=== PATIENT | male | born 1945 ===

== ENCOUNTER 2016-10-25 22:34 | Inpatient (IN) | payer MEDICARE ==
[2016-10-25 22:34] VITALS: BMI 21.3
--- NOTE | 2016-10-25 23:42 | ED PDOC ---
Lower Extremity Pain/Injury Time Seen by Provider: 10/25/16 22:57 Chief Complaint (Nursing): Lower Extremity Problem/Injury Chief Complaint (Provider): leg swelling chest pain History/Exam Limitations: other (pt is a poor historian) Additional Complaint(s): leg swelling that has been going on for "a long time" but reports that there has been recent increase in swelling and then oozing from both legs, LEFT worse than RIGHT. Associated intermittent chest pain and shortness of breath that have also been going of for "a long time". PMD Dr Hutchinson. Past Medical History Reviewed: Historical Data, Nursing Documentation, Vital Signs Vital Signs: Last Vital Signs Temp 98.2 F 10/25/16 22:38 Pulse 60 10/25/16 22:38 Resp 16 10/25/16 22:38 BP 94/52 L 10/25/16 22:38 Pulse Ox 98 10/25/16 22:38 - Medical History PMH: Anemia, Anxiety, Atrial Fibrillation, CAD, CHF, Dementia, Depression, HTN, Hypothyroidism Denies: Diabetes, Hepatitis, HIV, Chronic Kidney Disease, Seizures, Sexually Transmitted Disease - Surgical History Surgical History: Pacemaker - Family History Family History: States: Unknown Family Hx - Social History Current smoker - smoking cessation education provided: No - Home Medications Home Medications: Ambulatory Orders Medication Instructions Recorded Apixaban [Eliquis] 2.5 mg PO BID 10/26/16 Aspirin [Ecotrin] 81 mg PO DAILY 10/26/16 Carvedilol [Coreg] 3.125 mg PO BID 10/26/16 Enalapril Maleate [Vasotec] 2.5 mg PO DAILY 10/26/16 Ferrous Sulfate [Feosol] 325 mg PO TID 10/26/16 Furosemide [Lasix] 40 mg PO BID 10/26/16 Omeprazole 40 mg PO DAILY 10/26/16 - Allergies Allergies/Adverse Reactions: Allergies Allergy/AdvReac Type Severity Reaction Status Date / Time No Known Allergies Allergy Verified 03/18/16 08:37 Review of Systems ROS Statement: Except As Marked, All Systems Reviewed And Found Negative (and as per HPI) Constitutional: Positive for: Weakness, Malaise. Negative for: Fever Cardiovascular: Positive for: Chest Pain, Edema Respiratory: Positive for: Shortness of Breath, SOB with Exertion. Negative for : Cough Musculoskeletal: Positive for: Leg Pain Skin: Positive for: Lesions Physical Exam - Reviewed Nursing Documentation Reviewed: Yes Vital Signs Reviewed: Yes - Physical Exam Appears: Positive for: No Acute Distress (appears chronically ill) Head Exam: Positive for: ATRAUMATIC, NORMOCEPHALIC Skin: Positive for: Warm, Pallor Eye Exam: Positive for: EOMI, PERRL, Other (pale conjuntivae) ENT: Positive for: Pharynx Is (clear), Other (tacky muc memb) Neck: Positive for: Painless ROM, Supple Cardiovascular/Chest: Positive for: Regular Rate, Rhythm. Negative for: Murmur Respiratory: Positive for: Other (poor air movement). Negative for: Accessory Muscle Use, Respiratory Distress Gastrointestinal/Abdominal: Positive for: Other (Firm). Negative for: Tenderness, Distended, Guarding Extremity: Positive for: Other (bilateral 2+ pitting edema with induration. LEFT leg with ulceration and erythema as well.). Negative for: Deformity Lymphatic: Negative for: Adenopathy Neurologic/Psych: Positive for: Mood/Affect (depressed, flat). Negative for: Motor/Sensory Deficits - Laboratory Results Result Diagrams: 10/26/16 06:00 10/26/16 06:00 - ECG O2 Sat by Pulse Oximetry: 98 Disposition - Clinical Impression Clinical Impression: CHF (congestive heart failure) - Disposition Disposition: Transfer of Care Disposition Time: 00:00 Condition: FAIR Patient Signed Over To: Kmala Brenner Handoff Comments: Pending ER workup and final disposition
[2016-10-26 00:15] LABS: ALB/GLOB RATIO 1.1 (1.0-2.1); ALKALINE PHOSPHATASE 72 U/L (38-126); ALT/SGPT 35 U/L (21-72); AST/SGOT 61 U/L (17-59); BLOOD UREA NITROGEN 26 mg/dl (9-20); CALCIUM 8.8 mg/dL (8.4-10.2); CARBON DIOXIDE 26 mmol/L (22-30); CHLORIDE 98 mmol/L (98-107); GFR AFRICAN-AMERICAN > 60; GLUCOSE,RANDOM 109 mg/dL (75-110); MAGNESIUM 2.4 MG/DL (1.6-2.3); PHOSPHOROUS 3.5 mg/dl (2.5-4.5); POTASSIUM 4.6 MMOL/L (3.6-5.0); SODIUM 134 mmol/l (132-148); TOTAL PROTEIN 6.6 G/DL (6.3-8.2)
[2016-10-26 00:22] LABS: PARTIAL THROMBOPLASTIN TIME 29.9 Seconds (25.6-37.1)
--- NOTE | 2016-10-26 00:30 | ED PDOC ---
- Laboratory Results Result Diagrams: 10/27/16 05:00 10/27/16 05:00 - ECG O2 Sat by Pulse Oximetry: 98 (RA) Pulse Ox Interpretation: Normal Medical Decision Making Medical Decision Making: Time: 00:25 Patient transferred to [place]. Labs and work up are pending. 03:55 held lasix due to borderline blood pressure. 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 Provider Scribe Attestation: All medical record entries made by the Scribe were at my direction and personally dictated by me. I have reviewed the chart and agree that the record accurately reflects my personal performance of the history, physical exam, medical decision making, and the department course for this patient. I have also personally directed, reviewed, and agree with the discharge instructions and disposition. Disposition Counseled Patient/Family Regarding: Studies Performed, Diagnosis - Clinical Impression Clinical Impression: CHF (congestive heart failure) - POA Present On Arrival: None - Disposition Disposition: Admitted as In-Patient Disposition Time: 02:30 Condition: FAIR
[2016-10-26 00:46] LABS: BASO # 0.1 K/uL (0.0-0.2); BASO % 1.1 % (0.0-2.0); EOS # 0.1 K/uL (0.0-0.7); EOS % 1.8 % (0.0-4.0); HEMATOCRIT 23.5 % (35.0-51.0); LYMPH # 0.6 K/uL (1.0-4.3); LYMPH % 11.7 % (20.0-40.0); MEAN CORPUSCULAR HEMOGLOBIN 22.1 pg (27.0-31.0); MEAN CORPUSCULAR HGB CONC 30.8 g/dL (33.0-37.0); MEAN PLATELET VOLUME 8.7 fl (7.2-11.7); MONO # 0.7 K/uL (0.0-0.8); MONO % 13.7 % (0.0-10.0); NEUT # 3.7 K/uL (1.8-7.0); NEUT % 71.7 % (50.0-75.0); NRBC % 0.1 % (0.0-0.0); RED CELL DISTRIBUTION WIDTH 19.5 % (11.5-14.5); WHITE BLOOD COUNT 5.2 K/uL (4.8-10.8)
[2016-10-26] MEDS ORDERED: Sodium Chloride 0.9% 1,000 ML IV STA ×2 (00:57→05:25)
[2016-10-26 01:50] LABS: NEUTROPHIL 79 % (42-75); TOTAL CELLS COUNTED 100
[2016-10-26] MEDS ORDERED: Ampicillin/Sulbactam 3 GM in Sodium Chloride 0.9% 100 ML IVPB STA (01:58)
[2016-10-26] MEDS: Ampicillin/Sulbactam 3 GM in Sodium Chloride 0.9% 100 ML IVPB SCH ×3 (04:56→21:38)
[2016-10-26 07:25] LABS: BASO % 0.7 % (0.0-2.0); EOS # 0.1 K/uL (0.0-0.7); EOS % 1.2 % (0.0-4.0); HEMATOCRIT 23.3 % (35.0-51.0); LYMPH # 0.6 K/uL (1.0-4.3); LYMPH % 13.4 % (20.0-40.0); MEAN CELL VOLUME 72.6 fl (80.0-94.0); MEAN CORPUSCULAR HEMOGLOBIN 22.4 pg (27.0-31.0); MEAN CORPUSCULAR HGB CONC 30.9 g/dL (33.0-37.0); MEAN PLATELET VOLUME 8.7 fl (7.2-11.7); MONO # 0.6 K/uL (0.0-0.8); MONO % 13.3 % (0.0-10.0); NEUT # 3.1 K/uL (1.8-7.0); NEUT % 71.4 % (50.0-75.0); NRBC % 0.1 % (0.0-0.0); RED CELL DISTRIBUTION WIDTH 19.5 % (11.5-14.5); WHITE BLOOD COUNT 4.4 K/uL (4.8-10.8)
[2016-10-26 07:54] LABS: ALKALINE PHOSPHATASE 69 U/L (38-126); ALT/SGPT 34 U/L (21-72); AST/SGOT 46 U/L (17-59); BILIRUBIN,TOTAL 0.8 mg/dl (0.2-1.3); BLOOD UREA NITROGEN 23 mg/dl (9-20); CALCIUM 8.5 mg/dL (8.4-10.2); CARBON DIOXIDE 26 mmol/L (22-30); CHLORIDE 101 mmol/L (98-107); GFR AFRICAN-AMERICAN > 60; GLUCOSE,RANDOM 86 mg/dL (75-110); POTASSIUM 3.7 MMOL/L (3.6-5.0); SODIUM 135 mmol/l (132-148); TOTAL PROTEIN 6.1 G/DL (6.3-8.2)
--- NOTE | 2016-10-26 08:05 | CP.PCM.HP ---
History of Present Illness - History of Present Illness History of Present Illness: A 71 year old male with history of A-fib, CHF, Hypertension, chronic anemia, hypothyroidism, dementia, depression came for right lower leg pain and abdominal pain. He has been having follow up with a networks software consultant and he has leg ulcer. He denies fever or chills or nausea. He feels general weakness. Present on Admission - Present on Admission Any Indicators Present on Admission: No History of DVT/PE: No History of Uncontrolled Diabetes: No Urinary Catheter: No Decubitus Ulcer Present: No Review of Systems - Constitutional Constitutional: Anorexia, Weakness - Respiratory Respiratory: absent: Cough, Dyspnea - Gastrointestinal Gastrointestinal: Abdominal Pain Past Patient History - Infectious Disease Hx of Infectious Diseases: None - Tetanus Immunizations Tetanus Immunization: Unknown - Past Medical History & Family History Past Medical History?: Yes - Past Social History Smoking Status: Never Smoked - CARDIAC Hx Cardiac Disorders: Yes Hx Atrial Fibrillation: Yes Hx Congestive Heart Failure: Yes Hx Hypertension: Yes - PULMONARY Hx Respiratory Disorders: No - NEUROLOGICAL Hx Neurological Disorder: Yes Hx Dementia: Yes Hx Syncope: Yes - HEENT Hx HEENT Problems: Yes Other/Comment: glasses - RENAL Hx Chronic Kidney Disease: No - ENDOCRINE/METABOLIC Hx Endocrine Disorders: No - HEMATOLOGICAL/ONCOLOGICAL Hx Blood Disorders: Yes Hx Anemia: Yes - INTEGUMENTARY Hx Dermatological Problems: Yes Hx Cellulitis: Yes - MUSCULOSKELETAL/RHEUMATOLOGICAL Hx Musculoskeletal Disorders: Yes Hx Falls: Yes - GASTROINTESTINAL Hx Gastrointestinal Disorders: Yes Hx Gastroesophageal Reflux: Yes - GENITOURINARY/GYNECOLOGICAL Hx Genitourinary Disorders: No - PSYCHIATRIC Hx Psychophysiologic Disorder: Yes Hx Anxiety: Yes Hx Depression: Yes - SURGICAL HISTORY Hx Surgeries: Yes Hx Open Reduction Internal Fixation: Yes (left femur surgery) Other/Comment: Pacemaker Placement - ANESTHESIA Hx Anesthesia: Yes Hx Anesthesia Reactions: No Hx Malignant Hyperthermia: No Meds Allergies/Adverse Reactions: Allergies Allergy/AdvReac Type Severity Reaction Status Date / Time No Known Allergies Allergy Verified 03/18/16 08:37 Physical Exam - Constitutional Appears: No Acute Distress, Chronically Ill - Neck Exam Neck exam: Positive for: Full Rom - Respiratory Exam Respiratory Exam: Clear to Auscultation Bilateral, NORMAL BREATHING PATTERN - Cardiovascular Exam Cardiovascular Exam: REGULAR RHYTHM. absent: Systolic Murmur - GI/Abdominal Exam GI & Abdominal Exam: Guarding (guarding on right side), Normal Bowel Sounds - Extremities Exam Extremities exam: Positive for: pedal edema (superficial ulcers on the back of left lower leg) Results - Vital Signs Recent Vital Signs: Last Vital Signs Temp 97.5 F L 10/26/16 08:00 Pulse 60 10/26/16 08:00 Resp 20 10/26/16 08:00 BP 94/55 L 10/26/16 08:00 Pulse Ox 99 10/26/16 08:00 - Labs Result Diagrams: 10/26/16 06:00 10/26/16 00:00 Labs: Laboratory Results - last 24 hr 10/26/16 06:00 WBC 4.4 L RBC 3.21 L Hgb 7.2 L Hct 23.3 L MCV 72.6 L MCH 22.4 L MCHC 30.9 L RDW 19.5 H Plt Count 260 MPV 8.7 Neut % (Auto) 71.4 Lymph % (Auto) 13.4 L [place] % (Auto) 13.3 H Eos % (Auto) 1.2 Baso % (Auto) 0.7 Neut # 3.1 Lymph # 0.6 L [place] # 0.6 Eos # 0.1 Baso # 0.0 Assessment & Plan - Assessment and Plan (Free Text) Assessment: cellulitis of left lower leg anemia abdominal pain Plan: continue iv antibiotics for cellulitis blood transfusion one unit for anemia anemia work up cardiology consult repeat troponin abdomen ultrasound DVT prophylaxis GI prophylaxis - Date & Time Date: 10/26/16 Time: 08:13
--- NOTE | 2016-10-26 08:34 | CP.PCM.CON ---
<Shanta Rosario - Last Filed: 10/26/16 10:09> History of Present Illness - History of Present Illness History of Present Illness: GI Fellow PGY4 Consult Note This is a 71yM with PMHx significant for CHF (EF 20-25%) s/p recent AICD placement, Afib on Eliquis bid (currently held), CAD (50% mid-LAD lesion on cath from July 2016) on aspirin, LLE DVT, HTN, Anxiety, h/o GI bleed who presented to the ED for LLE pain. The patient is unable to provide any history given dementia, but no reported melena on admission. Pt was found to have acute anemia in ER with Hgb 7.2 from 10.7 baseline in April. Pt has had 3 prior admissions for rectal bleeding on OAC requiring 3-4U PRBC transfusions and endoscopic evaluation. During last admission in April, pt was planned to have colonoscopy for rectal bleeding and anemia however this procedure was canceled due to pt having a new DVT on OAC so underwent IVC placement, transfused 4U PRBC and discharged on xarelto bid. Currently, when seen and examined pt appears uncomfortable with abdominal pain and distention on palpation, rectal exam negative for melena or hematochezia. PMHx: See HPI PSHx: Cardiac catheterization, AICD placement, Right leg/hip surgery, IVC filter FHx: Unable to obtain / [place] Social: Former smoker, denies current EtOH, tobacco or illicit drug use Endo: 02/29/16 - EGD: Gastritis Colonoscopy - AVMs on right colon, 2 AC polyps-benign, hyperplastic 03/22/16 - Push enteroscopy - Gastritis Colonoscopy - AVMs in right colon s/p APC, one AC polyp-tubular adenoma 04/25/16- Colonoscopy canceled due to acute DVT requiring IVC filter, rectal bleeding resolved, supportive care with PRBCs Past Patient History - Infectious Disease Hx of Infectious Diseases: None - Tetanus Immunizations Tetanus Immunization: Unknown - Past Medical History & Family History Past Medical History?: Yes - Past Social History Smoking Status: Never Smoked - CARDIAC Hx Cardiac Disorders: Yes Hx Atrial Fibrillation: Yes Hx Congestive Heart Failure: Yes Hx Hypertension: Yes - PULMONARY Hx Respiratory Disorders: No - NEUROLOGICAL Hx Neurological Disorder: Yes Hx Dementia: Yes Hx Syncope: Yes - HEENT Hx HEENT Problems: Yes Other/Comment: glasses - RENAL Hx Chronic Kidney Disease: No - ENDOCRINE/METABOLIC Hx Endocrine Disorders: No - HEMATOLOGICAL/ONCOLOGICAL Hx Blood Disorders: Yes Hx Anemia: Yes - INTEGUMENTARY Hx Dermatological Problems: Yes Hx Cellulitis: Yes - MUSCULOSKELETAL/RHEUMATOLOGICAL Hx Musculoskeletal Disorders: Yes Hx Falls: Yes - GASTROINTESTINAL Hx Gastrointestinal Disorders: Yes Hx Gastroesophageal Reflux: Yes - GENITOURINARY/GYNECOLOGICAL Hx Genitourinary Disorders: No - PSYCHIATRIC Hx Psychophysiologic Disorder: Yes Hx Anxiety: Yes Hx Depression: Yes - SURGICAL HISTORY Hx Surgeries: Yes Hx Open Reduction Internal Fixation: Yes (left femur surgery) Other/Comment: Pacemaker Placement - ANESTHESIA Hx Anesthesia: Yes Hx Anesthesia Reactions: No Hx Malignant Hyperthermia: No Meds Allergies/Adverse Reactions: Allergies Allergy/AdvReac Type Severity Reaction Status Date / Time No Known Allergies Allergy Verified 03/18/16 08:37 - Medications Medications: Current Medications Acetaminophen (Tylenol 325mg Tab) 650 mg PO Q6 PRN PRN Reason: Pain, Mild (1-3) Last Admin: 10/26/16 05:55 Dose: 650 mg Carvedilol (Coreg) 3.125 mg PO BID [facility] Enalapril Maleate (Vasotec) 2.5 mg PO DAILY [facility] Furosemide (Lasix) 40 mg PO BID [facility] Ampicillin Sodium/Sulbactam (Sodium 3 gm/ Sodium Chloride) 100 mls @ 100 mls/ hr IVPB Q8H [facility] Last Admin: 10/26/16 04:56 Dose: Not Given Sodium Chloride (Sodium Chloride 0.9%) 1,000 mls @ 80 mls/hr IV .[id number] STA Stop: 10/26/16 13:26 Last Admin: 10/26/16 05:57 Dose: Not Given Pantoprazole Sodium (Protonix Inj) 40 mg IVP DAILY [facility] Physical Exam - Constitutional Appears: Confused, Cachectic - Head Exam Head Exam: ATRAUMATIC, NORMAL INSPECTION, NORMOCEPHALIC - Eye Exam Eye Exam: EOMI, Normal appearance, PERRL Pupil Exam: PERRL - ENT Exam ENT Exam: Mucous Membranes Moist, Normal Exam - Neck Exam Neck exam: Positive for: Normal Inspection - Respiratory Exam Respiratory Exam: Decreased Breath Sounds, NORMAL BREATHING PATTERN - Cardiovascular Exam Cardiovascular Exam: Irregular Rhythm, +S1, +S2 - GI/Abdominal Exam GI & Abdominal Exam: Distended, Firm, Normal Bowel Sounds, Tenderness. absent: Guarding, Organomegaly - Rectal Exam Rectal Exam: NORMAL INSPECTION Additional comments: brown stool, no melena or hematochezia - Extremities Exam Extremities exam: Positive for: pedal edema, tenderness Additional comments: LLE larger than RLE, LLE with erythema and wound drainage - Back Exam Back exam: NORMAL INSPECTION - Neurological Exam Additional comments: Alert awake but moaning in discomfort, not really answering questions but able to follow directions - Psychiatric Exam Psychiatric exam: Anxious, Flat Affect - Skin Skin Exam: Dry, Erythema, Intact, Pallor, Warm Results - Vital Signs Recent Vital Signs: Last Vital Signs Temp 97.5 F L 10/26/16 08:00 Pulse 60 10/26/16 08:00 Resp 20 10/26/16 08:00 BP 94/55 L 10/26/16 08:00 Pulse Ox 99 10/26/16 08:00 - Labs Result Diagrams: 10/26/16 06:00 10/26/16 06:00 Labs: Laboratory Results - last 24 hr 10/26/16 10/26/16 06:00 06:00 WBC 4.4 L RBC 3.21 L Hgb 7.2 L Hct 23.3 L MCV 72.6 L MCH 22.4 L MCHC 30.9 L RDW 19.5 H Plt Count 260 MPV 8.7 Neut % (Auto) 71.4 Lymph % (Auto) 13.4 L [place] % (Auto) 13.3 H Eos % (Auto) 1.2 Baso % (Auto) 0.7 Neut # 3.1 Lymph # 0.6 L [place] # 0.6 Eos # 0.1 Baso # 0.0 Sodium 135 Potassium 3.7 Chloride 101 Carbon Dioxide 26 Anion Gap 12 BUN 23 H Creatinine 1.2 Est GFR ( Amer) > 60 Est GFR (Non-Af Amer) 60 Random Glucose 86 Calcium 8.5 Total Bilirubin 0.8 AST 46 ALT 34 Alkaline Phosphatase 69 Troponin I 0.1220 H* Total Protein 6.1 L Albumin 3.1 L Globulin 3.0 Albumin/Globulin Ratio 1.0 Assessment & Plan - Assessment and Plan (Free Text) Assessment: This is a 71yM with significant cardiac history and h/o GI bleed on OAC pw LLE pain. Pt was found to be Anemic with Hgb 7.2 with no active bleeding. 1. Acute Microcytic Anemia r/o GI bleed 2. H/O GI Bleed on OAC 3. H/O right colon AVMs 4. Atrial fibrillation on Eliquis 5. H/O LLE DVT s/p IVC and OAC 6. CHF with EF 20-25% s/p AICD 7. CAD with 50% LAD lesion on Aspirin 8. Dementia with Mood D/O 9. Abdominal pain and distention Plan: -Order STAT 2 units PRBCs, pt has not received any blood transfusion since admission, Hgb 7.2 with SBP 90s in a pt with significant cardiac hx -Continue home dose of lasix in between blood transfusions -2 large bore IVs, continue IVFs per primary team -No plan for endoscopic evaluation unless develops melena/hematochezia, or does not respond to PRBCs -Continue supportive care, Monitor H/H and transfuse as needed -Clear liquid diet -Hold anticoagulation -Recommend Cardiology consultation -Monitor on telemetry -Strongly recommend abdominal imaging, CT A/P or ultrasound with abdominal pain/ distention -Will continue to follow pt closely <Ross Flores MD - Last Filed: 10/26/16 14:25> Meds - Medications Medications: Current Medications Acetaminophen (Tylenol 325mg Tab) 650 mg PO Q6 PRN PRN Reason: Pain, Mild (1-3) Last Admin: 10/26/16 05:55 Dose: 650 mg Aspirin (Aspirin Chewable) 81 mg PO DAILY [facility] Carvedilol (Coreg) 3.125 mg PO BID [facility] Last Admin: 10/26/16 10:10 Dose: Not Given Enalapril Maleate (Vasotec) 2.5 mg PO DAILY [facility] Last Admin: 10/26/16 10:11 Dose: Not Given Furosemide (Lasix) 40 mg PO BID [facility] Last Admin: 10/26/16 12:40 Dose: 40 mg Ampicillin Sodium/Sulbactam (Sodium 3 gm/ Sodium Chloride) 100 mls @ 100 mls/ hr IVPB Q8H [facility] Last Admin: 10/26/16 12:09 Dose: Not Given Pantoprazole Sodium (Protonix Inj) 40 mg IVP DAILY [facility] Results - Vital Signs Recent Vital Signs: Last Vital Signs Temp 97.4 F L 10/26/16 12:00 Pulse 60 10/26/16 12:00 Resp 18 10/26/16 12:00 BP 100/60 10/26/16 12:40 Pulse Ox 96 10/26/16 12:00 - Labs Result Diagrams: 10/26/16 06:00 10/26/16 06:00 Labs: Laboratory Results - last 24 hr 10/26/16 10/26/16 10/26/16 06:00 06:00 06:00 WBC 4.4 L RBC 3.21 L Hgb 7.2 L Hct 23.3 L MCV 72.6 L MCH 22.4 L MCHC 30.9 L RDW 19.5 H Plt Count 260 MPV 8.7 Neut % (Auto) 71.4 Lymph % (Auto) 13.4 L [place] % (Auto) 13.3 H Eos % (Auto) 1.2 Baso % (Auto) 0.7 Neut # 3.1 Lymph # 0.6 L [place] # 0.6 Eos # 0.1 Baso # 0.0 Retic Count Sodium 135 Potassium 3.7 Chloride 101 Carbon Dioxide 26 Anion Gap 12 BUN 23 H Creatinine 1.2 Est GFR ( Amer) > 60 Est GFR (Non-Af Amer) 60 Random Glucose 86 Calcium 8.5 Total Bilirubin 0.8 AST 46 ALT 34 Alkaline Phosphatase 69 Troponin I 0.1220 H* Total Protein 6.1 L Albumin 3.1 L Globulin 3.0 Albumin/Globulin Ratio 1.0 TSH 3rd Generation 1.86 10/26/16 06:00 WBC RBC Hgb Hct MCV MCH MCHC RDW Plt Count MPV Neut % (Auto) Lymph % (Auto) [place] % (Auto) Eos % (Auto) Baso % (Auto) Neut # Lymph # [place] # Eos # Baso # Retic Count 1.3 Sodium Potassium Chloride Carbon Dioxide Anion Gap BUN Creatinine Est GFR ( Amer) Est GFR (Non-Af Amer) Random Glucose Calcium Total Bilirubin AST ALT Alkaline Phosphatase Troponin I Total Protein Albumin Globulin Albumin/Globulin Ratio TSH 3rd Generation Attending/Attestation - Attestation I have personally seen and examined this patient.: Yes I have fully participated in the care of the patient.: Yes I have reviewed all pertinent clinical information: Yes Notes (Text): 10/26/16 14:19 Patient seen and examined with GI fellow on rounds. This is a 71 yr old M with significant cardiac history with EF 20% and LV and h/o GI bleed on OAC presenting with LLE pain. Pt was found to be Anemic with Hgb 7.2 with no active bleeding. No s/s of overt GI bleeding. Last colonoscopy in with colonic AVM s/p APC. No indication to hold anti coagulation unless active GI bleeding as risk of holding outweighs the benefit in absence of bleeding. Close H/Hct monitoring. Will schedule for luminal procedure if overt bleeding or does not respond to blood transfusions. Start clear liquid diet. Recommend cardiology consult. Follow abdominal imaging with CT abdomen. Will follow patient closely.
--- NOTE | 2016-10-26 10:46 | RAD ---
HISTORY: Chest pain COMPARISON: 03/18/2016. FINDINGS: LUNGS: There is mild pulmonary venous congestion. PLEURA: There are small pleural effusions, right larger than left. No pneumothorax apparent. CARDIOVASCULAR: There is persistent moderate cardiomegaly. Atherosclerotic aortic arch calcifications are present. OSSEOUS STRUCTURES: No significant abnormalities. VISUALIZED UPPER ABDOMEN: Normal. OTHER FINDINGS: None. IMPRESSION: Mild pulmonary venous congestion and small pleural effusions, right larger than left. Persistent moderate cardiomegaly.
--- NOTE | 2016-10-26 11:06 | CP.PCM.CON ---
History of Present Illness - History of Present Illness History of Present Illness: PT IS A POOR HISTORIAN, THUS MAJORITY OF HISTORY IS PER CHART. PT STATES HE HAS SOB, AND ORTHOPNEA WITH OFEILA. DENIES CP, PALP, LH, DIZZINESS, SYNCOPE. PTS BNP SEVERELY INCREASED WITH MILD TROP INCREASE. PER CHART PT HAD CATH AND ECHO IN PAST. PT HAS AN EF OF 20% WITH GLOBAL NONISCHEMIC HYPOKINESIS. HE HAS A 50% MID LAD LESION, NO SIGNIFICANT OBSTRUCTIVE CAD NOTED ON CATH. Review of Systems - Review of Systems Systems not reviewed;Unavailable: Acuity of Condition Past Patient History - Infectious Disease Hx of Infectious Diseases: None - Tetanus Immunizations Tetanus Immunization: Unknown - Past Medical History & Family History Past Medical History?: Yes - Past Social History Smoking Status: Never Smoked Chewing Tobacco Use: No Cigar Use: No Alcohol: None Drugs: Denies Domestic Violence: Negative - CARDIAC Hx Cardiac Disorders: Yes Hx Atrial Fibrillation: Yes Hx Congestive Heart Failure: Yes Hx Hypertension: Yes - PULMONARY Hx Respiratory Disorders: No - NEUROLOGICAL Hx Neurological Disorder: Yes Hx Dementia: Yes Hx Syncope: Yes - HEENT Hx HEENT Problems: Yes Other/Comment: glasses - RENAL Hx Chronic Kidney Disease: No - ENDOCRINE/METABOLIC Hx Endocrine Disorders: No - HEMATOLOGICAL/ONCOLOGICAL Hx Blood Disorders: Yes Hx Anemia: Yes - INTEGUMENTARY Hx Dermatological Problems: Yes Hx Cellulitis: Yes - MUSCULOSKELETAL/RHEUMATOLOGICAL Hx Musculoskeletal Disorders: Yes Hx Falls: Yes - GASTROINTESTINAL Hx Gastrointestinal Disorders: Yes Hx Gastroesophageal Reflux: Yes - GENITOURINARY/GYNECOLOGICAL Hx Genitourinary Disorders: No - PSYCHIATRIC Hx Psychophysiologic Disorder: Yes Hx Anxiety: Yes Hx Depression: Yes - SURGICAL HISTORY Hx Surgeries: Yes Hx Open Reduction Internal Fixation: Yes (left femur surgery) Other/Comment: Pacemaker Placement - ANESTHESIA Hx Anesthesia: Yes Hx Anesthesia Reactions: No Hx Malignant Hyperthermia: No Meds Allergies/Adverse Reactions: Allergies Allergy/AdvReac Type Severity Reaction Status Date / Time No Known Allergies Allergy Verified 03/18/16 08:37 - Medications Medications: Current Medications Acetaminophen (Tylenol 325mg Tab) 650 mg PO Q6 PRN PRN Reason: Pain, Mild (1-3) Last Admin: 10/26/16 05:55 Dose: 650 mg Aspirin (Aspirin Chewable) 81 mg PO DAILY [facility] Carvedilol (Coreg) 3.125 mg PO BID [facility] Last Admin: 10/26/16 10:10 Dose: Not Given Enalapril Maleate (Vasotec) 2.5 mg PO DAILY [facility] Last Admin: 10/26/16 10:11 Dose: Not Given Furosemide (Lasix) 40 mg PO BID [facility] Ampicillin Sodium/Sulbactam (Sodium 3 gm/ Sodium Chloride) 100 mls @ 100 mls/ hr IVPB Q8H [facility] Last Admin: 10/26/16 04:56 Dose: Not Given Sodium Chloride (Sodium Chloride 0.9%) 1,000 mls @ 80 mls/hr IV .[id number] STA Stop: 10/26/16 13:26 Last Admin: 10/26/16 05:57 Dose: Not Given Pantoprazole Sodium (Protonix Inj) 40 mg IVP DAILY [facility] Physical Exam - Constitutional Appears: Unkempt, Chronically Ill - Head Exam Head Exam: ATRAUMATIC, NORMAL INSPECTION, NORMOCEPHALIC - Eye Exam Eye Exam: EOMI, Normal appearance, PERRL. absent: Conjunctival injection, Nystagmus, Periorbital swelling, Periorbital tenderness, Scleral icterus Pupil Exam: NORMAL ACCOMODATION, PERRL. absent: Fixed, Irregular, Miosis, Mydriatic, Unequal - ENT Exam ENT Exam: Mucous Membranes Moist, Normal Exam. absent: Mucous Membranes Dry, Normal External Ear Exam, Normal Oropharynx, TM's Normal Bilaterally - Neck Exam Neck exam: Negative for: Full Rom, Lymphadenopathy, Meningismus, Normal Inspection, Tenderness, Thyromegaly Additional comments: JVD NOTED - Respiratory Exam Respiratory Exam: Decreased Breath Sounds, Rales Additional comments: AT BASES - Cardiovascular Exam Cardiovascular Exam: Diastolic murmur, Irregular Rhythm, +S1, +S2, Systolic Murmur - GI/Abdominal Exam GI & Abdominal Exam: Normal Bowel Sounds, Soft. absent: Bruit, Diminished Bowel Sounds, Distended, Firm, Guarding, Hernia, Hyperactive Bowel Sounds, Hypoactive Bowel Sounds, Mass, Organomegaly, Pulsatile Mass, Rebound, Rigid, Tenderness - Rectal Exam Rectal Exam: Deferred - Extremities Exam Extremities exam: Positive for: pedal edema, pedal pulses present. Negative for : calf tenderness, full ROM, joint swelling, normal capillary refill, normal inspection, tenderness - Back Exam Back exam: NORMAL INSPECTION. absent: CVA tenderness (L), CVA tenderness (R), FULL ROM, muscle spasm, paraspinal tenderness, rash noted, tenderness, vertebral tenderness - Neurological Exam Neurological exam: Alert, CN II-XII Intact, Normal Gait, Oriented x3, Reflexes Normal - Psychiatric Exam Psychiatric exam: Flat Affect - Skin Skin Exam: Dry, Intact, Normal Color, Warm Results - Vital Signs Recent Vital Signs: Last Vital Signs Temp 97.5 F L 10/26/16 08:00 Pulse 60 10/26/16 10:10 Resp 20 10/26/16 08:00 BP 94/55 L 10/26/16 10:10 Pulse Ox 99 10/26/16 08:00 - Labs Result Diagrams: 10/26/16 20:00 10/26/16 06:00 Labs: Laboratory Results - last 24 hr 10/26/16 10/26/16 10/26/16 06:00 06:00 06:00 WBC 4.4 L RBC 3.21 L Hgb 7.2 L Hct 23.3 L MCV 72.6 L MCH 22.4 L MCHC 30.9 L RDW 19.5 H Plt Count 260 MPV 8.7 Neut % (Auto) 71.4 Lymph % (Auto) 13.4 L [place] % (Auto) 13.3 H Eos % (Auto) 1.2 Baso % (Auto) 0.7 Neut # 3.1 Lymph # 0.6 L [place] # 0.6 Eos # 0.1 Baso # 0.0 Retic Count 1.3 Sodium 135 Potassium 3.7 Chloride 101 Carbon Dioxide 26 Anion Gap 12 BUN 23 H Creatinine 1.2 Est GFR ( Amer) > 60 Est GFR (Non-Af Amer) 60 Random Glucose 86 Calcium 8.5 Total Bilirubin 0.8 AST 46 ALT 34 Alkaline Phosphatase 69 Troponin I 0.1220 H* Total Protein 6.1 L Albumin 3.1 L Globulin 3.0 Albumin/Globulin Ratio 1.0 Assessment & Plan (1) Acute on chronic combined systolic and diastolic CHF (congestive heart failure) Status: Acute (2) CHF (congestive heart failure) Status: Chronic (3) Anemia Status: Acute (4) Elevated troponin level Status: Acute (5) Hx of essential hypertension Status: Acute (6) Atrial fibrillation Status: Chronic (7) HTN (hypertension) Status: Chronic - Assessment and Plan (Free Text) Plan: PT SHOULD BE ON ANTICOAG FOR HIS AFIB. PRIOR TO INITIATING WE SHOULD EVAL ETIOLOGY OF ANEMIA. I WILL START LOVENOX FOR DVT PROPHYLAXIS. TROP LIKELY FROM CHF EXAC. WILL CHANGE TO IV LASIX. PT'S BP IS ACCEPTABLE GIVEN HIS EF. GOAL FOR BP IS MAP OF 65. WOULD NOT HOLD MEDICATIONS BASED ON SBP READING, RATHER ONLY HOLD FOR MAP LESS THAN 60. CONTINUE ACEI AND COREG. SHOULD START ASA GIVEN CAD, ONCE GIB RULED OUT. 90 MIN TOTAL CARE TIME.
--- NOTE | 2016-10-26 11:44 | CARD ---
APPROVED REPORT EKG Measurement Heart [id number] <Conclusion> Ventricular-paced rhythm Abnormal ECG
[2016-10-26] MEDS: Pantoprazole 40 mg EC Tab PO SCH (18:18)
[2016-10-26 20:58] LABS: HEMATOCRIT 31.7 % (35.0-51.0); MEAN CELL VOLUME 75.2 fl (80.0-94.0); MEAN CORPUSCULAR HEMOGLOBIN 23.4 pg (27.0-31.0); MEAN CORPUSCULAR HGB CONC 31.1 g/dL (33.0-37.0); WHITE BLOOD COUNT 5.5 K/uL (4.8-10.8)
[2016-10-26 21:10] LABS: IRON 328 ug/dL (49-181)
[2016-10-27] MEDS: Ampicillin/Sulbactam 3 GM in Sodium Chloride 0.9% 100 ML IVPB SCH ×3 (05:54→19:57)
[2016-10-27 06:39] LABS: BASO % 0.9 % (0.0-2.0); EOS # 0.1 K/uL (0.0-0.7); EOS % 1.2 % (0.0-4.0); HEMATOCRIT 30.6 % (35.0-51.0); LYMPH # 0.5 K/uL (1.0-4.3); MEAN CELL VOLUME 74.3 fl (80.0-94.0); MEAN CORPUSCULAR HEMOGLOBIN 24.3 pg (27.0-31.0); MEAN CORPUSCULAR HGB CONC 32.7 g/dL (33.0-37.0); MEAN PLATELET VOLUME 8.4 fl (7.2-11.7); MONO # 0.7 K/uL (0.0-0.8); MONO % 12.6 % (0.0-10.0); NEUT # 4.1 K/uL (1.8-7.0); NEUT % 76.3 % (50.0-75.0); NRBC % 0.3 % (0.0-0.0); RED CELL DISTRIBUTION WIDTH 19.6 % (11.5-14.5); WHITE BLOOD COUNT 5.3 K/uL (4.8-10.8)
[2016-10-27 06:52] LABS: BLOOD UREA NITROGEN 17 mg/dl (9-20); CALCIUM 8.5 mg/dL (8.4-10.2); CARBON DIOXIDE 27 mmol/L (22-30); CHLORIDE 101 mmol/L (98-107); GFR AFRICAN-AMERICAN > 60; GLUCOSE,RANDOM 86 mg/dL (75-110); MAGNESIUM 2.2 MG/DL (1.6-2.3); POTASSIUM 3.6 MMOL/L (3.6-5.0); SODIUM 136 mmol/l (132-148)
[2016-10-27 07:34] LABS: CHOLESTEROL 129 mg/dL (0-199)
[2016-10-27] MEDS ORDERED: Iohexol 240 (50 ml) PO ONE (07:54)
--- NOTE | 2016-10-27 08:00 | CP.PCM.PN ---
<Shanta Rosario - Last Filed: 10/27/16 07:57> Subjective - Date & Time of Evaluation Date of Evaluation: 10/27/16 Time of Evaluation: 07:30 - Subjective Subjective: GI Fellow PGY4 Progress Note Pt seen and evaluated at bedside, pt reports feeling a little better but still with abdominal pain. Per nursing overnight, no active bleeding, tolerated blood transfusion, no BM, tolerating clear liquid diet. ROS: A 12pt ROS was obtained and was negative except as above. Objective - Vital Signs/Intake and Output Vital Signs (last 24 hours): Temp Pulse Resp BP Pulse Ox 97.9 F 63 18 100/59 L 97 10/27/16 05:18 10/27/16 05:18 10/27/16 05:18 10/27/16 05:18 10/27/16 05:18 - Medications Medications: Current Medications Acetaminophen (Tylenol 325mg Tab) 650 mg PO Q6 PRN PRN Reason: Pain, Mild (1-3) Last Admin: 10/26/16 05:55 Dose: 650 mg Aspirin (Aspirin Chewable) 81 mg PO DAILY [facility] Last Admin: 10/26/16 18:17 Dose: 81 mg Carvedilol (Coreg) 3.125 mg PO BID [facility] Last Admin: 10/26/16 18:18 Dose: 3.125 mg Enalapril Maleate (Vasotec) 2.5 mg PO DAILY [facility] Last Admin: 10/26/16 10:11 Dose: Not Given Enoxaparin Sodium (Lovenox) 40 mg SC DAILY [facility] PRN Reason: Protocol Furosemide (Lasix) 40 mg IV Q12 [facility] Last Admin: 10/26/16 21:35 Dose: 40 mg Ampicillin Sodium/Sulbactam (Sodium 3 gm/ Sodium Chloride) 100 mls @ 100 mls/ hr IVPB Q8H [facility] Last Admin: 10/27/16 05:54 Dose: 100 mls/hr Pantoprazole Sodium (Protonix Ec Tab) 40 mg PO DAILY [facility] Last Admin: 10/26/16 18:18 Dose: 40 mg Polyethylene Glycol (Miralax) 17 gm PO DAILY [facility] - Labs Labs: 10/27/16 05:00 10/27/16 05:00 PT 17.8 Seconds (9.8-13.1) H 10/26/16 00:00 INR 1.7 (0.9-1.2) H 10/26/16 00:00 APTT 29.9 Seconds (25.6-37.1) 10/26/16 00:00 - Constitutional Appears: Non-toxic, Cachectic - Head Exam Head Exam: ATRAUMATIC, NORMAL INSPECTION, NORMOCEPHALIC - Eye Exam Eye Exam: EOMI, Normal appearance, PERRL Pupil Exam: PERRL - ENT Exam ENT Exam: Mucous Membranes Moist, Normal Exam - Neck Exam Neck Exam: Full ROM, Normal Inspection - Respiratory Exam Respiratory Exam: Decreased Breath Sounds, NORMAL BREATHING PATTERN - Cardiovascular Exam Cardiovascular Exam: Irregular Rhythm, +S1, +S2 - GI/Abdominal Exam GI & Abdominal Exam: Distended, Firm, Tenderness, Normal Bowel Sounds. absent: Guarding, Rigid, Organomegaly - Rectal Exam Rectal Exam: Deferred - Extremities Exam Extremities Exam: Pedal Edema - Back Exam Back Exam: NORMAL INSPECTION - Neurological Exam Neurological Exam: Alert, Awake - Psychiatric Exam Psychiatric exam: Flat Affect - Skin Skin Exam: Dry, Intact, Pallor, Warm Assessment and Plan - Assessment and Plan (Free Text) Assessment: This is a 71yM with significant cardiac history and h/o GI bleed on OAC pw LLE pain. Pt was found to be Anemic with Hgb 7.2 with no active bleeding. 1. Microcytic Anemia 2. H/O GI Bleed on OAC 3. H/O right colon AVMs 4. Atrial fibrillation on Eliquis 5. H/O LLE DVT s/p IVC and OAC 6. CHF with EF 20-25% s/p AICD 7. CAD with 50% LAD lesion on Aspirin 8. Dementia with Mood D/O 9. Abdominal pain and distention Plan: -s/p 2 units PRBCs, Hgb 10 from 7.2 with no active GI bleeding -No plan for endoscopic evaluation unless develops melena/hematochezia, or does not respond to PRBCs -Continue supportive care, Monitor H/H and transfuse as needed -Clear liquid diet, advance as tolerated -Cardiology recommendations appreciated, aspirin and OAC therapy per cardio team -Monitor on telemetry -Will order abdominal imaging, CT A/P with contrast -Bowel regimen with miralax daily for constipation -Continue PPI -Will continue to follow pt closely <Ross Flores MD - Last Filed: 10/27/16 09:49> Objective - Vital Signs/Intake and Output Vital Signs (last 24 hours): Temp Pulse Resp BP Pulse Ox 97.6 F 61 18 110/69 96 10/27/16 09:00 10/27/16 09:28 10/27/16 09:00 10/27/16 09:30 10/27/16 09:00 - Medications Medications: Current Medications Acetaminophen (Tylenol 325mg Tab) 650 mg PO Q6 PRN PRN Reason: Pain, Mild (1-3) Last Admin: 10/26/16 05:55 Dose: 650 mg Aspirin (Aspirin Chewable) 81 mg PO DAILY [facility] Last Admin: 10/27/16 09:29 Dose: 81 mg Carvedilol (Coreg) 3.125 mg PO BID [facility] Last Admin: 10/27/16 09:28 Dose: 3.125 mg Enalapril Maleate (Vasotec) 2.5 mg PO DAILY [facility] Last Admin: 10/27/16 09:32 Dose: 2.5 mg Enoxaparin Sodium (Lovenox) 40 mg SC DAILY [facility] PRN Reason: Protocol Last Admin: 10/27/16 09:30 Dose: 40 mg Furosemide (Lasix) 40 mg IV Q12 [facility] Last Admin: 10/27/16 09:30 Dose: 40 mg Ampicillin Sodium/Sulbactam (Sodium 3 gm/ Sodium Chloride) 100 mls @ 100 mls/ hr IVPB Q8H [facility] Last Admin: 10/27/16 05:54 Dose: 100 mls/hr Pantoprazole Sodium (Protonix Ec Tab) 40 mg PO DAILY [facility] Last Admin: 10/27/16 09:32 Dose: 40 mg Polyethylene Glycol (Miralax) 17 gm PO DAILY [facility] Last Admin: 10/27/16 09:31 Dose: 17 gm - Labs Labs: 10/27/16 05:00 10/27/16 05:00 PT 17.8 Seconds (9.8-13.1) H 10/26/16 00:00 INR 1.7 (0.9-1.2) H 10/26/16 00:00 APTT 29.9 Seconds (25.6-37.1) 10/26/16 00:00 Attending/Attestation - Attestation I have personally seen and examined this patient.: Yes I have fully participated in the care of the patient.: Yes I have reviewed all pertinent clinical information, including history, physical exam and plan: Yes Notes (Text): 10/27/16 09:48 Patient seen and examined with GI fellow on rounds. This is a 71 yr old M with significant cardiac history with EF 20% and LV and h/o GI bleed on oral anti coagulant, presenting with LLE pain. Pt was found to be Anemic with Hgb 7.2 with no active bleeding. No s/s of overt GI bleeding. Last colonoscopy in 2016 with colonic AVM s/p APC. No indication to hold anti coagulation unless active GI bleeding as risk of holding outweighs the benefit in absence of bleeding. Close H/Hct monitoring. Will schedule for luminal procedure if overt bleeding or does not respond to blood transfusions. H/Hct with appropriate response to 2 units PRBC. Start clear liquid diet. Cardiology consult noted. Follow abdominal imaging with CT abdomen. Will follow patient closely.
--- NOTE | 2016-10-27 08:01 | CP.PCM.PN ---
Subjective - Date & Time of Evaluation Date of Evaluation: 10/27/16 Time of Evaluation: 07:59 - Subjective Subjective: less abdominal pain no chest pain no shortness of breath Objective - Vital Signs/Intake and Output Vital Signs (last 24 hours): Temp Pulse Resp BP Pulse Ox 97.9 F 63 18 100/59 L 97 10/27/16 05:18 10/27/16 05:18 10/27/16 05:18 10/27/16 05:18 10/27/16 05:18 - Medications Medications: Current Medications Acetaminophen (Tylenol 325mg Tab) 650 mg PO Q6 PRN PRN Reason: Pain, Mild (1-3) Last Admin: 10/26/16 05:55 Dose: 650 mg Aspirin (Aspirin Chewable) 81 mg PO DAILY [facility] Last Admin: 10/26/16 18:17 Dose: 81 mg Carvedilol (Coreg) 3.125 mg PO BID [facility] Last Admin: 10/26/16 18:18 Dose: 3.125 mg Enalapril Maleate (Vasotec) 2.5 mg PO DAILY [facility] Last Admin: 10/26/16 10:11 Dose: Not Given Enoxaparin Sodium (Lovenox) 40 mg SC DAILY [facility] PRN Reason: Protocol Furosemide (Lasix) 40 mg IV Q12 [facility] Last Admin: 10/26/16 21:35 Dose: 40 mg Ampicillin Sodium/Sulbactam (Sodium 3 gm/ Sodium Chloride) 100 mls @ 100 mls/ hr IVPB Q8H [facility] Last Admin: 10/27/16 05:54 Dose: 100 mls/hr Pantoprazole Sodium (Protonix Ec Tab) 40 mg PO DAILY [facility] Last Admin: 10/26/16 18:18 Dose: 40 mg Polyethylene Glycol (Miralax) 17 gm PO DAILY [facility] - Labs Labs: 10/27/16 05:00 10/27/16 05:00 PT 17.8 Seconds (9.8-13.1) H 10/26/16 00:00 INR 1.7 (0.9-1.2) H 10/26/16 00:00 APTT 29.9 Seconds (25.6-37.1) 10/26/16 00:00 - Constitutional Appears: No Acute Distress - Respiratory Exam Respiratory Exam: Clear to Ausculation Bilateral, NORMAL BREATHING PATTERN - Cardiovascular Exam Cardiovascular Exam: REGULAR RHYTHM. absent: Murmur - GI/Abdominal Exam GI & Abdominal Exam: Guarding (a little guardaing on right side), Hypoactive Bowel Sounds - Extremities Exam Extremities Exam: absent: Pedal Edema Assessment and Plan - Assessment and Plan (Free Text) Assessment: anemia cellulitis of left leg CAD atrial fibrillation CHF history of GI bleeding Plan: continue iv antibiotics, Unasyn. as per GI consult, CAT scan of abdomen as per cardiology, aspirin
[2016-10-27] MEDS ORDERED: Enoxaparin 40 mg Syringe SC SCH (09:00)
[2016-10-27] MEDS: POLYETHYLENE GLYCOL 3350 17 GM/Dose PACKET PO SCH (09:31)
[2016-10-27] MEDS: Pantoprazole 40 mg EC Tab PO SCH (09:32)
--- NOTE | 2016-10-27 11:19 | CARD ---
APPROVED REPORT EXAM: Two-dimensional and M-mode echocardiogram with Doppler and color Doppler. Other Information Quality : ExcellentRhythm : Pacemaker INDICATION Congestive Heart Failure Surgery/Intervention ICD/Pacemaker: 2D DIMENSIONS IVSd2.08 (0.7-1.1cm)LVDd4.27 (3.9-5.9cm) LVOT Diameter2.21 (1.8-2.4cm)PWd1.93 (0.7-1.1cm) IVSs2.34 (0.8-1.2cm)LVDs3.04 (2.5-4.0cm) FS (%) 28.7 %PWs2.64 (0.8-1.2cm) M-Mode DIMENSIONS Left Atrium (MM)4.79 (2.5-4.0cm)IVSd2.16 (0.7-1.1cm) Aortic Root3.13 (2.2-3.7cm)LVDd4.52 (4.0-5.6cm) Aortic Cusp Exc.1.97 (1.5-2.0cm)PWd1.81 (0.7-1.1cm) IVSs2.43 cmFS (%) 25 % LVDs3.40 (2.0-3.8cm)PWs2.35 cm Mitral Valve E/A ratio0.0 TDI E/Lateral E'0.0E/Medial E'0.0 Pulmonary Valve PV Peak Hsueshcs45.2cm/s LEFT VENTRICLE The left ventricle is normal size. There is mild concentric left ventricular hypertrophy. The systolic function is severely impaired. The Ejection Fraction is <20%. There is global hypokinesis of the left ventricle. Transmitral Doppler flow pattern is Grade I-abnormal relaxation pattern. No left ventricle thrombus noted on this study. There is no mass noted in the left ventricle. RIGHT VENTRICLE The right ventricle is normal size. There is normal right ventricular wall thickness. The right ventricular systolic function is normal. ATRIA The left atrium is mildly dilated. The right atrium size is normal. The interatrial septum is intact with no evidence for an atrial septal defect. AORTIC VALVE The aortic valve is mildly thickened. No aortic regurgitation is present. There is no aortic valvular stenosis. There is no aortic valvular vegetation. MITRAL VALVE Mitral annular calcification is moderate. There is no evidence of mitral valve prolapse. There is no mitral valve stenosis. Mitral regurgitation is mild. TRICUSPID VALVE The tricuspid valve is normal in structure and function. There is no tricuspid valve regurgitation noted. There is no tricuspid valve prolapse or vegetation. There is no tricuspid valve stenosis. PULMONIC VALVE The pulmonary valve is normal in structure and function. There is no pulmonic valvular regurgitation. There is no pulmonic valvular stenosis. GREAT VESSELS The aortic root is normal in size. The IVC is normal in size and collapses >50% with inspiration. PERICARDIAL EFFUSION The pericardium appears normal. There is moderate right pleural effusion. <Conclusion> The left ventricle is normal size. There is mild concentric left ventricular hypertrophy. The systolic function is severely impaired. The Ejection Fraction is <20%. There is global hypokinesis of the left ventricle. The left atrium is mildly dilated. The aortic valve is mildly thickened. Mitral annular calcification is moderate. Mitral regurgitation is mild.
[2016-10-27] MEDS ORDERED: Iohexol 300 100 ML IJ ONE (12:05)
[2016-10-27] MEDS ORDERED: Sodium Chloride 0.9% 50 ML IV ONE (12:05)
--- NOTE | 2016-10-27 14:32 | CT ---
PROCEDURE: CT Abdomen and Pelvis with contrast HISTORY: abdominal pain COMPARISON: Comparison is made to the previous study dated 04/23/2016 TECHNIQUE: Contrast dose: 95 cc of Omnipaque 300. Axial and reformatted coronal and sagittal CT images of the abdomen and pelvis were obtained after IV and oral contrast administration. Radiation dose: Total exam DLP = 338.32 mGy-cm. This CT exam was performed using one or more of the following dose reduction techniques: Automated exposure control, adjustment of the mA and/or kV according to patient size, and/or use of iterative reconstruction technique. FINDINGS: LOWER THORAX: Moderate to large bilateral pleural effusions. The left pleural effusion has increased since the previous exam. Moderate cardiomegaly is again noted. Pacemaker wires are again seen extending to the heart. LIVER: Heterogeneous enhancement and attenuation of the liver. This questionable slightly low-attenuation mass at the left liver lobe versus artifact. Further assessment by ultrasound is recommended. The portal vein is patent. GALLBLADDER AND BILE DUCTS: No evidence of cholecystitis. The biliary tree is not dilated. PANCREAS: Unremarkable. No gross lesion or ductal dilatation. SPLEEN: Unremarkable. ADRENALS: Unremarkable. No mass. KIDNEYS AND URETERS: Unremarkable. No hydronephrosis. No solid mass. Again seen is low-attenuation cyst at the upper pole of the right kidney measures 1.6 centimeter. There is extrarenal left pelvis seen. VASCULATURE: IVC filter seen in place. No aortic aneurysm. BOWEL: Unremarkable. No obstruction. No gross mural thickening. Mild constipation is noted. APPENDIX: There is no CT evidence of appendicitis. PERITONEUM: Interval appearance of moderate ascites in the abdomen and pelvis since the previous exam. LYMPH NODES: No evidence of significant lymphadenopathy. BLADDER: Unremarkable. REPRODUCTIVE: Unremarkable. BONES: No acute fracture. OTHER FINDINGS: None. IMPRESSION: Interval appearance of moderate ascites in the abdomen and pelvis since the previous exam. Findings may be related to CHF. Other etiology includes liver failure and or cirrhosis. Questionable left liver lobe lesion versus artifact. Further assessment by ultrasound is recommended. Interval increase in the size of the left and right pleural effusions since the previous exam. Moderate cardiomegaly. Otherwise no interval change.
--- NOTE | 2016-10-27 15:31 | PQF GENQUE ---
Dr. Cui, Please document cause or type of skin ulcer: if known Non-pressure ulcer associated with: Atherosclerosis of lower extremities Chronic venous hypertension Diabetes Postphlebitic syndrome Postthrombotic syndrome Varicose veins Other (please specify) Unknown Other (please specify) Clinically unable to determine Unknown H and P: Decubitus POA: no; PE: Extremities exam: Positive for: pedal edema ( superficial ulcers on the back of left lower leg) This form is a permanent part of the medical record Clarification of your documentation is requested to better reflect the severity of illness and intensity of treatment of your patient. Indicators present [] Specify: [] [] Specify: [] [] Specify: [] [] Specify: [] Location in the medical record that reflects the above clinical findings: [] Treatment Provided: [] PHYSICIAN'S RESPONSE Based on your medical judgment of the clinical indicators outlined above please clarify the following: [] Practitioner response [] If unable to determine, please check the box, sign and date. Present On Admission (POA) Indicator: [] Present at the time of admission [] Not present at the time of admission [] Clinically Undetermined In responding to this query, please exercise your independent professional judgment. The fact that a question is asked does not imply that any particular answer is desired or expected. Thank you for your clarification on this documentation. If you have any questions please call. * Thank you, Ember Fernández RN BSN ext. #[phone] [facility]
--- NOTE | 2016-10-27 20:31 | CP.PCM.PN ---
Subjective - Date & Time of Evaluation Date of Evaluation: 10/27/16 Time of Evaluation: 13:00 - Subjective Subjective: pt feels better. less sob, cough, and edema. denies cp. Objective - Vital Signs/Intake and Output Vital Signs (last 24 hours): Temp Pulse Resp BP Pulse Ox 97.7 F 58 L 18 95/62 L 98 10/27/16 16:28 10/27/16 17:18 10/27/16 16:28 10/27/16 17:18 10/27/16 16:28 Intake and Output: 10/27/16 10/28/16 18:59 06:59 Intake Total 1710 Output Total 1450 Balance 260 - Medications Medications: Current Medications Acetaminophen (Tylenol 325mg Tab) 650 mg PO Q6 PRN PRN Reason: Pain, Mild (1-3) Last Admin: 10/26/16 05:55 Dose: 650 mg Apixaban (Eliquis) 2.5 mg PO BID [facility] PRN Reason: Protocol Last Admin: 10/27/16 17:21 Dose: 2.5 mg Aspirin (Aspirin Chewable) 81 mg PO DAILY [facility] Last Admin: 10/27/16 09:29 Dose: 81 mg Carvedilol (Coreg) 3.125 mg PO BID [facility] Last Admin: 10/27/16 17:18 Dose: 3.125 mg Enalapril Maleate (Vasotec) 2.5 mg PO DAILY [facility] Furosemide (Lasix) 40 mg IV Q12 [facility] Ampicillin Sodium/Sulbactam (Sodium 3 gm/ Sodium Chloride) 100 mls @ 100 mls/ hr IVPB Q8H [facility] Last Admin: 10/27/16 19:57 Dose: 100 mls/hr Pantoprazole Sodium (Protonix Ec Tab) 40 mg PO DAILY [facility] Last Admin: 10/27/16 09:32 Dose: 40 mg Polyethylene Glycol (Miralax) 17 gm PO DAILY [facility] Last Admin: 10/27/16 09:31 Dose: 17 gm - Labs Labs: 10/27/16 05:00 10/27/16 05:00 PT 17.8 Seconds (9.8-13.1) H 10/26/16 00:00 INR 1.7 (0.9-1.2) H 10/26/16 00:00 APTT 29.9 Seconds (25.6-37.1) 10/26/16 00:00 - Constitutional Appears: Well - Head Exam Head Exam: ATRAUMATIC, NORMAL INSPECTION, NORMOCEPHALIC - Eye Exam Eye Exam: EOMI, Normal appearance, PERRL. absent: Conjunctival injection, Nystagmus, Periorbital swelling, Periorbital tenderness, Scleral icterus Pupil Exam: NORMAL ACCOMODATION, PERRL - ENT Exam ENT Exam: Mucous Membranes Moist, Normal Exam. absent: Mucous Membranes Dry, Normal External Ear Exam, Normal Oropharynx, TM's Normal Bilaterally - Neck Exam Neck Exam: Full ROM, Normal Inspection. absent: Lymphadenopathy, Meningismus, Tenderness, Thyromegaly - Respiratory Exam Respiratory Exam: Rales, NORMAL BREATHING PATTERN. absent: Accessory Muscle Use , Chest Wall Tenderness, Decreased Breath Sounds, Clear to Ausculation Bilateral , Prolonged Expiratory Phase, Rhonchi, Wheezes, Respiratory Distress, Stridor - Cardiovascular Exam Cardiovascular Exam: Diastolic murmur, Irregular Rhythm, +S1, +S2, Murmur. absent: Bradycardia, Tachycardia, Clicks, Gallop, REGULAR RHYTHM, JVD, RRR, Rubs , +S4 - GI/Abdominal Exam GI & Abdominal Exam: Soft, Normal Bowel Sounds - Rectal Exam Rectal Exam: Deferred - Extremities Exam Extremities Exam: Full ROM, Normal Capillary Refill, Pedal Edema. absent: Calf Tenderness, Joint Swelling, Normal Inspection, Tenderness - Back Exam Back Exam: NORMAL INSPECTION. absent: CVA tenderness (L), CVA tenderness (R), Full ROM, muscle spasm, paraspinal tenderness, rash noted, tenderness, vertebral tenderness - Neurological Exam Neurological Exam: Alert, Awake, CN II-XII Intact, Oriented x3. absent: Abnormal Gait, Altered, Motor Sensory Deficit, Reflexes Normal - Psychiatric Exam Psychiatric exam: Normal Affect, Normal Mood. absent: Agitated, Anxious, Depressed, Flat Affect, Homicidal Ideation, Manic, Suicidal Ideation - Skin Skin Exam: Dry, Intact, Normal Color, Warm. absent: Abrasion, Cyanosis, Diaphoretic, Erythema, Mottled, Pallor, Pallor, Petechiae, Rash, Urticaria, Vesicles Assessment and Plan (1) Acute on chronic combined systolic and diastolic CHF (congestive heart failure) Status: Acute (2) CHF (congestive heart failure) Status: Chronic (3) Anemia Status: Acute (4) Elevated troponin level Status: Acute (5) Hx of essential hypertension Status: Acute (6) Atrial fibrillation Status: Chronic (7) HTN (hypertension) Status: Chronic - Assessment and Plan (Free Text) Plan: pt improving. mild bibasilar crackles noted. will need one more day of iv diuretics then can switch to po. today bp elevated. map around 80. optimally map should be around 65. pt cleared for anticoag by gi. started on home dose of eliquis 2.5mg bid. upon d/c pt should be given higher doses of diuretics. monitor lytes and cr. 60 min care time. d/w commercial lines underwriter and pt
[2016-10-28] MEDS: Ampicillin/Sulbactam 3 GM in Sodium Chloride 0.9% 100 ML IVPB SCH ×2 (04:44→12:06)
[2016-10-28] MEDS ORDERED: Oxycodone/Acetaminophen 5/325 mg Tab PO PRN (07:24)
--- NOTE | 2016-10-28 07:38 | CP.PCM.PN ---
Subjective - Date & Time of Evaluation Date of Evaluation: 10/28/16 Time of Evaluation: 07:36 - Subjective Subjective: less pain on abdomen and left lower leg pain on right side back or right flank Objective - Vital Signs/Intake and Output Vital Signs (last 24 hours): Temp Pulse Resp BP Pulse Ox 97.9 F 64 20 94/68 L 98 10/28/16 05:16 10/28/16 05:16 10/28/16 05:16 10/28/16 05:16 10/28/16 05:16 Intake and Output: 10/28/16 10/28/16 06:59 18:59 Intake Total 400 Output Total 600 Balance -200 - Medications Medications: Current Medications Acetaminophen (Tylenol 325mg Tab) 650 mg PO Q6 PRN PRN Reason: Pain, Mild (1-3) Last Admin: 10/27/16 20:54 Dose: 650 mg Apixaban (Eliquis) 2.5 mg PO BID [facility] PRN Reason: Protocol Last Admin: 10/27/16 17:21 Dose: 2.5 mg Aspirin (Aspirin Chewable) 81 mg PO DAILY [facility] Last Admin: 10/27/16 09:29 Dose: 81 mg Carvedilol (Coreg) 3.125 mg PO BID [facility] Last Admin: 10/27/16 17:18 Dose: 3.125 mg Enalapril Maleate (Vasotec) 2.5 mg PO DAILY [facility] Furosemide (Lasix) 40 mg IV Q12 [facility] Last Admin: 10/27/16 20:55 Dose: 40 mg Ampicillin Sodium/Sulbactam (Sodium 3 gm/ Sodium Chloride) 100 mls @ 100 mls/ hr IVPB Q8H [facility] Last Admin: 10/28/16 04:44 Dose: 100 mls/hr Oxycodone/Acetaminophen (Percocet 5/325 Mg Tab) 1 tab PO Q6 PRN PRN Reason: Pain, moderate (4-7) Stop: 10/31/16 07:25 Pantoprazole Sodium (Protonix Ec Tab) 40 mg PO DAILY [facility] Last Admin: 10/27/16 09:32 Dose: 40 mg Polyethylene Glycol (Miralax) 17 gm PO DAILY [facility] Last Admin: 10/27/16 09:31 Dose: 17 gm - Labs Labs: 10/27/16 05:00 10/27/16 05:00 PT 17.8 Seconds (9.8-13.1) H 10/26/16 00:00 INR 1.7 (0.9-1.2) H 10/26/16 00:00 APTT 29.9 Seconds (25.6-37.1) 10/26/16 00:00 - Constitutional Appears: No Acute Distress - Respiratory Exam Respiratory Exam: Clear to Ausculation Bilateral - Cardiovascular Exam Cardiovascular Exam: Bradycardia, Irregular Rhythm - GI/Abdominal Exam GI & Abdominal Exam: Guarding, Normal Bowel Sounds. absent: Tenderness - Extremities Exam Extremities Exam: absent: Pedal Edema - Skin Skin Exam: Normal Color (ulcer on left lower leg) Assessment and Plan - Assessment and Plan (Free Text) Assessment: CHF anemia CAT scan of abdomen showed pleural effusion, ascites Plan: continue iv antibiotics diuretics follow up electrolytes
--- NOTE | 2016-10-28 08:40 | CP.PCM.PN ---
Subjective - Date & Time of Evaluation Date of Evaluation: 10/28/16 Time of Evaluation: 08:00 - Subjective Subjective: Patient seen at bedside this am. Denies nausea, vomiting, abdominal pain. Tolerating solid meal. Denies hematochezia Objective - Vital Signs/Intake and Output Vital Signs (last 24 hours): Temp Pulse Resp BP Pulse Ox 98.2 F 47 L 18 109/64 96 10/28/16 08:00 10/28/16 08:00 10/28/16 08:00 10/28/16 08:00 10/28/16 08:00 Intake and Output: 10/28/16 10/28/16 06:59 18:59 Intake Total 400 Output Total 600 Balance -200 - Medications Medications: Current Medications Acetaminophen (Tylenol 325mg Tab) 650 mg PO Q6 PRN PRN Reason: Pain, Mild (1-3) Last Admin: 10/27/16 20:54 Dose: 650 mg Apixaban (Eliquis) 2.5 mg PO BID [facility] PRN Reason: Protocol Last Admin: 10/27/16 17:21 Dose: 2.5 mg Aspirin (Aspirin Chewable) 81 mg PO DAILY [facility] Last Admin: 10/27/16 09:29 Dose: 81 mg Carvedilol (Coreg) 3.125 mg PO BID [facility] Last Admin: 10/27/16 17:18 Dose: 3.125 mg Enalapril Maleate (Vasotec) 2.5 mg PO DAILY [facility] Furosemide (Lasix) 40 mg IV Q12 [facility] Last Admin: 10/27/16 20:55 Dose: 40 mg Ampicillin Sodium/Sulbactam (Sodium 3 gm/ Sodium Chloride) 100 mls @ 100 mls/ hr IVPB Q8H [facility] Last Admin: 10/28/16 04:44 Dose: 100 mls/hr Oxycodone/Acetaminophen (Percocet 5/325 Mg Tab) 1 tab PO Q6 PRN PRN Reason: Pain, moderate (4-7) Stop: 10/31/16 07:25 Pantoprazole Sodium (Protonix Ec Tab) 40 mg PO DAILY [facility] Last Admin: 10/27/16 09:32 Dose: 40 mg Polyethylene Glycol (Miralax) 17 gm PO DAILY [facility] Last Admin: 10/27/16 09:31 Dose: 17 gm - Labs Labs: 10/27/16 05:00 10/27/16 05:00 PT 17.8 Seconds (9.8-13.1) H 10/26/16 00:00 INR 1.7 (0.9-1.2) H 10/26/16 00:00 APTT 29.9 Seconds (25.6-37.1) 10/26/16 00:00 - Constitutional Appears: Well - Head Exam Head Exam: ATRAUMATIC, NORMAL INSPECTION, NORMOCEPHALIC - Eye Exam Eye Exam: EOMI, Normal appearance, PERRL - Respiratory Exam Respiratory Exam: Decreased Breath Sounds, NORMAL BREATHING PATTERN - Cardiovascular Exam Cardiovascular Exam: Irregular Rhythm, RRR, +S1, +S2 - GI/Abdominal Exam GI & Abdominal Exam: Soft, Hypoactive Bowel Sounds - Neurological Exam Neurological Exam: Alert, Awake, Oriented x3 - Psychiatric Exam Psychiatric exam: Flat Affect, Normal Mood - Skin Skin Exam: Dry, Intact Assessment and Plan - Assessment and Plan (Free Text) Assessment: This is a 71 yr old M with significant cardiac history with EF 20% and LV and h/ o GI bleed on oral anti coagulant, presenting with LLE pain. Pt was found to be Anemic with Hgb 7.2 with no active bleeding. No s/s of overt GI bleeding. Last colonoscopy in with colonic AVM s/p APC. No indication to hold anti coagulation unless active GI bleeding as risk of holding outweighs the benefit in absence of bleeding. Close H/Hct monitoring. H/Hct with appropriate response to 2 units PRBC. Continue advance diet. CT scan reviewed by sc- shows bilateral effusions and moderate ascites likely due to CHF. No s/s of abdominal discomfort. Continue bowel regimen. No s/s of bowel obstruction. Cardiology consult noted. Will sign off now. Thank you for letting us participate in the care of your patient
[2016-10-28] MEDS: POLYETHYLENE GLYCOL 3350 17 GM/Dose PACKET PO SCH (09:56)
[2016-10-28] MEDS: Pantoprazole 40 mg EC Tab PO SCH (09:57)
[2016-10-28] MEDS: Piperacillin/Tazobact 3.375 GM in Sodium Chloride 0.9% 100 ML IVPB SCH (17:43)
[2016-10-29] MEDS: Piperacillin/Tazobact 3.375 GM in Sodium Chloride 0.9% 100 ML IVPB SCH ×2 (01:46→09:08)
[2016-10-29 06:08] VITALS: RESP 18
[2016-10-29 08:42] VITALS: BP 100/54; PULSE 58; TEMP 98.1; O2SAT 97
[2016-10-29] MEDS: POLYETHYLENE GLYCOL 3350 17 GM/Dose PACKET PO SCH (09:15)
[2016-10-29] MEDS: Pantoprazole 40 mg EC Tab PO SCH (09:15)
--- NOTE | 2016-10-29 09:22 | CP.PCM.PN ---
Subjective - Date & Time of Evaluation Date of Evaluation: 10/29/16 Time of Evaluation: 09:20 - Subjective Subjective: less abdominal pain Objective - Vital Signs/Intake and Output Vital Signs (last 24 hours): Temp Pulse Resp BP Pulse Ox 98.1 F 58 L 18 100/54 L 97 10/29/16 08:41 10/29/16 08:41 10/29/16 08:41 10/29/16 09:07 10/29/16 08:41 - Medications Medications: Current Medications Acetaminophen (Tylenol 325mg Tab) 650 mg PO Q6 PRN PRN Reason: Pain, Mild (1-3) Last Admin: 10/27/16 20:54 Dose: 650 mg Apixaban (Eliquis) 2.5 mg PO BID [facility] PRN Reason: Protocol Last Admin: 10/29/16 09:07 Dose: 2.5 mg Aspirin (Aspirin Chewable) 81 mg PO DAILY [facility] Last Admin: 10/29/16 09:06 Dose: 81 mg Carvedilol (Coreg) 3.125 mg PO BID [facility] Last Admin: 10/29/16 09:06 Dose: 3.125 mg Enalapril Maleate (Vasotec) 2.5 mg PO DAILY [facility] Last Admin: 10/29/16 09:08 Dose: 2.5 mg Furosemide (Lasix) 40 mg IV Q12 [facility] Last Admin: 10/29/16 09:07 Dose: 40 mg Piperacillin Sod/Tazobactam (Sod 3.375 gm/ Sodium Chloride) 100 mls @ 100 mls/ hr IVPB Q8 [facility] Last Admin: 10/29/16 09:08 Dose: 100 mls/hr Oxycodone/Acetaminophen (Percocet 5/325 Mg Tab) 1 tab PO Q6 PRN PRN Reason: Pain, moderate (4-7) Stop: 10/31/16 07:25 Last Admin: 10/28/16 09:53 Dose: 1 tab Pantoprazole Sodium (Protonix Ec Tab) 40 mg PO DAILY [facility] Last Admin: 10/29/16 09:15 Dose: 40 mg Polyethylene Glycol (Miralax) 17 gm PO DAILY [facility] Last Admin: 10/29/16 09:15 Dose: 17 gm - Labs Labs: 10/27/16 05:00 10/27/16 05:00 PT 17.8 Seconds (9.8-13.1) H 10/26/16 00:00 INR 1.7 (0.9-1.2) H 10/26/16 00:00 APTT 29.9 Seconds (25.6-37.1) 10/26/16 00:00 - Constitutional Appears: No Acute Distress - Respiratory Exam Respiratory Exam: Clear to Ausculation Bilateral, NORMAL BREATHING PATTERN - Cardiovascular Exam Cardiovascular Exam: Irregular Rhythm. absent: Murmur - GI/Abdominal Exam GI & Abdominal Exam: Normal Bowel Sounds. absent: Tenderness Assessment and Plan - Assessment and Plan (Free Text) Assessment: cellulitis left leg CHF, pleural effusion, ascites anemia, R/O GI bleeding Plan: patient is stable today he will be dischaged to a nursing rehab facility follow up with PMD.
--- NOTE | 2016-11-05 11:56 | CP.PCM.DIS ---
Provider - Provider Date of Admission: 10/26/16 03:04 Attending physician: Saima Cui MD Primary care physician: A 71 year old male with CHF, a pacemaker came with left leg pain. He was found to have severe anemia of Hb of 7.2. He was admitted under the impression of cellulitis and sevee anemia. He has bilateral pleural effusion more on right side with ascites. Time Spent in preparation of Discharge (in minutes): 30 Hospital Course - Lab Results Lab Results: Most Recent Lab Values WBC 5.3 K/uL (4.8-10.8) 10/27/16 05:00 RBC 4.11 Mil/uL (4.40-5.90) L 10/27/16 05:00 Hgb 10.0 g/dL (12.0-18.0) L 10/27/16 05:00 Hct 30.6 % (35.0-51.0) L 10/27/16 05:00 MCV 74.3 fl (80.0-94.0) L 10/27/16 05:00 MCH 24.3 pg (27.0-31.0) L 10/27/16 05:00 MCHC 32.7 g/dL (33.0-37.0) L 10/27/16 05:00 RDW 19.6 % (11.5-14.5) H 10/27/16 05:00 Plt Count 249 K/uL (130-400) 10/27/16 05:00 MPV 8.4 fl (7.2-11.7) 10/27/16 05:00 Neut % (Auto) 76.3 % (50.0-75.0) H 10/27/16 05:00 Lymph % (Auto) 9.0 % (20.0-40.0) L 10/27/16 05:00 [place] % (Auto) 12.6 % (0.0-10.0) H 10/27/16 05:00 Eos % (Auto) 1.2 % (0.0-4.0) 10/27/16 05:00 Baso % (Auto) 0.9 % (0.0-2.0) 10/27/16 05:00 Neut # 4.1 K/uL (1.8-7.0) 10/27/16 05:00 Lymph # 0.5 K/uL (1.0-4.3) L 10/27/16 05:00 [place] # 0.7 K/uL (0.0-0.8) 10/27/16 05:00 Eos # 0.1 K/uL (0.0-0.7) 10/27/16 05:00 Baso # 0.0 K/uL (0.0-0.2) 10/27/16 05:00 Neutrophils % (Manual) 79 % (42-75) H 10/26/16 01:05 Lymphocytes % (Manual) 16 % (20-50) L 10/26/16 01:05 Monocytes % (Manual) 5 % (0-10) 10/26/16 01:05 Platelet Estimate Normal (NORMAL) 10/26/16 01:05 Hypochromasia (manual) Slight 10/26/16 01:05 Anisocytosis (manual) Slight 10/26/16 01:05 Marge Cells Slight 10/26/16 01:05 Schistocytes Slight 10/26/16 01:05 Retic Count 1.3 % (0.5-1.5) 10/26/16 06:00 PT 17.8 Seconds (9.8-13.1) H 10/26/16 00:00 INR 1.7 (0.9-1.2) H 10/26/16 00:00 APTT 29.9 Seconds (25.6-37.1) 10/26/16 00:00 Sodium 136 mmol/l (132-148) 10/27/16 05:00 Potassium 3.6 MMOL/L (3.6-5.0) 10/27/16 05:00 Chloride 101 mmol/L (98-107) 10/27/16 05:00 Carbon Dioxide 27 mmol/L (22-30) 10/27/16 05:00 Anion Gap 11 (10-20) 10/27/16 05:00 BUN 17 mg/dl (9-20) 10/27/16 05:00 Creatinine 1.0 mg/dL (0.8-1.5) 10/27/16 05:00 Est GFR ( Amer) > 60 10/27/16 05:00 Est GFR (Non-Af Amer) > 60 10/27/16 05:00 Random Glucose 86 mg/dL (75-110) 10/27/16 05:00 Lactic Acid 2.2 MMOL/L (0.7-2.1) H 10/26/16 00:00 Calcium 8.5 mg/dL (8.4-10.2) 10/27/16 05:00 Phosphorus 3.5 mg/dl (2.5-4.5) 10/26/16 00:00 Magnesium 2.2 MG/DL (1.6-2.3) 10/27/16 05:00 RBC Magnesium 5.5 mg/dL (4.0-6.4) 10/27/16 05:00 Iron 328 ug/dL (49-181) H 10/26/16 20:00 TIBC 352 ug/dL (250-450) 10/26/16 20:00 % Saturation 93 % (20-55) H 10/26/16 20:00 Total Bilirubin 0.8 mg/dl (0.2-1.3) 10/26/16 06:00 AST 46 U/L (17-59) 10/26/16 06:00 ALT 34 U/L (21-72) 10/26/16 06:00 Alkaline Phosphatase 69 U/L (38-126) 10/26/16 06:00 Troponin I 0.1040 ng/mL (0.00-0.120) 10/26/16 20:00 NT-Pro-B Natriuret Pep 8760 pg/ml (0-900) H 10/26/16 00:00 Total Protein 6.1 G/DL (6.3-8.2) L 10/26/16 06:00 Albumin 3.1 g/dL (3.5-5.0) L 10/26/16 06:00 Globulin 3.0 gm/dL (2.2-3.9) 10/26/16 06:00 Albumin/Globulin Ratio 1.0 (1.0-2.1) 10/26/16 06:00 Triglycerides 67 mg/DL (0-149) 10/27/16 05:00 Cholesterol 129 mg/dL (0-199) 10/27/16 05:00 LDL Cholesterol Direct 76 mg/dL (0-129) 10/27/16 05:00 HDL Cholesterol 36 MG/DL (30-70) 10/27/16 05:00 CA 125 Antigen 125 U/mL (0-35) H 10/28/16 08:39 TSH 3rd Generation 1.86 mIU/ML (0.46-4.68) 10/26/16 06:00 Hep Bs Antigen Negative (NEGATIVE) 10/28/16 08:39 Hepatitis C Antibody Negative (NEGATIVE) 10/28/16 08:39 Blood Type A POSITIVE 10/25/16 23:50 Antibody Screen Negative 10/25/16 23:50 Crossmatch See Detail 10/25/16 23:50 BBK History Checked Patient has bt 10/25/16 23:50 - Hospital Course Hospital Course: cardiology consult : CHF, systolic, lasix given GI consult: recommended CAT scan. no further tests iv lasix iv antibiotic blood transfusion - Date & Time of H&P Date of H&P: 11/05/16 Time of H&P: 11:56 Discharge Exam - Head Exam Head Exam: ATRAUMATIC, NORMAL INSPECTION, NORMOCEPHALIC - Respiratory Exam Respiratory Exam: Clear to PA & Lateral, NORMAL BREATHING PATTERN, UNREMARKABLE - Cardiovascular Exam Cardiovascular Exam: Irregular Rhythm. absent: Systolic Murmur - GI/Abdominal Exam GI & Abdominal Exam: Distended, Guarding (on right side) - Extremities Exam Extremities exam: normal inspection (skin ulceration on distal part of left freire ) Discharge Plan - Discharge Medications Prescriptions: Piperacill/Tazo 3.375gm in Dex [Zosyn 3.375 Gm IV] 3.375 gm IVPB Q8 #21 bag - Follow Up Plan Condition: FAIR Disposition: TRANSF TO SNF Instructions: Heart Failure (DC), Heart Failure (GEN), Pacemaker (DC), Pacemaker (GEN), Pulmonary Edema (DC), Pulmonary Edema (GEN), Wound Infection ( DC), Ascites (DC), Ascites (GEN), Anemia (DC) Additional Instructions: for skilled rehab and antibiotics x 1 week.
== END 2016-10-29 11:39 | DRG 602 ==
LOC: H.ER 22:34 → H.ERHOLD 10-26 03:04 → H.TEL 10-26 04:51
PROVIDERS: ADMIT Internal Medicine; ATTEND Internal Medicine
PROC: 30233N1 Transfusion of Nonautologous Red Blood Cells into Peripheral Vein, Percutaneous Approach (ICD-10-PCS; principal; 2016-10-26)
DX: L03.116 Cellulitis of left lower limb (principal); I50.43 Acute on chronic combined systolic (congestive) and diastolic (congestive) heart failure; L97.829 Non-pressure chronic ulcer of other part of left lower leg with unspecified severity; D50.9 Iron deficiency anemia, unspecified; I11.0 Hypertensive heart disease with heart failure; B95.7 Other staphylococcus as the cause of diseases classified elsewhere; I48.2 Chronic atrial fibrillation; F03.90 Unspecified dementia, unspecified severity, without behavioral disturbance, psychotic disturbance, mood disturbance, and anxiety; E03.9 Hypothyroidism, unspecified; I25.10 Atherosclerotic heart disease of native coronary artery without angina pectoris; K21.9 Gastro-esophageal reflux disease without esophagitis; F39 Unspecified mood [affective] disorder; F41.9 Anxiety disorder, unspecified; K29.70 Gastritis, unspecified, without bleeding; Q27.33 Arteriovenous malformation of digestive system vessel; Z86.718 Personal history of other venous thrombosis and embolism; Z95.810 Presence of automatic (implantable) cardiac defibrillator; Z79.01 Long term (current) use of anticoagulants; Z79.82 Long term (current) use of aspirin; Z87.891 Personal history of nicotine dependence

== ENCOUNTER 2016-12-16 21:01 | Inpatient (IN) | payer MEDICARE ==
[2016-12-16 21:01] VITALS: BMI 21.3
[2016-12-16] MEDS ORDERED: Sodium Chloride 0.9% 1,000 ML IV STA (21:32)
[2016-12-16 21:46] LABS: BASO % 0.7 % (0.0-2.0); EOS % 0.2 % (0.0-4.0); HEMATOCRIT 26.9 % (35.0-51.0); LYMPH # 0.5 K/uL (1.0-4.3); LYMPH % 7.3 % (20.0-40.0); MEAN CELL VOLUME 78.6 fl (80.0-94.0); MEAN CORPUSCULAR HEMOGLOBIN 24.5 pg (27.0-31.0); MEAN CORPUSCULAR HGB CONC 31.2 g/dL (33.0-37.0); MEAN PLATELET VOLUME 10.5 fl (7.2-11.7); MONO % 15.3 % (0.0-10.0); NEUT % 76.5 % (50.0-75.0); NRBC % 0.5 % (0.0-0.0); PLATELET COUNT 180 K/uL (130-400); RED CELL DISTRIBUTION WIDTH 24.2 % (11.5-14.5); WHITE BLOOD COUNT 6.6 K/uL (4.8-10.8)
[2016-12-16 22:05] LABS: ALB/GLOB RATIO 1.3 (1.0-2.1); ALCOHOL SERUM < 10 mg/dl (0-10); ALKALINE PHOSPHATASE 125 U/L (38-126); ALT/SGPT 123 U/L (21-72); AST/SGOT 159 U/L (17-59); BILIRUBIN,TOTAL 1.8 mg/dl (0.2-1.3); BLOOD UREA NITROGEN 48 mg/dl (9-20); CALCIUM 9.4 mg/dL (8.4-10.2); CARBON DIOXIDE 24 mmol/L (22-30); CHLORIDE 99 mmol/L (98-107); GFR AFRICAN-AMERICAN > 60; GLUCOSE,RANDOM 102 mg/dL (75-110); SODIUM 138 mmol/l (132-148); TOTAL PROTEIN 7.6 G/DL (6.3-8.2)
[2016-12-16 22:17] LABS: POTASSIUM 5.8 MMOL/L (3.6-5.0)
[2016-12-16 23:07] LABS: BASOPHIL 1 % (0-2); EOSINOPHIL 1 % (0-7); NEUTROPHIL 71 % (42-75); REACTIVE LYMPHOCYTES 1 % (0-0); TOTAL CELLS COUNTED 100
[2016-12-16 23:08] LABS: ACANTHOCYTES SLIGHT
[2016-12-17 03:30] LABS: RBC URINE 2 /hpf (0-3); URINE BILIRUBIN NEGATIVE (NEGATIVE); URINE BLOOD NEGATIVE (NEGATIVE); URINE COLOR YELLOW (YELLOW); URINE GLUCOSE (UA) NEG (Normal); URINE KETONE NEGATIVE (NEGATIVE); URINE LEUKOCYTE ESTERASE NEG Leu/uL (Negative); URINE PROTEIN 100 mg/dL (NEGATIVE); WBC URINE 1 /hpf (0-5)
[2016-12-17 03:44] LABS: ALB/GLOB RATIO 1.2 (1.0-2.1); ALKALINE PHOSPHATASE 149 U/L (38-126); ALT/SGPT 159 U/L (21-72); AST/SGOT 178 U/L (17-59); BILIRUBIN,TOTAL 1.7 mg/dl (0.2-1.3); BLOOD UREA NITROGEN 46 mg/dl (9-20); CALCIUM 9.3 mg/dL (8.4-10.2); CARBON DIOXIDE 24 mmol/L (22-30); CHLORIDE 100 mmol/L (98-107); GFR AFRICAN-AMERICAN > 60; GLUCOSE,RANDOM 106 mg/dL (75-110); POTASSIUM 4.7 MMOL/L (3.6-5.0); SODIUM 137 mmol/l (132-148); TOTAL PROTEIN 7.2 G/DL (6.3-8.2)
--- NOTE | 2016-12-17 05:18 | ED PDOC ---
HPI: General Adult Time Seen by Provider: 12/16/16 21:15 Chief Complaint (Nursing): Abdominal Pain Chief Complaint (Provider): "I have worms in my feet" History Per: Patient History/Exam Limitations: no limitations Onset/Duration Of Symptoms: Days Have you had recent travel within the past 21 days to any of the following countries: [place], [place], [place] or [place]?: No Current Symptoms Are (Timing): Still Present Additional Complaint(s): Pt states he is sick of dealing with the worms in his feet. Pt states it makes him was to . Pt asks if there is medications that we could give him so he doesn't wake up. Pt denies abdominal pain. Past Medical History Vital Signs: Last Vital Signs Temp 98.1 F 12/16/16 21:02 Pulse 68 12/17/16 02:25 Resp 16 12/17/16 02:25 BP 97/63 L 12/17/16 02:25 Pulse Ox 99 12/17/16 05:18 - Medical History PMH: Anemia, Anxiety, Atrial Fibrillation, CAD, CHF, Dementia, Depression, HTN, Hypothyroidism Denies: Diabetes, Hepatitis, HIV, Chronic Kidney Disease, Seizures, Sexually Transmitted Disease - Surgical History Surgical History: Pacemaker - Family History Family History: States: Unknown Family Hx - Home Medications Home Medications: Ambulatory Orders Medication Instructions Recorded Carvedilol [Coreg] 3.125 mg PO BID 10/26/16 Enalapril Maleate [Vasotec] 2.5 mg PO DAILY 10/26/16 Ferrous Sulfate [Feosol] 325 mg PO TID 10/26/16 Furosemide [Lasix] 40 mg PO BID 10/26/16 Acetaminophen [Tylenol 325mg tab] 650 mg PO Q6 PRN tab 10/28/16 Apixaban [Eliquis] 2.5 mg PO BID tab 10/28/16 Aspirin [Aspirin Chewable] 81 mg PO DAILY 10/28/16 Pantoprazole [Protonix EC Tab] 40 mg PO DAILY ect 10/28/16 Piperacill/Tazo 3.375gm in Dex 3.375 gm IVPB Q8 #21 bag 10/28/16 [Zosyn 3.375 Gm IV] Polyethylene Glycol 3350 [Miralax] 17 gm PO DAILY packet 10/28/16 oxyCODONE/Acetaminophen [Percocet 1 tab PO Q6 PRN #14 tab 10/28/16 5/325 mg Tab] - Allergies Allergies/Adverse Reactions: Allergies Allergy/AdvReac Type Severity Reaction Status Date / Time No Known Allergies Allergy Verified 03/18/16 08:37 Physical Exam - Reviewed Nursing Documentation Reviewed: Yes Vital Signs Reviewed: Yes - Physical Exam Appears: Positive for: Well, Non-toxic, No Acute Distress Head Exam: Positive for: ATRAUMATIC, NORMAL INSPECTION, NORMOCEPHALIC Skin: Positive for: Warm. Negative for: Normal Color Eye Exam: Positive for: EOMI, Normal appearance, PERRL ENT: Positive for: Normal ENT Inspection Neck: Positive for: Normal, Painless ROM Cardiovascular/Chest: Positive for: Regular Rate, Rhythm Respiratory: Positive for: CNT, Normal Breath Sounds Gastrointestinal/Abdominal: Positive for: Normal Exam, Bowel Sounds, Soft Back: Positive for: Normal Inspection Extremity: Positive for: Normal ROM Neurologic/Psych: Positive for: Alert. Negative for: Oriented - Laboratory Results Result Diagrams: 12/16/16 21:38 12/17/16 03:30 - ECG O2 Sat by Pulse Oximetry: 99 Medical Decision Making Medical Decision Making: Pt with elevated BUN and hemolyzed potassium. Fluids given and labs repeated. BUN continues to be elevated. Pt also has elevated LFT. Pt begins to act bizarre in ER. Crisis aware and unable to evaluated him. Head CT and abdomen CT ordered. Pt states he lives alone. Disposition - Disposition Forms: [employer] (Burmese)
--- NOTE | 2016-12-17 06:08 | ED PDOC ---
- Laboratory Results Result Diagrams: 12/17/16 05:56 12/17/16 03:30 - ECG O2 Sat by Pulse Oximetry: 99 (RA) Pulse Ox Interpretation: Normal Medical Decision Making Medical Decision Making: Time: 0600 --Patient was endorsed to provider by Maria Del Carmen Alanis PA-C. Pending repeat bloodwork and crisis evaluation. Power of employment law attorney (daughter) to come to ER to speak wiht Crisis. pending CT abd as well to r/o hepatic issue. Scribe Attestation: Documented by Krista Beard, acting as a scribe for Dayton Camejo MD. Provider Scribe Attestation: All medical record entries made by the Scribe were at my direction and personally dictated by me. I have reviewed the chart and agree that the record accurately reflects my personal performance of the history, physical exam, medical decision making, and the department course for this patient. I have also personally directed, reviewed, and agree with the discharge instructions and disposition. Disposition - Clinical Impression Clinical Impression: Dementia - POA Present On Arrival: None - Disposition Disposition: Transfer of Care Disposition Time: 07:00 Forms: [employer] (Portuguese) Patient Signed Over To: Bruno Yi Handoff Comments: pending CT abdomen and crisis.
--- NOTE | 2016-12-17 06:15 | CT ---
EXAM: CT Head Without Intravenous Contrast CLINICAL HISTORY: 71 years old, male; Signs and symptoms; Altered mental status/memory loss; Additional info: AMS TECHNIQUE: Axial computed tomography images of the head/brain without intravenous contrast. All CT scans at this facility use one or more dose reduction techniques, viz.: automated exposure control; ma/kV adjustment per patient size (including targeted exams where dose is matched to indication; i.e. head); or iterative reconstruction technique. Coronal and sagittal reformatted images were created and reviewed. COMPARISON: CT - HEAD W/O CONTRAST 03/07/2016 3:23:17 AM FINDINGS: Brain: [id number] atrophy. No intracranial hemorrhage. No mass. Few scattered subtle foci of decreased attenuation within periventricular/subcortical white matter. No definite edema. Ventricles: No hydrocephalus. Bones/joints: No acute fracture. Soft tissues: Unremarkable. Vasculature: Atherosclerotic disease of intracranial arteries. Sinuses: No acute sinusitis. Mastoid air cells: No mastoid effusion. Orbits: Unremarkable as visualized. IMPRESSION: 1. Nonspecific white matter changes. Acute infarction may be CT occult within first 24 hours. If a focal deficit persists, consider followup CT or MRI for further evaluation. 2. Incidental/non-acute findings are described above.
[2016-12-17 06:19] LABS: BASO % 0.6 % (0.0-2.0); EOS % 0.4 % (0.0-4.0); HEMATOCRIT 25.9 % (35.0-51.0); LYMPH # 0.5 K/uL (1.0-4.3); LYMPH % 8.9 % (20.0-40.0); MEAN CELL VOLUME 78.8 fl (80.0-94.0); MEAN CORPUSCULAR HEMOGLOBIN 24.4 pg (27.0-31.0); MEAN PLATELET VOLUME 10.4 fl (7.2-11.7); MONO % 17.4 % (0.0-10.0); NEUT # 4.4 K/uL (1.8-7.0); NEUT % 72.7 % (50.0-75.0); NRBC % 0.3 % (0.0-0.0); RED CELL DISTRIBUTION WIDTH 24.5 % (11.5-14.5)
[2016-12-17 07:02] LABS: PARTIAL THROMBOPLASTIN TIME 28.4 Seconds (25.6-37.1)
--- NOTE | 2016-12-17 07:49 | ED PDOC ---
- Laboratory Results Result Diagrams: 12/17/16 08:10 12/17/16 03:30 - ECG O2 Sat by Pulse Oximetry: 95 (RA) Pulse Ox Interpretation: Normal Medical Decision Making Medical Decision Making: Patient endorsed to provider at [address] Camejo Pending repeat bloodwork, crisis evaluation, CT abd as well to r/o hepatic issue. Power of estate planning attorney (daughter) to come to ER to speak with Crisis. Scribe Attestation Documented by Gracie Archuleta acting as a scribe for Bruno Yi MD. Provider Attestation All medical record entries made by the Scribe were at my direction and personally dictated by me. I have reviewed the chart and agree that the record accurately reflects my personal performance of the history, physical exam, medical decision making, and the department course for this patient. I have also personally directed, reviewed, and agree with the discharge instructions and disposition. Disposition - Clinical Impression Clinical Impression: Dementia, GI bleed, Anemia - POA Present On Arrival: None - Disposition Disposition: Admitted as In-Patient Disposition Time: 09:24 Condition: FAIR Forms: Sanguine (Macedonian)
[2016-12-17 08:20] LABS: BASO % 0.8 % (0.0-2.0); EOS % 0.4 % (0.0-4.0); HEMATOCRIT 25.5 % (35.0-51.0); LYMPH # 0.5 K/uL (1.0-4.3); LYMPH % 8.3 % (20.0-40.0); MEAN CELL VOLUME 78.8 fl (80.0-94.0); MEAN CORPUSCULAR HEMOGLOBIN 24.2 pg (27.0-31.0); MEAN CORPUSCULAR HGB CONC 30.7 g/dL (33.0-37.0); MEAN PLATELET VOLUME 9.4 fl (7.2-11.7); MONO % 18.2 % (0.0-10.0); NEUT # 4.1 K/uL (1.8-7.0); NEUT % 72.3 % (50.0-75.0); NRBC % 0.2 % (0.0-0.0); RED CELL DISTRIBUTION WIDTH 24.5 % (11.5-14.5); WHITE BLOOD COUNT 5.7 K/uL (4.8-10.8)
[2016-12-17] MEDS ORDERED: Iohexol 300 100 ML IJ ONE (09:19)
[2016-12-17] MEDS ORDERED: Sodium Chloride 0.9% 50 ML IV ONE (09:19)
[2016-12-17] MEDS ORDERED: Iodixanol 320 mg/ml 50 ml Sol IV ONE (09:30)
--- NOTE | 2016-12-17 10:37 | CT ---
PROCEDURE: CT Abdomen and Pelvis with contrast HISTORY: abdominal pain COMPARISON: CT abdomen and pelvis with contrast performed 10/27/16 TECHNIQUE: Contrast dose: 49 cc Visipaque 320 Radiation dose: Total exam DLP = 421.57 mGy-cm. This CT exam was performed using one or more of the following dose reduction techniques: Automated exposure control, adjustment of the mA and/or kV according to patient size, and/or use of iterative reconstruction technique. FINDINGS: LOWER THORAX: Moderate right greater than left pleural effusions and associated consolidations. 5 mm right middle lobe nodule (series 5, image 12). Partially imaged cardiomegaly. AICD leads. LIVER: Heterogeneous hepatic parenchyma. GALLBLADDER AND BILE DUCTS: Limited visualization, grossly unremarkable. PANCREAS: Limited visualization, grossly unremarkable. SPLEEN: Limited visualization, grossly unremarkable. ADRENALS: Limited visualization, grossly unremarkable except for hypertrophy on the left. KIDNEYS AND URETERS: The kidneys enhance symmetrically. 11 mm hypodense right renal lesion, indeterminate. VASCULATURE: IVC filter. No aortic aneurysm. BOWEL: Stomach is nondistended. Lack of oral contrast limits evaluation for bowel pathology. Bowel loops appear within normal limits of caliber without evidence of obstruction. Moderate constipation. APPENDIX: The appendix is not identified. PERITONEUM: Moderate abdominal and pelvic ascites. No definite free air. LYMPH NODES: No bulky adenopathy identified. BLADDER: Thick-walled under distended urinary bladder. REPRODUCTIVE: Unremarkable. BONES: No acute osseous abnormality is detected. OTHER FINDINGS: None. IMPRESSION: Moderate right greater than left pleural effusions and associated consolidations. 5 mm right middle lobe pulmonary nodule. Guidelines by the Fleischner society suggests that in patients with low risk for lung cancer, nodules from 5 mm to 6 mm in diameter should have follow-up in approximately 12 months. In patients with high-risk, such as those were smokers, follow-up is recommended in 6 months. Patients with a known malignancy or risk for metastases should receive 3 month follow-up. Partially imaged cardiomegaly. AICD leads. Heterogeneous hepatic parenchyma. Left adrenal gland hypertrophy. 11 mm hypodense right renal lesion, indeterminate. IVC filter. Moderate constipation. Moderate abdominal and pelvic ascites. Thick-walled under distended urinary bladder. Recommend correlation with urinalysis.
[2016-12-17] MEDS ORDERED: Lactulose 10 gm/15 ml Syrup PO SCH (21:00)
[2016-12-18 07:30] LABS: HEMATOCRIT 33.8 % (35.0-51.0); MEAN CELL VOLUME 81.4 fl (80.0-94.0); MEAN CORPUSCULAR HEMOGLOBIN 26.1 pg (27.0-31.0); MEAN CORPUSCULAR HGB CONC 32.1 g/dL (33.0-37.0); RED CELL DISTRIBUTION WIDTH 23.3 % (11.5-14.5); WHITE BLOOD COUNT 7.1 K/uL (4.8-10.8)
--- NOTE | 2016-12-18 10:59 | CP.PCM.HP ---
History of Present Illness - History of Present Illness History of Present Illness: CC: Abdominal Pain History of Present Illness: Poor Historian A 71yoM with H/O CHF, Severe Non-obstructive Dilated Cardiomyopathy S/P AICD, A.fib, Dementia with behaviour who lives by himself was brought by EMS for Abdominal Pain. In the ER, the Patient was evaluated by PSych crisis team after he verbalized that he wants to and asked help to do so because the bugs on his feet were annoying him. Continues to complain abdominal pain, and found to be Guaiac +ve stool and Severe Anemia, and admitted for GI Bleed and Abdominal Pain. Denies hemachesia or abdominal swelling. Present on Admission - Present on Admission Any Indicators Present on Admission: No History of DVT/PE: No History of Uncontrolled Diabetes: No Urinary Catheter: No Decubitus Ulcer Present: No Review of Systems - Review of Systems All systems: reviewed and no additional remarkable complaints except - Gastrointestinal Gastrointestinal: As Per HPI, Abdominal Pain - Genitourinary Genitourinary: As Per HPI Past Patient History - Infectious Disease Hx of Infectious Diseases: None - Tetanus Immunizations Tetanus Immunization: Unknown - Past Medical History & Family History Past Medical History?: Yes Past Family History: Reviewed and not pertinent - Past Social History Smoking Status: Former Smoker Alcohol: None Drugs: Denies - CARDIAC Hx Atrial Fibrillation: Yes Hx Congestive Heart Failure: Yes Hx Hypertension: Yes Hx Pacemaker: Yes - PULMONARY Hx Respiratory Disorders: No - NEUROLOGICAL Hx Dementia: Yes Hx Seizures: No - HEENT Hx HEENT Problems: Yes Other/Comment: glasses - RENAL Hx Chronic Kidney Disease: No - ENDOCRINE/METABOLIC Hx Hypothyroidism: Yes - HEMATOLOGICAL/ONCOLOGICAL Hx Anemia: Yes Hx Human Immunodeficiency Virus (HIV): No - INTEGUMENTARY Hx Dermatological Problems: Yes Hx Cellulitis: Yes - MUSCULOSKELETAL/RHEUMATOLOGICAL Hx Falls: No - GASTROINTESTINAL Hx Gastrointestinal Disorders: Yes Hx Gastroesophageal Reflux: Yes - GENITOURINARY/GYNECOLOGICAL Hx Sexually Transmitted Disorders: No - PSYCHIATRIC Hx Anxiety: Yes Hx Depression: Yes Hx Substance Use: No - SURGICAL HISTORY Hx Surgeries: Yes Hx Open Reduction Internal Fixation: Yes (left femur surgery) Other/Comment: Pacemaker Placement - ANESTHESIA Hx Anesthesia: Yes Hx Anesthesia Reactions: No Hx Malignant Hyperthermia: No Has any member of the family had a problem w/ anesthesia?: No Meds Home Medications: Home Medication List Medication Instructions Recorded Confirmed Type Acetaminophen [Tylenol 325mg tab] 650 mg PO Q4 PRN tab 12/30/16 Rx Apixaban [Eliquis] 2.5 mg PO BID tab 12/30/16 Rx Carvedilol [Coreg] 3.125 mg PO Q12 tab 12/30/16 Rx Enalapril Maleate [Vasotec] 2.5 mg PO DAILY tab 12/30/16 Rx Furosemide [Lasix] 40 mg PO DAILY tab 12/30/16 Rx Lactulose [Enulose] 20 gm PO BID udc 12/30/16 Rx Pantoprazole [Protonix EC Tab] 40 mg PO Q12 ect 12/30/16 Rx Potassium Chloride [Klor-Con 10] [address] 12/30/16 Rx QUEtiapine [Seroquel] 12.5 mg PO HS tab 12/30/16 Rx Spironolactone [Aldactone] 12.5 mg PO DAILY tab 12/30/16 Rx Allergies/Adverse Reactions: Allergies Allergy/AdvReac Type Severity Reaction Status Date / Time No Known Allergies Allergy Verified 03/18/16 08:37 Physical Exam - Constitutional Appears: No Acute Distress, Chronically Ill, Other (non coopertaive the Nursing staff) - Head Exam Head Exam: ATRAUMATIC, NORMAL INSPECTION, NORMOCEPHALIC - Eye Exam Eye Exam: EOMI, Normal appearance, PERRL Pupil Exam: NORMAL ACCOMODATION, PERRL - ENT Exam ENT Exam: Mucous Membranes Moist, Normal Exam - Neck Exam Neck exam: Positive for: Normal Inspection - Respiratory Exam Respiratory Exam: Clear to Auscultation Bilateral, NORMAL BREATHING PATTERN - Cardiovascular Exam Cardiovascular Exam: REGULAR RHYTHM, +S1, +S2 - GI/Abdominal Exam GI & Abdominal Exam: Normal Bowel Sounds, Soft. absent: Tenderness - Extremities Exam Extremities exam: Positive for: full ROM, normal capillary refill, normal inspection - Back Exam Back exam: NORMAL INSPECTION - Neurological Exam Neurological exam: Abnormal Gait, Alert, CN II-XII Intact, Oriented x3, Reflexes Normal - Psychiatric Exam Psychiatric exam: Normal Affect, Normal Mood - Skin Skin Exam: Dry, Intact, Normal Color, Warm Results - Vital Signs Recent Vital Signs: Last Vital Signs Temp 98 F 12/18/16 08:00 Pulse 60 12/18/16 08:00 Resp 20 12/18/16 08:00 BP 118/68 12/18/16 08:00 Pulse Ox 99 12/18/16 08:00 - Labs Result Diagrams: 12/29/16 04:50 12/29/16 04:50 Labs: Laboratory Results - last 24 hr 12/16/16 12/17/16 12/18/16 21:22 05:56 06:00 WBC 7.1 RBC 4.15 L Hgb 10.9 L D Hct 33.8 L MCV 81.4 D MCH 26.1 L MCHC 32.1 L RDW 23.3 H Plt Count 166 POC Glucose (mg/dL) 122 H Blood Type A POSITIVE Antibody Screen Negative Crossmatch See Detail BBK History Checked Patient has bt - Imaging and Cardiology CT scan - abdomen Status: Report reviewed by me Additional comment: CT Abdomen and Pelvis with contrast: HISTORY: abdominal pain COMPARISON: CT abdomen and pelvis with contrast performed 10/27/16 TECHNIQUE: Contrast dose: 49 cc Visipaque 320 Radiation dose: Total exam DLP = 421.57 mGy-cm. This CT exam was performed using one or more of the following dose reduction techniques: Automated exposure control, adjustment of the mA and/or kV according to patient size, and/or use of iterative reconstruction technique. FINDINGS: LOWER THORAX: Moderate right greater than left pleural effusions and associated consolidations. 5 mm right middle lobe nodule (series 5, image 12). Partially imaged cardiomegaly. AICD leads. LIVER: Heterogeneous hepatic parenchyma. GALLBLADDER AND BILE DUCTS: Limited visualization, grossly unremarkable. PANCREAS: Limited visualization, grossly unremarkable. SPLEEN: Limited visualization, grossly unremarkable. ADRENALS: Limited visualization, grossly unremarkable except for hypertrophy on the left. KIDNEYS AND URETERS: The kidneys enhance symmetrically. 11 mm hypodense right renal lesion, indeterminate. VASCULATURE: IVC filter. No aortic aneurysm. BOWEL: Stomach is nondistended. Lack of oral contrast limits evaluation for bowel pathology. Bowel loops appear within normal limits of caliber without evidence of obstruction. Moderate constipation. APPENDIX: The appendix is not identified. PERITONEUM: Moderate abdominal and pelvic ascites. No definite free air. LYMPH NODES: No bulky adenopathy identified. BLADDER: Thick-walled under distended urinary bladder. REPRODUCTIVE: Unremarkable. BONES: No acute osseous abnormality is detected. OTHER FINDINGS: None. IMPRESSION: Moderate right greater than left pleural effusions and associated consolidations. 5 mm right middle lobe pulmonary nodule. Guidelines by the Fleischner society suggests that in patients with low risk for lung cancer, nodules from 5 mm to 6 mm in diameter should have follow-up in approximately 12 months. In patients with high-risk, such as those were smokers, follow-up is recommended in 6 months. Patients with a known malignancy or risk for metastases should receive 3 month follow-up. Partially imaged cardiomegaly. AICD leads. Heterogeneous hepatic parenchyma. Left adrenal gland hypertrophy. 11 mm hypodense right renal lesion, indeterminate. IVC filter. Moderate constipation. Moderate abdominal and pelvic ascites. Thick-walled under distended urinary bladder. Recommend correlation with urinalysis. Assessment & Plan (1) Dementia with behavioral disturbance Assessment and Plan: Suicidal Behaviour 1 to 1 Watch Psych Evaluation Haldol PRN anxiety Status: Acute (2) GI bleed Assessment and Plan: Protonix 40mg IV BID GI Consult Serial CBC Status: Acute (3) Pleural effusion, bilateral Assessment and Plan: Most Likely Transudative due to CHF MAy need Thoracentesis Status: Acute Priority: High (4) Recurrent falls Assessment and Plan: PT/OT evalaution Safe Environment Status: Chronic (5) Atrial fibrillation Assessment and Plan: No Anticoagulation due to Recurrent falls and risk of ICH Status: Chronic (6) CHF (congestive heart failure) Status: Chronic (7) Nodule of right lung Assessment and Plan: will need follow up Nodule Status: Chronic Priority: High (8) HTN (hypertension) Status: Chronic (9) Hypothyroidism Status: Chronic
--- NOTE | 2016-12-18 17:26 | CP.PCM.CON ---
History of Present Illness - History of Present Illness History of Present Illness: This is a 71 yr old male with h/o HTN,CAd,CHF ,depression and dementia admitted because of confusion as pt was acting bizarrre in ER and also has elevated BUN and psychiatric consult called because pt has been increasingly agitatedf.pt is placed on 1;1 0bservastion. pt reports feeling depressed because of feet and believes there are worms in it.pt says that he told the daughter to shoot him because of his depression but he wont do anything to hurt himself.pt is still making bizarre statements that he hears dogs barking. pt denies abuse of alcohol/illicit drugs Review of Systems - Review of Systems All systems: reviewed and no additional remarkable complaints except Past Patient History - Infectious Disease Hx of Infectious Diseases: None - Tetanus Immunizations Tetanus Immunization: Unknown - Past Medical History & Family History Past Medical History?: Yes - Past Social History Smoking Status: Former Smoker - CARDIAC Hx Atrial Fibrillation: Yes Hx Congestive Heart Failure: Yes Hx Hypertension: Yes Hx Pacemaker: Yes - PULMONARY Hx Respiratory Disorders: No - NEUROLOGICAL Hx Dementia: Yes Hx Seizures: No - HEENT Hx HEENT Problems: Yes Other/Comment: glasses - RENAL Hx Chronic Kidney Disease: No - ENDOCRINE/METABOLIC Hx Hypothyroidism: Yes - HEMATOLOGICAL/ONCOLOGICAL Hx Anemia: Yes Hx Human Immunodeficiency Virus (HIV): No - INTEGUMENTARY Hx Dermatological Problems: Yes Hx Cellulitis: Yes - MUSCULOSKELETAL/RHEUMATOLOGICAL Hx Falls: No - GASTROINTESTINAL Hx Gastrointestinal Disorders: Yes Hx Gastroesophageal Reflux: Yes - GENITOURINARY/GYNECOLOGICAL Hx Sexually Transmitted Disorders: No - PSYCHIATRIC Hx Anxiety: Yes Hx Depression: Yes Hx Substance Use: No - SURGICAL HISTORY Hx Surgeries: Yes Hx Open Reduction Internal Fixation: Yes (left femur surgery) Other/Comment: Pacemaker Placement - ANESTHESIA Hx Anesthesia: Yes Hx Anesthesia Reactions: No Hx Malignant Hyperthermia: No Has any member of the family had a problem w/ anesthesia?: No Meds Allergies/Adverse Reactions: Allergies Allergy/AdvReac Type Severity Reaction Status Date / Time No Known Allergies Allergy Verified 03/18/16 08:37 - Medications Medications: Current Medications Acetaminophen (Tylenol 325mg Tab) 650 mg PO Q4 PRN PRN Reason: Pain, Mild (1-3) Acetaminophen (Tylenol 325mg Tab) 650 mg PO Q4 PRN PRN Reason: Fever >100.4 F Ferrous Sulfate (Feosol) 325 mg PO TID [facility] Last Admin: 12/18/16 14:28 Dose: Not Given Haloperidol Lactate (Haldol) 2 mg IM Q6 PRN PRN Reason: Agitation Lactulose (Enulose) 20 gm PO BID [facility] Last Admin: 12/18/16 09:28 Dose: Not Given Morphine Sulfate (Morphine) 1 mg IVP Q4 PRN PRN Reason: Pain, severe (8-10) Pantoprazole Sodium (Protonix Inj) 40 mg IVP Q12 [facility] Last Admin: 12/18/16 09:19 Dose: 40 mg Physical Exam - Psychiatric Exam Psychiatric exam: Agitated, Depressed, Flat Affect Additional comments: pt is alert oriented to self and place but not the date and knows his date of .pt is delusional that there are worms in the feet.pt talks about wanting someone to shoot him but denies suicidal ideation himself and wont hurt himself. - Expanded Psychiatric Exam Expanded Focused psych exam: Delusional, Internal Stimuli, Paranoid Results - Vital Signs Recent Vital Signs: Last Vital Signs Temp 98.9 F 12/18/16 15:46 Pulse 60 12/18/16 15:46 Resp 18 12/18/16 15:46 BP 129/83 12/18/16 15:46 Pulse Ox 98 12/18/16 15:46 - Labs Result Diagrams: 12/18/16 06:00 12/17/16 03:30 Labs: Laboratory Results - last 24 hr 12/16/16 12/17/16 12/18/16 21:22 05:56 06:00 WBC 7.1 RBC 4.15 L Hgb 10.9 L D Hct 33.8 L MCV 81.4 D MCH 26.1 L MCHC 32.1 L RDW 23.3 H Plt Count 166 POC Glucose (mg/dL) 122 H Blood Type A POSITIVE Antibody Screen Negative Crossmatch See Detail BBK History Checked Patient has bt Assessment & Plan - Assessment and Plan (Free Text) Assessment: A/P; delirium/confusion due to dehydration[BUN =46] vs toxic metabolic depression with psychotic features r/o dementia Plan :continue 1;1 observation pt has agred to take seroquel 12.5 mg hs to address both psychosis and agitation and ativan 0.5 mg q8hr prn severe agiation medical stabilization may be hydration and once pt is medically stable and still confused,depressed and delusional calll psychiatry tomorrow to reevaluate for possible need of inpt psych admission.
[2016-12-19 11:04] LABS: HEMATOCRIT 33.9 % (35.0-51.0); MEAN CELL VOLUME 80.5 fl (80.0-94.0); MEAN CORPUSCULAR HEMOGLOBIN 25.5 pg (27.0-31.0); MEAN CORPUSCULAR HGB CONC 31.7 g/dL (33.0-37.0); RED CELL DISTRIBUTION WIDTH 23.6 % (11.5-14.5); WHITE BLOOD COUNT 6.9 K/uL (4.8-10.8)
[2016-12-19 12:38] LABS: ALB/GLOB RATIO 1.1 (1.0-2.1); ALKALINE PHOSPHATASE 153 U/L (38-126); ALT/SGPT 249 U/L (21-72); AST/SGOT 199 U/L (17-59); BILIRUBIN,TOTAL 1.8 mg/dl (0.2-1.3); BLOOD UREA NITROGEN 34 mg/dl (9-20); CALCIUM 9.3 mg/dL (8.4-10.2); CARBON DIOXIDE 24 mmol/L (22-30); CHLORIDE 104 mmol/L (98-107); GFR AFRICAN-AMERICAN > 60; GLUCOSE,RANDOM 209 mg/dL (75-110); POTASSIUM 4.3 MMOL/L (3.6-5.0); SODIUM 141 mmol/l (132-148)
--- NOTE | 2016-12-19 17:23 | US ---
HISTORY: elevated LFT COMPARISON: 12/17/2016 CT abdomen and pelvis TECHNIQUE: Sonographic evaluation of the abdomen. FINDINGS: LIVER: Measures 15.0 cm. Hepatopedal blood flow. Fatty infiltration manifest ultrasonographically as increased echogenicity of the liver parenchyma. No mass. No intrahepatic bile duct dilatation. GALLBLADDER: Status post cholecystectomy. No abnormality is seen in the gallbladder fossa. COMMON BILE DUCT: Measures 4.6 mm. No stones. No dilatation. PANCREAS: Unremarkable as visualized. No mass. No ductal dilatation. RIGHT KIDNEY: Measures 5.5 x 10.1cm. Normal echogenicity. No calculus, mass, or hydronephrosis. LEFT KIDNEY: Measures 5.1 x 10.3cm. Normal echogenicity. No calculus, mass, or hydronephrosis. SPLEEN: Normal in size and contour. No mass. AORTA: No aneurysmal dilatation. IVC: Unremarkable. OTHER FINDINGS: Incompletely visualized pleural effusions and ascites, findings better appreciated on recent CT scan. IMPRESSION: Hepatic steatosis, otherwise unremarkable study.
[2016-12-19 18:37] LABS: FOLATE > 20.0 ng/mL
--- NOTE | 2016-12-19 23:03 | CP.PCM.PN ---
Subjective - Date & Time of Evaluation Date of Evaluation: 12/19/16 Time of Evaluation: 13:05 Objective - Vital Signs/Intake and Output Vital Signs (last 24 hours): Temp Pulse Resp BP Pulse Ox 98.0 F 56 L 18 125/72 97 12/19/16 20:01 12/19/16 20:01 12/19/16 20:01 12/19/16 20:01 12/19/16 20:01 Intake and Output: 12/19/16 12/20/16 18:59 06:59 Intake Total 200 Output Total 300 Balance -100 - Medications Medications: Current Medications Acetaminophen (Tylenol 325mg Tab) 650 mg PO Q4 PRN PRN Reason: Pain, Mild (1-3) Acetaminophen (Tylenol 325mg Tab) 650 mg PO Q4 PRN PRN Reason: Fever >100.4 F Ferrous Sulfate (Feosol) 325 mg PO TID [facility] Last Admin: 12/19/16 16:51 Dose: Not Given Haloperidol Lactate (Haldol) 2 mg IM Q6 PRN PRN Reason: Agitation Lactulose (Enulose) 20 gm PO BID [facility] Last Admin: 12/19/16 16:51 Dose: Not Given Lorazepam (Ativan) 0.5 mg PO TID PRN PRN Reason: Agitation Last Admin: 12/18/16 21:04 Dose: 0.5 mg Morphine Sulfate (Morphine) 1 mg IVP Q4 PRN PRN Reason: Pain, severe (8-10) Pantoprazole Sodium (Protonix Inj) 40 mg IVP Q12 [facility] Last Admin: 12/19/16 21:12 Dose: 40 mg Quetiapine Fumarate (Seroquel) 12.5 mg PO HS [facility] Last Admin: 12/19/16 21:12 Dose: 12.5 mg - Labs Labs: 12/19/16 10:30 12/19/16 10:30 PT 16.2 Seconds (9.8-13.1) H 12/19/16 10:30 INR 1.4 (0.9-1.2) H 12/19/16 10:30 APTT 28.4 Seconds (25.6-37.1) 12/17/16 05:56
--- NOTE | 2016-12-20 05:26 | CON ---
DATE: 12/18/2016 REFERRING DOCTOR: Chinmay Rodriguez MD REASON FOR CONSULTATION: Episode of rectal bleeding. HISTORY OF PRESENT ILLNESS: This is a 71-year-old demented or confused male who is a poor historian and he was called for rectal bleeding x1 episode. The patient cannot give a history. History is obtained via chart and staff. PAST MEDICAL HISTORY: Includes CAD, hypertension, CHF, and depression. MEDICATIONS: Reviewed. PAST SURGICAL HISTORY: Reviewed. REVIEW OF SYSTEMS: All other systems unable to obtain as the patient is a poor historian. PHYSICAL EXAMINATION: VITAL SIGNS: In the hospital, grossly unremarkable. GENERAL: This is a pleasant, elderly-appearing male, lying in the bed comfortably, in no apparent distress. HEENT: Head is normocephalic and atraumatic. Eyes; pupils are equal, round and reactive to light bilaterally. No conjunctival pallor or icterus. NECK: Supple. Normal range of motion. No lymphadenopathy appreciated. LUNGS: Coarse breath sounds bilaterally. HEART: S1, S2. Regular rate and rhythm. No murmurs appreciated. ABDOMEN: Soft and nontender. Bowel sounds are present. No rebound. No guarding. RECTAL: Deferred. EXTREMITIES: Pulses felt bilaterally. SKIN: Warm, dry, and intact. NEUROLOGIC: A and O x1. LABORATORY DATA: Labs were reviewed. WBC is 5.7, hemoglobin is 7.8, hematocrit 25.5, and platelet count is 131. INR is 1.8. Total bilirubin 0.7. AST 107, ALT 159, and alkaline phosphatase 149. ASSESSMENT AND PLAN: This is a 71-year-old male with history of rectal bleeding. From gastrointestinal standpoint, we will transfuse as needed. We will discuss with the family and primary care team for any further workup. We can consider endoscopy of colon if need be. I want to review old records for now. Continue with management. Thank you for the consult. Josh Ojeda MD/ PhD cc: Chinmay Rodriguez MD
[2016-12-20 05:27] LABS: ALB/GLOB RATIO 1.1 (1.0-2.1); ALKALINE PHOSPHATASE 163 U/L (38-126); ALT/SGPT 325 U/L (21-72); AST/SGOT 246 U/L (17-59); BILIRUBIN,TOTAL 1.8 mg/dl (0.2-1.3); BLOOD UREA NITROGEN 29 mg/dl (9-20); CALCIUM 9.3 mg/dL (8.4-10.2); CARBON DIOXIDE 26 mmol/L (22-30); CHLORIDE 104 mmol/L (98-107); GFR AFRICAN-AMERICAN > 60; GLUCOSE,RANDOM 104 mg/dL (75-110); POTASSIUM 4.2 MMOL/L (3.6-5.0); SODIUM 141 mmol/l (132-148)
[2016-12-20 05:28] LABS: HEMATOCRIT 32.5 % (35.0-51.0); MEAN CELL VOLUME 80.9 fl (80.0-94.0); MEAN CORPUSCULAR HEMOGLOBIN 25.8 pg (27.0-31.0); MEAN CORPUSCULAR HGB CONC 31.9 g/dL (33.0-37.0); RED CELL DISTRIBUTION WIDTH 24.3 % (11.5-14.5); WHITE BLOOD COUNT 5.9 K/uL (4.8-10.8)
[2016-12-20] MEDS ORDERED: Iohexol 240 (50 ml) PO ONE (10:00)
--- NOTE | 2016-12-20 15:55 | CP.PCM.PN ---
Subjective - Date & Time of Evaluation Date of Evaluation: 12/19/16 Time of Evaluation: 15:00 - Subjective Subjective: no bleeding Objective - Vital Signs/Intake and Output Vital Signs (last 24 hours): Temp Pulse Resp BP Pulse Ox 97.5 F L 61 20 107/68 98 12/20/16 12:42 12/20/16 12:42 12/20/16 12:42 12/20/16 12:42 12/20/16 12:42 - Medications Medications: Current Medications Acetaminophen (Tylenol 325mg Tab) 650 mg PO Q4 PRN PRN Reason: Pain, Mild (1-3) Acetaminophen (Tylenol 325mg Tab) 650 mg PO Q4 PRN PRN Reason: Fever >100.4 F Carvedilol (Coreg) 3.125 mg PO Q12 [facility] Last Admin: 12/20/16 11:24 Dose: Not Given Enalapril Maleate (Vasotec) 2.5 mg PO DAILY [facility] Last Admin: 12/20/16 11:34 Dose: Not Given Ferrous Sulfate (Feosol) 325 mg PO TID [facility] Last Admin: 12/20/16 12:58 Dose: Not Given Furosemide (Lasix) 20 mg PO DAILY [facility] Last Admin: 12/20/16 11:34 Dose: Not Given Haloperidol Lactate (Haldol) 2 mg IM Q6 PRN PRN Reason: Agitation Lactulose (Enulose) 20 gm PO BID [facility] Last Admin: 12/20/16 09:46 Dose: Not Given Lorazepam (Ativan) 0.5 mg PO TID PRN PRN Reason: Agitation Last Admin: 12/20/16 00:07 Dose: 0.5 mg Morphine Sulfate (Morphine) 1 mg IVP Q4 PRN PRN Reason: Pain, severe (8-10) Pantoprazole Sodium (Protonix Inj) 40 mg IVP Q12 [facility] Last Admin: 12/20/16 09:40 Dose: 40 mg Quetiapine Fumarate (Seroquel) 12.5 mg PO HS [facility] Last Admin: 12/19/16 21:12 Dose: 12.5 mg - Labs Labs: 12/20/16 04:30 12/20/16 04:30 PT 16.2 Seconds (9.8-13.1) H 12/19/16 10:30 INR 1.4 (0.9-1.2) H 12/19/16 10:30 APTT 28.4 Seconds (25.6-37.1) 12/17/16 05:56 - Eye Exam Eye Exam: Normal appearance - Neck Exam Neck Exam: Normal Inspection - Respiratory Exam Respiratory Exam: NORMAL BREATHING PATTERN - Cardiovascular Exam Cardiovascular Exam: REGULAR RHYTHM - GI/Abdominal Exam GI & Abdominal Exam: Soft, Normal Bowel Sounds Assessment and Plan - Assessment and Plan (Free Text) Assessment: 71 yo male with anemia no bleeding elevated lft, sonogram pending hep abc
[2016-12-20 22:47] LABS: HEPATITIS A TOTAL ANTIBODY POS (NEGATIVE)
--- NOTE | 2016-12-20 23:26 | CP.PCM.PN ---
Subjective - Date & Time of Evaluation Date of Evaluation: 12/20/16 Time of Evaluation: 15:00 Objective - Vital Signs/Intake and Output Vital Signs (last 24 hours): Temp Pulse Resp BP Pulse Ox 98.4 F 68 14 130/90 99 12/20/16 21:07 12/20/16 21:24 12/20/16 21:07 12/20/16 21:24 12/20/16 21:07 Intake and Output: 12/20/16 12/21/16 18:59 06:59 Intake Total 500 Balance 500 - Medications Medications: Current Medications Acetaminophen (Tylenol 325mg Tab) 650 mg PO Q4 PRN PRN Reason: Pain, Mild (1-3) Acetaminophen (Tylenol 325mg Tab) 650 mg PO Q4 PRN PRN Reason: Fever >100.4 F Carvedilol (Coreg) 3.125 mg PO Q12 REPLACED BY [facility] Last Admin: 12/20/16 21:24 Dose: 3.125 mg Enalapril Maleate (Vasotec) 2.5 mg PO DAILY REPLACED BY [facility] Last Admin: 12/20/16 11:34 Dose: Not Given Ferrous Sulfate (Feosol) 325 mg PO TID REPLACED BY [facility] Last Admin: 12/20/16 17:00 Dose: 325 mg Furosemide (Lasix) 20 mg PO DAILY REPLACED BY [facility] Last Admin: 12/20/16 11:34 Dose: Not Given Haloperidol Lactate (Haldol) 2 mg IM Q6 PRN PRN Reason: Agitation Lactulose (Enulose) 20 gm PO BID REPLACED BY [facility] Last Admin: 12/20/16 17:03 Dose: Not Given Lorazepam (Ativan) 0.5 mg PO TID PRN PRN Reason: Agitation Last Admin: 12/20/16 00:07 Dose: 0.5 mg Morphine Sulfate (Morphine) 1 mg IVP Q4 PRN PRN Reason: Pain, severe (8-10) Pantoprazole Sodium (Protonix Inj) 40 mg IVP Q12 REPLACED BY [facility] Last Admin: 12/20/16 21:23 Dose: 40 mg Quetiapine Fumarate (Seroquel) 12.5 mg PO HS REPLACED BY [facility] Last Admin: 12/20/16 21:23 Dose: 12.5 mg - Labs Labs: 12/20/16 04:30 12/20/16 04:30 PT 16.2 Seconds (9.8-13.1) H 12/19/16 10:30 INR 1.4 (0.9-1.2) H 12/19/16 10:30 APTT 28.4 Seconds (25.6-37.1) 12/17/16 05:56
[2016-12-21 05:39] LABS: HEMATOCRIT 33.3 % (35.0-51.0); MEAN CELL VOLUME 82.2 fl (80.0-94.0); MEAN CORPUSCULAR HGB CONC 31.6 g/dL (33.0-37.0); RED CELL DISTRIBUTION WIDTH 24.1 % (11.5-14.5); WHITE BLOOD COUNT 7.4 K/uL (4.8-10.8)
[2016-12-21 05:40] LABS: ALB/GLOB RATIO 1.2 (1.0-2.1); ALKALINE PHOSPHATASE 172 U/L (38-126); ALT/SGPT 362 U/L (21-72); AST/SGOT 239 U/L (17-59); BILIRUBIN,TOTAL 1.9 mg/dl (0.2-1.3); BLOOD UREA NITROGEN 28 mg/dl (9-20); CALCIUM 9.2 mg/dL (8.4-10.2); CARBON DIOXIDE 25 mmol/L (22-30); CHLORIDE 101 mmol/L (98-107); GFR AFRICAN-AMERICAN > 60; GLUCOSE,RANDOM 108 mg/dL (75-110); POTASSIUM 4.8 MMOL/L (3.6-5.0); SODIUM 139 mmol/l (132-148); TOTAL PROTEIN 7.3 G/DL (6.3-8.2)
[2016-12-21 13:13] LABS: ALB/GLOB RATIO 1.1 (1.0-2.1); ALKALINE PHOSPHATASE 159 U/L (38-126); ALT/SGPT 316 U/L (21-72); AST/SGOT 180 U/L (17-59); BILIRUBIN,TOTAL 1.9 mg/dl (0.2-1.3); BLOOD UREA NITROGEN 24 mg/dl (9-20); CALCIUM 8.7 mg/dL (8.4-10.2); CARBON DIOXIDE 28 mmol/L (22-30); CHLORIDE 101 mmol/L (98-107); GFR AFRICAN-AMERICAN > 60; GLUCOSE,RANDOM 101 mg/dL (75-110); POTASSIUM 4.7 MMOL/L (3.6-5.0); SODIUM 138 mmol/l (132-148); TOTAL PROTEIN 6.6 G/DL (6.3-8.2)
--- NOTE | 2016-12-21 14:04 | CT ---
PROCEDURE: CT HEAD WITHOUT CONTRAST. HISTORY: Altered mental status COMPARISON: 12/17/2016 TECHNIQUE: Axial computed tomography images were obtained through the head/brain without intravenous contrast. Radiation dose: Total exam DLP = 865.62 mGy-cm. This CT exam was performed using one or more of the following dose reduction techniques: Automated exposure control, adjustment of the mA and/or kV according to patient size, and/or use of iterative reconstruction technique. FINDINGS: HEMORRHAGE: No intracranial hemorrhage. BRAIN: No mass effect or edema. Cortical atrophy, periventricular small vessel disease VENTRICLES: Unremarkable. No hydrocephalus. CALVARIUM: Unremarkable. PARANASAL SINUSES: Unremarkable as visualized. No significant inflammatory changes. MASTOID AIR CELLS: Unremarkable as visualized. No inflammatory changes. OTHER FINDINGS: None. IMPRESSION: No acute intracranial abnormalities. No significant findings to account for the clinical presentation. No significant interval change compared to the prior examination(s).
--- NOTE | 2016-12-21 22:19 | CP.PCM.PN ---
Subjective - Date & Time of Evaluation Date of Evaluation: 12/21/16 Time of Evaluation: 18:00 Objective - Vital Signs/Intake and Output Vital Signs (last 24 hours): Temp Pulse Resp BP Pulse Ox 97.7 F 60 20 104/65 100 12/21/16 19:38 12/21/16 21:09 12/21/16 19:38 12/21/16 21:09 12/21/16 19:38 Intake and Output: 12/21/16 12/22/16 18:59 06:59 Intake Total 800 Balance 800 - Medications Medications: Current Medications Acetaminophen (Tylenol 325mg Tab) 650 mg PO Q4 PRN PRN Reason: Pain, Mild (1-3) Acetaminophen (Tylenol 325mg Tab) 650 mg PO Q4 PRN PRN Reason: Fever >100.4 F Carvedilol (Coreg) 3.125 mg PO Q12 [facility] Last Admin: 12/21/16 21:09 Dose: 3.125 mg Enalapril Maleate (Vasotec) 2.5 mg PO DAILY [facility] Last Admin: 12/21/16 08:59 Dose: 2.5 mg Ferrous Sulfate (Feosol) 325 mg PO TID [facility] Last Admin: 12/21/16 16:40 Dose: 325 mg Furosemide (Lasix) 20 mg PO DAILY [facility] Last Admin: 12/21/16 08:59 Dose: 20 mg Haloperidol Lactate (Haldol) 2 mg IM Q6 PRN PRN Reason: Agitation Lactulose (Enulose) 20 gm PO BID [facility] Last Admin: 12/21/16 16:40 Dose: Not Given Lorazepam (Ativan) 0.5 mg PO TID PRN PRN Reason: Agitation Last Admin: 12/21/16 01:39 Dose: 0.5 mg Morphine Sulfate (Morphine) 1 mg IVP Q4 PRN PRN Reason: Pain, severe (8-10) Pantoprazole Sodium (Protonix Ec Tab) 40 mg PO Q12 [facility] Quetiapine Fumarate (Seroquel) 12.5 mg PO HS [facility] Last Admin: 12/20/16 21:23 Dose: 12.5 mg - Labs Labs: 12/21/16 04:30 12/21/16 12:56 PT 16.2 Seconds (9.8-13.1) H 12/19/16 10:30 INR 1.4 (0.9-1.2) H 12/19/16 10:30 APTT 28.4 Seconds (25.6-37.1) 12/17/16 05:56
[2016-12-22 06:14] LABS: HEMATOCRIT 38.2 % (35.0-51.0); MEAN CELL VOLUME 82.7 fl (80.0-94.0); MEAN CORPUSCULAR HGB CONC 31.4 g/dL (33.0-37.0); RED CELL DISTRIBUTION WIDTH 24.8 % (11.5-14.5); WHITE BLOOD COUNT 7.9 K/uL (4.8-10.8)
[2016-12-22 06:31] LABS: ALB/GLOB RATIO 1.1 (1.0-2.1); ALKALINE PHOSPHATASE 172 U/L (38-126); ALT/SGPT 321 U/L (21-72); AST/SGOT 163 U/L (17-59); BLOOD UREA NITROGEN 25 mg/dl (9-20); CALCIUM 9.2 mg/dL (8.4-10.2); CARBON DIOXIDE 23 mmol/L (22-30); CHLORIDE 103 mmol/L (98-107); GFR AFRICAN-AMERICAN > 60; GLUCOSE,RANDOM 157 mg/dL (75-110); SODIUM 139 mmol/l (132-148); TOTAL PROTEIN 7.3 G/DL (6.3-8.2)
[2016-12-22] MEDS: Pantoprazole 40 mg EC Tab PO SCH ×2 (09:03→22:07)
--- NOTE | 2016-12-22 09:34 | CP.PCM.PN ---
Subjective - Date & Time of Evaluation Date of Evaluation: 12/22/16 Time of Evaluation: 09:30 - Subjective Subjective: no overnight events Objective - Vital Signs/Intake and Output Vital Signs (last 24 hours): Temp Pulse Resp BP Pulse Ox 97.6 F 60 20 108/66 100 12/22/16 08:00 12/22/16 09:02 12/22/16 08:00 12/22/16 09:03 12/22/16 08:00 - Medications Medications: Current Medications Acetaminophen (Tylenol 325mg Tab) 650 mg PO Q4 PRN PRN Reason: Pain, Mild (1-3) Acetaminophen (Tylenol 325mg Tab) 650 mg PO Q4 PRN PRN Reason: Fever >100.4 F Carvedilol (Coreg) 3.125 mg PO Q12 [facility] Last Admin: 12/22/16 09:02 Dose: Not Given Enalapril Maleate (Vasotec) 2.5 mg PO DAILY [facility] Last Admin: 12/22/16 09:03 Dose: Not Given Ferrous Sulfate (Feosol) 325 mg PO TID [facility] Last Admin: 12/22/16 09:03 Dose: Not Given Furosemide (Lasix) 20 mg PO DAILY [facility] Last Admin: 12/22/16 09:03 Dose: Not Given Haloperidol Lactate (Haldol) 2 mg IM Q6 PRN PRN Reason: Agitation Lactulose (Enulose) 20 gm PO BID [facility] Last Admin: 12/22/16 09:02 Dose: Not Given Lorazepam (Ativan) 0.5 mg PO TID PRN PRN Reason: Agitation Last Admin: 12/21/16 01:39 Dose: 0.5 mg Morphine Sulfate (Morphine) 1 mg IVP Q4 PRN PRN Reason: Pain, severe (8-10) Pantoprazole Sodium (Protonix Ec Tab) 40 mg PO Q12 [facility] Last Admin: 12/22/16 09:03 Dose: Not Given Quetiapine Fumarate (Seroquel) 12.5 mg PO HS [facility] Last Admin: 12/20/16 21:23 Dose: 12.5 mg - Labs Labs: 12/22/16 05:30 12/22/16 05:30 PT 16.2 Seconds (9.8-13.1) H 12/19/16 10:30 INR 1.4 (0.9-1.2) H 12/19/16 10:30 APTT 28.4 Seconds (25.6-37.1) 12/17/16 05:56 - Head Exam Head Exam: NORMAL INSPECTION - Respiratory Exam Respiratory Exam: NORMAL BREATHING PATTERN - Cardiovascular Exam Cardiovascular Exam: REGULAR RHYTHM - GI/Abdominal Exam GI & Abdominal Exam: Soft, Normal Bowel Sounds Assessment and Plan - Assessment and Plan (Free Text) Assessment: 81 yo male with anemia no bleeding lft rise secondary to congestive hepatopathy
--- NOTE | 2016-12-22 11:56 | CP.PCM.CON ---
History of Present Illness - History of Present Illness History of Present Illness: Psychiatry consult follow-up note HPI: 71 yr old male with h/o HTN, CAD, CHF, depression and dementia admitted because of confusion. Patient is minimally cooperative with interview, just stating that he wants to and he wants someone to kill him. He denies that he would try to harm himself. Due to lack of cooperation and perservation about wanting to , the patient was difficult to evaluate. He denied hallucinations and did not appear to be internally preoccupied. At this time it seems unlikely that the patient has capacity to make his own medical decisions or sign in for voluntary admission due to his history of dementia and lack of cooperation with interview. PMHx: HTN, CAD, CHF, depression and dementia ALL: NKDA MSE: Difficult to assess mental status as patient will only state his desire to be w/o actual suicidal ideation/plan/intent. Impression: 71 yr old male with h/o HTN, CAD, CHF, depression and dementia, is repeatedly expressing ideation that he wishes he were , but denies acute suicidal ideation/plan/intent. Patient is not willing to sign into voluntary admission and also seems to lack capacity to do so due to chronic dementia, poor judgment and inability to weight risks/benefits of treatment. 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 -If patient has acute agitation or "sundowning" (late day confusion) can given Seroquel 25 mg PO Daily@1700 and/or PO HS. -Continue 1:1 for safety Past Patient History - Infectious Disease Hx of Infectious Diseases: None - Tetanus Immunizations Tetanus Immunization: Unknown - Past Medical History & Family History Past Medical History?: Yes - Past Social History Smoking Status: Former Smoker - CARDIAC Hx Atrial Fibrillation: Yes Hx Congestive Heart Failure: Yes Hx Hypertension: Yes Hx Pacemaker: Yes - PULMONARY Hx Respiratory Disorders: No - NEUROLOGICAL Hx Dementia: Yes Hx Seizures: No - HEENT Hx HEENT Problems: Yes Other/Comment: glasses - RENAL Hx Chronic Kidney Disease: No - ENDOCRINE/METABOLIC Hx Hypothyroidism: Yes - HEMATOLOGICAL/ONCOLOGICAL Hx Anemia: Yes Hx Human Immunodeficiency Virus (HIV): No - INTEGUMENTARY Hx Dermatological Problems: Yes Hx Cellulitis: Yes - MUSCULOSKELETAL/RHEUMATOLOGICAL Hx Falls: No - GASTROINTESTINAL Hx Gastrointestinal Disorders: Yes Hx Gastroesophageal Reflux: Yes - GENITOURINARY/GYNECOLOGICAL Hx Sexually Transmitted Disorders: No - PSYCHIATRIC Hx Anxiety: Yes Hx Depression: Yes Hx Substance Use: No - SURGICAL HISTORY Hx Surgeries: Yes Hx Open Reduction Internal Fixation: Yes (left femur surgery) Other/Comment: Pacemaker Placement - ANESTHESIA Hx Anesthesia: Yes Hx Anesthesia Reactions: No Hx Malignant Hyperthermia: No Has any member of the family had a problem w/ anesthesia?: No Meds Allergies/Adverse Reactions: Allergies Allergy/AdvReac Type Severity Reaction Status Date / Time No Known Allergies Allergy Verified 03/18/16 08:37 - Medications Medications: Current Medications Acetaminophen (Tylenol 325mg Tab) 650 mg PO Q4 PRN PRN Reason: Pain, Mild (1-3) Acetaminophen (Tylenol 325mg Tab) 650 mg PO Q4 PRN PRN Reason: Fever >100.4 F Carvedilol (Coreg) 3.125 mg PO Q12 [facility] Last Admin: 12/22/16 09:02 Dose: Not Given Enalapril Maleate (Vasotec) 2.5 mg PO DAILY [facility] Last Admin: 12/22/16 09:03 Dose: Not Given Ferrous Sulfate (Feosol) 325 mg PO TID [facility] Last Admin: 12/22/16 09:03 Dose: Not Given Furosemide (Lasix) 20 mg PO DAILY [facility] Last Admin: 12/22/16 09:03 Dose: Not Given Haloperidol Lactate (Haldol) 2 mg IM Q6 PRN PRN Reason: Agitation Lactulose (Enulose) 20 gm PO BID [facility] Last Admin: 12/22/16 09:02 Dose: Not Given Lorazepam (Ativan) 0.5 mg PO TID PRN PRN Reason: Agitation Last Admin: 12/21/16 01:39 Dose: 0.5 mg Morphine Sulfate (Morphine) 1 mg IVP Q4 PRN PRN Reason: Pain, severe (8-10) Pantoprazole Sodium (Protonix Ec Tab) 40 mg PO Q12 [facility] Last Admin: 12/22/16 09:03 Dose: Not Given Quetiapine Fumarate (Seroquel) 12.5 mg PO HS [facility] Last Admin: 12/20/16 21:23 Dose: 12.5 mg Results - Vital Signs Recent Vital Signs: Last Vital Signs Temp 97.6 F 12/22/16 08:00 Pulse 60 12/22/16 09:02 Resp 20 12/22/16 08:00 BP 108/66 12/22/16 09:03 Pulse Ox 100 12/22/16 08:00 - Labs Result Diagrams: 12/22/16 05:30 12/22/16 05:30 Labs: Laboratory Results - last 24 hr 12/21/16 12/21/16 12/22/16 12:56 12:56 05:30 WBC 7.9 RBC 4.63 Hgb 12.0 Hct 38.2 MCV 82.7 MCH 26.0 L MCHC 31.4 L RDW 24.8 H Plt Count 150 Sodium 138 Potassium 4.7 Chloride 101 Carbon Dioxide 28 Anion Gap 15 BUN 24 H Creatinine 0.8 Est GFR ( Amer) > 60 Est GFR (Non-Af Amer) > 60 Random Glucose 101 Calcium 8.7 Total Bilirubin 1.9 H AST 180 H D ALT 316 H Alkaline Phosphatase 159 H Ammonia < 9 L Total Protein 6.6 Albumin 3.5 Globulin 3.1 Albumin/Globulin Ratio 1.1 12/22/16 05:30 WBC RBC Hgb Hct MCV MCH MCHC RDW Plt Count Sodium 139 Potassium 5.0 Chloride 103 Carbon Dioxide 23 Anion Gap 18 BUN 25 H Creatinine 0.9 Est GFR ( Amer) > 60 Est GFR (Non-Af Amer) > 60 Random Glucose 157 H Calcium 9.2 Total Bilirubin 2.0 H AST 163 H ALT 321 H Alkaline Phosphatase 172 H Ammonia Total Protein 7.3 Albumin 3.9 Globulin 3.5 Albumin/Globulin Ratio 1.1
--- NOTE | 2016-12-22 23:31 | CP.PCM.PN ---
Subjective - Date & Time of Evaluation Date of Evaluation: 12/22/16 Time of Evaluation: 17:00 Objective - Vital Signs/Intake and Output Vital Signs (last 24 hours): Temp Pulse Resp BP Pulse Ox 97.4 F L 60 18 126/78 100 12/22/16 20:26 12/22/16 22:07 12/22/16 20:26 12/22/16 22:07 12/22/16 20:26 - Medications Medications: Current Medications Acetaminophen (Tylenol 325mg Tab) 650 mg PO Q4 PRN PRN Reason: Pain, Mild (1-3) Acetaminophen (Tylenol 325mg Tab) 650 mg PO Q4 PRN PRN Reason: Fever >100.4 F Carvedilol (Coreg) 3.125 mg PO Q12 [facility] Last Admin: 12/22/16 22:07 Dose: 3.125 mg Enalapril Maleate (Vasotec) 2.5 mg PO DAILY [facility] Last Admin: 12/22/16 09:03 Dose: Not Given Ferrous Sulfate (Feosol) 325 mg PO TID [facility] Last Admin: 12/22/16 17:04 Dose: Not Given Furosemide (Lasix) 20 mg PO DAILY [facility] Last Admin: 12/22/16 09:03 Dose: Not Given Haloperidol Lactate (Haldol) 2 mg IM Q6 PRN PRN Reason: Agitation Lactulose (Enulose) 20 gm PO BID [facility] Last Admin: 12/22/16 17:04 Dose: Not Given Lorazepam (Ativan) 0.5 mg PO TID PRN PRN Reason: Agitation Last Admin: 12/21/16 01:39 Dose: 0.5 mg Morphine Sulfate (Morphine) 1 mg IVP Q4 PRN PRN Reason: Pain, severe (8-10) Pantoprazole Sodium (Protonix Ec Tab) 40 mg PO Q12 [facility] Last Admin: 12/22/16 22:07 Dose: 40 mg Quetiapine Fumarate (Seroquel) 12.5 mg PO HS [facility] Last Admin: 12/20/16 21:23 Dose: 12.5 mg - Labs Labs: 12/22/16 05:30 12/22/16 05:30 PT 16.2 Seconds (9.8-13.1) H 12/19/16 10:30 INR 1.4 (0.9-1.2) H 12/19/16 10:30 APTT 28.4 Seconds (25.6-37.1) 12/17/16 05:56
[2016-12-23] MEDS: Pantoprazole 40 mg EC Tab PO SCH ×2 (08:22→22:21)
[2016-12-23 15:26] LABS: ALKALINE PHOSPHATASE 149 U/L (38-126); ALT/SGPT 209 U/L (21-72); AST/SGOT 84 U/L (17-59); BILIRUBIN,TOTAL 1.4 mg/dl (0.2-1.3); BLOOD UREA NITROGEN 26 mg/dl (9-20); CALCIUM 8.8 mg/dL (8.4-10.2); CARBON DIOXIDE 21 mmol/L (22-30); CHLORIDE 105 mmol/L (98-107); GFR AFRICAN-AMERICAN > 60; GLUCOSE,RANDOM 138 mg/dL (75-110); POTASSIUM 5.1 MMOL/L (3.6-5.0); SODIUM 139 mmol/l (132-148)
[2016-12-23] MEDS ORDERED: Sod Polystyrene Sulf 15 gm/60 ml Susp PO ONE (17:28)
--- NOTE | 2016-12-24 00:06 | CP.PCM.PN ---
Subjective - Date & Time of Evaluation Date of Evaluation: 12/23/16 Time of Evaluation: 17:00 Objective - Vital Signs/Intake and Output Vital Signs (last 24 hours): Temp Pulse Resp BP Pulse Ox 97.5 F L 61 14 100/69 100 12/23/16 19:59 12/23/16 22:22 12/23/16 19:59 12/23/16 22:22 12/23/16 19:59 - Medications Medications: Current Medications Acetaminophen (Tylenol 325mg Tab) 650 mg PO Q4 PRN PRN Reason: Pain, Mild (1-3) Acetaminophen (Tylenol 325mg Tab) 650 mg PO Q4 PRN PRN Reason: Fever >100.4 F Carvedilol (Coreg) 3.125 mg PO Q12 [facility] Last Admin: 12/23/16 22:22 Dose: 3.125 mg Enalapril Maleate (Vasotec) 2.5 mg PO DAILY [facility] Last Admin: 12/23/16 08:21 Dose: 2.5 mg Ferrous Sulfate (Feosol) 325 mg PO TID [facility] Last Admin: 12/23/16 16:13 Dose: 325 mg Furosemide (Lasix) 20 mg PO DAILY [facility] Last Admin: 12/23/16 08:22 Dose: 20 mg Haloperidol Lactate (Haldol) 2 mg IM Q6 PRN PRN Reason: Agitation Lactulose (Enulose) 20 gm PO BID [facility] Last Admin: 12/23/16 16:13 Dose: Not Given Lorazepam (Ativan) 0.5 mg PO TID PRN PRN Reason: Agitation Last Admin: 12/23/16 02:22 Dose: 0.5 mg Morphine Sulfate (Morphine) 1 mg IVP Q4 PRN PRN Reason: Pain, severe (8-10) Pantoprazole Sodium (Protonix Ec Tab) 40 mg PO Q12 [facility] Last Admin: 12/23/16 22:21 Dose: 40 mg Quetiapine Fumarate (Seroquel) 12.5 mg PO HS [facility] Last Admin: 12/20/16 21:23 Dose: 12.5 mg Spironolactone (Aldactone) 12.5 mg PO DAILY [facility] - Labs Labs: 12/22/16 05:30 12/23/16 15:05 PT 16.2 Seconds (9.8-13.1) H 12/19/16 10:30 INR 1.4 (0.9-1.2) H 12/19/16 10:30 APTT 28.4 Seconds (25.6-37.1) 12/17/16 05:56
--- NOTE | 2016-12-24 06:38 | CARD ---
APPROVED REPORT EKG Measurement Heart [id number] <Conclusion> Ventricular-paced rhythm Abnormal ECG
[2016-12-24 07:29] LABS: BASO % 0.4 % (0.0-2.0); EOS # 0.1 K/uL (0.0-0.7); EOS % 0.8 % (0.0-4.0); HEMATOCRIT 35.4 % (35.0-51.0); LYMPH # 0.5 K/uL (1.0-4.3); LYMPH % 7.2 % (20.0-40.0); MEAN CELL VOLUME 82.4 fl (80.0-94.0); MEAN CORPUSCULAR HGB CONC 31.6 g/dL (33.0-37.0); MEAN PLATELET VOLUME 9.3 fl (7.2-11.7); MONO # 0.8 K/uL (0.0-0.8); MONO % 11.5 % (0.0-10.0); NEUT # 5.5 K/uL (1.8-7.0); NEUT % 80.1 % (50.0-75.0); NRBC % 0.2 % (0.0-0.0); PLATELET COUNT 189 K/uL (130-400); RED CELL DISTRIBUTION WIDTH 24.5 % (11.5-14.5); WHITE BLOOD COUNT 6.9 K/uL (4.8-10.8)
[2016-12-24 07:37] LABS: ALB/GLOB RATIO 1.1 (1.0-2.1); ALKALINE PHOSPHATASE 153 U/L (38-126); ALT/SGPT 193 U/L (21-72); AST/SGOT 72 U/L (17-59); BILIRUBIN,TOTAL 1.2 mg/dl (0.2-1.3); BLOOD UREA NITROGEN 24 mg/dl (9-20); CARBON DIOXIDE 28 mmol/L (22-30); CHLORIDE 102 mmol/L (98-107); GFR AFRICAN-AMERICAN > 60; GLUCOSE,RANDOM 100 mg/dL (75-110); POTASSIUM 4.7 MMOL/L (3.6-5.0); SODIUM 142 mmol/l (132-148); TOTAL PROTEIN 7.2 G/DL (6.3-8.2)
[2016-12-24] MEDS: Pantoprazole 40 mg EC Tab PO SCH ×2 (10:31→21:07)
[2016-12-24 12:11] LABS: BASOPHIL 1 % (0-2); NEUTROPHIL 75 % (42-75); TOTAL CELLS COUNTED 100
[2016-12-24 12:12] LABS: LARGE PLATELETS PRESENT
--- NOTE | 2016-12-24 12:59 | CT ---
PROCEDURE: CT Chest without contrast HISTORY: effusion and nodule COMPARISON: CT scan 10/19/2012, CT scan abdomen 12/17/2016, TECHNIQUE: Contiguous axial images were obtained through the chest without intravenous contrast enhancement. Sagittal and coronal reconstructions were performed. Radiation dose (DLP): 286 mGy-cm. This CT exam was performed using one or more of the following dose reduction techniques: Automated exposure control, adjustment of the mA and/or kV according to patient size, and/or use of iterative reconstruction technique. FINDINGS: LUNGS: Moderate atelectasis related to large bilateral pleural effusions. Additional fluid is seen in the fissures. A previously noted nodule in the right upper lobe on the prior examination is not well appreciated but may be obscured by the fluid. Mild amount of interlobular thickening is noted. There is additionally a 5 millimeter subpleural area of nodularity noted in the right middle lobe and seen on the CT scan performed 12/17/2016. This is nonspecific and wall require further clinical follow-up. Mild amount of interstitial change and/or scarring is seen anteriorly in the right middle lobe and lingula. MEDIASTINUM: There is atherosclerotic change of the aorta with minor aneurysmal dilatation. Heart is extremely enlarged left pacemaker is appreciated. Minor amount of pericardial fluid is not excluded. Pulmonary artery is enlarged which may suggest pulmonary arterial hypertension. Mild amounts of scattered me small mediastinal lymph nodes are appreciated but limited by the lack of contrast. No gross hilar adenopathy is seen. Visualized esophagus is unremarkable. PLEURA: Large bilateral effusions. BONES: No appreciable bone lesions or compression fractures. UPPER ABDOMEN: Upper abdomen is unchanged from the recent CT scan although there may be some mild increase in ascites. OTHER FINDINGS: None. IMPRESSION: Large bilateral pleural effusions and compressive atelectasis bilaterally. Cardiomegaly. A small right middle lobe subpleural pulmonary nodule is noted. . Mild amount of adjacent scarring and reticular nodular change in this region. This may be postinflammatory in origin. Follow-up CT scan is suggested in 6-12 months.
--- NOTE | 2016-12-24 15:38 | CON ---
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 The patient is 71 years old male who has a history of cardiomyopathy, status post ICD placement. The patient does not know the name of his spectrograph operator. The patient, from the records, underwent cardiac catheterization in 02/2016 which revealed nonobstructive coronary artery disease with dilated cardiomyopathy and severe left ventricular systolic dysfunction. The patient was admitted on 12/17/2016 with anemia. Apparently, no workup could be done because there was no obtainable consent and there was no available power of production generalist present. The patient is being considered for involuntary psych unit after receiving the consent. As per the nurse, there was no reported ventricular arrhythmia or hypotension. The patient denies any chest pain or shortness of breath at this time. SOCIAL HISTORY: Apparently, the patient lives by himself. REVIEW OF SYSTEMS: The patient reported that he does not like living anymore. He denied any chest pain, nausea or vomiting, fever or chills, productive cough or dizziness at this time. MEDICATIONS: Ativan 0.5 mg t.i.d. p.r.n. for agitation, Coreg 3.125 mg twice a day, Enulose 20 mg p.o. twice a day, Feosol one tablet t.i.d., Haldol 2 mg IM q. 6 hours p.r.n., Lasix 20 mg p.o. once a day, morphine sulfate 1 mg IV q. 4 hours p.r.n. for pain, Protonix 40 mg p.o. twice a day, Seroquel 12.5 mg daily, Vasotec 2.5 mg daily. PAST MEDICAL HISTORY: Dilated cardiomyopathy, status post ICD placement, history of atrial fibrillation. PHYSICAL EXAMINATION: GENERAL: The patient is an elderly male who does not appear to be in acute distress. VITAL SIGNS: Blood pressure 112/70, heart rate 61, temperature 97.4, respiration of 14. HEENT: Pale conjunctivae. CHEST: Absent breath sounds over both bases with bronchial breath sounds bilaterally. HEART: S1 and S2 irregular. S3 gallop is noted. ABDOMEN: Soft. EXTREMITIES: Trace leg edema. LABORATORY DATA: Today's hemoglobin and hematocrit 10.4 and 32.5, white count 5.9, platelet count 134,000. INR is 1.4, PT 16.2. sodium 139, potassium 5.1, chloride 105, CO2 of 21, glucose 138, BUN 26, creatinine 0.8. AST and ALT are 84 and 209 respectively. Alkaline phosphatase is 149. Hepatitis profile: Hepatitis A antibody was positive, hepatitis B surface antigen and hepatitis C antibody are negative. Urine drug screen is negative. No chest x-ray is found. Abdominopelvic scan reported moderate right greater than left pleural effusion associated with consolidation, 5 mm right middle lobe pulmonary nodule. IVC filter. An 11 mm hypodense right renal lesion, indeterminate. Heterogenous hepatic parenchyma. Moderate abdominal and pelvic ascites. EKG revealed change without distress; underlying rhythm is atrial fibrillation. Echocardiographic study performed recently in October revealed ejection fraction below 20%, mild concentric left ventricular hypertrophy, global hypokinesis as well as , mild mitral insufficiency. ASSESSMENT: 1. Nonischemic cardiomyopathy. 2. Bilateral pleural effusion. 3. Right middle lobe lung nodule. 4. Anemia. RECOMMENDATIONS: Continue Coreg at 3.125 mg twice a day, Lasix 20 mg p.o. once a day, enalapril 2.5 mg once a day. Start Aldactone at 12.5 mg orally once a day. Consider anticoagulation if the patient is cleared from gastrointestinal point of view; however, this issue is being limited because of the fact that no endoscopic GI workup could be done because of inability to obtain the consent. Overall, recommendation regarding transfer to Involuntary Psych Unit if the decision can be delayed until further GI workup is done; however, if involuntary admission is a must do because of the patient's suicidal ideation, then the patient has to be attended by a refrigerator mover on the Psych Unit as well as a dough mixer; however, in the meantime prior to transfer of the patient to any other facility, I would request a chest x-ray and chest CT scan to evaluate the significance and the severity of pleural effusion as well as the pulmonary nodule. Luis August MD
--- NOTE | 2016-12-24 20:33 | PN ---
DATE: SUBJECTIVE: The patient denies any chest pain or shortness of breath. PHYSICAL EXAMINATION VITAL SIGNS: Blood pressure 102/61, heart rate 62, temperature 97.5, respirations 20. HEENT: Normocephalic. CHEST: Bilateral bronchial breathing over both bases. HEART: S1, S2, regular. EXTREMITIES: No edema. LABORATORY DATA: Hemoglobin and hematocrit are 11.1 and 35.4, white count and platelet count are within normal limits. SMA-7 is within normal limits except for BUN of 24. AST, ALT and alkaline phosphatase, elevated. Total bilirubin has normalized to 1.2. Chest CT scan without contrast, large bilateral pleural effusion and compression atelectasis bilaterally, cardiomegaly, small right middle lobe subpleural pulmonary nodule, mild amount of itching and scarring and reticulonodular changes. Suggests CT scan in 6-12 months. ASSESSMENT: 1. Cardiomyopathy. 2. Large bilateral pleural effusion. 3. Right middle lobe lung nodule. 4. Anemia. RECOMMENDATIONS: Continue Aldactone at 12.5 mg once a day, Coreg 3.125 mg twice a day, Augmentin 500 mg/125 mg orally q.12 hours, Lasix 20 mg once a day, Protonix 40 mg p.o. twice a day, Vasotec 2.5 mg once a day. Consider pulmonary evaluation. The patient is not a suitable candidate for transfer to Involuntary Psych Unit at this time. Luis August MD
[2016-12-24] MEDS: Amoxicillin-Clav 500-125 mg Tab PO SCH (21:07)
--- NOTE | 2016-12-25 00:08 | CP.PCM.PN ---
Subjective - Date & Time of Evaluation Date of Evaluation: 12/24/16 Time of Evaluation: 19:00 Objective - Vital Signs/Intake and Output Vital Signs (last 24 hours): Temp Pulse Resp BP Pulse Ox 97.9 F 60 20 97/58 L 97 12/24/16 19:53 12/24/16 21:08 12/24/16 19:53 12/24/16 21:08 12/24/16 19:53 Intake and Output: 12/24/16 12/25/16 18:59 06:59 Intake Total 200 Balance 200 - Medications Medications: Current Medications Acetaminophen (Tylenol 325mg Tab) 650 mg PO Q4 PRN PRN Reason: Pain, Mild (1-3) Acetaminophen (Tylenol 325mg Tab) 650 mg PO Q4 PRN PRN Reason: Fever >100.4 F Amoxicillin/Clavulanate Potassium (Augmentin 500 Mg-125 Mg Tab) 1 tab PO Q12 [facility] PRN Reason: Protocol Last Admin: 12/24/16 21:07 Dose: 1 tab Carvedilol (Coreg) 3.125 mg PO Q12 [facility] Last Admin: 12/24/16 21:08 Dose: Not Given Enalapril Maleate (Vasotec) 2.5 mg PO DAILY [facility] Last Admin: 12/24/16 10:31 Dose: 2.5 mg Ferrous Sulfate (Feosol) 325 mg PO TID [facility] Last Admin: 12/24/16 16:59 Dose: 325 mg Furosemide (Lasix) 20 mg PO DAILY [facility] Last Admin: 12/24/16 10:31 Dose: 20 mg Haloperidol Lactate (Haldol) 2 mg IM Q6 PRN PRN Reason: Agitation Lactulose (Enulose) 20 gm PO BID [facility] Last Admin: 12/24/16 16:59 Dose: Not Given Pantoprazole Sodium (Protonix Ec Tab) 40 mg PO Q12 [facility] Last Admin: 12/24/16 21:07 Dose: 40 mg Quetiapine Fumarate (Seroquel) 12.5 mg PO HS [facility] Last Admin: 12/24/16 21:07 Dose: 12.5 mg Spironolactone (Aldactone) 12.5 mg PO DAILY [facility] Last Admin: 12/24/16 10:32 Dose: 12.5 mg - Labs Labs: 12/24/16 06:00 12/24/16 06:00 PT 16.2 Seconds (9.8-13.1) H 12/19/16 10:30 INR 1.4 (0.9-1.2) H 12/19/16 10:30 APTT 28.4 Seconds (25.6-37.1) 12/17/16 05:56
[2016-12-25] MEDS: Amoxicillin-Clav 500-125 mg Tab PO SCH ×3 (09:13→23:04)
[2016-12-25] MEDS: Pantoprazole 40 mg EC Tab PO SCH ×2 (09:14→23:04)
--- NOTE | 2016-12-25 14:49 | CP.PCM.CON ---
History of Present Illness - History of Present Illness History of Present Illness: pt is a 71 year old male referred to the assembly instructions writer for evaluation. Pt reported "trouble with his legs." He would not disclose further medical information. pt reported living alone. He would not disclose where he resided. He reported having two daughters in [place]- no contact. pt was very irritable/angry on interview, often responded "I don't remember." Cognitive testing could not be performed due to patient's uncooperative stance, irritablility/anger and reported depression. He reported suicidal feelings "I want to ." When asked about a plan stated "I don't know." Pt repored the year as 2016, month as January though was unable to provide the day/date. At this time, patient's emotional status/depression is paramount. Following initiation questions, patient withdrew, closed his eyes and would not respond. MSE: pt alert, oriented to year/month, not day/date, affect constricted, mood depressed, passive suicidal feelings, no apparant psychosis. Dx: Depression- Moderate/Severe R/O Dementia Plan; Psychiatric follow up for medication management continued supportive therapy Past Patient History - Infectious Disease Hx of Infectious Diseases: None - Tetanus Immunizations Tetanus Immunization: Unknown - Past Medical History & Family History Past Medical History?: Yes - Past Social History Smoking Status: Former Smoker - CARDIAC Hx Atrial Fibrillation: Yes Hx Congestive Heart Failure: Yes Hx Hypertension: Yes Hx Pacemaker: Yes - PULMONARY Hx Respiratory Disorders: No - NEUROLOGICAL Hx Dementia: Yes Hx Seizures: No - HEENT Hx HEENT Problems: Yes Other/Comment: glasses - RENAL Hx Chronic Kidney Disease: No - ENDOCRINE/METABOLIC Hx Hypothyroidism: Yes - HEMATOLOGICAL/ONCOLOGICAL Hx Anemia: Yes Hx Human Immunodeficiency Virus (HIV): No - INTEGUMENTARY Hx Dermatological Problems: Yes Hx Cellulitis: Yes - MUSCULOSKELETAL/RHEUMATOLOGICAL Hx Falls: No - GASTROINTESTINAL Hx Gastrointestinal Disorders: Yes Hx Gastroesophageal Reflux: Yes - GENITOURINARY/GYNECOLOGICAL Hx Sexually Transmitted Disorders: No - PSYCHIATRIC Hx Anxiety: Yes Hx Depression: Yes Hx Substance Use: No - SURGICAL HISTORY Hx Surgeries: Yes Hx Open Reduction Internal Fixation: Yes (left femur surgery) Other/Comment: Pacemaker Placement - ANESTHESIA Hx Anesthesia: Yes Hx Anesthesia Reactions: No Hx Malignant Hyperthermia: No Has any member of the family had a problem w/ anesthesia?: No Meds Allergies/Adverse Reactions: Allergies Allergy/AdvReac Type Severity Reaction Status Date / Time No Known Allergies Allergy Verified 03/18/16 08:37 - Medications Medications: Current Medications Acetaminophen (Tylenol 325mg Tab) 650 mg PO Q4 PRN PRN Reason: Pain, Mild (1-3) Last Admin: 12/25/16 02:00 Dose: 650 mg Acetaminophen (Tylenol 325mg Tab) 650 mg PO Q4 PRN PRN Reason: Fever >100.4 F Amoxicillin/Clavulanate Potassium (Augmentin 500 Mg-125 Mg Tab) 1 tab PO Q12 [facility] PRN Reason: Protocol Last Admin: 12/25/16 12:12 Dose: 1 tab Apixaban (Eliquis) 2.5 mg PO BID [facility] PRN Reason: Protocol Carvedilol (Coreg) 3.125 mg PO Q12 [facility] Last Admin: 12/25/16 12:10 Dose: 3.125 mg Enalapril Maleate (Vasotec) 2.5 mg PO DAILY [facility] Last Admin: 12/25/16 12:11 Dose: 2.5 mg Ferrous Sulfate (Feosol) 325 mg PO TID [facility] Last Admin: 12/25/16 12:17 Dose: Not Given Furosemide (Lasix) 20 mg PO DAILY [facility] Last Admin: 12/25/16 09:14 Dose: Not Given Haloperidol Lactate (Haldol) 2 mg IM Q6 PRN PRN Reason: Agitation Lactulose (Enulose) 20 gm PO BID [facility] Last Admin: 12/25/16 09:13 Dose: Not Given Pantoprazole Sodium (Protonix Ec Tab) 40 mg PO Q12 [facility] Last Admin: 12/25/16 09:14 Dose: Not Given Quetiapine Fumarate (Seroquel) 12.5 mg PO HS [facility] Last Admin: 12/24/16 21:07 Dose: 12.5 mg Spironolactone (Aldactone) 12.5 mg PO DAILY [facility] Last Admin: 12/25/16 09:13 Dose: Not Given Results - Vital Signs Recent Vital Signs: Last Vital Signs Temp 97.7 F 12/25/16 12:00 Pulse 62 12/25/16 12:10 Resp 18 12/25/16 12:00 BP 121/77 12/25/16 12:10 Pulse Ox 96 12/25/16 12:00 - Labs Result Diagrams: 12/24/16 06:00 12/24/16 06:00
--- NOTE | 2016-12-25 15:18 | PN ---
DATE: SUBJECTIVE: The patient was in rapid atrial fibrillation this morning and he was depressed. He denies any chest pain or shortness of breath at this time. PHYSICAL EXAMINATION VITAL SIGNS: Blood pressure 121/77, heart rate 62, temperature 97.7, respirations 18. HEENT: Normocephalic. CHEST: Bibasilar bronchial breathing. HEART: S1, S2 regular. EXTREMITIES: No edema. LABORATORY DATA: Hemoglobin and hematocrit 11.2 and 35.4, white count and platelet count are within normal limits. SMA-7 is within normal limits except for BUN of 24. ASSESSMENT: 1. Dilated cardiomyopathy. 2. Chronic atrial fibrillation. 3. Large bilateral pleural effusion. 4. Depression. 5. Right middle lobe lung nodule. 6. Anemia. RECOMMENDATIONS: Continue Aldactone 12.5 mg once a day, Coreg 3.125 mg twice a day, Lasix 20 mg once a day, enalapril 2.5 mg once a day. The patient was on Eliquis 2.5 mg twice a day and will be restarted today. Pulmonary evaluation is recommended. Luis August MD
--- NOTE | 2016-12-25 20:14 | CP.PCM.CON ---
History of Present Illness - History of Present Illness History of Present Illness: called to see pt is admitted to [facility] telemetry for multiple co morbidities. pt was seen today by psychology to attempt to perform dementia screening and was found to have significant depressive symptoms. Psychiatry consult was called to evaluate for possible anti depressant. Review of Systems - Review of Systems Systems not reviewed;Unavailable: Respiratory Distress Review of Systems: o2 in place - Constitutional Constitutional: Weight Loss - EENT Eyes: Other (intermittent eye contact) - Cardiovascular Cardiovascular: As Per HPI - Respiratory Respiratory: As Per HPI - Gastrointestinal Gastrointestinal: As Per HPI - Genitourinary Genitourinary: As Per HPI - Musculoskeletal Musculoskeletal: As Per HPI - Integumentary Integumentary: As Per HPI - Neurological Neurological: As Per HPI - Psychiatric Psychiatric: Abnormal Sleep Pattern, Anhedonia, Depression, Suicidal Ideation Additional comments: i am so sick what is the point I am always in the hospital I dont remember what home is like. denies active suicidal plan. - Endocrine Endocrine: As Per HPI - Hematologic/Lymphatic Hematologic: As Per HPI Past Patient History - Infectious Disease Hx of Infectious Diseases: None - Tetanus Immunizations Tetanus Immunization: Unknown - Past Medical History & Family History Past Medical History?: Yes - Past Social History Smoking Status: Former Smoker - CARDIAC Hx Atrial Fibrillation: Yes Hx Congestive Heart Failure: Yes Hx Hypertension: Yes Hx Pacemaker: Yes - PULMONARY Hx Respiratory Disorders: No - NEUROLOGICAL Hx Dementia: Yes Hx Seizures: No - HEENT Hx HEENT Problems: Yes Other/Comment: glasses - RENAL Hx Chronic Kidney Disease: No - ENDOCRINE/METABOLIC Hx Hypothyroidism: Yes - HEMATOLOGICAL/ONCOLOGICAL Hx Anemia: Yes Hx Human Immunodeficiency Virus (HIV): No - INTEGUMENTARY Hx Dermatological Problems: Yes Hx Cellulitis: Yes - MUSCULOSKELETAL/RHEUMATOLOGICAL Hx Falls: No - GASTROINTESTINAL Hx Gastrointestinal Disorders: Yes Hx Gastroesophageal Reflux: Yes - GENITOURINARY/GYNECOLOGICAL Hx Sexually Transmitted Disorders: No - PSYCHIATRIC Hx Anxiety: Yes Hx Depression: Yes Hx Substance Use: No - SURGICAL HISTORY Hx Surgeries: Yes Hx Open Reduction Internal Fixation: Yes (left femur surgery) Other/Comment: Pacemaker Placement - ANESTHESIA Hx Anesthesia: Yes Hx Anesthesia Reactions: No Hx Malignant Hyperthermia: No Has any member of the family had a problem w/ anesthesia?: No Meds Allergies/Adverse Reactions: Allergies Allergy/AdvReac Type Severity Reaction Status Date / Time No Known Allergies Allergy Verified 03/18/16 08:37 - Medications Medications: Current Medications Acetaminophen (Tylenol 325mg Tab) 650 mg PO Q4 PRN PRN Reason: Pain, Mild (1-3) Last Admin: 12/25/16 02:00 Dose: 650 mg Acetaminophen (Tylenol 325mg Tab) 650 mg PO Q4 PRN PRN Reason: Fever >100.4 F Amoxicillin/Clavulanate Potassium (Augmentin 500 Mg-125 Mg Tab) 1 tab PO Q12 [facility] PRN Reason: Protocol Last Admin: 12/25/16 12:12 Dose: 1 tab Apixaban (Eliquis) 2.5 mg PO BID [facility] PRN Reason: Protocol Last Admin: 12/25/16 16:25 Dose: 2.5 mg Carvedilol (Coreg) 3.125 mg PO Q12 [facility] Last Admin: 12/25/16 12:10 Dose: 3.125 mg Enalapril Maleate (Vasotec) 2.5 mg PO DAILY [facility] Last Admin: 12/25/16 12:11 Dose: 2.5 mg Ferrous Sulfate (Feosol) 325 mg PO TID [facility] Last Admin: 12/25/16 16:25 Dose: Not Given Furosemide (Lasix) 20 mg PO DAILY [facility] Last Admin: 12/25/16 09:14 Dose: Not Given Haloperidol Lactate (Haldol) 2 mg IM Q6 PRN PRN Reason: Agitation Lactulose (Enulose) 20 gm PO BID [facility] Last Admin: 12/25/16 16:25 Dose: Not Given Pantoprazole Sodium (Protonix Ec Tab) 40 mg PO Q12 [facility] Last Admin: 12/25/16 09:14 Dose: Not Given Quetiapine Fumarate (Seroquel) 12.5 mg PO HS [facility] Last Admin: 12/24/16 21:07 Dose: 12.5 mg Spironolactone (Aldactone) 12.5 mg PO DAILY [facility] Last Admin: 12/25/16 09:13 Dose: Not Given Physical Exam - Constitutional Appears: Older Than Stated Age, Chronically Ill - Psychiatric Exam Psychiatric exam: Depressed, Flat Affect, Suicidal Ideation Additional comments: no timmy plan, flat affect, ?tearful at times, decreased energy Results - Vital Signs Recent Vital Signs: Last Vital Signs Temp 97.6 F 12/25/16 19:47 Pulse 60 12/25/16 19:47 Resp 20 12/25/16 19:47 BP 110/64 12/25/16 19:47 Pulse Ox 98 12/25/16 19:47 - Labs Result Diagrams: 12/24/16 06:00 12/24/16 06:00 - Impressions Impression: 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 review of pt's medical hx. demonstrates a hx. of seizures but medication list does not demonstrate any anti seizure medications. Primary medical team please should review and evaluate patient's propensity for seizures as buproprion may lower seizure threshold. If there is minimal to no concern related to seizure activity buproprion IR 75mg am might be considered. Once pt. is medically stable and there is on going concern about pt's psychiatric status a transfer to [facility] might be considered. Thank you for allowing us to participate in the patient's plan of care. Respectfully Adama Armenta, PhDc, EQUIPMENT MECHANIC Status: Chronic (2) Depression Status: Chronic
[2016-12-26] MEDS: Amoxicillin-Clav 500-125 mg Tab PO SCH ×2 (08:38→21:17)
[2016-12-26] MEDS: Pantoprazole 40 mg EC Tab PO SCH ×2 (08:39→21:18)
--- NOTE | 2016-12-26 09:50 | CARD ---
APPROVED REPORT EXAM: Two-dimensional and M-mode echocardiogram with Doppler and color Doppler. Other Information Quality : GoodRhythm : PVC's INDICATION Pre-Op 2D DIMENSIONS Left Atrium (2D)5.19 (1.6-4.0cm)IVSd2.45 (0.7-1.1cm) Aortic Root (2D)2.82 (2.0-3.7cm)LVDd3.40 (3.9-5.9cm) LVOT Diameter1.88 (1.8-2.4cm)PWd2.32 (0.7-1.1cm) IVSs2.47 (0.8-1.2cm)LVDs3.07 (2.5-4.0cm) FS (%) 9.8 %PWs2.42 (0.8-1.2cm) M-Mode DIMENSIONS Left Atrium (MM)5.60 (2.5-4.0cm)IVSd2.08 (0.7-1.1cm) Aortic Root3.87 (2.2-3.7cm)LVDd3.38 (4.0-5.6cm) Aortic Cusp Exc.1.54 (1.5-2.0cm)PWd2.78 (0.7-1.1cm) IVSs1.82 cmFS (%) 8 % LVDs3.64 (2.0-3.8cm)PWs2.87 cm Aortic Valve AI P 1/2 [id number] Mitral Valve MV E Peak Gr.64mmHgE/A ratio0.0 TDI E/Lateral E'0.0E/Medial E'0.0 Tricuspid Valve TR Peak [id number] [id number] Peak Gr.22mmHg [id number] LEFT VENTRICLE The left ventricle is normal size. There is severe concentric left ventricular hypertrophy. Left ventricle systolic function is severely impaired. The Ejection Fraction is 30-35%. There is global hypokinesis Transmitral Doppler flow pattern is Grade IV-fixed restrictive diastolic dysfunction. No left ventricle thrombus noted on this study. There is no ventricular septal defect visualized. There is no left ventricular aneurysm. There is no mass noted in the left ventricle. RIGHT VENTRICLE The right ventricle is normal size. There is normal right ventricular wall thickness. The right ventricular systolic function is normal. ATRIA The left atrium is moderately dilated. The right atrium size is normal. The interatrial septum is intact with no evidence for an atrial septal defect. AORTIC VALVE The aortic valve is mildly to moderately sclerotic. There is moderate aortic regurgitation. There is no aortic valvular stenosis. There is no aortic valvular vegetation. MITRAL VALVE The mitral valve is normal in structure and function. There is no evidence of mitral valve prolapse. There is no mitral valve stenosis. Mitral regurgitation is moderate to severe. TRICUSPID VALVE The tricuspid valve is normal in structure and function. There is severe tricuspid regurgitation. Right ventricular systolic pressure is estimated at 30-40 mmHg. There is no tricuspid valve prolapse or vegetation. There is no tricuspid valve stenosis. PULMONIC VALVE The pulmonary valve is normal in structure and function. There is no pulmonic valvular regurgitation. There is no pulmonic valvular stenosis. GREAT VESSELS The aortic root is normal in size. The ascending aorta is normal in size. The IVC is normal in size and collapses >50% with inspiration. PERICARDIAL EFFUSION The pericardium appears normal. There is pleural effusion present <Conclusion> Severely reduced LV systolic function LVEF 30-35% Global Hypokinesis Concentric LVH Moderate Aortic Insufficieny Moderate to Severe Mitral Regurgitation Pleural Effusion
--- NOTE | 2016-12-26 14:24 | CP.PCM.CON ---
History of Present Illness - History of Present Illness History of Present Illness: Pulmonary consult for a 71 y/o M, founded to have large pleural effusion b/l on CT Chest of 12/24/16 associated to SOB, no cough, no fever, no CP. Worsening symptoms: Chronic Ill, multiple chronic medical conditions including: CAD, CHF, AICD, A Fib, Hx DVT placed on Xarelto and inferior vena cava filter placement. Pt had Cardiac Cath on 08/02/16 that shows non obstructive coronary disease, dilated cardiomyopathy with severe L ventricular diastolic dysfunction Aggravated factor: Unable to cooperate with medical Hx. Pt admitted on 12/16/16 for AMS (on 1:1 for safety), Dehydration, chronic Dementia (declared incompetent), severe Depression, Rectal bleeding. No reported: Fever, chills, n/v/d, abdominal pain, urinary symptoms, CP, syncope , sick contact, recent travel. CT Chest of 12/24/16: Large pleural effusion b/l, compressive atelectasis b/l, small RML subpleural pulmonary nodule. Cardiomegaly. Echo: LVEF 30-35% Review of Systems - Review of Systems Systems not reviewed;Unavailable: Acuity of Condition, Dementia, Altered Mental Status Past Patient History - Infectious Disease Hx of Infectious Diseases: None - Tetanus Immunizations Tetanus Immunization: Unknown - Past Medical History & Family History Past Medical History?: Yes Pertinent Family History: Unknown - Past Social History Smoking Status: Former Smoker Alcohol: None Drugs: Denies Home Situation {Lives}: Alone - CARDIAC Hx Atrial Fibrillation: Yes Hx Congestive Heart Failure: Yes Hx Hypertension: Yes Hx Pacemaker: Yes - PULMONARY Hx Respiratory Disorders: No - NEUROLOGICAL Hx Dementia: Yes Hx Seizures: No - HEENT Hx HEENT Problems: Yes Other/Comment: glasses - RENAL Hx Chronic Kidney Disease: No - ENDOCRINE/METABOLIC Hx Hypothyroidism: Yes - HEMATOLOGICAL/ONCOLOGICAL Hx Anemia: Yes Hx Human Immunodeficiency Virus (HIV): No - INTEGUMENTARY Hx Dermatological Problems: Yes Hx Cellulitis: Yes - MUSCULOSKELETAL/RHEUMATOLOGICAL Hx Falls: No - GASTROINTESTINAL Hx Gastrointestinal Disorders: Yes Hx Gastroesophageal Reflux: Yes - GENITOURINARY/GYNECOLOGICAL Hx Sexually Transmitted Disorders: No - PSYCHIATRIC Hx Anxiety: Yes Hx Depression: Yes Hx Substance Use: No - SURGICAL HISTORY Hx Surgeries: Yes Hx Open Reduction Internal Fixation: Yes (left femur surgery) Other/Comment: Pacemaker Placement - ANESTHESIA Hx Anesthesia: Yes Hx Anesthesia Reactions: No Hx Malignant Hyperthermia: No Has any member of the family had a problem w/ anesthesia?: No Meds Allergies/Adverse Reactions: Allergies Allergy/AdvReac Type Severity Reaction Status Date / Time No Known Allergies Allergy Verified 03/18/16 08:37 - Medications Medications: Current Medications Acetaminophen (Tylenol 325mg Tab) 650 mg PO Q4 PRN PRN Reason: Pain, Mild (1-3) Last Admin: 12/26/16 02:00 Dose: 650 mg Acetaminophen (Tylenol 325mg Tab) 650 mg PO Q4 PRN PRN Reason: Fever >100.4 F Amoxicillin/Clavulanate Potassium (Augmentin 500 Mg-125 Mg Tab) 1 tab PO Q12 [facility] PRN Reason: Protocol Last Admin: 12/26/16 08:38 Dose: 1 tab Apixaban (Eliquis) 2.5 mg PO BID [facility] PRN Reason: Protocol Last Admin: 12/26/16 08:38 Dose: 2.5 mg Carvedilol (Coreg) 3.125 mg PO Q12 [facility] Last Admin: 12/26/16 08:39 Dose: 3.125 mg Enalapril Maleate (Vasotec) 2.5 mg PO DAILY [facility] Last Admin: 12/26/16 08:39 Dose: 2.5 mg Ferrous Sulfate (Feosol) 325 mg PO TID [facility] Last Admin: 12/26/16 12:32 Dose: 325 mg Furosemide (Lasix) 40 mg IVP BID [facility] Haloperidol Lactate (Haldol) 2 mg IM Q6 PRN PRN Reason: Agitation Lactulose (Enulose) 20 gm PO BID [facility] Last Admin: 12/26/16 12:34 Dose: 20 gm Pantoprazole Sodium (Protonix Ec Tab) 40 mg PO Q12 [facility] Last Admin: 12/26/16 08:39 Dose: 40 mg Potassium Chloride (Klor-Con 10) 10 meq PO DAILY [facility] Quetiapine Fumarate (Seroquel) 12.5 mg PO HS [facility] Last Admin: 12/25/16 23:03 Dose: 12.5 mg Spironolactone (Aldactone) 12.5 mg PO DAILY [facility] Last Admin: 12/26/16 08:38 Dose: 12.5 mg Physical Exam - Constitutional Appears: Chronically Ill - Head Exam Head Exam: NORMAL INSPECTION - Eye Exam Eye Exam: PERRL - ENT Exam ENT Exam: Normal Exam - Neck Exam Neck exam: Positive for: Normal Inspection - Respiratory Exam Respiratory Exam: Decreased Breath Sounds (b/l), Respiratory Distress (mild) - Cardiovascular Exam Cardiovascular Exam: REGULAR RHYTHM - GI/Abdominal Exam GI & Abdominal Exam: Normal Bowel Sounds, Soft. absent: Guarding, Rebound - Extremities Exam Extremities exam: Positive for: pedal edema, pedal pulses present - Back Exam Back exam: NORMAL INSPECTION - Neurological Exam Additional comments: Confused, forgetful - Skin Skin Exam: Warm Results - Vital Signs Recent Vital Signs: Last Vital Signs Temp 97.7 F 12/26/16 12:30 Pulse 60 12/26/16 12:30 Resp 18 12/26/16 12:30 BP 104/65 12/26/16 12:30 Pulse Ox 100 12/26/16 12:30 reviewed J.P. - Labs Result Diagrams: 12/24/16 06:00 12/24/16 06:00 Labs: reviewed J.P. - EKG Data EKG comments: reviewed J.P. - Impressions Impression: Echo Reviewed J.P. - Imaging and Cardiology CT scan - chest Status: Report reviewed by me (HolliP.) CT scan - abdomen Status: Report reviewed by me (HolliP.) CT scan - pelvis Status: Report reviewed by me (HolliP.) US - abdomen Status: Report reviewed by me (J.P.) CT scan - head Status: Report reviewed by me (J.P.) Assessment & Plan (1) Respiratory insufficiency Status: Acute Priority: High Comment: SOB 2nd to CHF (2) Pleural effusion, bilateral Status: Acute Priority: High (3) Nodule of right lung Status: Acute Priority: High Comment: RML. (4) Acute exacerbation of CHF (congestive heart failure) Status: Chronic (5) Atrial fibrillation, chronic Status: Acute - Assessment and Plan (Free Text) Plan: Patient AD with Acute on Chronic systolic CHF , B/L Pleural effusions and respiratory distress, He is on Xarelto for treatment of AFib , Patient had DVT and has IVC filter. Suggest optimize medical management of CHF. B/L pleural effusions and Lung atelectasis contribute to respiratory distress , if Thoracentesis needed Xarelto has to be DC , may be change to short acting anticoagulant like Lovenox, will discuss it with Work Environment Safety Inspector , also Patient is incompetent to make decisions. - Date & Time Date: 12/26/16 Time: 11:30
--- NOTE | 2016-12-26 15:13 | PN ---
DATE: SUBJECTIVE: The patient was short of breath today. He denies any chest pain. PHYSICAL EXAMINATION: VITAL SIGNS: Blood pressure 104/65, heart rate 60, temperature 97.7, respiration 18. HEENT: Normocephalic. CHEST: Bilateral bronchial wheezing basally. HEART: S1, S2 regular. EXTREMITIES: No edema. ASSESSMENT 1. Dilated cardiomyopathy. 2. Status post implantable cardioverter defibrillator placement. 3. Large bilateral pleural effusion. 4. History of deep venous thrombosis and inferior vena cava filter placement. 5. Chronic atrial fibrillation. RECOMMENDATIONS: I discussed the case with PRODUCTION SUPPORT SPECIALIST. Continue current Eliquis at 2.5 mg twice a day, Coreg at 3.125 mg twice a day, Augmentin at 500 mg/125 mg one tablet twice a day, Aldactone 12.5 mg once a day, Lasix was changed to 40 mg twice a day, continue Vasotec at 2.5 mg once a day, and start K-Dur at 10 mEq orally once a day. Luis August MD
[2016-12-26] MEDS: Potassium Chloride 10 mEq ER Tab PO SCH (16:28)
--- NOTE | 2016-12-27 00:26 | CP.PCM.PN ---
Subjective - Date & Time of Evaluation Date of Evaluation: 12/26/16 Time of Evaluation: 07:05 Objective - Vital Signs/Intake and Output Vital Signs (last 24 hours): Temp Pulse Resp BP Pulse Ox 97.6 F 60 18 104/66 100 12/27/16 00:16 12/27/16 00:16 12/27/16 00:16 12/27/16 00:16 12/27/16 00:16 - Medications Medications: Current Medications Acetaminophen (Tylenol 325mg Tab) 650 mg PO Q4 PRN PRN Reason: Pain, Mild (1-3) Last Admin: 12/26/16 02:00 Dose: 650 mg Acetaminophen (Tylenol 325mg Tab) 650 mg PO Q4 PRN PRN Reason: Fever >100.4 F Amoxicillin/Clavulanate Potassium (Augmentin 500 Mg-125 Mg Tab) 1 tab PO Q12 [facility] PRN Reason: Protocol Last Admin: 12/26/16 21:17 Dose: 1 tab Apixaban (Eliquis) 2.5 mg PO BID [facility] PRN Reason: Protocol Last Admin: 12/26/16 16:31 Dose: Not Given Carvedilol (Coreg) 3.125 mg PO Q12 [facility] Last Admin: 12/26/16 21:18 Dose: 3.125 mg Enalapril Maleate (Vasotec) 2.5 mg PO DAILY [facility] Last Admin: 12/26/16 08:39 Dose: 2.5 mg Ferrous Sulfate (Feosol) 325 mg PO TID [facility] Last Admin: 12/26/16 16:31 Dose: Not Given Furosemide (Lasix) 40 mg IVP BID [facility] Last Admin: 12/26/16 16:28 Dose: Not Given Haloperidol Lactate (Haldol) 2 mg IM Q6 PRN PRN Reason: Agitation Lactulose (Enulose) 20 gm PO BID [facility] Last Admin: 12/26/16 17:54 Dose: Not Given Pantoprazole Sodium (Protonix Ec Tab) 40 mg PO Q12 [facility] Last Admin: 12/26/16 21:18 Dose: 40 mg Potassium Chloride (Klor-Con 10) 10 meq PO DAILY [facility] Last Admin: 12/26/16 16:28 Dose: Not Given Quetiapine Fumarate (Seroquel) 12.5 mg PO HS [facility] Last Admin: 12/26/16 21:18 Dose: 12.5 mg Spironolactone (Aldactone) 12.5 mg PO DAILY [facility] Last Admin: 12/26/16 08:38 Dose: 12.5 mg - Labs Labs: 12/24/16 06:00 12/24/16 06:00 PT 16.2 Seconds (9.8-13.1) H 12/19/16 10:30 INR 1.4 (0.9-1.2) H 12/19/16 10:30 APTT 28.4 Seconds (25.6-37.1) 12/17/16 05:56
[2016-12-27] MEDS: Amoxicillin-Clav 500-125 mg Tab PO SCH ×2 (09:34→21:05)
[2016-12-27] MEDS: Pantoprazole 40 mg EC Tab PO SCH ×2 (09:35→22:10)
--- NOTE | 2016-12-27 12:52 | CP.PCM.PN ---
Subjective - Date & Time of Evaluation Date of Evaluation: 12/27/16 Time of Evaluation: 10:30 - Subjective Subjective: F/U Respiratory Insufficiency , Pleura Effusion Pt confused, no respiratory distress, on O2 NC. Objective - Vital Signs/Intake and Output Vital Signs (last 24 hours): Temp Pulse Resp BP Pulse Ox 97.7 F 60 18 102/63 98 12/27/16 12:49 12/27/16 12:49 12/27/16 12:49 12/27/16 12:49 12/27/16 12:49 - Medications Medications: Current Medications Acetaminophen (Tylenol 325mg Tab) 650 mg PO Q4 PRN PRN Reason: Pain, Mild (1-3) Last Admin: 12/26/16 02:00 Dose: 650 mg Acetaminophen (Tylenol 325mg Tab) 650 mg PO Q4 PRN PRN Reason: Fever >100.4 F Amoxicillin/Clavulanate Potassium (Augmentin 500 Mg-125 Mg Tab) 1 tab PO Q12 [facility] PRN Reason: Protocol Last Admin: 12/27/16 09:34 Dose: 1 tab Apixaban (Eliquis) 2.5 mg PO BID [facility] PRN Reason: Protocol Last Admin: 12/27/16 09:37 Dose: 2.5 mg Carvedilol (Coreg) 3.125 mg PO Q12 [facility] Last Admin: 12/27/16 09:34 Dose: 3.125 mg Enalapril Maleate (Vasotec) 2.5 mg PO DAILY [facility] Last Admin: 12/27/16 09:38 Dose: 2.5 mg Enoxaparin Sodium (Lovenox) 40 mg SC DAILY [facility] PRN Reason: Protocol Ferrous Sulfate (Feosol) 325 mg PO TID [facility] Last Admin: 12/27/16 09:36 Dose: 325 mg Furosemide (Lasix) 40 mg IVP BID [facility] Haloperidol Lactate (Haldol) 2 mg IM Q6 PRN PRN Reason: Agitation Lactulose (Enulose) 20 gm PO BID [facility] Last Admin: 12/27/16 09:36 Dose: Not Given Pantoprazole Sodium (Protonix Ec Tab) 40 mg PO Q12 [facility] Last Admin: 12/27/16 09:35 Dose: 40 mg Potassium Chloride (Klor-Con 10) 10 meq PO DAILY [facility] Last Admin: 12/26/16 16:28 Dose: Not Given Quetiapine Fumarate (Seroquel) 12.5 mg PO HS [facility] Last Admin: 12/26/16 21:18 Dose: 12.5 mg Spironolactone (Aldactone) 12.5 mg PO DAILY [facility] Last Admin: 12/27/16 09:37 Dose: 12.5 mg - Labs Labs: 12/24/16 06:00 12/24/16 06:00 PT 16.2 Seconds (9.8-13.1) H 12/19/16 10:30 INR 1.4 (0.9-1.2) H 12/19/16 10:30 APTT 28.4 Seconds (25.6-37.1) 12/17/16 05:56 - Constitutional Appears: No Acute Distress, Chronically Ill - Head Exam Head Exam: NORMAL INSPECTION - Eye Exam Eye Exam: PERRL - ENT Exam ENT Exam: Normal Exam - Neck Exam Neck Exam: Normal Inspection - Respiratory Exam Respiratory Exam: Decreased Breath Sounds (at bases) - Cardiovascular Exam Cardiovascular Exam: Irregular Rhythm - GI/Abdominal Exam GI & Abdominal Exam: Soft, Normal Bowel Sounds - Extremities Exam Extremities Exam: Pedal Edema - Back Exam Back Exam: NORMAL INSPECTION - Neurological Exam Neurological Exam: Awake Additional comments: Confused, forgetful - Skin Skin Exam: Warm Assessment and Plan (1) Respiratory insufficiency Status: Acute (2) Pleural effusion, bilateral Status: Acute (3) Nodule of right lung Status: Acute (4) Acute exacerbation of CHF (congestive heart failure) Status: Chronic - Assessment and Plan (Free Text) Plan: Discussed with Cardiology and both agree that Thoracentesis is a medical necessity, f/u IR intervention, to hold Eliquis for now, continue rest of Tx.
[2016-12-27] MEDS: Potassium Chloride 10 mEq ER Tab PO SCH (13:30)
--- NOTE | 2016-12-27 13:30 | CP.PCM.CON ---
History of Present Illness - History of Present Illness History of Present Illness: Psychiatry consult follow-up note HPI: 71 yr old male with h/o HTN, CAD, CHF, depression and dementia admitted because of confusion. Patient spoken to with assistant infant toddler teacher. Patient A + O x "room" in [place] and self. He was unable to state the date. He stated that he is in the hospital for treatment of his feet (untrue), but was unable to elaborate. He reported feeling depressed when asked and expressed ideation to , but did not have any suicidal plan. Silk Examiner attempted to explain what a thoracentesis is to the patient, but he was not able to show that he understands the information, nor was he able to express that medical procedures have risks and benefits. He does not understand why is in the hospital nor what his current treatments are. He denied AH/VH/paranoia/HI. PMHx: HTN, CAD, CHF, depression and dementia ALL: NKDA MSE: Elderly male, on O2, difficult to hear due to speaking very softly, poor eye contact, thought process- coherent, but not linear at times, thought content - denied delusions, no hallucinations, passive wishes to be w/o active suicidal ideation/plan/intent, no HI, poor insight/ judgment due to chronic dementia. Impression: 71 yr old male with h/o HTN, CAD, CHF, depression and dementia, patient does not have capacity to make medical decisions at this time. He does not have capacity to sign in for voluntary psychiatric admission. Recommendations: -Recommend primary team discuss treatment options with family and inquire if any family member has power of finance attorney -If patient has acute agitation or "sundowning" (late day confusion) can given Seroquel 25 mg PO Daily@1700 and/or PO HS. -Continue 1:1 for safety Past Patient History - Infectious Disease Hx of Infectious Diseases: None - Tetanus Immunizations Tetanus Immunization: Unknown - Past Medical History & Family History Past Medical History?: Yes - Past Social History Smoking Status: Former Smoker Alcohol: None Drugs: Denies Home Situation {Lives}: Alone - CARDIAC Hx Atrial Fibrillation: Yes Hx Congestive Heart Failure: Yes Hx Hypertension: Yes Hx Pacemaker: Yes - PULMONARY Hx Respiratory Disorders: No - NEUROLOGICAL Hx Dementia: Yes Hx Seizures: No - HEENT Hx HEENT Problems: Yes Other/Comment: glasses - RENAL Hx Chronic Kidney Disease: No - ENDOCRINE/METABOLIC Hx Hypothyroidism: Yes - HEMATOLOGICAL/ONCOLOGICAL Hx Anemia: Yes Hx Human Immunodeficiency Virus (HIV): No - INTEGUMENTARY Hx Dermatological Problems: Yes Hx Cellulitis: Yes - MUSCULOSKELETAL/RHEUMATOLOGICAL Hx Falls: No - GASTROINTESTINAL Hx Gastrointestinal Disorders: Yes Hx Gastroesophageal Reflux: Yes - GENITOURINARY/GYNECOLOGICAL Hx Sexually Transmitted Disorders: No - PSYCHIATRIC Hx Anxiety: Yes Hx Depression: Yes Hx Substance Use: No - SURGICAL HISTORY Hx Surgeries: Yes Hx Open Reduction Internal Fixation: Yes (left femur surgery) Other/Comment: Pacemaker Placement - ANESTHESIA Hx Anesthesia: Yes Hx Anesthesia Reactions: No Hx Malignant Hyperthermia: No Has any member of the family had a problem w/ anesthesia?: No Meds Allergies/Adverse Reactions: Allergies Allergy/AdvReac Type Severity Reaction Status Date / Time No Known Allergies Allergy Verified 03/18/16 08:37 - Medications Medications: Current Medications Acetaminophen (Tylenol 325mg Tab) 650 mg PO Q4 PRN PRN Reason: Pain, Mild (1-3) Last Admin: 12/26/16 02:00 Dose: 650 mg Acetaminophen (Tylenol 325mg Tab) 650 mg PO Q4 PRN PRN Reason: Fever >100.4 F Amoxicillin/Clavulanate Potassium (Augmentin 500 Mg-125 Mg Tab) 1 tab PO Q12 [facility] PRN Reason: Protocol Last Admin: 12/27/16 09:34 Dose: 1 tab Apixaban (Eliquis) 2.5 mg PO BID [facility] PRN Reason: Protocol Last Admin: 12/27/16 09:37 Dose: 2.5 mg Carvedilol (Coreg) 3.125 mg PO Q12 [facility] Last Admin: 12/27/16 09:34 Dose: 3.125 mg Enalapril Maleate (Vasotec) 2.5 mg PO DAILY [facility] Last Admin: 12/27/16 09:38 Dose: 2.5 mg Enoxaparin Sodium (Lovenox) 40 mg SC DAILY [facility] PRN Reason: Protocol Ferrous Sulfate (Feosol) 325 mg PO TID [facility] Last Admin: 12/27/16 09:36 Dose: 325 mg Furosemide (Lasix) 40 mg IVP BID [facility] Haloperidol Lactate (Haldol) 2 mg IM Q6 PRN PRN Reason: Agitation Lactulose (Enulose) 20 gm PO BID [facility] Last Admin: 12/27/16 09:36 Dose: Not Given Pantoprazole Sodium (Protonix Ec Tab) 40 mg PO Q12 [facility] Last Admin: 12/27/16 09:35 Dose: 40 mg Potassium Chloride (Klor-Con 10) 10 meq PO DAILY [facility] Last Admin: 12/26/16 16:28 Dose: Not Given Quetiapine Fumarate (Seroquel) 12.5 mg PO HS [facility] Last Admin: 12/26/16 21:18 Dose: 12.5 mg Spironolactone (Aldactone) 12.5 mg PO DAILY [facility] Last Admin: 12/27/16 09:37 Dose: 12.5 mg Results - Vital Signs Recent Vital Signs: Last Vital Signs Temp 97.7 F 12/27/16 12:49 Pulse 60 12/27/16 12:49 Resp 18 12/27/16 12:49 BP 102/63 12/27/16 12:49 Pulse Ox 98 12/27/16 12:49 - Labs Result Diagrams: 12/24/16 06:00 12/24/16 06:00
--- NOTE | 2016-12-27 14:28 | PN ---
DATE: SUBJECTIVE: The patient denies chest pain. He is currently comfortable with nasal O2, PHYSICAL EXAMINATION VITAL SIGNS: Blood pressure 122/72, heart rate 60, temperature 97.8, respiration 20. HEENT: Normocephalic. CHEST: Bilateral basal bronchial breathing. HEART: S1 and S2, regular. ABDOMEN: Soft. EXTREMITIES: No edema. ASSESSMENT AND PLAN: 1. Dilated cardiomyopathy status post implantable cardioverter defibrillator placement. 2. Chronic atrial fibrillation. 3. History of deep venous thrombosis and inferior vena cava filter placement. 4. Large bilateral pleural effusion. 5. Depression. RECOMMENDATIONS: Case was discussed at length with Dr. Keita, the sfdc consultant trolley coach driver, as well as the STOCK HANDLER FLOORPERSON. Continue Aldactone 2.5 mg once a day, Augmentin at 1 tablet twice a day, Coreg 3.125 mg twice a day. Hold Eliquis for now. Start Lovenox at 30 mg daily. Continue Lasix 40 mg twice a day and Klor-Con at 10 mEq once a day. Continue Vasotec 2.5 mg once a day. Obtain BMP, INR, PTT, and CBC in the a.m. There is an issue with obtaining her consent for thoracocentesis; however, in this clinical scenario, performing a thoracocentesis with 2 consents from attending physicians such as , sfdc consultant tire fabric impregnating range tender, and Dr. Keita, the [employer] consultant trolley coach driver, is needed as the procedure is completely justified at this time and there is no available person to give the consent. Luis August MD
--- NOTE | 2016-12-27 17:01 | CP.PCM.PN ---
Subjective - Date & Time of Evaluation Date of Evaluation: 12/27/16 Time of Evaluation: 17:00 Objective - Vital Signs/Intake and Output Vital Signs (last 24 hours): Temp Pulse Resp BP Pulse Ox 97.7 F 62 18 102/63 98 12/27/16 13:00 12/27/16 13:00 12/27/16 13:00 12/27/16 13:00 12/27/16 13:00 - Medications Medications: Current Medications Acetaminophen (Tylenol 325mg Tab) 650 mg PO Q4 PRN PRN Reason: Pain, Mild (1-3) Last Admin: 12/26/16 02:00 Dose: 650 mg Acetaminophen (Tylenol 325mg Tab) 650 mg PO Q4 PRN PRN Reason: Fever >100.4 F Amoxicillin/Clavulanate Potassium (Augmentin 500 Mg-125 Mg Tab) 1 tab PO Q12 [facility] PRN Reason: Protocol Last Admin: 12/27/16 09:34 Dose: 1 tab Apixaban (Eliquis) 2.5 mg PO BID [facility] PRN Reason: Protocol Last Admin: 12/27/16 09:37 Dose: 2.5 mg Carvedilol (Coreg) 3.125 mg PO Q12 [facility] Last Admin: 12/27/16 09:34 Dose: 3.125 mg Enalapril Maleate (Vasotec) 2.5 mg PO DAILY [facility] Last Admin: 12/27/16 09:38 Dose: 2.5 mg Enoxaparin Sodium (Lovenox) 40 mg SC DAILY [facility] PRN Reason: Protocol Ferrous Sulfate (Feosol) 325 mg PO TID [facility] Last Admin: 12/27/16 13:30 Dose: 325 mg Furosemide (Lasix) 40 mg IVP BID [facility] Haloperidol Lactate (Haldol) 2 mg IM Q6 PRN PRN Reason: Agitation Lactulose (Enulose) 20 gm PO BID [facility] Last Admin: 12/27/16 09:36 Dose: Not Given Pantoprazole Sodium (Protonix Ec Tab) 40 mg PO Q12 [facility] Last Admin: 12/27/16 09:35 Dose: 40 mg Potassium Chloride (Klor-Con 10) 10 meq PO DAILY [facility] Last Admin: 12/27/16 13:30 Dose: 10 meq Quetiapine Fumarate (Seroquel) 12.5 mg PO HS [facility] Last Admin: 12/26/16 21:18 Dose: 12.5 mg Spironolactone (Aldactone) 12.5 mg PO DAILY [facility] Last Admin: 12/27/16 09:37 Dose: 12.5 mg - Labs Labs: 12/24/16 06:00 12/24/16 06:00 PT 16.2 Seconds (9.8-13.1) H 12/19/16 10:30 INR 1.4 (0.9-1.2) H 12/19/16 10:30 APTT 28.4 Seconds (25.6-37.1) 12/17/16 05:56
[2016-12-27] MEDS: Enoxaparin 40 mg Syringe SC SCH (18:25)
[2016-12-28 05:28] LABS: BLOOD UREA NITROGEN 17 mg/dl (9-20); CALCIUM 8.8 mg/dL (8.4-10.2); CARBON DIOXIDE 36 mmol/L (22-30); CHLORIDE 98 mmol/L (98-107); GFR AFRICAN-AMERICAN > 60; GLUCOSE,RANDOM 84 mg/dL (75-110); POTASSIUM 3.9 MMOL/L (3.6-5.0); SODIUM 139 mmol/l (132-148)
[2016-12-28] MEDS: Amoxicillin-Clav 500-125 mg Tab PO SCH ×2 (08:41→22:05)
[2016-12-28] MEDS: Enoxaparin 40 mg Syringe SC SCH (08:42)
[2016-12-28] MEDS: Pantoprazole 40 mg EC Tab PO SCH ×2 (08:43→22:03)
[2016-12-28] MEDS: Potassium Chloride 10 mEq ER Tab PO SCH (08:45)
--- NOTE | 2016-12-28 12:45 | CP.PCM.PCO ---
Assessment & Plan - Assessment and Plan (Free Text) Assessment: Spoke with patient's daughter Adilene whaley at [phone], According to daughter she has POA documentation for Mr. Zambranotiz Pt. is for thoracentesis R lung, Plan discussed with daughter, she will provide POA documents this afternoon
--- NOTE | 2016-12-28 13:16 | CP.PCM.PN ---
Subjective - Date & Time of Evaluation Date of Evaluation: 12/28/16 Time of Evaluation: 10:00 - Subjective Subjective: Respiratory Insufficiency , Pleural Effusion Pt awake, confused, no A/D. Objective - Vital Signs/Intake and Output Vital Signs (last 24 hours): Temp Pulse Resp BP Pulse Ox 97.6 F 60 18 119/67 98 12/28/16 12:00 12/28/16 12:00 12/28/16 12:00 12/28/16 12:00 12/28/16 12:00 - Medications Medications: Current Medications Acetaminophen (Tylenol 325mg Tab) 650 mg PO Q4 PRN PRN Reason: Pain, Mild (1-3) Last Admin: 12/26/16 02:00 Dose: 650 mg Acetaminophen (Tylenol 325mg Tab) 650 mg PO Q4 PRN PRN Reason: Fever >100.4 F Amoxicillin/Clavulanate Potassium (Augmentin 500 Mg-125 Mg Tab) 1 tab PO Q12 [facility] PRN Reason: Protocol Last Admin: 12/28/16 08:41 Dose: 1 tab Apixaban (Eliquis) 2.5 mg PO BID [facility] PRN Reason: Protocol Last Admin: 12/27/16 09:37 Dose: 2.5 mg Carvedilol (Coreg) 3.125 mg PO Q12 [facility] Last Admin: 12/28/16 08:41 Dose: 3.125 mg Enalapril Maleate (Vasotec) 2.5 mg PO DAILY [facility] Last Admin: 12/28/16 08:43 Dose: 2.5 mg Enoxaparin Sodium (Lovenox) 40 mg SC DAILY [facility] PRN Reason: Protocol Last Admin: 12/28/16 08:42 Dose: 40 mg Ferrous Sulfate (Feosol) 325 mg PO TID [facility] Last Admin: 12/28/16 12:04 Dose: Not Given Furosemide (Lasix) 40 mg IVP BID [facility] Last Admin: 12/28/16 08:42 Dose: 40 mg Haloperidol Lactate (Haldol) 2 mg IM Q6 PRN PRN Reason: Agitation Lactulose (Enulose) 20 gm PO BID [facility] Last Admin: 12/28/16 08:41 Dose: Not Given Pantoprazole Sodium (Protonix Ec Tab) 40 mg PO Q12 [facility] Last Admin: 12/28/16 08:43 Dose: 40 mg Potassium Chloride (Klor-Con 10) 10 meq PO DAILY [facility] Last Admin: 12/28/16 08:45 Dose: 10 meq Quetiapine Fumarate (Seroquel) 12.5 mg PO [facility] Last Admin: 12/27/16 23:11 Dose: 12.5 mg Spironolactone (Aldactone) 12.5 mg PO DAILY [facility] Last Admin: 12/28/16 08:41 Dose: 12.5 mg - Labs Labs: 12/24/16 06:00 12/28/16 04:10 PT 15.3 Seconds (9.8-13.1) H 12/28/16 04:10 INR 1.4 (0.9-1.2) H 12/28/16 04:10 APTT 28.4 Seconds (25.6-37.1) 12/17/16 05:56 - Constitutional Appears: No Acute Distress, Chronically Ill - Head Exam Head Exam: NORMAL INSPECTION - Eye Exam Eye Exam: PERRL - ENT Exam ENT Exam: Normal Exam - Neck Exam Neck Exam: Normal Inspection - Respiratory Exam Respiratory Exam: Decreased Breath Sounds (at bases) - Cardiovascular Exam Cardiovascular Exam: REGULAR RHYTHM - GI/Abdominal Exam GI & Abdominal Exam: Soft, Normal Bowel Sounds - Extremities Exam Extremities Exam: Pedal Edema - Back Exam Back Exam: NORMAL INSPECTION - Neurological Exam Neurological Exam: Awake Additional comments: Confused, forgetful - Psychiatric Exam Additional comments: Calm. - Skin Skin Exam: Warm Assessment and Plan (1) Respiratory insufficiency Status: Acute (2) Pleural effusion, bilateral Status: Acute (3) Nodule of right lung Status: Acute (4) Acute exacerbation of CHF (congestive heart failure) Status: Chronic - Assessment and Plan (Free Text) Plan: Continue current Tx, attempt to get the daughter consent for Thoracentesis today.
[2016-12-28] MEDS ORDERED: Lidocaine 1% Inj (20ml) ONE (13:58)
--- NOTE | 2016-12-28 14:17 | PCM.SURG1 ---
Surgeon's Initial Post Op Note - Surgeon's Notes Surgeon: Brandon Rush MD [employer] Reader: NONE Type of Anesthesia: Local Pre-Operative Diagnosis: bilatera pleural effusions. Operative Findings: US showed large bilatera pleural effusions. Post-Operative Diagnosis: bilatera pleural effusions. Operation Performed: US guided rght thoracentesis. Specimen/Specimens Removed: 2000 cc of clear yellow fluid Estimated Blood Loss: EBL {In ML}: 0 Blood Products Given: N/A Drains Used: No Drains Post-Op Condition: Fair Date of Surgery/Procedure: 12/28/16 Time of Surgery/Procedure: 14:15
--- NOTE | 2016-12-28 16:22 | RAD ---
PROCEDURE: CHEST RADIOGRAPH, 1 VIEW HISTORY: Status post right thoracentesis. COMPARISON: 10/26/2016. FINDINGS: LUNGS: Improved aeration of the right lung following right thoracentesis. No right pneumothorax. Compressive atelectasis affecting left lower lobe and lingula. This cysts progressed compared to the prior study. PLEURA: No appreciable, residual right pleural effusion. No pneumothorax identified. Increasing left pleural effusion. Shift of mediastinal structures to the contralateral, right side. CARDIOVASCULAR: Cardiomegaly. No evidence of acute, significant cardiovascular disease. Position/ configuration of pacemaker Satisfactory. OSSEOUS STRUCTURES: No significant abnormalities. VISUALIZED UPPER ABDOMEN: Normal. OTHER FINDINGS: None. IMPRESSION: Status post right thoracentesis common no residual pleural effusion common no pneumothorax. Substantial increase in left pleural effusion, compressive atelectasis affecting left upper and left lower lobes. Shift of mediastinal structures to the right side.
--- NOTE | 2016-12-28 17:07 | CP.PCM.PN ---
Subjective - Date & Time of Evaluation Date of Evaluation: 12/28/16 Time of Evaluation: 17:00 Objective - Vital Signs/Intake and Output Vital Signs (last 24 hours): Temp Pulse Resp BP Pulse Ox 97.4 F L 60 20 97/66 L 94 L 12/28/16 15:50 12/28/16 15:50 12/28/16 15:50 12/28/16 15:50 12/28/16 15:50 - Medications Medications: Current Medications Acetaminophen (Tylenol 325mg Tab) 650 mg PO Q4 PRN PRN Reason: Pain, Mild (1-3) Last Admin: 12/26/16 02:00 Dose: 650 mg Acetaminophen (Tylenol 325mg Tab) 650 mg PO Q4 PRN PRN Reason: Fever >100.4 F Amoxicillin/Clavulanate Potassium (Augmentin 500 Mg-125 Mg Tab) 1 tab PO Q12 [facility] PRN Reason: Protocol Last Admin: 12/28/16 08:41 Dose: 1 tab Apixaban (Eliquis) 2.5 mg PO BID [facility] PRN Reason: Protocol Last Admin: 12/27/16 09:37 Dose: 2.5 mg Carvedilol (Coreg) 3.125 mg PO Q12 [facility] Last Admin: 12/28/16 08:41 Dose: 3.125 mg Enalapril Maleate (Vasotec) 2.5 mg PO DAILY [facility] Last Admin: 12/28/16 08:43 Dose: 2.5 mg Enoxaparin Sodium (Lovenox) 40 mg SC DAILY [facility] PRN Reason: Protocol Last Admin: 12/28/16 08:42 Dose: 40 mg Ferrous Sulfate (Feosol) 325 mg PO TID [facility] Last Admin: 12/28/16 16:35 Dose: Not Given Furosemide (Lasix) 40 mg IVP BID [facility] Last Admin: 12/28/16 16:37 Dose: Not Given Haloperidol Lactate (Haldol) 2 mg IM Q6 PRN PRN Reason: Agitation Lactulose (Enulose) 20 gm PO BID [facility] Last Admin: 12/28/16 16:35 Dose: Not Given Pantoprazole Sodium (Protonix Ec Tab) 40 mg PO Q12 [facility] Last Admin: 12/28/16 08:43 Dose: 40 mg Potassium Chloride (Klor-Con 10) 10 meq PO DAILY [facility] Last Admin: 12/28/16 08:45 Dose: 10 meq Quetiapine Fumarate (Seroquel) 12.5 mg PO HS [facility] Last Admin: 12/27/16 23:11 Dose: 12.5 mg Spironolactone (Aldactone) 12.5 mg PO DAILY [facility] Last Admin: 12/28/16 08:41 Dose: 12.5 mg - Labs Labs: 12/24/16 06:00 12/28/16 04:10 PT 15.3 Seconds (9.8-13.1) H 12/28/16 04:10 INR 1.4 (0.9-1.2) H 12/28/16 04:10 APTT 28.4 Seconds (25.6-37.1) 12/17/16 05:56
--- NOTE | 2016-12-28 20:17 | PN ---
SUBJECTIVE: The patient is mildly short of breath. No chest pain. OBJECTIVE: VITAL SIGNS: Blood pressure 91/52, heart rate 63, temperature 97.8, respirations 20. HEENT: Normocephalic. CHEST: Bilateral rhonchi, wheezing basally. HEART: S1 and S2 regular. ABDOMEN: Soft. EXTREMITIES: There is leg edema. LABORATORY DATA: Today's INR is 1.4, PT 15.3. SMA-7 is within normal limit except for carbon dioxide of 36 and anion gap of 9. ASSESSMENT: 1. Dilated cardiomyopathy. 2. Chronic atrial fibrillation. 3. Elevated liver enzymes. 4. Bilateral pleural effusion. 5. Depression. RECOMMENDATIONS: Continue Aldactone 12.5 mg once a day, Augmentin 1 tablet twice a day. Eliquis is still on hold. Continue Klor-Con at 10 mEq once a day, Lasix 40 mg intravenous twice a day, Lovenox at 40 mg once a day, VESIcare 2.5 mg once a day. The daughter was reached and hopefully she will give a consent for thoracocentesis. The daughter has the power of personal injury attorney; however, we are still awaiting her documents to be faxed to us. Luis August MD
[2016-12-29 05:34] LABS: BASO % 0.4 % (0.0-2.0); EOS % 0.5 % (0.0-4.0); HEMATOCRIT 35.7 % (35.0-51.0); LYMPH # 0.8 K/uL (1.0-4.3); MEAN CELL VOLUME 81.5 fl (80.0-94.0); MEAN CORPUSCULAR HEMOGLOBIN 25.7 pg (27.0-31.0); MEAN CORPUSCULAR HGB CONC 31.5 g/dL (33.0-37.0); MEAN PLATELET VOLUME 8.7 fl (7.2-11.7); MONO # 0.6 K/uL (0.0-0.8); MONO % 9.8 % (0.0-10.0); NEUT # 4.4 K/uL (1.8-7.0); NEUT % 76.3 % (50.0-75.0); RED CELL DISTRIBUTION WIDTH 24.1 % (11.5-14.5); WHITE BLOOD COUNT 5.8 K/uL (4.8-10.8)
[2016-12-29 05:39] LABS: ALKALINE PHOSPHATASE 108 U/L (38-126); ALT/SGPT 76 U/L (21-72); AST/SGOT 35 U/L (17-59); BILIRUBIN,TOTAL 0.7 mg/dl (0.2-1.3); BLOOD UREA NITROGEN 23 mg/dl (9-20); CALCIUM 9.1 mg/dL (8.4-10.2); CARBON DIOXIDE 37 mmol/L (22-30); CHLORIDE 98 mmol/L (98-107); GFR AFRICAN-AMERICAN > 60; GLUCOSE,RANDOM 85 mg/dL (75-110); POTASSIUM 4.4 MMOL/L (3.6-5.0); SODIUM 140 mmol/l (132-148); TOTAL PROTEIN 5.8 G/DL (6.3-8.2)
[2016-12-29 05:44] LABS: ALB/GLOB RATIO 1.1 (1.0-2.1)
[2016-12-29] MEDS: Amoxicillin-Clav 500-125 mg Tab PO SCH ×2 (09:36→21:22)
[2016-12-29] MEDS: Potassium Chloride 10 mEq ER Tab PO SCH (09:37)
[2016-12-29] MEDS: Pantoprazole 40 mg EC Tab PO SCH ×2 (09:38→21:22)
--- NOTE | 2016-12-29 10:02 | CP.PCM.PN ---
Subjective - Date & Time of Evaluation Date of Evaluation: 12/29/16 Time of Evaluation: 09:45 - Subjective Subjective: no overnight events Objective - Vital Signs/Intake and Output Vital Signs (last 24 hours): Temp Pulse Resp BP Pulse Ox 98.2 F 61 18 101/61 99 12/29/16 08:00 12/29/16 09:36 12/29/16 08:00 12/29/16 09:37 12/29/16 08:00 - Medications Medications: Current Medications Acetaminophen (Tylenol 325mg Tab) 650 mg PO Q4 PRN PRN Reason: Pain, Mild (1-3) Last Admin: 12/26/16 02:00 Dose: 650 mg Acetaminophen (Tylenol 325mg Tab) 650 mg PO Q4 PRN PRN Reason: Fever >100.4 F Amoxicillin/Clavulanate Potassium (Augmentin 500 Mg-125 Mg Tab) 1 tab PO Q12 [facility] PRN Reason: Protocol Last Admin: 12/29/16 09:36 Dose: 1 tab Apixaban (Eliquis) 2.5 mg PO BID [facility] PRN Reason: Protocol Last Admin: 12/27/16 09:37 Dose: 2.5 mg Carvedilol (Coreg) 3.125 mg PO Q12 [facility] Last Admin: 12/29/16 09:36 Dose: 3.125 mg Enalapril Maleate (Vasotec) 2.5 mg PO DAILY [facility] Last Admin: 12/29/16 09:38 Dose: 2.5 mg Enoxaparin Sodium (Lovenox) 40 mg SC DAILY [facility] PRN Reason: Protocol Last Admin: 12/28/16 08:42 Dose: 40 mg Ferrous Sulfate (Feosol) 325 mg PO TID [facility] Last Admin: 12/29/16 09:37 Dose: 325 mg Furosemide (Lasix) 40 mg IVP BID [facility] Last Admin: 12/29/16 09:37 Dose: 40 mg Haloperidol Lactate (Haldol) 2 mg IM Q6 PRN PRN Reason: Agitation Lactulose (Enulose) 20 gm PO BID [facility] Last Admin: 12/29/16 09:37 Dose: Not Given Pantoprazole Sodium (Protonix Ec Tab) 40 mg PO Q12 [facility] Last Admin: 12/29/16 09:38 Dose: 40 mg Potassium Chloride (Klor-Con 10) 10 meq PO DAILY [facility] Last Admin: 12/29/16 09:37 Dose: 10 meq Quetiapine Fumarate (Seroquel) 12.5 mg PO HS [facility] Last Admin: 12/28/16 22:03 Dose: 12.5 mg Spironolactone (Aldactone) 12.5 mg PO DAILY [facility] Last Admin: 12/29/16 09:38 Dose: 12.5 mg - Labs Labs: 12/29/16 04:50 12/29/16 04:50 PT 15.3 Seconds (9.8-13.1) H 12/28/16 04:10 INR 1.4 (0.9-1.2) H 12/28/16 04:10 APTT 28.4 Seconds (25.6-37.1) 12/17/16 05:56 - Head Exam Head Exam: NORMOCEPHALIC - Neck Exam Neck Exam: Normal Inspection - Respiratory Exam Respiratory Exam: Rhonchi - Cardiovascular Exam Cardiovascular Exam: REGULAR RHYTHM Assessment and Plan - Assessment and Plan (Free Text) Assessment: 71 yo male with elevated lft lft improving suspect congestive hepatopathy no active bleeding
--- NOTE | 2016-12-29 12:49 | PN ---
SUBJECTIVE: The patient underwent right thoracocentesis yesterday with a removal of 2 L of clear fluid. The patient is scheduled to undergo left thoracocentesis today. He denies any chest pain and does not appears to be in any distress. PHYSICAL EXAMINATION: VITAL SIGNS: Blood pressure 101/61, heart rate 61, temperature 98.2, respirations 18. HEENT: Normocephalic. CHEST: Diminished breath sounds over the left base. HEART: S1 and S2 regular. ABDOMEN: Soft. EXTREMITIES: No edema. LABORATORY DATA: Hemoglobin and hematocrit 11.2 and 35.7, white count 5.8, platelet count 200,000. Today's SMA-7; sodium 140, potassium 4.4, chloride 98, CO2 of 37, glucose 85, BUN 23, creatinine 0.8. ASSESSMENT: 1. Dilated cardiomyopathy. 2. Bilateral pleural effusion, status post right thoracocentesis. 3. Depression. 4. History of deep venous thrombosis and inferior vena cava filter placement. RECOMMENDATIONS: Continue Aldactone 12.5 mg once a day, Coreg 3.125 mg twice a day, Lasix 40 mg intravenous twice a day, Klor-Con 10 mEq once a day, VESIcare 2.5 mg once a day. Consider the patient is on Eliquis after the left thoracocentesis if there are no bleeding complications. Luis August MD
[2016-12-29] MEDS ORDERED: Lidocaine 1% Inj (20ml) ONE (14:45)
--- NOTE | 2016-12-29 15:06 | PCM.SURG1 ---
Surgeon's Initial Post Op Note - Surgeon's Notes Surgeon: Brandon Rush MD Appointment Manager: NONE Type of Anesthesia: Local Pre-Operative Diagnosis: Left pleural effusion Operative Findings: US showed a large left pleural effusion Post-Operative Diagnosis: Left pleural effusion Operation Performed: US guided left thoracentesis. Specimen/Specimens Removed: 1260 cc of straw colored fluid Estimated Blood Loss: EBL {In ML}: 0 Blood Products Given: N/A Drains Used: No Drains Post-Op Condition: Fair Date of Surgery/Procedure: 12/29/16 Time of Surgery/Procedure: 15:00
--- NOTE | 2016-12-29 15:35 | CP.PCM.PN ---
Subjective - Date & Time of Evaluation Date of Evaluation: 12/29/16 Time of Evaluation: 10:30 - Subjective Subjective: F/U Respiratory Insufficiency , Pleural Effusion Confused , no AD , on 1:1 Objective - Vital Signs/Intake and Output Vital Signs (last 24 hours): Temp Pulse Resp BP Pulse Ox 97.9 F 61 18 96/59 L 98 12/29/16 15:11 12/29/16 15:11 12/29/16 15:11 12/29/16 15:11 12/29/16 15:11 - Medications Medications: Current Medications Acetaminophen (Tylenol 325mg Tab) 650 mg PO Q4 PRN PRN Reason: Pain, Mild (1-3) Last Admin: 12/26/16 02:00 Dose: 650 mg Acetaminophen (Tylenol 325mg Tab) 650 mg PO Q4 PRN PRN Reason: Fever >100.4 F Amoxicillin/Clavulanate Potassium (Augmentin 500 Mg-125 Mg Tab) 1 tab PO Q12 [facility] PRN Reason: Protocol Last Admin: 12/29/16 09:36 Dose: 1 tab Apixaban (Eliquis) 2.5 mg PO BID [facility] PRN Reason: Protocol Last Admin: 12/27/16 09:37 Dose: 2.5 mg Carvedilol (Coreg) 3.125 mg PO Q12 [facility] Last Admin: 12/29/16 09:36 Dose: 3.125 mg Enalapril Maleate (Vasotec) 2.5 mg PO DAILY [facility] Last Admin: 12/29/16 09:38 Dose: 2.5 mg Enoxaparin Sodium (Lovenox) 40 mg SC DAILY [facility] PRN Reason: Protocol Last Admin: 12/28/16 08:42 Dose: 40 mg Ferrous Sulfate (Feosol) 325 mg PO TID [facility] Last Admin: 12/29/16 13:19 Dose: 325 mg Furosemide (Lasix) 40 mg IVP BID [facility] Last Admin: 12/29/16 09:37 Dose: 40 mg Haloperidol Lactate (Haldol) 2 mg IM Q6 PRN PRN Reason: Agitation Lactulose (Enulose) 20 gm PO BID [facility] Last Admin: 12/29/16 09:37 Dose: Not Given Pantoprazole Sodium (Protonix Ec Tab) 40 mg PO Q12 [facility] Last Admin: 12/29/16 09:38 Dose: 40 mg Potassium Chloride (Klor-Con 10) 10 meq PO DAILY [facility] Last Admin: 12/29/16 09:37 Dose: 10 meq Quetiapine Fumarate (Seroquel) 12.5 mg PO [facility] Last Admin: 12/28/16 22:03 Dose: 12.5 mg Spironolactone (Aldactone) 12.5 mg PO DAILY [facility] Last Admin: 12/29/16 09:38 Dose: 12.5 mg - Labs Labs: 12/29/16 04:50 12/29/16 04:50 PT 15.3 Seconds (9.8-13.1) H 12/28/16 04:10 INR 1.4 (0.9-1.2) H 12/28/16 04:10 APTT 28.4 Seconds (25.6-37.1) 12/17/16 05:56 - Constitutional Appears: No Acute Distress, Chronically Ill - Head Exam Head Exam: NORMAL INSPECTION - Eye Exam Eye Exam: PERRL - ENT Exam ENT Exam: Normal Exam - Neck Exam Neck Exam: Normal Inspection - Respiratory Exam Respiratory Exam: Decreased Breath Sounds (at bases) - Cardiovascular Exam Cardiovascular Exam: REGULAR RHYTHM - GI/Abdominal Exam GI & Abdominal Exam: Soft, Normal Bowel Sounds - Extremities Exam Extremities Exam: Pedal Edema - Back Exam Back Exam: NORMAL INSPECTION - Neurological Exam Neurological Exam: Awake Additional comments: Confused, forgetful, generalized weakness - Psychiatric Exam Additional comments: Calm - Skin Skin Exam: Warm Assessment and Plan (1) Respiratory insufficiency Status: Acute (2) Pleural effusion, bilateral Status: Acute (3) Nodule of right lung Status: Acute (4) Acute exacerbation of CHF (congestive heart failure) Status: Chronic - Assessment and Plan (Free Text) Plan: yesterday 12-28 had R Thoracentesis 2000 , today Patient to have L Thoracentesis , continue rest of treatment.
[2016-12-29 16:49] LABS: BODY FLUID TYPE PLEURAL/THORACENTESI
--- NOTE | 2016-12-29 16:55 | RAD ---
PROCEDURE: CHEST RADIOGRAPH, 1 VIEW HISTORY: Status post leftt thoracentesis. COMPARISON: 10/26/2016. FINDINGS: LUNGS: Improved aeration of the left lung following left thoracentesis. There is no pneumothorax. PLEURA: Mild blunting of the right costophrenic margin likely from a small effusion. CARDIOVASCULAR: Cardiomegaly. AICD in place. . OSSEOUS STRUCTURES: No significant abnormalities. VISUALIZED UPPER ABDOMEN: Normal. OTHER FINDINGS: None. IMPRESSION: No pneumothorax following left thoracentesis. Improved aeration of both right and left lungs.
--- NOTE | 2016-12-29 16:57 | US ---
PROCEDURE: Date of procedure: Procedure: 1. Ultrasound-guided Right thoracentesis, CPT 02306 Medications: 6cc 1% Lidocaine HISTORY: Right pleural effusion, shortness of breath TECHNIQUE: Following informed consent ,the Patients' right chest was marked. Procedure time-out was called, and the patient was placed in the sitting position and limited ultrasound showed a large right effusion. The patient's right back was prepped and draped in the usual sterile fashion. After the skin was anesthetized with lidocaine, a drainage catheter was advanced under ultrasound guidance into the pleural space. Ultrasound-guided thoracentesis was performed. A total of 2200 cubic centimeters of straw-colored fluid removed without complication. A Xeroform dressing was applied. IMPRESSION: Ultrasound guided Right thoracentesis. There were no immediate complications.
[2016-12-29 18:02] LABS: BF GROSS APPEARANCE SL CLOUDY (CLEAR); BODY FLUID TOTAL COUNT 100 (0-0)
--- NOTE | 2016-12-29 23:55 | CP.PCM.PN ---
Subjective - Date & Time of Evaluation Date of Evaluation: 12/29/16 Objective - Vital Signs/Intake and Output Vital Signs (last 24 hours): Temp Pulse Resp BP Pulse Ox 98.5 F 60 20 106/69 99 12/29/16 19:46 12/29/16 21:21 12/29/16 19:46 12/29/16 21:21 12/29/16 19:46 - Medications Medications: Current Medications Acetaminophen (Tylenol 325mg Tab) 650 mg PO Q4 PRN PRN Reason: Pain, Mild (1-3) Last Admin: 12/26/16 02:00 Dose: 650 mg Acetaminophen (Tylenol 325mg Tab) 650 mg PO Q4 PRN PRN Reason: Fever >100.4 F Apixaban (Eliquis) 2.5 mg PO BID [facility] PRN Reason: Protocol Last Admin: 12/27/16 09:37 Dose: 2.5 mg Carvedilol (Coreg) 3.125 mg PO Q12 [facility] Last Admin: 12/29/16 21:21 Dose: 3.125 mg Enalapril Maleate (Vasotec) 2.5 mg PO DAILY [facility] Last Admin: 12/29/16 09:38 Dose: 2.5 mg Enoxaparin Sodium (Lovenox) 40 mg SC DAILY [facility] PRN Reason: Protocol Last Admin: 12/28/16 08:42 Dose: 40 mg Ferrous Sulfate (Feosol) 325 mg PO TID [facility] Last Admin: 12/29/16 17:37 Dose: 325 mg Furosemide (Lasix) 40 mg IVP BID [facility] Last Admin: 12/29/16 17:00 Dose: Not Given Haloperidol Lactate (Haldol) 2 mg IM Q6 PRN PRN Reason: Agitation Lactulose (Enulose) 20 gm PO BID [facility] Last Admin: 12/29/16 17:38 Dose: Not Given Pantoprazole Sodium (Protonix Ec Tab) 40 mg PO Q12 [facility] Last Admin: 12/29/16 21:22 Dose: 40 mg Potassium Chloride (Klor-Con 10) 10 meq PO DAILY [facility] Last Admin: 12/29/16 09:37 Dose: 10 meq Quetiapine Fumarate (Seroquel) 12.5 mg PO HS [facility] Last Admin: 12/29/16 21:21 Dose: 12.5 mg Spironolactone (Aldactone) 12.5 mg PO DAILY [facility] Last Admin: 12/29/16 09:38 Dose: 12.5 mg - Labs Labs: 12/29/16 04:50 12/29/16 04:50 PT 15.3 Seconds (9.8-13.1) H 12/28/16 04:10 INR 1.4 (0.9-1.2) H 12/28/16 04:10 APTT 28.4 Seconds (25.6-37.1) 12/17/16 05:56
[2016-12-30] MEDS: Potassium Chloride 10 mEq ER Tab PO SCH (09:05)
[2016-12-30] MEDS: Pantoprazole 40 mg EC Tab PO SCH (09:06)
--- NOTE | 2016-12-30 10:46 | PQF GENQUE ---
This form is a permanent part of the medical record 12/30/16 Dr. Keita, Please clarify the possible type/underlying cause of pleural effusion if known. Patient with bilateral pleural effusions s/p bilateral thoracentesis. Being treated for acute on chronic CHF and respiratory insufficiency. Pleural fluid analysis is completed. Medication includes: Vasotec, Lasix and Aldactone. Clarification of your documentation is requested to better reflect the severity of illness and intensity of treatment of your patient. Indicators present [] Specify: [] [] Specify: [] [] Specify: [] [] Specify: [] Location in the medical record that reflects the above clinical findings: [] Treatment Provided: [] PHYSICIAN'S RESPONSE Please clarify the possible type/underlying cause of pleural effusion: [] Bacterial (please specify causative organism if known) [] Congestive/ CHF [] Chylous [] Hemothorax [] Hydropneumothorax [] Malignant (please specify primary malignancy site if known) [] Systemic lupus erythematosus [] Other type not specified above (please specify) [] Clinically unable to determine [] Unknown Based on your medical judgment of the clinical indicators outlined above please clarify the following: [] Practitioner response [] If unable to determine, please check the box, sign and date. Present On Admission (POA) Indicator: [] Present at the time of admission [] Not present at the time of admission [] Clinically Undetermined In responding to this query, please exercise your independent professional judgment. The fact that a question is asked does not imply that any particular answer is desired or expected. Thank you for your clarification on this documentation. If you have any questions please call:extension [phone] * Thank you, Liset Camara RN CDMP MTDD
--- NOTE | 2016-12-30 11:44 | CP.PCM.PCO ---
Assessment & Plan - Assessment and Plan (Free Text) Assessment: pt. doing well today, sitting up in bed with 1;1 at bedside pt. still feels depressed, denies sob, cp,fever, chills s/p Bilateral thoracentesis pt. medicall cleared for Geropsych transfer today by , and cont. current meds ( see reconciliation); cont. Lasix, 02 via [place] prn, monitor cbc, cmp above discussed with and patient's daughter Jacklyn who is in agreement with above plan
--- NOTE | 2016-12-30 11:46 | CP.PCM.CON ---
History of Present Illness - History of Present Illness History of Present Illness: Pt seen for supportive therapy. Mood remains depressed, affect constricted, pt withdrawan and minimally expressive. Pt non responsive to review of therapy and gains made. Pt provided counseling and strategies presented to decrease distress. Plan: Psychiatric Follow up Continued Sup therapy Past Patient History - Infectious Disease Hx of Infectious Diseases: None - Tetanus Immunizations Tetanus Immunization: Unknown - Past Medical History & Family History Past Medical History?: Yes - Past Social History Smoking Status: Former Smoker Alcohol: None Drugs: Denies Home Situation {Lives}: Alone - CARDIAC Hx Atrial Fibrillation: Yes Hx Congestive Heart Failure: Yes Hx Hypertension: Yes Hx Pacemaker: Yes - PULMONARY Hx Respiratory Disorders: No - NEUROLOGICAL Hx Dementia: Yes Hx Seizures: No - HEENT Hx HEENT Problems: Yes Other/Comment: glasses - RENAL Hx Chronic Kidney Disease: No - ENDOCRINE/METABOLIC Hx Hypothyroidism: Yes - HEMATOLOGICAL/ONCOLOGICAL Hx Anemia: Yes Hx Human Immunodeficiency Virus (HIV): No - INTEGUMENTARY Hx Dermatological Problems: Yes Hx Cellulitis: Yes - MUSCULOSKELETAL/RHEUMATOLOGICAL Hx Falls: No - GASTROINTESTINAL Hx Gastrointestinal Disorders: Yes Hx Gastroesophageal Reflux: Yes - GENITOURINARY/GYNECOLOGICAL Hx Sexually Transmitted Disorders: No - PSYCHIATRIC Hx Anxiety: Yes Hx Depression: Yes Hx Substance Use: No - SURGICAL HISTORY Hx Surgeries: Yes Hx Open Reduction Internal Fixation: Yes (left femur surgery) Other/Comment: Pacemaker Placement - ANESTHESIA Hx Anesthesia: Yes Hx Anesthesia Reactions: No Hx Malignant Hyperthermia: No Has any member of the family had a problem w/ anesthesia?: No Meds Home Medications: Home Medication List Medication Instructions Recorded Confirmed Type Acetaminophen [Tylenol 325mg tab] 650 mg PO Q4 PRN tab 12/30/16 Rx Apixaban [Eliquis] 2.5 mg PO BID tab 12/30/16 Rx Carvedilol [Coreg] 3.125 mg PO Q12 tab 12/30/16 Rx Enalapril Maleate [Vasotec] 2.5 mg PO DAILY tab 12/30/16 Rx Ferrous Sulfate [Feosol] 325 mg PO TID tab 12/30/16 Rx Furosemide [Lasix] 40 mg PO DAILY tab 12/30/16 Rx Lactulose [Enulose] 20 gm PO BID [facility] 12/30/16 Rx Pantoprazole [Protonix EC Tab] 40 mg PO Q12 ect 12/30/16 Rx Potassium Chloride [Klor-Con 10] [address] 12/30/16 Rx QUEtiapine [Seroquel] 12.5 mg PO HS tab 12/30/16 Rx Spironolactone [Aldactone] 12.5 mg PO DAILY tab 12/30/16 Rx Allergies/Adverse Reactions: Allergies Allergy/AdvReac Type Severity Reaction Status Date / Time No Known Allergies Allergy Verified 03/18/16 08:37 - Medications Medications: Current Medications Acetaminophen (Tylenol 325mg Tab) 650 mg PO Q4 PRN PRN Reason: Pain, Mild (1-3) Last Admin: 12/26/16 02:00 Dose: 650 mg Acetaminophen (Tylenol 325mg Tab) 650 mg PO Q4 PRN PRN Reason: Fever >100.4 F Apixaban (Eliquis) 2.5 mg PO BID [facility] PRN Reason: Protocol Last Admin: 12/27/16 09:37 Dose: 2.5 mg Carvedilol (Coreg) 3.125 mg PO Q12 [facility] Last Admin: 12/30/16 09:04 Dose: Not Given Enalapril Maleate (Vasotec) 2.5 mg PO DAILY [facility] Last Admin: 12/30/16 09:06 Dose: Not Given Ferrous Sulfate (Feosol) 325 mg PO TID [facility] Last Admin: 12/30/16 09:05 Dose: 325 mg Furosemide (Lasix) 40 mg PO DAILY [facility] Haloperidol Lactate (Haldol) 2 mg IM Q6 PRN PRN Reason: Agitation Lactulose (Enulose) 20 gm PO BID [facility] Last Admin: 12/30/16 09:05 Dose: Not Given Pantoprazole Sodium (Protonix Ec Tab) 40 mg PO Q12 [facility] Last Admin: 12/30/16 09:06 Dose: 40 mg Potassium Chloride (Klor-Con 10) 10 meq PO DAILY [facility] Last Admin: 12/30/16 09:05 Dose: 10 meq Quetiapine Fumarate (Seroquel) 12.5 mg PO HS [facility] Last Admin: 12/29/16 21:21 Dose: 12.5 mg Spironolactone (Aldactone) 12.5 mg PO DAILY [facility] Last Admin: 12/30/16 09:04 Dose: Not Given Results - Vital Signs Recent Vital Signs: Last Vital Signs Temp 98.6 F 12/30/16 08:00 Pulse 60 12/30/16 09:04 Resp 18 12/30/16 08:00 BP 92/54 L 12/30/16 09:09 Pulse Ox 99 12/30/16 08:00 - Labs Result Diagrams: 12/29/16 04:50 12/29/16 04:50 Labs: Laboratory Results - last 24 hr 12/29/16 12/29/16 15:45 16:55 Fluid Source Pleural/thoracentesi Fluid Appearance Sl cloudy Fluid WBC 86.0 Fluid RBC 494.0 H Fluid Tot Cell Count 100 H Fluid Neutrophils 43.0 H Fluid Lymphocytes 31.0 H Fld Monocyte/Macrophag 26 H Fluid LDH 158 Fluid Comment Yellowish
--- NOTE | 2016-12-30 13:07 | CP.PCM.PN ---
Subjective - Date & Time of Evaluation Date of Evaluation: 12/30/16 Time of Evaluation: 12:10 - Subjective Subjective: F/U Respiratory Insufficiency. Objective - Vital Signs/Intake and Output Vital Signs (last 24 hours): Temp Pulse Resp BP Pulse Ox 98.0 F 60 18 96/59 L 97 12/30/16 12:00 12/30/16 12:00 12/30/16 12:00 12/30/16 12:00 12/30/16 12:00 - Medications Medications: Current Medications Acetaminophen (Tylenol 325mg Tab) 650 mg PO Q4 PRN PRN Reason: Pain, Mild (1-3) Last Admin: 12/26/16 02:00 Dose: 650 mg Acetaminophen (Tylenol 325mg Tab) 650 mg PO Q4 PRN PRN Reason: Fever >100.4 F Apixaban (Eliquis) 2.5 mg PO BID [facility] PRN Reason: Protocol Last Admin: 12/27/16 09:37 Dose: 2.5 mg Carvedilol (Coreg) 3.125 mg PO Q12 [facility] Last Admin: 12/30/16 09:04 Dose: Not Given Enalapril Maleate (Vasotec) 2.5 mg PO DAILY [facility] Last Admin: 12/30/16 09:06 Dose: Not Given Ferrous Sulfate (Feosol) 325 mg PO TID [facility] Last Admin: 12/30/16 09:05 Dose: 325 mg Furosemide (Lasix) 40 mg PO DAILY [facility] Haloperidol Lactate (Haldol) 2 mg IM Q6 PRN PRN Reason: Agitation Lactulose (Enulose) 20 gm PO BID [facility] Last Admin: 12/30/16 09:05 Dose: Not Given Pantoprazole Sodium (Protonix Ec Tab) 40 mg PO Q12 [facility] Last Admin: 12/30/16 09:06 Dose: 40 mg Potassium Chloride (Klor-Con 10) 10 meq PO DAILY [facility] Last Admin: 12/30/16 09:05 Dose: 10 meq Quetiapine Fumarate (Seroquel) 12.5 mg PO HS [facility] Last Admin: 12/29/16 21:21 Dose: 12.5 mg Spironolactone (Aldactone) 12.5 mg PO DAILY [facility] Last Admin: 12/30/16 09:04 Dose: Not Given - Labs Labs: 12/29/16 04:50 12/29/16 04:50 PT 15.3 Seconds (9.8-13.1) H 12/28/16 04:10 INR 1.4 (0.9-1.2) H 12/28/16 04:10 APTT 28.4 Seconds (25.6-37.1) 12/17/16 05:56 - Constitutional Appears: No Acute Distress, Chronically Ill - Head Exam Head Exam: NORMAL INSPECTION - Eye Exam Eye Exam: PERRL - ENT Exam ENT Exam: Normal Exam - Neck Exam Neck Exam: Normal Inspection - Respiratory Exam Respiratory Exam: Decreased Breath Sounds (at bases) - Cardiovascular Exam Cardiovascular Exam: REGULAR RHYTHM - GI/Abdominal Exam GI & Abdominal Exam: Soft, Normal Bowel Sounds - Extremities Exam Extremities Exam: Pedal Edema - Back Exam Back Exam: NORMAL INSPECTION - Neurological Exam Neurological Exam: Awake Additional comments: Confused, forgetful, generalized weakness. - Psychiatric Exam Additional comments: Calm. - Skin Skin Exam: Warm Assessment and Plan (1) Respiratory insufficiency Status: Acute (2) Pleural effusion, bilateral Status: Acute (3) Nodule of right lung Status: Acute (4) Acute exacerbation of CHF (congestive heart failure) Status: Chronic
--- NOTE | 2016-12-30 13:08 | CP.PCM.PN ---
Subjective - Date & Time of Evaluation Date of Evaluation: 12/30/16 Time of Evaluation: 13:00 - Subjective Subjective: doing well Objective - Vital Signs/Intake and Output Vital Signs (last 24 hours): Temp Pulse Resp BP Pulse Ox 98.0 F 60 18 96/59 L 97 12/30/16 12:00 12/30/16 12:00 12/30/16 12:00 12/30/16 12:00 12/30/16 12:00 - Medications Medications: Current Medications Acetaminophen (Tylenol 325mg Tab) 650 mg PO Q4 PRN PRN Reason: Pain, Mild (1-3) Last Admin: 12/26/16 02:00 Dose: 650 mg Acetaminophen (Tylenol 325mg Tab) 650 mg PO Q4 PRN PRN Reason: Fever >100.4 F Apixaban (Eliquis) 2.5 mg PO BID [facility] PRN Reason: Protocol Last Admin: 12/27/16 09:37 Dose: 2.5 mg Carvedilol (Coreg) 3.125 mg PO Q12 [facility] Last Admin: 12/30/16 09:04 Dose: Not Given Enalapril Maleate (Vasotec) 2.5 mg PO DAILY [facility] Last Admin: 12/30/16 09:06 Dose: Not Given Ferrous Sulfate (Feosol) 325 mg PO TID [facility] Last Admin: 12/30/16 09:05 Dose: 325 mg Furosemide (Lasix) 40 mg PO DAILY [facility] Haloperidol Lactate (Haldol) 2 mg IM Q6 PRN PRN Reason: Agitation Lactulose (Enulose) 20 gm PO BID [facility] Last Admin: 12/30/16 09:05 Dose: Not Given Pantoprazole Sodium (Protonix Ec Tab) 40 mg PO Q12 [facility] Last Admin: 12/30/16 09:06 Dose: 40 mg Potassium Chloride (Klor-Con 10) 10 meq PO DAILY [facility] Last Admin: 12/30/16 09:05 Dose: 10 meq Quetiapine Fumarate (Seroquel) 12.5 mg PO HS [facility] Last Admin: 12/29/16 21:21 Dose: 12.5 mg Spironolactone (Aldactone) 12.5 mg PO DAILY [facility] Last Admin: 12/30/16 09:04 Dose: Not Given - Labs Labs: 12/29/16 04:50 12/29/16 04:50 PT 15.3 Seconds (9.8-13.1) H 12/28/16 04:10 INR 1.4 (0.9-1.2) H 12/28/16 04:10 APTT 28.4 Seconds (25.6-37.1) 12/17/16 05:56 - Neck Exam Neck Exam: Normal Inspection - Cardiovascular Exam Cardiovascular Exam: REGULAR RHYTHM - GI/Abdominal Exam GI & Abdominal Exam: Soft, Normal Bowel Sounds Assessment and Plan - Assessment and Plan (Free Text) Assessment: 71 yo male with elevated lft doing well ok for dc to [facility]
--- NOTE | 2016-12-30 14:26 | PN ---
DATE: SUBJECTIVE: The patient underwent left thoracocentesis yesterday with removal of 1260 mL of straw colored fluid. He is comfortable in that, he denies any chest pain. PHYSICAL EXAMINATION VITAL SIGNS: Blood pressure 92/54, heart rate 60, temperature 98.6, respirations 18. HEENT: Normocephalic. CHEST: Diminished breath sounds over the bases. CARDIOPULMONARY: Heart, S1 and S2 regular. EXTREMITIES: Trace leg edema. LABORATORY DATA: Hemoglobin and hematocrit 11.2 and 35.7. White count and platelet count are within normal limits. SMA-7: Sodium 140, potassium 4.4, chloride 98, CO2 of 37, glucose 85, BUN 23, creatinine 0.8. ASSESSMENT: 1. Dilated cardiomyopathy. 2. Chronic atrial fibrillation. 3. Status post implantable cardioverter defibrillator placement. 4. History of deep venous thrombosis with inferior vena cava filter placement. 5. Depression. RECOMMENDATIONS: Continue Coreg at 3.125 mg once a day, Aldactone 12.5 mg once a day, Haldol 2 mg IM q. 6 hours p.r.n. for agitation, restart Lasix at 40 mg p.o. daily, Vasotec 2.5 mg once a day, resume Eliquis at 2.5 mg twice a day. The patient can be transferred to Psych Unit and will be placed on nasal O2 with Cardiology followup as well as Pulmonary followup. Luis August MD
[2016-12-30 16:18] VITALS: BP 104/66; PULSE 62; RESP 20; TEMP 98; O2SAT 98
--- NOTE | 2016-12-30 23:57 | CP.PCM.DIS ---
Provider - Provider Date of Admission: 12/17/16 09:23 Attending physician: Wm Patrick MD Time Spent in preparation of Discharge (in minutes): 25 Diagnosis - Discharge Diagnosis (1) Abnormal LFTs Status: Acute (2) Suicidal behavior Status: Acute (3) Anemia Status: Acute (4) GI bleed Status: Acute (5) Pleural effusion, bilateral Status: Acute Priority: High Comment: S/P B/L Thoracentesis (6) Atrial fibrillation Status: Chronic (7) CHF (congestive heart failure) Status: Chronic (8) Nodule of right lung Status: Chronic Priority: High Hospital Course - Lab Results Lab Results: Micro Results 12/21/16 12:56 Blood Blood Culture - Final NO GROWTH AFTER 5 DAYS 12/21/16 12:56 Blood Gram Stain - Final TEST NOT PERFORMED 12/23/16 19:30 Urine,Clean Catch Urine Culture - Final Streptococcus Species 12/16/16 21:50 Blood Blood Culture - Final NO GROWTH AFTER 5 DAYS 12/16/16 21:50 Blood Gram Stain - Final TEST NOT PERFORMED 12/16/16 21:35 Blood Blood Culture - Final NO GROWTH AFTER 5 DAYS 12/16/16 21:35 Blood Gram Stain - Final TEST NOT PERFORMED Most Recent Lab Values WBC 5.8 K/uL (4.8-10.8) 12/29/16 04:50 RBC 4.38 Mil/uL (4.40-5.90) L 12/29/16 04:50 Hgb 11.2 g/dL (12.0-18.0) L 12/29/16 04:50 Hct 35.7 % (35.0-51.0) 12/29/16 04:50 MCV 81.5 fl (80.0-94.0) 12/29/16 04:50 MCH 25.7 pg (27.0-31.0) L 12/29/16 04:50 MCHC 31.5 g/dL (33.0-37.0) L 12/29/16 04:50 RDW 24.1 % (11.5-14.5) H 12/29/16 04:50 Plt Count 200 K/uL (130-400) 12/29/16 04:50 MPV 8.7 fl (7.2-11.7) 12/29/16 04:50 Neut % (Auto) 76.3 % (50.0-75.0) H 12/29/16 04:50 Lymph % (Auto) 13.0 % (20.0-40.0) L 12/29/16 04:50 [place] % (Auto) 9.8 % (0.0-10.0) 12/29/16 04:50 Eos % (Auto) 0.5 % (0.0-4.0) 12/29/16 04:50 Baso % (Auto) 0.4 % (0.0-2.0) 12/29/16 04:50 Neut # 4.4 K/uL (1.8-7.0) 12/29/16 04:50 Lymph # 0.8 K/uL (1.0-4.3) L 12/29/16 04:50 [place] # 0.6 K/uL (0.0-0.8) 12/29/16 04:50 Eos # 0.0 K/uL (0.0-0.7) 12/29/16 04:50 Baso # 0.0 K/uL (0.0-0.2) 12/29/16 04:50 Neutrophils % (Manual) 75 % (42-75) 12/24/16 06:00 Band Neutrophils % 3 % (0-2) H 12/16/16 21:38 Lymphocytes % (Manual) 10 % (20-50) L 12/24/16 06:00 Reactive Lymphs % 1 % (0-0) H 12/16/16 21:38 Monocytes % (Manual) 14 % (0-10) H 12/24/16 06:00 Eosinophils % (Manual) 1 % (0-7) 12/16/16 21:38 Basophils % (Manual) 1 % (0-2) 12/24/16 06:00 Platelet Estimate Normal (NORMAL) 12/24/16 06:00 Large Platelets Present 12/24/16 06:00 Polychromasia Slight 12/16/16 21:38 Hypochromasia (manual) Slight 12/24/16 06:00 Poikilocytosis (manual Slight 12/16/16 21:38 Anisocytosis (manual) Marked 12/24/16 06:00 Microcytosis (manual) Slight 12/16/16 21:38 Target Cells Slight 12/16/16 21:38 Tear Drop Cells Slight 12/16/16 21:38 Acanthocytes (Spur) Slight 12/16/16 21:38 PT 15.3 Seconds (9.8-13.1) H 12/28/16 04:10 INR 1.4 (0.9-1.2) H 12/28/16 04:10 APTT 28.4 Seconds (25.6-37.1) 12/17/16 05:56 Sodium 140 mmol/l (132-148) 12/29/16 04:50 Potassium 4.4 MMOL/L (3.6-5.0) 12/29/16 04:50 Chloride 98 mmol/L (98-107) 12/29/16 04:50 Carbon Dioxide 37 mmol/L (22-30) H 12/29/16 04:50 Anion Gap 9 (10-20) L 12/29/16 04:50 BUN 23 mg/dl (9-20) H 12/29/16 04:50 Creatinine 0.8 mg/dL (0.8-1.5) 12/29/16 04:50 Est GFR ( Amer) > 60 12/29/16 04:50 Est GFR (Non-Af Amer) > 60 12/29/16 04:50 POC Glucose (mg/dL) 122 mg/dL (65-110) H 12/16/16 21:22 Random Glucose 85 mg/dL (75-110) 12/29/16 04:50 Calcium 9.1 mg/dL (8.4-10.2) 12/29/16 04:50 Iron 13 ug/dL (49-181) L 12/19/16 10:30 TIBC 404 ug/dL (250-450) 12/19/16 10:30 % Saturation 3.2 % (20-55) L 12/19/16 10:30 Ferritin 49.2 ng/Ml (17.9-464) 12/19/16 10:30 Total Bilirubin 0.7 mg/dl (0.2-1.3) 12/29/16 04:50 AST 35 U/L (17-59) 12/29/16 04:50 ALT 76 U/L (21-72) H D 12/29/16 04:50 Alkaline Phosphatase 108 U/L (38-126) 12/29/16 04:50 Ammonia < 9 umo/L (16-60) L 12/21/16 12:56 NT-Pro-B Natriuret Pep 96510 pg/ml (0-900) H 12/19/16 10:30 Total Protein 5.8 G/DL (6.3-8.2) L 12/29/16 04:50 Albumin 3.0 g/dL (3.5-5.0) L 12/29/16 04:50 Globulin 2.8 gm/dL (2.2-3.9) 12/29/16 04:50 Albumin/Globulin Ratio 1.1 (1.0-2.1) 12/29/16 04:50 Vitamin B12 667 pg/mL (239-931) 12/19/16 10:30 Folate > 20.0 ng/mL 12/19/16 10:30 Urine Color Yellow (YELLOW) 12/16/16 02:36 Urine Clarity Slighty-cloudy (Clear) 12/16/16 02:36 Urine pH 5.0 (5.0-8.0) 12/16/16 02:36 Ur Specific [place] 1.017 (1.003-1.030) 12/16/16 02:36 Urine Protein 100 mg/dL (NEGATIVE) 12/16/16 02:36 Urine Glucose (UA) Neg mg/dL (Normal) 12/16/16 02:36 Urine Ketones Negative mg/dL (NEGATIVE) 12/16/16 02:36 Urine Blood Negative (NEGATIVE) 12/16/16 02:36 Urine Nitrate Negative (NEGATIVE) 12/16/16 02:36 Urine Bilirubin Negative (NEGATIVE) 12/16/16 02:36 Urine Urobilinogen 2.0 mg/dL (0.2-1.0) 12/16/16 02:36 Ur Leukocyte Esterase Neg Ethel/uL (Negative) 12/16/16 02:36 Urine RBC (Auto) 2 /hpf (0-3) 12/16/16 02:36 Urine Microscopic WBC 1 /hpf (0-5) 12/16/16 02:36 Ur Squamous Epith Cells < 1 /hpf (0-5) 12/16/16 02:36 Hyaline Casts 0-2 /hpf (0-2) 12/16/16 02:36 Fluid Source Pleural/thoracentesi 12/29/16 15:45 Fluid Appearance Sl cloudy (CLEAR) 12/29/16 15:45 Fluid WBC 86.0 /mm3 (0.0-300.0) 12/29/16 15:45 Fluid RBC 494.0 /mm3 (0.0-0.0) H 12/29/16 15:45 Fluid Tot Cell Count 100 (0-0) H 12/29/16 15:45 Fluid Neutrophils 43.0 % (0-0) H 12/29/16 15:45 Fluid Lymphocytes 31.0 % (0-0) H 12/29/16 15:45 Fld Monocyte/Macrophag 26 % (0-0) H 12/29/16 15:45 Fluid LDH 158 IU (NONE ESTABLISHED) 12/29/16 16:55 Fluid Comment Yellowish 12/29/16 15:45 Stool Occult Blood Positive (NEGATIVE) H 12/17/16 05:56 Urine Opiates Screen Negative (NEGATIVE) 12/16/16 02:36 Urine Methadone Screen Negative (NEGATIVE) 12/16/16 02:36 Ur Barbiturates Screen Negative (NEGATIVE) 12/16/16 02:36 Ur Phencyclidine Scrn Negative (NEGATIVE) 12/16/16 02:36 Ur Amphetamines Screen Negative (NEGATIVE) 12/16/16 02:36 U Benzodiazepines Scrn Negative (NEGATIVE) 12/16/16 02:36 U Oth Cocaine Metabols Negative (NEGATIVE) 12/16/16 02:36 U Cannabinoids Screen Negative (NEGATIVE) 12/16/16 02:36 Alcohol, Quantitative < 10 mg/dl (0-10) 12/16/16 21:38 Hepatitis A IgM Ab Negative (NEGATIVE) 12/20/16 10:13 Hepatitis A Ab Total Antibody pos (NEGATIVE) 12/20/16 14:25 Hep Bs Antigen Negative (NEGATIVE) 12/20/16 14:25 Hep Bs Antibody Negative (NEGATIVE) 12/20/16 14:25 Hep B Core IgM Ab Negative (NEGATIVE) 12/20/16 10:13 Hepatitis C Antibody Negative (NEGATIVE) 12/20/16 14:25 Blood Type A POSITIVE 12/17/16 05:56 Antibody Screen Negative 12/17/16 05:56 Crossmatch See Detail 12/17/16 05:56 BBK History Checked Patient has bt 12/17/16 05:56 Discharge Exam - Head Exam Head Exam: NORMAL INSPECTION Discharge Plan - Follow Up Plan Condition: FAIR Disposition: DISCHARGE TO [facility] Instructions: Gastrointestinal Bleeding (DC), Gastrointestinal Bleeding (GEN), Dementia (GEN), Anemia (DC), Anemia (GEN), Heart Failure (DC), Heart Failure ( GEN), Pacemaker (DC), Pacemaker (GEN), Pulmonary Edema (DC), Pulmonary Edema ( GEN), Ascites (DC), Ascites (GEN), Hypertension (DC), Hypertension (GEN) Additional Instructions: pt. doing well today, sitting up in bed with 1;1 at bedside pt. still feels depressed, denies sob, cp,fever, chills s/p Bilateral thoracentesis pt. medicall cleared for Geropsych transfer today by , and cont. current meds ( see reconciliation); cont. Lasix, 02 via [place] prn, monitor cbc, cmp above discussed with and patient's daughter Jacklyn who is in agreement with above plan Referrals: Luis August MD [Staff Provider] - Huy Keita MD [Staff Provider] - Wm Patrick MD [Staff Provider] -
--- NOTE | 2017-01-04 15:17 | US ---
PROCEDURE: Date of procedure: 12/29/2016 Procedure: 1. Ultrasound-guided left thoracentesis, CPT 60156 Medications: 6cc 1% Lidocaine HISTORY: Left pleural effusion, shortness of breath TECHNIQUE: Following informed consent ,the Patients' left chest was marked. Procedure time-out was called, and the patient was placed in the sitting position and limited ultrasound showed a large left effusion. The patient's left back was prepped and draped in the usual sterile fashion. After the skin was anesthetized with lidocaine, a drainage catheter was advanced under ultrasound guidance into the pleural space. Ultrasound-guided thoracentesis was performed. A total of 1400 cubic centimeters of straw-colored fluid removed without complication. A Xeroform dressing was applied. IMPRESSION: Ultrasound guided left thoracentesis. There were no immediate complications.
== END 2016-12-30 17:19 | DRG 377 ==
LOC: H.ER 21:01 → H.ERHOLD 12-17 09:23 → H.TEL 12-17 11:27
PROVIDERS: ADMIT Internal Medicine; ATTEND Internal Medicine
PROC: 30233N1 Transfusion of Nonautologous Red Blood Cells into Peripheral Vein, Percutaneous Approach (ICD-10-PCS; 2016-12-17)
PROC: 0W993ZZ Drainage of Right Pleural Cavity, Percutaneous Approach (ICD-10-PCS; 2016-12-28)
PROC: 0W9B3ZZ Drainage of Left Pleural Cavity, Percutaneous Approach (ICD-10-PCS; principal; 2016-12-29)
DX: K92.2 Gastrointestinal hemorrhage, unspecified (principal); I50.23 Acute on chronic systolic (congestive) heart failure; F32.3 Major depressive disorder, single episode, severe with psychotic features; F05 Delirium due to known physiological condition; I42.0 Dilated cardiomyopathy; F03.91 Unspecified dementia, unspecified severity, with behavioral disturbance; R45.851 Suicidal ideations; R18.8 Other ascites; D64.9 Anemia, unspecified; I48.2 Chronic atrial fibrillation; E86.0 Dehydration; K76.1 Chronic passive congestion of liver; E03.9 Hypothyroidism, unspecified; I11.0 Hypertensive heart disease with heart failure; I25.10 Atherosclerotic heart disease of native coronary artery without angina pectoris; R91.1 Solitary pulmonary nodule; K21.9 Gastro-esophageal reflux disease without esophagitis; F41.9 Anxiety disorder, unspecified; R29.6 Repeated falls; Z95.810 Presence of automatic (implantable) cardiac defibrillator; Z86.718 Personal history of other venous thrombosis and embolism; Z87.891 Personal history of nicotine dependence; Z79.01 Long term (current) use of anticoagulants

== ENCOUNTER 2017-01-16 19:59 | Inpatient (IN) | payer MEDICARE ==
[2017-01-16 19:59] VITALS: BMI 18.6
--- NOTE | 2017-01-16 21:06 | ED PDOC ---
HPI: Chest Pain Time Seen by Provider: 01/16/17 20:01 Chief Complaint (Nursing): Chest Pain Chief Complaint (Provider): Chest pain History Per: Other (Dr. Cummins, hospitalisr) History/Exam Limitations: no limitations Onset/Duration Of Symptoms: Hrs (1) Current Symptoms Are (Timing): Still Present Quality: "Pain" Additional Complaint(s): 71yo male, brought to ED for evaluation of chest pain which started 1 hour prior to arrival while patient was upstairs in the geropsych floor. Patient had had anginal chest pain which was relieved with nitro . Dr. Cummins present at bedside and provides the history. Patient currently suffers from pleural effusions, and severe CHF; patient was in psychiatric floor for severe depression. Patient currently also reporting shortness of breath; of note patient has history of bilateral leg edema but currently his right leg seems to be acutely worse. Patient denies any fever, cough. No other complaints. Past Medical History Reviewed: Historical Data, Nursing Documentation, Vital Signs Vital Signs: Last Vital Signs Temp 97.4 F L 01/20/17 12:45 Pulse 59 L 01/20/17 12:45 Resp 18 01/20/17 12:45 BP 104/68 01/20/17 13:06 Pulse Ox 97 01/20/17 12:45 - Medical History PMH: Anemia, Anxiety, Atrial Fibrillation, CAD, CHF, Dementia, Depression, HTN, Hypothyroidism Denies: Diabetes, Hepatitis, HIV, Chronic Kidney Disease, Seizures, Sexually Transmitted Disease - Surgical History Surgical History: Pacemaker - Family History Family History: States: No Known Family Hx, Unknown Family Hx - Home Medications Home Medications: Ambulatory Orders Medication Instructions Recorded Ferrous Sulfate [Feosol] 325 mg PO TID 10/26/16 Lactulose [Enulose] 20 gm PO BID udc 12/30/16 Pantoprazole [Protonix EC Tab] 40 mg PO Q12 ect 12/30/16 Potassium Chloride [Klor-Con 10] [address] 12/30/16 Carvedilol [Coreg] 3.125 mg PO Q12 tab 01/13/17 Enalapril Maleate [Vasotec] 2.5 mg PO DAILY tab 01/13/17 Mirtazapine [Remeron] 15 mg PO HS tab 01/13/17 Furosemide [Lasix] 20 mg PO BID 01/16/17 Acetaminophen [Tylenol 325mg tab] 650 mg PO Q4 PRN tab 01/18/17 Aluminum Hydroxide/Magnesium 30 ml PO Q4 PRN udc 01/18/17 [Maalox Plus 30 ml] Apixaban [Eliquis] 2.5 mg PO BID tab 01/18/17 Atorvastatin [Lipitor] 20 mg PO DAILY tab 01/18/17 Carvedilol [Coreg] 3.125 mg PO Q12 tab 01/18/17 Divalproex [Depakote DR(*BID*)] 250 mg PO DAILY tcp 01/18/17 Divalproex [Depakote DR(*BID*)] 375 mg PO QPM tcp 01/18/17 Donepezil [Aricept] 5 mg PO HS tab 01/18/17 LORazepam [Ativan] 0.5 mg PO Q8 PRN tab 01/18/17 Magnesium Hydroxide [Milk Of 30 ml PO HS PRN udc 01/18/17 Magnesia] Memantine [Namenda] 5 mg PO DAILY tab 01/18/17 Pantoprazole [Protonix EC Tab] 40 mg PO Q12 ect 01/18/17 - Allergies Allergies/Adverse Reactions: Allergies Allergy/AdvReac Type Severity Reaction Status Date / Time No Known Allergies Allergy Verified 03/18/16 08:37 Review of Systems ROS Statement: Except As Marked, All Systems Reviewed And Found Negative (as per HPO) Constitutional: Negative for: Fever Cardiovascular: Positive for: Chest Pain Respiratory: Negative for: Cough Musculoskeletal: Positive for: Other (biateral leg swelling) Physical Exam - Reviewed Nursing Documentation Reviewed: Yes Vital Signs Reviewed: Yes - Physical Exam Appears: Positive for: Non-toxic, In Acute Distress Head Exam: Positive for: ATRAUMATIC, NORMOCEPHALIC Skin: Positive for: Warm, Dry ENT: Positive for: Pharynx Is (clear), Other (tacky muc membranes) Neck: Positive for: Painless ROM, Supple Cardiovascular/Chest: Positive for: Chest Non Tender, Edema, Bradycardia Respiratory: Positive for: Decreased Breath Sounds (bilateral bases), Respiratory Distress Gastrointestinal/Abdominal: Positive for: Soft. Negative for: Tenderness Back: Negative for: Decreased ROM Extremity: Positive for: Pedal Edema, Swelling Lymphatic: Negative for: Adenopathy Neurologic/Psych: Positive for: Alert. Negative for: Motor/Sensory Deficits - Laboratory Results Result Diagrams: 01/18/17 04:30 01/20/17 04:20 - ECG O2 Sat by Pulse Oximetry: 93 Pulse Ox Interpretation: Normal (low normal) - Physician Consult Information Physician Contacted: Luis August Outcome Of Conversation: Familiar with pt. Troponins to be followed serially. Medical Decision Making Medical Decision Making: Time: 2008 Impression: Chest pain with cardiac risk factors. CHF and Pleural effusion Plan: BRIA Patrick. Pt to be admitted Scribe Attestation: Documented by Jaquelin Jennings acting as a scribe for Pat Jimenez MD. Provider Attestation: All medical record entries made by the Scribe were at my direction and personally dictated by me. I have reviewed the chart and agree that the record accurately reflects my personal performance of the history, physical exam, medical decision making, and the department course for this patient. I have also personally directed, reviewed, and agree with the discharge instructions and disposition. Disposition - Clinical Impression Clinical Impression: Elevated troponin level, Pleural effusion, right, Chest pain, CHF (congestive heart failure) - Disposition Disposition Time: 20:45 Condition: FAIR - Pt Status Changed To: Hospital Disposition Of: Inpatient - Admit Certification Admit to Inpatient:: After my assessment, the patient will require hospitalization for at least two midnights. This is because of the severity of symptoms shown, intensity of services needed, and/or the medical risk in this patient being treated as an outpatient. - POA Present On Arrival: None
[2017-01-17] MEDS ORDERED: Pantoprazole 40 mg EC Tab PO SCH (02:15)
[2017-01-17] MEDS ORDERED: Divalproex 125 mg Sprinkle Capsule PO SCH (09:00)
[2017-01-17] MEDS ORDERED: Lidocaine 1% Inj (20ml) ONE (14:34)
--- NOTE | 2017-01-17 15:04 | PCM.SURG1 ---
Surgeon's Initial Post Op Note - Surgeon's Notes Surgeon: Brandon Rush MD Physician Relations Manager: NONE Type of Anesthesia: Local Pre-Operative Diagnosis: Right pleural effusion Operative Findings: US showed a large right effusion Post-Operative Diagnosis: Right pleural effusion Operation Performed: US guided right thoracentesis Specimen/Specimens Removed: 2200 cc of straw colored fluid Estimated Blood Loss: EBL {In ML}: 0 Blood Products Given: N/A Drains Used: No Drains Post-Op Condition: Fair Date of Surgery/Procedure: 01/17/17 Time of Surgery/Procedure: 15:00
--- NOTE | 2017-01-17 15:44 | RAD ---
PROCEDURE: CHEST RADIOGRAPH, 1 VIEW HISTORY: Status post right thoracentesis COMPARISON: None available. FINDINGS: LUNGS: Improved aeration, re-expansion of the right lung status post thoracentesis. PLEURA: Trace residual right pleural effusion. Stable large left pleural effusion. CARDIOVASCULAR: Cardiomegaly. No evidence of acute, significant cardiovascular disease. Position/ configuration of pacemaker Satisfactory. OSSEOUS STRUCTURES: No significant abnormalities. VISUALIZED UPPER ABDOMEN: Normal. OTHER FINDINGS: None. IMPRESSION: No adverse findings status post right thoracentesis. Substantial decrease right pleural effusion, commensurate re-expansion right lung. Stable findings left amanda thorax.
--- NOTE | 2017-01-17 16:35 | CP.PCM.CON ---
History of Present Illness - History of Present Illness History of Present Illness: Continue Pulmonary consult for 71 y/o M with Pleural effusion. Pt with continue R Pleural effusion and SOB associated to symptom, Pt denied cough, fever and chills. Worsening symptom: SMITH, CP Mid sternal, generalized weakness. Pt seen by me from previous admission on 12-26-16 for respiratory distress/ pleural effusion while in Psychiatric unit Tx for for severe Depression, there after was admitted to Telemetry for new symptom of CP and unresolved Pleural effusion. Aggravated factor: Poor historian. Pt denied: Fever, chills, n/v/d, abdominal pain, urinary symptom, numbness, syncope. Chest CT on 01/15/17 showed: Large R pleural effusion, moderated in the L side with atelectasis of the lower and R middle lobe. Review of Systems - Review of Systems Systems not reviewed;Unavailable: Acuity of Condition, Dementia - Constitutional Constitutional: Weakness Past Patient History - Infectious Disease Hx of Infectious Diseases: None - Tetanus Immunizations Tetanus Immunization: Unknown - Past Medical History & Family History Past Medical History?: Yes Pertinent Family History: Unknown - Past Social History Smoking Status: Former Smoker Alcohol: None Drugs: Denies Home Situation {Lives}: Alone - CARDIAC Hx Cardiac Disorders: Yes Hx Atrial Fibrillation: Yes Hx Congestive Heart Failure: Yes Hx Hypertension: Yes Hx Pacemaker: Yes - PULMONARY Hx Respiratory Disorders: Yes (Respiratory Insuficiency, Pleural effusion.) Other/Comment: Pulmonary Nodule. - NEUROLOGICAL Hx Neurological Disorder: Yes Hx Dementia: Yes Hx Seizures: No - HEENT Hx HEENT Problems: Yes Other/Comment: glasses - RENAL Hx Chronic Kidney Disease: No - ENDOCRINE/METABOLIC Hx Endocrine Disorders: Yes Hx Hypothyroidism: Yes - HEMATOLOGICAL/ONCOLOGICAL Hx Blood Disorders: Yes Hx Anemia: Yes Hx Human Immunodeficiency Virus (HIV): No - INTEGUMENTARY Hx Dermatological Problems: Yes Hx Cellulitis: Yes - MUSCULOSKELETAL/RHEUMATOLOGICAL Hx Musculoskeletal Disorders: Yes Hx Falls: Yes - GASTROINTESTINAL Hx Gastrointestinal Disorders: Yes Hx Gastroesophageal Reflux: Yes - GENITOURINARY/GYNECOLOGICAL Hx Genitourinary Disorders: No Hx Sexually Transmitted Disorders: No - PSYCHIATRIC Hx Psychophysiologic Disorder: Yes Hx Anxiety: Yes Hx Depression: Yes - SURGICAL HISTORY Hx Surgeries: Yes Hx Open Reduction Internal Fixation: Yes (left femur surgery) Other/Comment: Pacemaker Placement - ANESTHESIA Hx Anesthesia: Yes Hx Anesthesia Reactions: No Hx Malignant Hyperthermia: No Meds Home Medications: Home Medication List Medication Instructions Recorded Confirmed Type Acetaminophen [Tylenol 325mg tab] 650 mg PO Q4 PRN tab 01/18/17 Rx Aluminum Hydroxide/Magnesium 30 ml PO Q4 PRN udc 01/18/17 Rx [Maalox Plus 30 ml] Apixaban [Eliquis] 2.5 mg PO BID tab 01/18/17 Rx Atorvastatin [Lipitor] 20 mg PO DAILY tab 01/18/17 Rx Carvedilol [Coreg] 3.125 mg PO Q12 tab 01/18/17 Rx Divalproex [Depakote DR(*BID*)] 250 mg PO DAILY tcp 01/18/17 Rx Divalproex [Depakote DR(*BID*)] 375 mg PO QPM tcp 01/18/17 Rx Donepezil [Aricept] 5 mg PO HS tab 01/18/17 Rx LORazepam [Ativan] 0.5 mg PO Q8 PRN tab 01/18/17 Rx Magnesium Hydroxide [Milk Of 30 ml PO HS PRN udc 01/18/17 Rx Magnesia] Memantine [Namenda] 5 mg PO DAILY tab 01/18/17 Rx Pantoprazole [Protonix EC Tab] 40 mg PO Q12 ect 01/18/17 Rx Allergies/Adverse Reactions: Allergies Allergy/AdvReac Type Severity Reaction Status Date / Time No Known Allergies Allergy Verified 03/18/16 08:37 - Medications Medications: Current Medications Acetaminophen (Tylenol 325mg Tab) 650 mg PO Q4 PRN PRN Reason: Pain, Mild (1-3) Al Hydrox/Mg Hydrox/Simethicone (Maalox Plus 30 Ml) 30 ml PO Q4 PRN PRN Reason: Indigestion / Heartburn Apixaban (Eliquis) 2.5 mg PO BID NANCIE PRN Reason: Protocol Last Admin: 01/17/17 10:37 Dose: Not Given Carvedilol (Coreg) 3.125 mg PO Q12 [facility] Last Admin: 01/17/17 10:35 Dose: 3.125 mg Divalproex Sodium (Depakote Dr(*Bid*)) 250 mg PO BID NANCIE Divalproex Sodium (Depakote Dr(*Bid*)) 125 mg PO BID NANCIE Divalproex Sodium (Depakote Sprinkles) 250 mg PO BID NANCIE Donepezil HCl (Aricept) 5 mg PO HS [facility] Enalapril Maleate (Vasotec) 2.5 mg PO DAILY [facility] Last Admin: 01/17/17 10:36 Dose: 2.5 mg Furosemide (Lasix) 40 mg IV DAILY [facility] Last Admin: 01/17/17 10:41 Dose: Not Given Lorazepam (Ativan) 0.5 mg PO Q8 PRN PRN Reason: Agitation Last Admin: 01/17/17 02:55 Dose: 0.5 mg Magnesium Hydroxide (Milk Of Magnesia) 30 ml PO HS PRN PRN Reason: Constipation Memantine (Namenda) 5 mg PO DAILY [facility] Last Admin: 01/17/17 10:37 Dose: 5 mg Mirtazapine (Remeron) 15 mg PO HS [facility] Nitroglycerin (Nitrostat Sl Tab) 0.4 mg SL Q5M PRN PRN Reason: chest pain Pantoprazole Sodium (Protonix Ec Tab) 40 mg PO Q12 [facility] Physical Exam - Constitutional Appears: No Acute Distress, Chronically Ill - Head Exam Head Exam: NORMAL INSPECTION - Eye Exam Eye Exam: PERRL - ENT Exam ENT Exam: Normal Exam - Neck Exam Neck exam: Positive for: Normal Inspection - Respiratory Exam Respiratory Exam: Decreased Breath Sounds (b/l) - Cardiovascular Exam Cardiovascular Exam: REGULAR RHYTHM Additional comments: PPM - GI/Abdominal Exam GI & Abdominal Exam: Normal Bowel Sounds, Soft - Extremities Exam Additional comments: Legs edema 2+ pitting - Back Exam Back exam: NORMAL INSPECTION - Neurological Exam Additional comments: Confused, forgetful, generalized weakness. - Psychiatric Exam Psychiatric exam: Anxious - Skin Skin Exam: Warm Results - Vital Signs Recent Vital Signs: Last Vital Signs Temp 96.5 F L 01/17/17 16:03 Pulse 60 01/17/17 16:03 Resp 16 01/17/17 16:03 BP 98/58 L 01/17/17 16:03 Pulse Ox 100 01/17/17 16:03 reviewed Andie - Labs Result Diagrams: 01/18/17 04:30 01/20/17 04:20 Labs: Laboratory Results - last 24 hr 01/17/17 01/17/17 01/17/17 04:15 10:35 10:35 Troponin I 0.1280 H* 0.1270 H* NT-Pro-B Natriuret Pep 85444 H reviewed J.P. - Imaging and Cardiology Chest x-ray Status: Report reviewed by me (Andie) Assessment & Plan (1) Pleural effusion, right Status: Chronic Priority: High (2) Atelectasis of both lungs Status: Acute Priority: High (3) CHF (congestive heart failure) Status: Chronic Priority: High - Assessment and Plan (Free Text) Plan: Continue O2 NC 2 L/M, IR today for R Lung Thoracentesis. - Date & Time Date: 01/17/17 Time: 10:00
--- NOTE | 2017-01-17 18:31 | CP.PCM.HP ---
<Huy Keita - Last Filed: 01/17/17 22:03> Past Patient History - Past Medical History & Family History Pertinent Family History: Unknown Meds Home Medications: Home Medication List Medication Instructions Recorded Confirmed Type Acetaminophen [Tylenol 325mg tab] 650 mg PO Q4 PRN tab 01/18/17 Rx Aluminum Hydroxide/Magnesium 30 ml PO Q4 PRN udc 01/18/17 Rx [Maalox Plus 30 ml] Atorvastatin [Lipitor] 20 mg PO DAILY tab 01/18/17 Rx Divalproex [Depakote DR(*BID*)] 250 mg PO DAILY tcp 01/18/17 Rx Divalproex [Depakote DR(*BID*)] 375 mg PO QPM tcp 01/18/17 Rx Donepezil [Aricept] 5 mg PO HS tab 01/18/17 Rx Memantine [Namenda] 5 mg PO DAILY tab 01/18/17 Rx Pantoprazole [Protonix EC Tab] 40 mg PO Q12 ect 01/18/17 Rx Apixaban [Eliquis] 2.5 mg PO BID #60 tab 01/30/17 Rx Carvedilol [Coreg] 6.25 mg PO Q12 #60 tab 01/30/17 Rx Spironolactone [Aldactone] 12.5 mg PO DAILY #30 tab 01/30/17 Rx Allergies/Adverse Reactions: Allergies Allergy/AdvReac Type Severity Reaction Status Date / Time No Known Allergies Allergy Verified 03/18/16 08:37 Results - Vital Signs Recent Vital Signs: Last Vital Signs Temp 97.1 F L 01/17/17 19:41 Pulse 60 01/17/17 20:48 Resp 18 01/17/17 19:41 BP 107/70 01/17/17 19:41 Pulse Ox 100 01/17/17 19:41 - Labs Labs: Laboratory Results - last 24 hr 01/17/17 01/17/17 01/17/17 04:15 10:35 10:35 Troponin I 0.1280 H* 0.1270 H* NT-Pro-B Natriuret Pep 37289 H <Wm Patrick - Last Filed: 02/01/17 14:34> History of Present Illness - History of Present Illness History of Present Illness: CC: Chest Pain History of Present Illness: A 71yo male with H/O Severe Cardiomyopathy S/P AICD, CHF, Recurrent B/L Pleural Effusions S/P Thoracenteses, and brought to ED for evaluation of chest pain which started 1 hour prior to arrival while patient was upstairs in the Geropsych floor. Patient had had anginal chest pain which was relieved with nitro . . Patient currently suffers from pleural effusions, and severe CHF; patient was in psychiatric floor for severe depression. Patient currently also reporting shortness of breath; of note patient has history of bilateral leg edema but currently his right leg seems to be acutely worse. Patient denies any fever, cough. No other complaints. Present on Admission - Present on Admission Any Indicators Present on Admission: Yes History of DVT/PE: No History of Uncontrolled Diabetes: No Urinary Catheter: No Decubitus Ulcer Present: No Review of Systems - Review of Systems All systems: reviewed and no additional remarkable complaints except - Cardiovascular Cardiovascular: Chest Pain, Dyspnea, Dyspnea on Exertion, Edema, Leg Edema, Orthopnea, Pedal Edema - Respiratory Respiratory: Dyspnea Past Patient History - Infectious Disease Hx of Infectious Diseases: None - Tetanus Immunizations Tetanus Immunization: Unknown - Past Medical History & Family History Past Medical History?: Yes Past Family History: Reviewed and not pertinent - Past Social History Smoking Status: Former Smoker Alcohol: None Drugs: Denies - CARDIAC Hx Atrial Fibrillation: Yes Hx Congestive Heart Failure: Yes Hx Internal Defibrillator: Yes Hx Pacemaker: Yes - PULMONARY Hx Respiratory Disorders: Yes - NEUROLOGICAL Hx Dementia: Yes Hx Seizures: No - HEENT Hx HEENT Problems: Yes Other/Comment: glasses - RENAL Hx Chronic Kidney Disease: No - ENDOCRINE/METABOLIC Hx Hypothyroidism: Yes - HEMATOLOGICAL/ONCOLOGICAL Hx Anemia: Yes Hx Human Immunodeficiency Virus (HIV): No - INTEGUMENTARY Hx Dermatological Problems: Yes Hx Cellulitis: Yes - MUSCULOSKELETAL/RHEUMATOLOGICAL Hx Musculoskeletal Disorders: Yes Hx Falls: Yes - GASTROINTESTINAL Hx Gastrointestinal Disorders: Yes Hx Gastroesophageal Reflux: Yes - GENITOURINARY/GYNECOLOGICAL Hx Sexually Transmitted Disorders: No - PSYCHIATRIC Hx Anxiety: Yes Hx Depression: Yes - SURGICAL HISTORY Hx Surgeries: Yes Hx Open Reduction Internal Fixation: Yes (left femur surgery) Other/Comment: Pacemaker Placement - ANESTHESIA Hx Anesthesia: Yes Hx Anesthesia Reactions: No Hx Malignant Hyperthermia: No Physical Exam - Constitutional Appears: Well, No Acute Distress, Chronically Ill - Head Exam Head Exam: ATRAUMATIC, NORMAL INSPECTION, NORMOCEPHALIC - Eye Exam Eye Exam: EOMI, Normal appearance, PERRL Pupil Exam: NORMAL ACCOMODATION, PERRL - ENT Exam ENT Exam: Mucous Membranes Moist, Normal Exam - Neck Exam Neck exam: Positive for: Full Rom, Normal Inspection - Respiratory Exam Respiratory Exam: Clear to Auscultation Bilateral, NORMAL BREATHING PATTERN - Cardiovascular Exam Cardiovascular Exam: REGULAR RHYTHM, +S1, +S2 - GI/Abdominal Exam GI & Abdominal Exam: Normal Bowel Sounds, Soft. absent: Tenderness - Extremities Exam Extremities exam: Positive for: full ROM, normal capillary refill, pedal edema ( Pitting Edema) - Back Exam Back exam: NORMAL INSPECTION - Neurological Exam Neurological exam: Alert, CN II-XII Intact, Normal Gait, Oriented x3, Reflexes Normal - Psychiatric Exam Psychiatric exam: Normal Affect, Normal Mood - Skin Skin Exam: Dry, Intact, Normal Color, Warm Results - Vital Signs Recent Vital Signs: Last Vital Signs Temp 96.5 F L 01/17/17 17:00 Pulse 60 01/17/17 17:00 Resp 16 01/17/17 17:00 BP 98/58 L 01/17/17 17:00 Pulse Ox 100 01/17/17 17:00 - Labs Result Diagrams: 01/30/17 05:55 01/30/17 05:55 Labs: Laboratory Results - last 24 hr 01/17/17 01/17/17 01/17/17 04:15 10:35 10:35 Troponin I 0.1280 H* 0.1270 H* NT-Pro-B Natriuret Pep 41200 H - Imaging and Cardiology Chest x-ray Status: Report reviewed by me Additional comment: IMPRESSION: No adverse findings status post right thoracentesis. Substantial decrease right pleural effusion, commensurate re-expansion right lung. Stable findings left amanda thorax. Assessment & Plan (1) Chest pain Assessment and Plan: Unstable Angina O2 via NC ASA Serial trop and EKG Telemonitoring Status: Acute Priority: Low (2) Acute on chronic combined systolic and diastolic CHF (congestive heart failure) Assessment and Plan: Continue BB/ACEI/Lasix/APranolactone Eliquis Cardiology Consult Status: Acute (3) Mood disorder due to known physiological condition with depressive features Assessment and Plan: Depression with PSychotic Behaviour Dementia Continue Remeron/Depakote/Aricept Status: Chronic
--- NOTE | 2017-01-17 20:20 | CON ---
CARDIOLOGY CONSULTATION DATE: REASON FOR CONSULTATION: Exacerbation of congestive heart failure as well as bilateral pleural effusions. HISTORY OF PRESENT ILLNESS: The patient is a 71 years old male who has a history of depression; dilated cardiomyopathy, status post ICD placement and biventricular pacemaker placement; history of chronic atrial fibrillation; and history of DVT and IVC filter placement in the past. The patient was transferred from psych unit to the emergency room because of exacerbation of congestive heart failure as well as worsening pleural effusion and was readmitted to telemetry. At this time, the patient denies any chest pain. It was reported that the troponin was borderline elevated in emergency room. SOCIAL HISTORY: Nonsmoker. He used to live with his daughter. PAST MEDICAL HISTORY: Dilated cardiomyopathy, ICD placement, biventricular pacemaker placement, bilateral pleural effusion, status post bilateral thoracocentesis during the most recent admission to telemetry, history of depression. MEDICATIONS: Aricept 5 mg at bedtime; Ativan 0.5 mg q. 8 hours p.r.n.; Coreg 3.125 mg twice a day; Depakote 250 mg twice a day; Eliquis 2.5 mg twice a day, is being on hold now, Lasix 40 mg intravenously daily; Namenda 5 mg p.o. daily; milk of magnesia 30 mL p.o. at bedtime; enalapril 2.5 mg once a day. REVIEW OF SYSTEMS: No reported ventricular tachycardia on the monitor. No reported fever or chills. No reported nausea or vomiting. PHYSICAL EXAMINATION: GENERAL: The patient is an elderly male, who does not appear to be in acute distress. VITAL SIGNS: Blood pressure 129/79, heart rate 60, temperature 97.5, respirations 20. HEENT: Normocephalic. NECK: Jugular venous distention is noted. CHEST: Bilateral basal bronchial wheezing. HEART: S1 and S2, regular and distant. ABDOMEN: Soft. EXTREMITIES: 1+ pitting edema. LABORATORY DATA: Hemoglobin and hematocrit 11.9 and 38.0, white count 12.4, platelet count 154,000, that was yesterday. Yesterday, SMA-7: Sodium 143, potassium 4.9, chloride 100, CO2 of 31, glucose 107, BUN 26, creatinine 1.0. Troponin yesterday 0.127 and today 0.128. The most recent PTT was 54.9 on 01/13/2017. INR is 1.2. ASSESSMENT: 1. Exacerbation of congestive heart failure. 2. Worsening bilateral pleural effusion. 3. Underlying pneumonia could not be excluded. 4. Chronic atrial fibrillation. 5. Depression. RECOMMENDATIONS: Continue Coreg 3.125 mg twice a day, Lasix at 40 mg intravenous daily, enalapril 2.5 mg daily. Eliquis is on hold. Case was discussed with PARADI OPERATOR. Interventional Radiology consult was requested for bilateral thoracentesis after obtaining a consent from the daughter. In view of elevated troponin, conservative medical approach as the patient is not a suitable candidate for invasive interventional approach unless the daughter agrees for a very high risk intervention without expected much benefit. Luis August MD
[2017-01-17] MEDS: Pantoprazole 40 mg EC Tab PO SCH (22:01)
[2017-01-18 05:54] LABS: MEAN CELL VOLUME 83.2 fl (80.0-94.0); MEAN CORPUSCULAR HEMOGLOBIN 26.7 pg (27.0-31.0); MEAN CORPUSCULAR HGB CONC 32.1 g/dL (33.0-37.0); RBC 4.14 Mil/uL (4.40-5.90); RED CELL DISTRIBUTION WIDTH 23.1 % (11.5-14.5)
[2017-01-18 06:22] LABS: BLOOD UREA NITROGEN 28 mg/dl (9-20); GFR AFRICAN-AMERICAN > 60; GFR NON-AFRICAN AMERICAN > 60
--- NOTE | 2017-01-18 07:01 | CP.PCM.PN ---
Subjective - Date & Time of Evaluation Date of Evaluation: 01/18/17 Time of Evaluation: 07:00 - Subjective Subjective: ACS ruled out, and PSych cleared the patient for D/C. S/P Right Thoracentesis, and 2200cc straw colored effussion on 01/17/2017. Objective - Vital Signs/Intake and Output Vital Signs (last 24 hours): Temp Pulse Resp BP Pulse Ox 97.9 F 60 18 109/68 99 01/18/17 00:36 01/18/17 00:36 01/18/17 00:36 01/18/17 00:36 01/18/17 00:36 Intake and Output: 01/17/17 01/18/17 18:59 06:59 Output Total 300 Balance -300 - Medications Medications: Current Medications Acetaminophen (Tylenol 325mg Tab) 650 mg PO Q4 PRN PRN Reason: Pain, Mild (1-3) Al Hydrox/Mg Hydrox/Simethicone (Maalox Plus 30 Ml) 30 ml PO Q4 PRN PRN Reason: Indigestion / Heartburn Apixaban (Eliquis) 2.5 mg PO BID [facility] PRN Reason: Protocol Last Admin: 01/17/17 10:37 Dose: Not Given Carvedilol (Coreg) 3.125 mg PO Q12 [facility] Last Admin: 01/17/17 21:59 Dose: Not Given Divalproex Sodium (Depakote Dr(*Bid*)) 250 mg PO BID [facility] Divalproex Sodium (Depakote Dr(*Bid*)) 125 mg PO BID [facility] Divalproex Sodium (Depakote Sprinkles) 250 mg PO BID [facility] Donepezil HCl (Aricept) 5 mg PO HS [facility] Last Admin: 01/17/17 22:01 Dose: 5 mg Enalapril Maleate (Vasotec) 2.5 mg PO DAILY [facility] Last Admin: 01/17/17 10:36 Dose: 2.5 mg Furosemide (Lasix) 40 mg IV DAILY [facility] Last Admin: 01/17/17 10:41 Dose: Not Given Lorazepam (Ativan) 0.5 mg PO Q8 PRN PRN Reason: Agitation Last Admin: 01/17/17 02:55 Dose: 0.5 mg Magnesium Hydroxide (Milk Of Magnesia) 30 ml PO HS PRN PRN Reason: Constipation Memantine (Namenda) 5 mg PO DAILY [facility] Last Admin: 01/17/17 10:37 Dose: 5 mg Mirtazapine (Remeron) 15 mg PO HS [facility] Last Admin: 01/17/17 22:01 Dose: 15 mg Nitroglycerin (Nitrostat Sl Tab) 0.4 mg SL Q5M PRN PRN Reason: chest pain Pantoprazole Sodium (Protonix Ec Tab) 40 mg PO Q12 [facility] Last Admin: 01/17/17 22:01 Dose: 40 mg - Labs Labs: 01/18/17 04:30 01/18/17 04:30 Assessment and Plan (1) Chest pain Assessment & Plan: Elevated Troponine with Possible NSTEMI Vs due to Cardiomyopathy Continue CUrrent Treatment Cardiology Follow Up O2 via NC ASA Serial trop and EKG Telemonitoring Status: Acute Priority: Low (2) Acute on chronic combined systolic and diastolic CHF (congestive heart failure) Assessment and Plan: Continue BB/ACEI/Lasix/APranolactone Eliquis Cardiology Consult Status: Acute (3) Mood disorder due to known physiological condition with depressive features Assessment and Plan: Depression with PSychotic Behaviour Dementia Continue Remeron/Depakote/Aricept Status: Chronic Status: Acute
[2017-01-18] MEDS: Pantoprazole 40 mg EC Tab PO SCH ×2 (09:40→21:50)
--- NOTE | 2017-01-18 09:50 | PQF GENQUE ---
This form is a permanent part of the medical record 01/18/17 Dr. August, Would you please clarify the possible etiology of the elevated troponin levels if known. Admitted with chest pain while in the geropsych unit. History of pleural effusions, CHF, dilated cardiomyopathy, atrial fibrillation, AICD and biventricular pacemaker. PROBNP elevated at 11,500 and 2 troponin levels elevated at 0.128 and 0.127. Medication includes: nitroglycerine s/l prn, vasotec, lasix, coreg, eliquis. . Clarification of your documentation is requested to better reflect the severity of illness and intensity of treatment of your patient. Indicators present [] Specify: [] [] Specify: [] [] Specify: [] [] Specify: [] Location in the medical record that reflects the above clinical findings: [] Treatment Provided: [] PHYSICIAN'S RESPONSE Based on your medical judgment of the clinical indicators outlined above please clarify the following: [] Practitioner response [] If unable to determine, please check the box, sign and date. Present On Admission (POA) Indicator: [] Present at the time of admission [] Not present at the time of admission [] Clinically Undetermined In responding to this query, please exercise your independent professional judgment. The fact that a question is asked does not imply that any particular answer is desired or expected. Thank you for your clarification on this documentation. If you have any questions please call:ext [phone] * Thank you, Liset Camara RN CD[facility]
--- NOTE | 2017-01-18 11:32 | US ---
PROCEDURE: Date of procedure: 01/17/2017 Procedure: 1. Ultrasound-guided Right thoracentesis, CPT 72497 Medications: 6cc 1% Lidocaine HISTORY: Right pleural effusion, shortness of breath TECHNIQUE: Following informed consent ,the Patients' right chest was marked. Procedure time-out was called, and the patient was placed in the sitting position and limited ultrasound showed a large right effusion. The patient's right back was prepped and draped in the usual sterile fashion. After the skin was anesthetized with lidocaine, a drainage catheter was advanced under ultrasound guidance into the pleural space. Ultrasound-guided thoracentesis was performed. A total of 2200 cubic centimeters of straw-colored fluid removed without complication. A Xeroform dressing was applied. IMPRESSION: Ultrasound guided Right thoracentesis. There were no immediate complications.
--- NOTE | 2017-01-18 15:38 | PN ---
DATE: SUBJECTIVE: The patient underwent ultrasound-guided right thoracocentesis with removal of 2200 mL. His shortness of breath has improved. PHYSICAL EXAMINATION: VITAL SIGNS: Blood pressure 109/56, heart rate 61, temperature 97.9, respirations 18. HEENT: Normocephalic. CHEST: Absent breath sounds over the left base. HEART: S1 and S2, regular. ABDOMEN: Soft. EXTREMITIES: A 1+ pitting edema. LABORATORY DATA: SMA-7; sodium 144, potassium 4.6, chloride 102, CO2 of 36, glucose 80, BUN 28, creatinine 0.9, proBNP is 11,500. Hemoglobin and hematocrit 11 and 34.4, white count 4.2, platelet count 150,000. Chest x-ray following thoracocentesis revealed a significant resolution of the right pleural effusion, residual [id number] left pleural effusion still there, which had no intervention so far except during his recent previous admission to telemetry. ASSESSMENT: 1. Exacerbation of congestive heart failure. 2. Bilateral pleural effusions, status post right thoracocentesis. 3. Chronic atrial fibrillation. 4. Borderline troponin elevation, could be related to congestive heart failure exacerbation or underlying coronary artery disease; however, the patient is not a suitable candidate for invasive/interventional cardiology workup. RECOMMENDATIONS: Continue Ativan 0.5 mg q. 8 hours, Coreg 3.125 mg twice a day. Resume Eliquis at 2.5 mg twice a day. Continue Lasix 40 mg intravenously once a day, Vasotec 2.5 mg once a day. Start Crestor 10 mg once a day. Case was discussed with Dr. Keita, the institutional nutrition consultant outreach consultant and will be discussed with TRANSPORT ANALYST regarding the plans of transfer to subacute rehab. Luis August MD
--- NOTE | 2017-01-18 15:53 | CP.PCM.PN ---
Subjective - Date & Time of Evaluation Date of Evaluation: 01/18/17 Time of Evaluation: 12:30 - Subjective Subjective: F/U Pleural effusion. Pt with no A/D, no c/o on O2 NC Objective - Vital Signs/Intake and Output Vital Signs (last 24 hours): Temp Pulse Resp BP Pulse Ox 98.4 F 60 19 92/54 L 95 01/18/17 15:50 01/18/17 15:50 01/18/17 15:50 01/18/17 15:50 01/18/17 15:50 Intake and Output: 01/18/17 01/18/17 06:59 18:59 Output Total 300 Balance -300 - Medications Medications: Current Medications Acetaminophen (Tylenol 325mg Tab) 650 mg PO Q4 PRN PRN Reason: Pain, Mild (1-3) Al Hydrox/Mg Hydrox/Simethicone (Maalox Plus 30 Ml) 30 ml PO Q4 PRN PRN Reason: Indigestion / Heartburn Apixaban (Eliquis) 2.5 mg PO BID [facility] PRN Reason: Protocol Last Admin: 01/17/17 10:37 Dose: Not Given Atorvastatin Calcium (Lipitor) 20 mg PO DAILY [facility] Carvedilol (Coreg) 3.125 mg PO Q12 [facility] Last Admin: 01/18/17 09:39 Dose: 3.125 mg Divalproex Sodium (Depakote Dr(*Bid*)) 250 mg PO DAILY [facility] Divalproex Sodium (Depakote Dr(*Bid*)) 375 mg PO QPM [facility] Donepezil HCl (Aricept) 5 mg PO HS [facility] Last Admin: 01/17/17 22:01 Dose: 5 mg Enalapril Maleate (Vasotec) 2.5 mg PO DAILY [facility] Last Admin: 01/18/17 09:40 Dose: 2.5 mg Furosemide (Lasix) 40 mg IV DAILY [facility] Last Admin: 01/18/17 09:40 Dose: 40 mg Lorazepam (Ativan) 0.5 mg PO Q8 PRN PRN Reason: Agitation Last Admin: 01/17/17 02:55 Dose: 0.5 mg Magnesium Hydroxide (Milk Of Magnesia) 30 ml PO HS PRN PRN Reason: Constipation Memantine (Namenda) 5 mg PO DAILY [facility] Last Admin: 11/08/17 09:40 Dose: 5 mg Mirtazapine (Remeron) 15 mg PO HS [facility] Last Admin: 01/17/17 22:01 Dose: 15 mg Nitroglycerin (Nitrostat Sl Tab) 0.4 mg SL Q5M PRN PRN Reason: chest pain Pantoprazole Sodium (Protonix Ec Tab) 40 mg PO Q12 [facility] Last Admin: 01/18/17 09:40 Dose: 40 mg - Labs Labs: 01/18/17 04:30 01/18/17 04:30 - Constitutional Appears: No Acute Distress, Chronically Ill - Head Exam Head Exam: NORMAL INSPECTION - Eye Exam Eye Exam: PERRL - ENT Exam ENT Exam: Normal Exam - Neck Exam Neck Exam: Normal Inspection - Respiratory Exam Respiratory Exam: Decreased Breath Sounds (bases) - Cardiovascular Exam Cardiovascular Exam: REGULAR RHYTHM Additional comments: PPM - GI/Abdominal Exam GI & Abdominal Exam: Soft, Normal Bowel Sounds - Extremities Exam Additional comments: edema lower extremities. - Back Exam Back Exam: NORMAL INSPECTION - Neurological Exam Additional comments: Confused, forgetful, generalized weakness. - Psychiatric Exam Psychiatric exam: Anxious - Skin Skin Exam: Warm Assessment and Plan (1) Pleural effusion, right Status: Chronic (2) Atelectasis of both lungs Status: Acute (3) CHF (congestive heart failure) Status: Chronic - Assessment and Plan (Free Text) Plan: discussed with Cardiology, optimize cardiac Tx.
[2017-01-18] MEDS: Divalproex 125 mg DR (BID formulation) PO SCH (17:13)
[2017-01-18] MEDS: Divalproex 250 mg DR(BID formulation) PO SCH (17:14)
--- NOTE | 2017-01-19 06:49 | PQF GENQUE ---
This form is a permanent part of the medical record 01/19/17 Dr Patrick / Dr. Keita, Please clarify type/underlying cause of pleural effusion if known. Transferred from the Geropsych Unit for chest pain which was relieved with nitro. has CHF and pleural effusions. + SOB and lower extremity edema R>L. Underwent R thoracentesis with removal of 2200 cc. Clarification of your documentation is requested to better reflect the severity of illness and intensity of treatment of your patient. PHYSICIAN'S RESPONSE Please clarify type/underlying cause of pleural effusion: [] Bacterial (please specify causative organism if known) [] Congestive ( CHF) [] Hemothorax [] Hydropneumothorax [] Malignant (please specify primary malignancy site if known) [] Systemic lupus erythematosus [] Other type not specified above (please specify) [] Clinically unable to determine [] Unknown Based on your medical judgment of the clinical indicators outlined above please clarify the following: [] Practitioner response [] If unable to determine, please check the box, sign and date. Present On Admission (POA) Indicator: [] Present at the time of admission [] Not present at the time of admission [] Clinically Undetermined In responding to this query, please exercise your independent professional judgment. The fact that a question is asked does not imply that any particular answer is desired or expected. Thank you for your clarification on this documentation. If you have any questions please call:[phone] * Thank you, Liset Camara RN [facility]
[2017-01-19] MEDS: Divalproex 250 mg DR(BID formulation) PO SCH (09:07)
[2017-01-19] MEDS: Pantoprazole 40 mg EC Tab PO SCH ×2 (09:08→21:26)
--- NOTE | 2017-01-19 13:47 | CP.PCM.PN ---
Subjective - Date & Time of Evaluation Date of Evaluation: 01/19/17 Time of Evaluation: 13:55 - Subjective Subjective: Seen and examined at the bed side. Denies chest pain or sob at rest. On to for safety. Psych cleared the patient for discharge. Patient has a daughter and will Coordinate with his daughter for discharge. PT/OT Evaluation for D/C Planning. Objective - Vital Signs/Intake and Output Vital Signs (last 24 hours): Temp Pulse Resp BP Pulse Ox 97.3 F L 60 20 94/61 L 97 01/19/17 12:31 01/19/17 12:31 01/19/17 12:31 01/19/17 12:31 01/19/17 12:31 Intake and Output: 01/19/17 01/19/17 06:59 18:59 Output Total 150 Balance -150 - Medications Medications: Current Medications Acetaminophen (Tylenol 325mg Tab) 650 mg PO Q4 PRN PRN Reason: Pain, Mild (1-3) Al Hydrox/Mg Hydrox/Simethicone (Maalox Plus 30 Ml) 30 ml PO Q4 PRN PRN Reason: Indigestion / Heartburn Apixaban (Eliquis) 2.5 mg PO BID [facility] PRN Reason: Protocol Last Admin: 01/17/17 10:37 Dose: Not Given Atorvastatin Calcium (Lipitor) 20 mg PO DAILY [facility] Last Admin: 01/19/17 09:07 Dose: 20 mg Carvedilol (Coreg) 3.125 mg PO Q12 [facility] Last Admin: 01/19/17 09:06 Dose: 3.125 mg Divalproex Sodium (Depakote Dr(*Bid*)) 250 mg PO DAILY [facility] Last Admin: 01/19/17 09:07 Dose: 250 mg Divalproex Sodium (Depakote Dr(*Bid*)) 375 mg PO QPM [facility] Last Admin: 01/18/17 17:13 Dose: 375 mg Donepezil HCl (Aricept) 5 mg PO HS [facility] Last Admin: 01/18/17 21:49 Dose: 5 mg Enalapril Maleate (Vasotec) 2.5 mg PO DAILY [facility] Last Admin: 01/19/17 09:08 Dose: 2.5 mg Furosemide (Lasix) 40 mg IV DAILY [facility] Last Admin: 01/19/17 09:07 Dose: 40 mg Lorazepam (Ativan) 0.5 mg PO Q8 PRN PRN Reason: Agitation Last Admin: 01/17/17 02:55 Dose: 0.5 mg Magnesium Hydroxide (Milk Of Magnesia) 30 ml PO HS PRN PRN Reason: Constipation Memantine (Namenda) 5 mg PO DAILY [facility] Last Admin: 01/19/17 09:08 Dose: 5 mg Mirtazapine (Remeron) 15 mg PO HS [facility] Last Admin: 01/18/17 21:50 Dose: 15 mg Nitroglycerin (Nitrostat Sl Tab) 0.4 mg SL Q5M PRN PRN Reason: chest pain Pantoprazole Sodium (Protonix Ec Tab) 40 mg PO Q12 [facility] Last Admin: 01/19/17 09:08 Dose: 40 mg - Labs Labs: 01/18/17 04:30 01/18/17 04:30 - Constitutional Appears: Well, In Acute Distress - Head Exam Head Exam: ATRAUMATIC, NORMAL INSPECTION, NORMOCEPHALIC - Eye Exam Eye Exam: EOMI, Normal appearance, PERRL Pupil Exam: NORMAL ACCOMODATION, PERRL - ENT Exam ENT Exam: Mucous Membranes Moist, Normal Exam - Neck Exam Neck Exam: Full ROM, Normal Inspection. absent: Lymphadenopathy - Respiratory Exam Respiratory Exam: Clear to Ausculation Bilateral, NORMAL BREATHING PATTERN - Cardiovascular Exam Cardiovascular Exam: REGULAR RHYTHM, +S1, +S2. absent: Murmur - GI/Abdominal Exam GI & Abdominal Exam: Soft, Normal Bowel Sounds. absent: Tenderness - Extremities Exam Extremities Exam: Full ROM, Normal Capillary Refill, Normal Inspection, Pedal Edema. absent: Joint Swelling - Back Exam Back Exam: NORMAL INSPECTION - Neurological Exam Neurological Exam: Abnormal Gait, Alert, Awake, CN II-XII Intact - Psychiatric Exam Psychiatric exam: Normal Affect, Normal Mood - Skin Skin Exam: Dry, Intact, Normal Color, Warm Assessment and Plan (1) Acute on chronic combined systolic and diastolic CHF (congestive heart failure) Assessment & Plan: Chronic A. fibrillation Elevated Troponine with Possible NSTEMI Vs due to Cardiomyopathy/CHF O2 via NC ASA Serial trop and EKG Telemonitoring Continue BB/ACEI/Lasix/Spiranolactone Vanessa D/w Binding Dyer about Elevated Trop, and Possibility Underlying CAD, and will manage conservatively due to Poor General Condition Status: Acute (2) Mood disorder due to known physiological condition with depressive features Assessment and Plan: Depression with PSychotic Behaviour Dementia Continue Remeron/Depakote/Aricept Status: Chronic
--- NOTE | 2017-01-19 15:18 | CP.PCM.PN ---
Subjective - Date & Time of Evaluation Date of Evaluation: 01/19/17 Time of Evaluation: 12:50 - Subjective Subjective: F/u R Pleural effusion. Pt with no A/D, no SOB, doing better after R Thoracentesis. Objective - Vital Signs/Intake and Output Vital Signs (last 24 hours): Temp Pulse Resp BP Pulse Ox 97.3 F L 60 20 94/61 L 97 01/19/17 12:31 01/19/17 12:31 01/19/17 12:31 01/19/17 12:31 01/19/17 12:31 Intake and Output: 01/19/17 01/19/17 06:59 18:59 Output Total 150 Balance -150 - Medications Medications: Current Medications Acetaminophen (Tylenol 325mg Tab) 650 mg PO Q4 PRN PRN Reason: Pain, Mild (1-3) Al Hydrox/Mg Hydrox/Simethicone (Maalox Plus 30 Ml) 30 ml PO Q4 PRN PRN Reason: Indigestion / Heartburn Apixaban (Eliquis) 2.5 mg PO BID [facility] PRN Reason: Protocol Last Admin: 01/17/17 10:37 Dose: Not Given Atorvastatin Calcium (Lipitor) 20 mg PO DAILY [facility] Last Admin: 01/19/17 09:07 Dose: 20 mg Carvedilol (Coreg) 3.125 mg PO Q12 [facility] Last Admin: 01/19/17 09:06 Dose: 3.125 mg Divalproex Sodium (Depakote Dr(*Bid*)) 250 mg PO DAILY [facility] Last Admin: 01/19/17 09:07 Dose: 250 mg Divalproex Sodium (Depakote Dr(*Bid*)) 375 mg PO QPM [facility] Last Admin: 01/18/17 17:13 Dose: 375 mg Donepezil HCl (Aricept) 5 mg PO HS [facility] Last Admin: 01/18/17 21:49 Dose: 5 mg Enalapril Maleate (Vasotec) 2.5 mg PO DAILY [facility] Last Admin: 01/19/17 09:08 Dose: 2.5 mg Furosemide (Lasix) 40 mg IV DAILY [facility] Last Admin: 01/19/17 09:07 Dose: 40 mg Lorazepam (Ativan) 0.5 mg PO Q8 PRN PRN Reason: Agitation Last Admin: 01/17/17 02:55 Dose: 0.5 mg Magnesium Hydroxide (Milk Of Magnesia) 30 ml PO HS PRN PRN Reason: Constipation Memantine (Namenda) 5 mg PO DAILY [facility] Last Admin: 01/19/17 09:08 Dose: 5 mg Mirtazapine (Remeron) 15 mg PO HS [facility] Last Admin: 01/18/17 21:50 Dose: 15 mg Nitroglycerin (Nitrostat Sl Tab) 0.4 mg SL Q5M PRN PRN Reason: chest pain Pantoprazole Sodium (Protonix Ec Tab) 40 mg PO Q12 [facility] Last Admin: 01/19/17 09:08 Dose: 40 mg - Labs Labs: 01/18/17 04:30 01/18/17 04:30 - Constitutional Appears: No Acute Distress, Chronically Ill - Head Exam Head Exam: NORMAL INSPECTION - Eye Exam Eye Exam: PERRL - ENT Exam ENT Exam: Normal Exam - Neck Exam Neck Exam: Normal Inspection - Respiratory Exam Respiratory Exam: Decreased Breath Sounds (at bases) - Cardiovascular Exam Cardiovascular Exam: REGULAR RHYTHM Additional comments: PPM - GI/Abdominal Exam GI & Abdominal Exam: Soft, Normal Bowel Sounds - Extremities Exam Extremities Exam: Pedal Edema Additional comments: legs edema. - Back Exam Back Exam: NORMAL INSPECTION - Neurological Exam Additional comments: Confused, forgetful, generalized weakness. - Psychiatric Exam Psychiatric exam: Anxious - Skin Skin Exam: Warm Assessment and Plan (1) Pleural effusion, right Status: Chronic (2) Atelectasis of both lungs Assessment & Plan: s/p R Thoracentesis Status: Acute (3) CHF (congestive heart failure) Status: Chronic - Assessment and Plan (Free Text) Plan: Continue O2 and current Tx.
[2017-01-19] MEDS: Divalproex 125 mg DR (BID formulation) PO SCH (17:42)
--- NOTE | 2017-01-19 20:42 | PN ---
SUBJECTIVE: The patient denies any chest pain. He is comfortable in bed, and monitor revealed short runs of nonsustained ventricular tachycardia. PHYSICAL EXAMINATION: VITAL SIGNS: Blood pressure 94/61, heart rate 60, temperature 97.3, respirations 20. HEENT: Normocephalic. CHEST: Diminished breath sounds over the left base. HEART: S1 and S2, regular. EXTREMITIES: No edema. ASSESSMENT: 1. Dilated cardiomyopathy. 2. Nonsustained ventricular tachycardia. 3. Status post biventricular ICD placement. 4. Chronic atrial fibrillation. 5. Bilateral pleural effusion status post right thoracocentesis. RECOMMENDATIONS: Increase Coreg to 6.25 mg twice a day. Resume Eliquis at 2.5 mg twice a day. Continue Lasix 40 mg intravenous once a day, Lipitor 20 mg once a day, and enalapril 2.5 mg once a day. Luis August MD
[2017-01-20 06:41] LABS: BLOOD UREA NITROGEN 28 mg/dl (9-20); CALCIUM 8.7 mg/dL (8.4-10.2); GFR AFRICAN-AMERICAN > 60; GFR NON-AFRICAN AMERICAN > 60; MAGNESIUM 2.1 MG/DL (1.6-2.3)
[2017-01-20] MEDS: Divalproex 250 mg DR(BID formulation) PO SCH (08:58)
[2017-01-20] MEDS: Pantoprazole 40 mg EC Tab PO SCH ×2 (09:02→21:48)
--- NOTE | 2017-01-20 10:56 | CP.PCM.PCO ---
Assessment/Plan - Assessment and Plan (Free Text) Plan: Spoke to Psychiatrist, Dr Avina, pt is psychiatrically cleared for dc to [facility] Meds reviewed with doctor, pt to continue depakote and remeron as ordered. Pt pending placement.
[2017-01-20] MEDS: Alum-Mag Hydrox-Simethicone Susp (30 mL) PO PRN (13:07)
--- NOTE | 2017-01-20 14:47 | PN ---
DATE: SUBJECTIVE: The patient denies any chest pain or shortness of breath. PHYSICAL EXAMINATION: VITAL SIGNS: Blood pressure 104/68, heart rate 59, temperature 97.4, respirations 18. HEENT: Head normocephalic. CHEST: Absent breath sounds over the left base. HEART: S1 and S2, regular. EXTREMITIES: A 1+ pitting edema. LABORATORY DATA: Today's BUN and creatinine are 28 and 0.9, carbon dioxide is 33. The rest of BMP is within normal limits. ASSESSMENT: 1. Exacerbation of congestive heart failure. 2. Dilated cardiomyopathy, status post biventricular implantable cardioverter-defibrillator placement. 3. Chronic atrial fibrillation. 4. Depression. RECOMMENDATIONS: Case was discussed at length with primary physician, Dr. Dye. Continue Coreg 6.25 mg twice a day, Eliquis 2.5 mg twice a day, Lasix 40 mg intravenous once a day, Lipitor 20 mg once a day, Vasotec 2.5 mg once a day. Plans for subacute rehab are unsuccessful and apparently the patient was cleared by psych floor for outpatient psych management. Luis August MD
--- NOTE | 2017-01-20 14:49 | CP.PCM.PCO ---
Physician Communication Note - Physician Communication Note Physician Communication Note: DSRIP. Post discharge follow up with SHELLEY Santos on 01/23/17 at 11:15am
[2017-01-20] MEDS: Divalproex 125 mg DR (BID formulation) PO SCH (17:51)
--- NOTE | 2017-01-20 18:18 | CP.PCM.PN ---
Subjective - Date & Time of Evaluation Date of Evaluation: 01/20/17 Time of Evaluation: 11:40 - Subjective Subjective: F/U Pleural effusion. No AD , smiling , calm , on 1:1 Objective - Vital Signs/Intake and Output Vital Signs (last 24 hours): Temp Pulse Resp BP Pulse Ox 97.5 F L 60 20 107/63 94 L 01/20/17 16:30 01/20/17 16:30 01/20/17 16:30 01/20/17 16:30 01/20/17 16:30 - Medications Medications: Current Medications Acetaminophen (Tylenol 325mg Tab) 650 mg PO Q4 PRN PRN Reason: Pain, Mild (1-3) Al Hydrox/Mg Hydrox/Simethicone (Maalox Plus 30 Ml) 30 ml PO Q4 PRN PRN Reason: Indigestion / Heartburn Last Admin: 01/20/17 13:07 Dose: 30 ml Apixaban (Eliquis) 2.5 mg PO BID [facility] PRN Reason: Protocol Last Admin: 01/20/17 17:51 Dose: 2.5 mg Atorvastatin Calcium (Lipitor) 20 mg PO DAILY [facility] Last Admin: 01/20/17 09:01 Dose: 20 mg Carvedilol (Coreg) 6.25 mg PO Q12 [facility] Last Admin: 01/20/17 08:49 Dose: 6.25 mg Divalproex Sodium (Depakote Dr(*Bid*)) 250 mg PO DAILY [facility] Last Admin: 01/20/17 08:58 Dose: 250 mg Divalproex Sodium (Depakote Dr(*Bid*)) 375 mg PO QPM [facility] Last Admin: 01/20/17 17:51 Dose: 375 mg Donepezil HCl (Aricept) 5 mg PO HS [facility] Last Admin: 01/19/17 21:26 Dose: 5 mg Enalapril Maleate (Vasotec) 2.5 mg PO DAILY [facility] Last Admin: 01/20/17 09:02 Dose: 2.5 mg Furosemide (Lasix) 40 mg IV DAILY [facility] Last Admin: 01/20/17 09:10 Dose: Not Given Lorazepam (Ativan) 0.5 mg PO Q8 PRN PRN Reason: Agitation Last Admin: 01/17/17 02:55 Dose: 0.5 mg Magnesium Hydroxide (Milk Of Magnesia) 30 ml PO HS PRN PRN Reason: Constipation Memantine (Namenda) 5 mg PO DAILY [facility] Last Admin: 01/20/17 09:01 Dose: 5 mg Mirtazapine (Remeron) 15 mg PO HS [facility] Last Admin: 01/19/17 21:26 Dose: 15 mg Nitroglycerin (Nitrostat Sl Tab) 0.4 mg SL Q5M PRN PRN Reason: chest pain Pantoprazole Sodium (Protonix Ec Tab) 40 mg PO Q12 [facility] Last Admin: 01/20/17 09:02 Dose: 40 mg - Labs Labs: 01/18/17 04:30 01/20/17 04:20 - Constitutional Appears: No Acute Distress, Chronically Ill - Head Exam Head Exam: NORMAL INSPECTION - Eye Exam Eye Exam: Normal appearance - ENT Exam ENT Exam: Normal Exam - Neck Exam Neck Exam: Normal Inspection - Respiratory Exam Respiratory Exam: Decreased Breath Sounds (at bases) - Cardiovascular Exam Cardiovascular Exam: REGULAR RHYTHM Additional comments: PPM - GI/Abdominal Exam GI & Abdominal Exam: Soft, Normal Bowel Sounds - Extremities Exam Extremities Exam: Pedal Edema Additional comments: legs edema - Neurological Exam Additional comments: Confused, forgetful, generalized weakness. - Psychiatric Exam Psychiatric exam: Anxious - Skin Skin Exam: Warm Assessment and Plan (1) CHF (congestive heart failure) Status: Chronic (2) Pleural effusion, right Assessment & Plan: s/p R Thoracentesis Status: Chronic (3) Atelectasis of both lungs Status: Acute - Assessment and Plan (Free Text) Plan: Continue O2, CHF treatment , Lasix , Apixaban for Afib and rest of treatment as per Corporate Executive Chef
--- NOTE | 2017-01-21 00:23 | CP.PCM.PN ---
Subjective - Date & Time of Evaluation Date of Evaluation: 01/20/17 Time of Evaluation: 23:55 - Subjective Subjective: No complaint. Awaiting placement to [facility]. Family nort willing to take him home. Objective - Vital Signs/Intake and Output Vital Signs (last 24 hours): Temp Pulse Resp BP Pulse Ox 98.3 F 60 20 111/64 93 L 01/21/17 00:09 01/21/17 00:09 01/21/17 00:09 01/21/17 00:09 01/21/17 00:09 Intake and Output: 01/20/17 01/21/17 18:59 06:59 Intake Total 860 Balance 860 - Medications Medications: Current Medications Acetaminophen (Tylenol 325mg Tab) 650 mg PO Q4 PRN PRN Reason: Pain, Mild (1-3) Al Hydrox/Mg Hydrox/Simethicone (Maalox Plus 30 Ml) 30 ml PO Q4 PRN PRN Reason: Indigestion / Heartburn Last Admin: 01/20/17 13:07 Dose: 30 ml Apixaban (Eliquis) 2.5 mg PO BID [facility] PRN Reason: Protocol Last Admin: 01/20/17 17:51 Dose: 2.5 mg Atorvastatin Calcium (Lipitor) 20 mg PO DAILY [facility] Last Admin: 01/20/17 09:01 Dose: 20 mg Carvedilol (Coreg) 6.25 mg PO Q12 [facility] Last Admin: 01/20/17 21:48 Dose: 6.25 mg Divalproex Sodium (Depakote Dr(*Bid*)) 250 mg PO DAILY [facility] Last Admin: 01/20/17 08:58 Dose: 250 mg Divalproex Sodium (Depakote Dr(*Bid*)) 375 mg PO QPM [facility] Last Admin: 01/20/17 17:51 Dose: 375 mg Donepezil HCl (Aricept) 5 mg PO HS [facility] Last Admin: 01/20/17 21:48 Dose: 5 mg Enalapril Maleate (Vasotec) 2.5 mg PO DAILY [facility] Last Admin: 01/20/17 09:02 Dose: 2.5 mg Furosemide (Lasix) 40 mg IV DAILY [facility] Last Admin: 01/20/17 09:10 Dose: Not Given Lorazepam (Ativan) 0.5 mg PO Q8 PRN PRN Reason: Agitation Last Admin: 01/17/17 02:55 Dose: 0.5 mg Magnesium Hydroxide (Milk Of Magnesia) 30 ml PO HS PRN PRN Reason: Constipation Memantine (Namenda) 5 mg PO DAILY [facility] Last Admin: 01/20/17 09:01 Dose: 5 mg Mirtazapine (Remeron) 15 mg PO HS [facility] Last Admin: 01/20/17 21:49 Dose: 15 mg Nitroglycerin (Nitrostat Sl Tab) 0.4 mg SL Q5M PRN PRN Reason: chest pain Pantoprazole Sodium (Protonix Ec Tab) 40 mg PO Q12 [facility] Last Admin: 01/20/17 21:48 Dose: 40 mg - Labs Labs: 01/18/17 04:30 01/20/17 04:20 Assessment and Plan (1) Acute on chronic combined systolic and diastolic CHF (congestive heart failure) Assessment & Plan: Chronic A. fibrillation Elevated Troponine with Possible NSTEMI Vs due to Cardiomyopathy/CHF O2 via NC PRN Continue BB/ACEI/Lasix/Spiranolactone Vanessa D/w Web Applications Architect about Elevated Trop, and Possibility Underlying CAD, and will manage conservatively due to Poor General Condition Status: Acute (2) Mood disorder due to known physiological condition with depressive features Assessment and Plan: Depression with PSychotic Behaviour Dementia Continue Remeron/Depakote/Aricept Status: Chronic
[2017-01-21] MEDS: Pantoprazole 40 mg EC Tab PO SCH ×2 (08:43→21:53)
[2017-01-21] MEDS: Divalproex 250 mg DR(BID formulation) PO SCH (08:45)
--- NOTE | 2017-01-21 10:46 | CP.PCM.CON ---
History of Present Illness - History of Present Illness History of Present Illness: Psychiatry Consult Patient known to insurance underwriter from previous admissions. He is a poor historian due to chronic dementia. CC: "I'm good" HPI: 71 yo male w/ h/o dementia w/ behavioral disturbances and mood disorder unspecified, currently reports that his mood is good. He has not had any recent behavioral disturbances. He has chronic poor insight/judgment due to chronic dementia. Patient is known to insurance underwriter and is at his baseline of functioning. No current AH/VH/SI/HI. PPHx: Recently hospitalized on 3NS for dementia w/ behavioral disturbance and mood disorder; currently being treated with Depakote 250 mg PO Daily/ 375 mg PO QPM and Remeron 15 mg PO HS PMHx: HTN, CAD, CHF, dementia, mood disorder ALL: NKDA MSE: A + O x self, hospital; Elderly male, good eye contact, psychomotor delayed due to medical conditions, thought process- coherent, thought content- denied delusions, no hallucinations, no SI, no HI, poor insight/ judgment due to chronic dementia. Impression: 71 yr old male with dementia w/ behavioral disturbance and mood disorder; patient is at his baseline of functioning and does not need acute inpatient psychiatric treatment at this time. -Continue Depakote 250 mg PO Daily/ 375 mg PO QPM, Remeron 15 mg PO HS, Namenda 5 mg PO Daily and Aricept 10 mg PO HS -No acute inpatient psychiatric admission indicated Past Patient History - Infectious Disease Hx of Infectious Diseases: None - Tetanus Immunizations Tetanus Immunization: Unknown - Past Medical History & Family History Past Medical History?: Yes - Past Social History Smoking Status: Former Smoker Alcohol: None Drugs: Denies Home Situation {Lives}: Alone - CARDIAC Hx Atrial Fibrillation: Yes Hx Congestive Heart Failure: Yes Hx Hypertension: Yes Hx Pacemaker: Yes - PULMONARY Hx Respiratory Disorders: Yes (Respiratory Insuficiency, Pleural effusion.) Other/Comment: Pulmonary Nodule. - NEUROLOGICAL Hx Dementia: Yes Hx Seizures: No - HEENT Hx HEENT Problems: Yes Other/Comment: glasses - RENAL Hx Chronic Kidney Disease: No - ENDOCRINE/METABOLIC Hx Hypothyroidism: Yes - HEMATOLOGICAL/ONCOLOGICAL Hx Anemia: Yes Hx Human Immunodeficiency Virus (HIV): No - INTEGUMENTARY Hx Dermatological Problems: Yes Hx Cellulitis: Yes - MUSCULOSKELETAL/RHEUMATOLOGICAL Hx Musculoskeletal Disorders: Yes Hx Falls: Yes - GASTROINTESTINAL Hx Gastrointestinal Disorders: Yes Hx Gastroesophageal Reflux: Yes - GENITOURINARY/GYNECOLOGICAL Hx Sexually Transmitted Disorders: No - PSYCHIATRIC Hx Anxiety: Yes Hx Depression: Yes - SURGICAL HISTORY Hx Surgeries: Yes Hx Open Reduction Internal Fixation: Yes (left femur surgery) Other/Comment: Pacemaker Placement - ANESTHESIA Hx Anesthesia: Yes Hx Anesthesia Reactions: No Hx Malignant Hyperthermia: No Meds Home Medications: Home Medication List Medication Instructions Recorded Confirmed Type Acetaminophen [Tylenol 325mg tab] 650 mg PO Q4 PRN tab 01/18/17 Rx Aluminum Hydroxide/Magnesium 30 ml PO Q4 PRN udc 01/18/17 Rx [Maalox Plus 30 ml] Apixaban [Eliquis] 2.5 mg PO BID tab 01/18/17 Rx Atorvastatin [Lipitor] 20 mg PO DAILY tab 01/18/17 Rx Carvedilol [Coreg] 3.125 mg PO Q12 tab 01/18/17 Rx Divalproex [Depakote DR(*BID*)] 250 mg PO DAILY tcp 01/18/17 Rx Divalproex [Depakote DR(*BID*)] 375 mg PO QPM tcp 01/18/17 Rx Donepezil [Aricept] 5 mg PO HS tab 01/18/17 Rx LORazepam [Ativan] 0.5 mg PO Q8 PRN tab 01/18/17 Rx Magnesium Hydroxide [Milk Of 30 ml PO HS PRN udc 01/18/17 Rx Magnesia] Memantine [Namenda] 5 mg PO DAILY tab 01/18/17 Rx Pantoprazole [Protonix EC Tab] 40 mg PO Q12 ect 01/18/17 Rx Allergies/Adverse Reactions: Allergies Allergy/AdvReac Type Severity Reaction Status Date / Time No Known Allergies Allergy Verified 03/18/16 08:37 - Medications Medications: Current Medications Acetaminophen (Tylenol 325mg Tab) 650 mg PO Q4 PRN PRN Reason: Pain, Mild (1-3) Last Admin: 01/21/17 01:52 Dose: 650 mg Al Hydrox/Mg Hydrox/Simethicone (Maalox Plus 30 Ml) 30 ml PO Q4 PRN PRN Reason: Indigestion / Heartburn Last Admin: 01/20/17 13:07 Dose: 30 ml Apixaban (Eliquis) 2.5 mg PO BID [facility] PRN Reason: Protocol Last Admin: 01/21/17 08:43 Dose: 2.5 mg Atorvastatin Calcium (Lipitor) 20 mg PO DAILY [facility] Last Admin: 01/21/17 08:45 Dose: 20 mg Carvedilol (Coreg) 6.25 mg PO Q12 [facility] Last Admin: 01/21/17 08:45 Dose: 6.25 mg Divalproex Sodium (Depakote Dr(*Bid*)) 250 mg PO DAILY [facility] Last Admin: 01/21/17 08:45 Dose: 250 mg Divalproex Sodium (Depakote Dr(*Bid*)) 375 mg PO QPM [facility] Last Admin: 01/20/17 17:51 Dose: 375 mg Donepezil HCl (Aricept) 5 mg PO HS [facility] Last Admin: 01/20/17 21:48 Dose: 5 mg Enalapril Maleate (Vasotec) 2.5 mg PO DAILY [facility] Last Admin: 01/21/17 08:44 Dose: 2.5 mg Furosemide (Lasix) 40 mg IV DAILY [facility] Last Admin: 01/21/17 08:45 Dose: 40 mg Lorazepam (Ativan) 0.5 mg PO Q8 PRN PRN Reason: Agitation Last Admin: 01/17/17 02:55 Dose: 0.5 mg Magnesium Hydroxide (Milk Of Magnesia) 30 ml PO HS PRN PRN Reason: Constipation Memantine (Namenda) 5 mg PO DAILY [facility] Last Admin: 01/21/17 08:44 Dose: 5 mg Mirtazapine (Remeron) 15 mg PO HS [facility] Last Admin: 01/20/17 21:49 Dose: 15 mg Nitroglycerin (Nitrostat Sl Tab) 0.4 mg SL Q5M PRN PRN Reason: chest pain Pantoprazole Sodium (Protonix Ec Tab) 40 mg PO Q12 [facility] Last Admin: 01/21/17 08:43 Dose: 40 mg Results - Vital Signs Recent Vital Signs: Last Vital Signs Temp 97.8 F 01/21/17 08:00 Pulse 60 01/21/17 08:45 Resp 18 01/21/17 08:00 BP 113/71 01/21/17 08:45 Pulse Ox 95 01/21/17 08:00 - Labs Result Diagrams: 01/18/17 04:30 01/20/17 04:20
--- NOTE | 2017-01-21 15:41 | PN ---
FOLLOWUP DATE: SUBJECTIVE: The patient denies any chest pain. He is on one-to-one watch, appears comfortable. PHYSICAL EXAMINATION: VITAL SIGNS: Blood pressure 115/71, heart rate 60, temperature 97.8. HEENT: Head normocephalic. CHEST: Absent breath sounds over the left base. HEART: S1 and S2 regular. EXTREMITIES: Significant muscle wasting. ASSESSMENT: 1. Exacerbation of congestive heart failure. 2. Borderline troponin elevation. 3. Bilateral pleural effusion, status post recent right thoracocentesis with [id number] left pleural effusion at this time. 4. Chronic atrial fibrillation. 5. Depression. RECOMMENDATIONS: Continue Eliquis 2.5 mg twice a day, Lasix 40 mg intravenously once a day, Lipitor 20 mg once a day, Namenda 5 mg once a day, Coreg 6.25 mg twice a day. Luis August MD
[2017-01-21] MEDS: Divalproex 125 mg DR (BID formulation) PO SCH (17:11)
--- NOTE | 2017-01-21 19:30 | CP.PCM.PN ---
Subjective - Date & Time of Evaluation Date of Evaluation: 01/21/17 Time of Evaluation: 14:30 - Subjective Subjective: F/U R Pleural Effusion. no AD , no SOB , calm , on 1:1 Objective - Vital Signs/Intake and Output Vital Signs (last 24 hours): Temp Pulse Resp BP Pulse Ox 98.4 F 60 18 96/60 L 93 L 01/21/17 16:29 01/21/17 16:29 01/21/17 16:29 01/21/17 16:29 01/21/17 16:29 Intake and Output: 01/21/17 01/22/17 18:59 06:59 Intake Total 340 Balance 340 - Medications Medications: Current Medications Acetaminophen (Tylenol 325mg Tab) 650 mg PO Q4 PRN PRN Reason: Pain, Mild (1-3) Last Admin: 01/21/17 01:52 Dose: 650 mg Al Hydrox/Mg Hydrox/Simethicone (Maalox Plus 30 Ml) 30 ml PO Q4 PRN PRN Reason: Indigestion / Heartburn Last Admin: 01/20/17 13:07 Dose: 30 ml Apixaban (Eliquis) 2.5 mg PO BID [facility] PRN Reason: Protocol Last Admin: 01/21/17 17:11 Dose: 2.5 mg Atorvastatin Calcium (Lipitor) 20 mg PO DAILY [facility] Last Admin: 01/21/17 08:45 Dose: 20 mg Carvedilol (Coreg) 6.25 mg PO Q12 [facility] Last Admin: 01/21/17 08:45 Dose: 6.25 mg Divalproex Sodium (Depakote Dr(*Bid*)) 250 mg PO DAILY [facility] Last Admin: 01/21/17 08:45 Dose: 250 mg Divalproex Sodium (Depakote Dr(*Bid*)) 375 mg PO QPM [facility] Last Admin: 01/21/17 17:11 Dose: 375 mg Donepezil HCl (Aricept) 5 mg PO HS [facility] Last Admin: 01/20/17 21:48 Dose: 5 mg Enalapril Maleate (Vasotec) 2.5 mg PO DAILY [facility] Last Admin: 01/21/17 08:44 Dose: 2.5 mg Furosemide (Lasix) 40 mg IV DAILY [facility] Last Admin: 01/21/17 08:45 Dose: 40 mg Lorazepam (Ativan) 0.5 mg PO Q8 PRN PRN Reason: Agitation Last Admin: 01/17/17 02:55 Dose: 0.5 mg Magnesium Hydroxide (Milk Of Magnesia) 30 ml PO HS PRN PRN Reason: Constipation Memantine (Namenda) 5 mg PO DAILY [facility] Last Admin: 01/21/17 08:44 Dose: 5 mg Mirtazapine (Remeron) 15 mg PO HS [facility] Last Admin: 01/20/17 21:49 Dose: 15 mg Nitroglycerin (Nitrostat Sl Tab) 0.4 mg SL Q5M PRN PRN Reason: chest pain Pantoprazole Sodium (Protonix Ec Tab) 40 mg PO Q12 [facility] Last Admin: 01/21/17 08:43 Dose: 40 mg - Labs Labs: 01/18/17 04:30 01/20/17 04:20 - Constitutional Appears: No Acute Distress - Head Exam Head Exam: NORMAL INSPECTION - Eye Exam Eye Exam: PERRL - ENT Exam ENT Exam: Normal Exam - Neck Exam Neck Exam: Normal Inspection - Respiratory Exam Respiratory Exam: Decreased Breath Sounds (at bases) - Cardiovascular Exam Cardiovascular Exam: REGULAR RHYTHM Additional comments: PPM - GI/Abdominal Exam GI & Abdominal Exam: Soft, Normal Bowel Sounds - Extremities Exam Extremities Exam: Pedal Edema Additional comments: Legs edema - Back Exam Back Exam: NORMAL INSPECTION - Neurological Exam Additional comments: Confused, forgetful, generalized weakness. - Psychiatric Exam Psychiatric exam: Anxious - Skin Skin Exam: Warm Assessment and Plan (1) Pleural effusion, right Assessment & Plan: s/p R Thoracentesis Status: Chronic (2) Atelectasis of both lungs Status: Acute (3) CHF (congestive heart failure) Status: Chronic - Assessment and Plan (Free Text) Plan: Continue O2 and current treatment for CHF , f/u CXR on Monday
--- NOTE | 2017-01-21 23:58 | CP.PCM.PN ---
Subjective - Date & Time of Evaluation Date of Evaluation: 01/21/17 Time of Evaluation: 23:50 - Subjective Subjective: No complaint Objective - Vital Signs/Intake and Output Vital Signs (last 24 hours): Temp Pulse Resp BP Pulse Ox 97.5 F L 60 20 101/62 99 01/21/17 19:36 01/21/17 21:53 01/21/17 19:36 01/21/17 21:53 01/21/17 19:36 Intake and Output: 01/21/17 01/22/17 18:59 06:59 Intake Total 340 Balance 340 - Medications Medications: Current Medications Acetaminophen (Tylenol 325mg Tab) 650 mg PO Q4 PRN PRN Reason: Pain, Mild (1-3) Last Admin: 01/21/17 01:52 Dose: 650 mg Al Hydrox/Mg Hydrox/Simethicone (Maalox Plus 30 Ml) 30 ml PO Q4 PRN PRN Reason: Indigestion / Heartburn Last Admin: 01/20/17 13:07 Dose: 30 ml Apixaban (Eliquis) 2.5 mg PO BID [facility] PRN Reason: Protocol Last Admin: 01/21/17 17:11 Dose: 2.5 mg Atorvastatin Calcium (Lipitor) 20 mg PO DAILY [facility] Last Admin: 01/21/17 08:45 Dose: 20 mg Carvedilol (Coreg) 6.25 mg PO Q12 [facility] Last Admin: 01/21/17 21:53 Dose: Not Given Divalproex Sodium (Depakote Dr(*Bid*)) 250 mg PO DAILY [facility] Last Admin: 01/21/17 08:45 Dose: 250 mg Divalproex Sodium (Depakote Dr(*Bid*)) 375 mg PO QPM [facility] Last Admin: 01/21/17 17:11 Dose: 375 mg Donepezil HCl (Aricept) 5 mg PO HS [facility] Last Admin: 01/21/17 21:53 Dose: 5 mg Enalapril Maleate (Vasotec) 2.5 mg PO DAILY [facility] Last Admin: 01/21/17 08:44 Dose: 2.5 mg Furosemide (Lasix) 40 mg IV DAILY [facility] Last Admin: 01/21/17 08:45 Dose: 40 mg Magnesium Hydroxide (Milk Of Magnesia) 30 ml PO HS PRN PRN Reason: Constipation Memantine (Namenda) 5 mg PO DAILY [facility] Last Admin: 01/21/17 08:44 Dose: 5 mg Mirtazapine (Remeron) 15 mg PO HS [facility] Last Admin: 01/21/17 21:53 Dose: 15 mg Nitroglycerin (Nitrostat Sl Tab) 0.4 mg SL Q5M PRN PRN Reason: chest pain Pantoprazole Sodium (Protonix Ec Tab) 40 mg PO Q12 [facility] Last Admin: 01/21/17 21:53 Dose: 40 mg - Labs Labs: 01/18/17 04:30 01/20/17 04:20 Assessment and Plan (1) Acute on chronic combined systolic and diastolic CHF (congestive heart failure) Assessment & Plan: Chronic A. fibrillation Elevated Troponine with Possible NSTEMI Vs due to Cardiomyopathy/CHF O2 via NC ASA Serial trop and EKG Telemonitoring Continue BB/ACEI/Lasix/Spiranolactone Vanessa D/w Record Tester about Elevated Trop, and Possibility Underlying CAD, and will manage conservatively due to Poor General Condition Status: Acute (2) Mood disorder due to known physiological condition with depressive features Assessment and Plan: Depression with PSychotic Behaviour Dementia Continue Remeron/Depakote/Aricept Status: Chronic
[2017-01-22] MEDS: Divalproex 250 mg DR(BID formulation) PO SCH (09:35)
[2017-01-22] MEDS: Alum-Mag Hydrox-Simethicone Susp (30 mL) PO PRN (09:36)
[2017-01-22] MEDS: Pantoprazole 40 mg EC Tab PO SCH ×2 (09:37→21:34)
--- NOTE | 2017-01-22 14:46 | CP.PCM.PN ---
Subjective - Date & Time of Evaluation Date of Evaluation: 01/22/17 Time of Evaluation: 12:00 - Subjective Subjective: F/U Pleural effusion. Pt with no A/D, no c/o , no SOB Objective - Vital Signs/Intake and Output Vital Signs (last 24 hours): Temp Pulse Resp BP Pulse Ox 97.8 F 60 18 94/59 L 95 01/22/17 12:54 01/22/17 12:54 01/22/17 12:54 01/22/17 12:54 01/22/17 12:54 Intake and Output: 01/22/17 01/22/17 06:59 18:59 Intake Total 180 Balance 180 - Medications Medications: Current Medications Acetaminophen (Tylenol 325mg Tab) 650 mg PO Q4 PRN PRN Reason: Pain, Mild (1-3) Last Admin: 01/21/17 01:52 Dose: 650 mg Al Hydrox/Mg Hydrox/Simethicone (Maalox Plus 30 Ml) 30 ml PO Q4 PRN PRN Reason: Indigestion / Heartburn Last Admin: 01/22/17 09:36 Dose: 30 ml Apixaban (Eliquis) 2.5 mg PO BID [facility] PRN Reason: Protocol Last Admin: 01/22/17 09:35 Dose: 2.5 mg Atorvastatin Calcium (Lipitor) 20 mg PO DAILY [facility] Last Admin: 01/22/17 09:36 Dose: 20 mg Carvedilol (Coreg) 6.25 mg PO Q12 [facility] Last Admin: 01/22/17 09:34 Dose: 6.25 mg Divalproex Sodium (Depakote Dr(*Bid*)) 250 mg PO DAILY [facility] Last Admin: 01/22/17 09:35 Dose: 250 mg Divalproex Sodium (Depakote Dr(*Bid*)) 375 mg PO QPM [facility] Last Admin: 01/21/17 17:11 Dose: 375 mg Donepezil HCl (Aricept) 5 mg PO HS [facility] Last Admin: 01/21/17 21:53 Dose: 5 mg Enalapril Maleate (Vasotec) 2.5 mg PO DAILY [facility] Last Admin: 01/22/17 09:37 Dose: 2.5 mg Furosemide (Lasix) 40 mg IV DAILY [facility] Last Admin: 01/22/17 09:36 Dose: Not Given Magnesium Hydroxide (Milk Of Magnesia) 30 ml PO HS PRN PRN Reason: Constipation Memantine (Namenda) 5 mg PO DAILY [facility] Last Admin: 01/21/17 08:44 Dose: 5 mg Mirtazapine (Remeron) 15 mg PO HS [facility] Last Admin: 01/21/17 21:53 Dose: 15 mg Nitroglycerin (Nitrostat Sl Tab) 0.4 mg SL Q5M PRN PRN Reason: chest pain Pantoprazole Sodium (Protonix Ec Tab) 40 mg PO Q12 [facility] Last Admin: 01/22/17 09:37 Dose: 40 mg Spironolactone (Aldactone) 12.5 mg PO DAILY [facility] - Labs Labs: 01/18/17 04:30 01/20/17 04:20 - Constitutional Appears: No Acute Distress, Chronically Ill - Head Exam Head Exam: NORMAL INSPECTION - Eye Exam Eye Exam: PERRL - ENT Exam ENT Exam: Normal Exam - Neck Exam Neck Exam: Normal Inspection - Respiratory Exam Respiratory Exam: Decreased Breath Sounds (at bases) - Cardiovascular Exam Cardiovascular Exam: REGULAR RHYTHM - GI/Abdominal Exam GI & Abdominal Exam: Soft, Normal Bowel Sounds - Extremities Exam Additional comments: Trace edema LE - Neurological Exam Neurological Exam: Awake Additional comments: Confused, forgetful, generalized weakness. - Psychiatric Exam Psychiatric exam: Anxious - Skin Skin Exam: Warm Assessment and Plan (1) Pleural effusion, right Status: Chronic (2) CHF (congestive heart failure) Status: Chronic (3) Atelectasis of both lungs Status: Acute
--- NOTE | 2017-01-22 16:21 | PN ---
DATE: SUBJECTIVE: The patient denies any chest pain. He is comfortable in bed. PHYSICAL EXAMINATION: VITAL SIGNS: Blood pressure 104/68, heart rate 63, temperature 97.8, respiration 18. HEENT: Pale conjunctivae. CHEST: Absent breath sounds over the left base. HEART: S1, S2 regular. ABDOMEN: Soft. EXTREMITIES: No edema. ASSESSMENT: 1. Exacerbation of congestive heart failure. 2. Bilateral pleural effusion, status post bilateral thoracocentesis during the most recent admission and right chest thoracocentesis during this admission. 3. Chronic atrial fibrillation. 4. Dilated cardiomyopathy, status post implantable cardioverter-defibrillator placement. 5. Non-sustained ventricular tachycardia. 6. Borderline troponin elevation. 7. Depression. RECOMMENDATIONS: Continue Coreg 6.25 mg twice a day, Eliquis 2.5 mg twice a day, Lasix 40 mg intravenously once a day, Lipitor 20 mg once a day, Vasotec 2.5 mg once a day. Start Aldactone at 12.5 mg orally daily. Luis August MD
[2017-01-22] MEDS: Divalproex 125 mg DR (BID formulation) PO SCH (17:48)
--- NOTE | 2017-01-23 00:01 | CP.PCM.PN ---
Subjective - Date & Time of Evaluation Date of Evaluation: 01/22/17 Time of Evaluation: 13:00 - Subjective Subjective: Denies sob or chest pain. Still waiting ANA PAULA to Linen Aide placement Objective - Vital Signs/Intake and Output Vital Signs (last 24 hours): Temp Pulse Resp BP Pulse Ox 97.3 F L 59 L 17 100/62 99 01/22/17 20:02 01/22/17 21:34 01/22/17 20:02 01/22/17 21:34 01/22/17 20:02 Intake and Output: 01/22/17 01/23/17 18:59 06:59 Intake Total 950 Balance 950 - Medications Medications: Current Medications Acetaminophen (Tylenol 325mg Tab) 650 mg PO Q4 PRN PRN Reason: Pain, Mild (1-3) Last Admin: 01/21/17 01:52 Dose: 650 mg Al Hydrox/Mg Hydrox/Simethicone (Maalox Plus 30 Ml) 30 ml PO Q4 PRN PRN Reason: Indigestion / Heartburn Last Admin: 01/22/17 09:36 Dose: 30 ml Apixaban (Eliquis) 2.5 mg PO BID [facility] PRN Reason: Protocol Last Admin: 01/22/17 17:48 Dose: 2.5 mg Atorvastatin Calcium (Lipitor) 20 mg PO DAILY [facility] Last Admin: 01/22/17 09:36 Dose: 20 mg Carvedilol (Coreg) 6.25 mg PO Q12 [facility] Last Admin: 01/22/17 21:34 Dose: Not Given Divalproex Sodium (Depakote Dr(*Bid*)) 250 mg PO DAILY [facility] Last Admin: 01/22/17 09:35 Dose: 250 mg Divalproex Sodium (Depakote Dr(*Bid*)) 375 mg PO QPM [facility] Last Admin: 01/22/17 17:48 Dose: 375 mg Donepezil HCl (Aricept) 5 mg PO HS [facility] Last Admin: 01/22/17 21:34 Dose: 5 mg Enalapril Maleate (Vasotec) 2.5 mg PO DAILY [facility] Last Admin: 01/22/17 09:37 Dose: 2.5 mg Furosemide (Lasix) 40 mg IV DAILY [facility] Last Admin: 01/22/17 09:36 Dose: Not Given Magnesium Hydroxide (Milk Of Magnesia) 30 ml PO HS PRN PRN Reason: Constipation Memantine (Namenda) 5 mg PO DAILY [facility] [place] Last Admin: 01/22/17 09:00 Dose: 5 mg Mirtazapine (Remeron) 15 mg PO HS [facility] Last Admin: 01/22/17 21:34 Dose: 15 mg Nitroglycerin (Nitrostat Sl Tab) 0.4 mg SL Q5M PRN PRN Reason: chest pain Pantoprazole Sodium (Protonix Ec Tab) 40 mg PO Q12 [facility] Last Admin: 01/22/17 21:34 Dose: 40 mg Spironolactone (Aldactone) 12.5 mg PO DAILY [facility] - Labs Labs: 01/18/17 04:30 01/20/17 04:20 - Constitutional Appears: No Acute Distress, Chronically Ill - Head Exam Head Exam: ATRAUMATIC, NORMAL INSPECTION, NORMOCEPHALIC - Eye Exam Eye Exam: EOMI, Normal appearance, PERRL Pupil Exam: NORMAL ACCOMODATION, PERRL - ENT Exam ENT Exam: Mucous Membranes Moist, Normal Exam - Neck Exam Neck Exam: Full ROM, Normal Inspection. absent: Lymphadenopathy - Respiratory Exam Respiratory Exam: Clear to Ausculation Bilateral, NORMAL BREATHING PATTERN - Cardiovascular Exam Cardiovascular Exam: REGULAR RHYTHM, +S1, +S2. absent: Murmur - GI/Abdominal Exam GI & Abdominal Exam: Soft, Normal Bowel Sounds. absent: Tenderness - Extremities Exam Extremities Exam: Normal Capillary Refill, Normal Inspection, Pedal Edema. absent: Joint Swelling - Back Exam Back Exam: NORMAL INSPECTION - Neurological Exam Neurological Exam: Alert, Awake, CN II-XII Intact - Psychiatric Exam Psychiatric exam: Flat Affect, Normal Affect, Normal Mood - Skin Skin Exam: Dry, Intact, Normal Color, Warm Assessment and Plan (1) Acute on chronic combined systolic and diastolic CHF (congestive heart failure) Assessment & Plan: Chronic A. fibrillation Elevated Troponine with Possible NSTEMI Vs due to Cardiomyopathy/CHF O2 via NC ASA Serial trop and EKG Telemonitoring Continue BB/ACEI/Lasix/Spiranolactone Vanessa D/w Virtualization Architect about Elevated Trop, and Possibility Underlying CAD, and will manage conservatively due to Poor General Condition Status: Acute (2) Mood disorder due to known physiological condition with depressive features Assessment and Plan: Depression with PSychotic Behaviour Dementia Continue Remeron/Depakote/Aricept Status: Chronic
[2017-01-23] MEDS: Magnesium Hydroxide Susp 30 ml UD PO PRN (01:39)
[2017-01-23] MEDS: Pantoprazole 40 mg EC Tab PO SCH ×2 (10:00→21:48)
[2017-01-23] MEDS: Divalproex 250 mg DR(BID formulation) PO SCH (10:01)
[2017-01-23 13:49] LABS: AMYLASE 102 U/L (30-110); LIPASE 135 U/L (23-300)
--- NOTE | 2017-01-23 14:11 | RAD ---
HISTORY: pain COMPARISON: 04/23/2016 FINDINGS: BOWEL: Normal. No obstruction. No free air. BONES: Normal. OTHER FINDINGS: New vertically oriented IVC filter extending from the level of the pedicle L2 vertebral body to the pedicle of the L4 vertebral body. New bilateral pleural effusions and underlying consolidative changes. IMPRESSION: No significant/ acute intra-abdominal findings.
--- NOTE | 2017-01-23 16:25 | CP.PCM.PN ---
Subjective - Date & Time of Evaluation Date of Evaluation: 01/23/17 Time of Evaluation: 09:00 - Subjective Subjective: F/U R Pleural effusion. Pt with no respiratory distress, off O2, c/o of constipation Objective - Vital Signs/Intake and Output Vital Signs (last 24 hours): Temp Pulse Resp BP Pulse Ox 97.7 F 60 17 90/58 L 91 L 01/23/17 16:00 01/23/17 16:00 01/23/17 16:00 01/23/17 16:00 01/23/17 16:00 Intake and Output: 01/23/17 01/23/17 06:59 18:59 Intake Total 180 Balance 180 - Medications Medications: Current Medications Acetaminophen (Tylenol 325mg Tab) 650 mg PO Q4 PRN PRN Reason: Pain, Mild (1-3) Last Admin: 01/21/17 01:52 Dose: 650 mg Al Hydrox/Mg Hydrox/Simethicone (Maalox Plus 30 Ml) 30 ml PO Q4 PRN PRN Reason: Indigestion / Heartburn Last Admin: 01/22/17 09:36 Dose: 30 ml Apixaban (Eliquis) 2.5 mg PO BID [facility] PRN Reason: Protocol Last Admin: 01/23/17 09:59 Dose: 2.5 mg Atorvastatin Calcium (Lipitor) 20 mg PO DAILY [facility] Last Admin: 01/23/17 09:59 Dose: 20 mg Carvedilol (Coreg) 6.25 mg PO Q12 [facility] Last Admin: 01/23/17 10:02 Dose: 6.25 mg Divalproex Sodium (Depakote Dr(*Bid*)) 250 mg PO DAILY [facility] Last Admin: 01/23/17 10:01 Dose: 250 mg Divalproex Sodium (Depakote Dr(*Bid*)) 375 mg PO QPM [facility] Last Admin: 01/22/17 17:48 Dose: 375 mg Donepezil HCl (Aricept) 5 mg PO HS [facility] Last Admin: 01/22/17 21:34 Dose: 5 mg Enalapril Maleate (Vasotec) 2.5 mg PO DAILY [facility] Last Admin: 01/23/17 10:01 Dose: Not Given Furosemide (Lasix) 40 mg IV DAILY [facility] Last Admin: 01/23/17 09:59 Dose: 40 mg Magnesium Hydroxide (Milk Of Magnesia) 30 ml PO HS PRN PRN Reason: Constipation Last Admin: 01/23/17 01:39 Dose: 30 ml Memantine (Namenda) 5 mg PO DAILY [facility] Last Admin: 01/23/17 10:02 Dose: 5 mg Mirtazapine (Remeron) 15 mg PO HS [facility] Last Admin: 01/22/17 21:34 Dose: 15 mg Nitroglycerin (Nitrostat Sl Tab) 0.4 mg SL Q5M PRN PRN Reason: chest pain Pantoprazole Sodium (Protonix Ec Tab) 40 mg PO Q12 [facility] Last Admin: 01/23/17 10:00 Dose: 40 mg Spironolactone (Aldactone) 12.5 mg PO DAILY [facility] Last Admin: 01/23/17 10:00 Dose: 12.5 mg - Labs Labs: 01/18/17 04:30 01/20/17 04:20 - Constitutional Appears: No Acute Distress, Chronically Ill - Head Exam Head Exam: NORMAL INSPECTION - Eye Exam Eye Exam: PERRL - ENT Exam ENT Exam: Normal Exam - Neck Exam Neck Exam: Normal Inspection - Respiratory Exam Respiratory Exam: Decreased Breath Sounds (at bases) - Cardiovascular Exam Cardiovascular Exam: REGULAR RHYTHM - GI/Abdominal Exam GI & Abdominal Exam: Soft, Normal Bowel Sounds - Extremities Exam Additional comments: trace legs edema. - Neurological Exam Neurological Exam: Awake Additional comments: Confused, forgetful, generaliozed weakness. - Psychiatric Exam Psychiatric exam: Anxious - Skin Skin Exam: Warm Assessment and Plan (1) Pleural effusion, right Status: Chronic (2) CHF (congestive heart failure) Status: Chronic (3) Atelectasis of both lungs Status: Acute - Assessment and Plan (Free Text) Plan: F/U CXR
--- NOTE | 2017-01-23 18:01 | PN ---
DATE: SUBJECTIVE: The patient is experiencing abdominal discomfort. No reported vomiting. The patient had his breakfast. PHYSICAL EXAMINATION: VITAL SIGNS: Blood pressure 105/67, heart rate 69, temperature 97.7, respirations 18. HEENT: Normocephalic. CHEST: Diminished breath sounds over the right base. HEART: S1 and S2, regular. EXTREMITIES: Trace leg edema. ASSESSMENT: 1. Dilated cardiomyopathy. 2. Bilateral pleural effusion, status post bilateral thoracocentesis with moderate left pleural effusion. 3. Chronic atrial fibrillation. 4. Depression. 5. Abdominal pain. RECOMMENDATIONS: Continue Aldactone 12.5 mg once a day, Aricept 5 mg once a day, Coreg 6.25 mg twice a day, Eliquis 2.5 mg twice a day, Lasix 20 mg p.o. once a day, Vasotec 2.5 mg once a day. Obtain amylase and lipase level as well as lactate of the abdomen. Luis August MD
[2017-01-23] MEDS: Divalproex 125 mg DR (BID formulation) PO SCH (18:33)
--- NOTE | 2017-01-23 23:04 | CP.PCM.PN ---
Subjective - Date & Time of Evaluation Date of Evaluation: 01/23/17 Time of Evaluation: 11:05 - Subjective Subjective: No complaint. still awaiting placement Objective - Vital Signs/Intake and Output Vital Signs (last 24 hours): Temp Pulse Resp BP Pulse Ox 98.4 F 60 18 102/63 94 L 01/23/17 20:00 01/23/17 21:49 01/23/17 20:00 01/23/17 21:49 01/23/17 20:00 Intake and Output: 01/23/17 01/24/17 18:59 06:59 Intake Total 800 Output Total 0 Balance 800 - Medications Medications: Current Medications Acetaminophen (Tylenol 325mg Tab) 650 mg PO Q4 PRN PRN Reason: Pain, Mild (1-3) Last Admin: 01/21/17 01:52 Dose: 650 mg Al Hydrox/Mg Hydrox/Simethicone (Maalox Plus 30 Ml) 30 ml PO Q4 PRN PRN Reason: Indigestion / Heartburn Last Admin: 01/22/17 09:36 Dose: 30 ml Apixaban (Eliquis) 2.5 mg PO BID [facility] PRN Reason: Protocol Last Admin: 01/23/17 18:33 Dose: 2.5 mg Atorvastatin Calcium (Lipitor) 20 mg PO DAILY [facility] Last Admin: 01/23/17 09:59 Dose: 20 mg Carvedilol (Coreg) 6.25 mg PO Q12 [facility] Last Admin: 01/23/17 21:49 Dose: Not Given Divalproex Sodium (Depakote Dr(*Bid*)) 250 mg PO DAILY [facility] Last Admin: 01/23/17 10:01 Dose: 250 mg Divalproex Sodium (Depakote Dr(*Bid*)) 375 mg PO QPM [facility] Last Admin: 01/23/17 18:33 Dose: 375 mg Donepezil HCl (Aricept) 5 mg PO HS [facility] Last Admin: 01/23/17 21:49 Dose: 5 mg Enalapril Maleate (Vasotec) 2.5 mg PO DAILY [facility] Last Admin: 01/23/17 10:01 Dose: Not Given Furosemide (Lasix) 40 mg IV DAILY [facility] Last Admin: 01/23/17 09:59 Dose: 40 mg Magnesium Hydroxide (Milk Of Magnesia) 30 ml PO HS PRN PRN Reason: Constipation Last Admin: 01/23/17 01:39 Dose: 30 ml Memantine (Namenda) 5 mg PO DAILY [facility] Last Admin: 01/23/17 10:02 Dose: 5 mg Mirtazapine (Remeron) 15 mg PO HS [facility] Last Admin: 01/23/17 21:49 Dose: 15 mg Nitroglycerin (Nitrostat Sl Tab) 0.4 mg SL Q5M PRN PRN Reason: chest pain Pantoprazole Sodium (Protonix Ec Tab) 40 mg PO Q12 [facility] Last Admin: 01/23/17 21:48 Dose: 40 mg Spironolactone (Aldactone) 12.5 mg PO DAILY [facility] Last Admin: 01/23/17 10:00 Dose: 12.5 mg - Labs Labs: 01/18/17 04:30 01/20/17 04:20 Assessment and Plan (1) Acute on chronic combined systolic and diastolic CHF (congestive heart failure) Assessment & Plan: Chronic A. fibrillation Elevated Troponine with Possible NSTEMI Vs due to Cardiomyopathy/CHF O2 via NC ASA Serial trop and EKG Telemonitoring Continue BB/ACEI/Lasix/Spiranolactone Vanessa D/w Mainframe Systems Engineer about Elevated Trop, and Possibility Underlying CAD, and will manage conservatively due to Poor General Condition Status: Acute (2) Mood disorder due to known physiological condition with depressive features Assessment and Plan: Depression with PSychotic Behaviour Dementia Continue Remeron/Depakote/Aricept Status: Chronic
[2017-01-24 05:55] LABS: BASO # 0.1 K/uL (0.0-0.2); BASO % 1.4 % (0.0-2.0); EOS % 0.5 % (0.0-4.0); HEMOGLOBIN 11.7 g/dL (12.0-18.0); LYMPH # 0.6 K/uL (1.0-4.3); LYMPH % 14.7 % (20.0-40.0); MEAN CORPUSCULAR HEMOGLOBIN 26.3 pg (27.0-31.0); MEAN CORPUSCULAR HGB CONC 31.3 g/dL (33.0-37.0); MEAN PLATELET VOLUME 10.3 fl (7.2-11.7); MONO # 0.5 K/uL (0.0-0.8); MONO % 12.6 % (0.0-10.0); NEUT # 2.8 K/uL (1.8-7.0); NEUT % 70.8 % (50.0-75.0); NRBC % 0.1 % (0.0-0.0); RBC 4.45 Mil/uL (4.40-5.90); RED CELL DISTRIBUTION WIDTH 23.1 % (11.5-14.5)
[2017-01-24 06:07] LABS: ALBUMIN 3.3 g/dL (3.5-5.0); ALT/SGPT 37 U/L (21-72); AST/SGOT 35 U/L (17-59); BLOOD UREA NITROGEN 26 mg/dl (9-20); CALCIUM 8.8 mg/dL (8.4-10.2); GFR AFRICAN-AMERICAN > 60; GFR NON-AFRICAN AMERICAN > 60; MAGNESIUM 2.3 MG/DL (1.6-2.3)
[2017-01-24] MEDS: Divalproex 250 mg DR(BID formulation) PO SCH (09:58)
[2017-01-24] MEDS: Pantoprazole 40 mg EC Tab PO SCH ×2 (09:59→21:10)
--- NOTE | 2017-01-24 14:03 | RAD ---
HISTORY: Pleural effusion COMPARISON: Chest radiograph 01/17/2017. TECHNIQUE: Chest PA and lateral FINDINGS: LUNGS: Underlying airspace disease is difficult to exclude bilaterally in the interval, greater the left and right. PLEURA: A moderately large left pleural effusion is unchanged with significant right pleural effusion now identified [id number] overall volume. CARDIOVASCULAR: Obscured by bilateral basilar opacity. No pulmonary vascular derangement appreciable. Pacemaker/defibrillator again noted in position. OSSEOUS STRUCTURES: No significant abnormalities. VISUALIZED UPPER ABDOMEN: Normal. OTHER FINDINGS: None. IMPRESSION: Moderately large left pleural effusion unchanged in size with moderate right pleural effusion representing interval worsening. Underlying bilateral airspace disease is not excluded.
[2017-01-24] MEDS: Divalproex 125 mg DR (BID formulation) PO SCH (18:25)
--- NOTE | 2017-01-25 08:36 | PN ---
DATE: SUBJECTIVE: The patient is comfortable. He denies chest pain. Abdominal pain has improved. PHYSICAL EXAMINATION: VITAL SIGNS: Blood pressure 92/52, heart rate 60, temperature 97.5, respirations 18. HEENT: Normocephalic. CHEST: Absent breath sounds over the left base. HEART: S1 and S2 regular. EXTREMITIES: Trace leg edema. LABORATORY DATA: Hemoglobin and hematocrit 11.7 and 37.4, white count and platelet count are 4.0 and 123,000. SMA-7: Sodium 141, potassium 4.4, chloride 99, CO2 of 36, glucose 86, BUN 26, creatinine 0.9. Yesterday's amylase and lipase are within normal limits. IMAGING: Flat plate of the abdomen that was on yesterday, no significant intraabdominal findings. Yesterday's chest x-ray reported moderately large left pleural effusion, unchanged in size, with moderate right pleural effusion, representing interval worsening. Underlying bilateral air space disease is not excluded. ASSESSMENT: 1. Congestive heart failure. 2. Recurring bilateral pleural effusion. 3. Chronic atrial fibrillation. 4. Mild anemia. 5. Depression. RECOMMENDATION: Continue Aldactone 12.5 mg once a day, Aricept 5 mg once a day, Coreg 6.25 mg twice a day, Depakote 250 mg a day, Eliquis 2.5 mg twice a day, Lasix 40 mg intravenously twice a day, Lipitor 20 mg once a day, enalapril 2.5 mg once a day. Luis August MD
[2017-01-25] MEDS: Divalproex 250 mg DR(BID formulation) PO SCH (10:23)
[2017-01-25] MEDS: Pantoprazole 40 mg EC Tab PO SCH ×2 (10:25→22:15)
--- NOTE | 2017-01-25 16:21 | CP.PCM.PN ---
Subjective - Date & Time of Evaluation Date of Evaluation: 01/25/17 Time of Evaluation: 10:15 - Subjective Subjective: F/U R Pleural effusion. Pt with no A/D, no SOB, no chest pain, calm. Objective - Vital Signs/Intake and Output Vital Signs (last 24 hours): Temp Pulse Resp BP Pulse Ox 97.7 F 60 18 96/54 L 97 01/25/17 15:37 01/25/17 15:37 01/25/17 15:37 01/25/17 15:37 01/25/17 15:37 - Medications Medications: Current Medications Acetaminophen (Tylenol 325mg Tab) 650 mg PO Q4 PRN PRN Reason: Pain, Mild (1-3) Last Admin: 01/21/17 01:52 Dose: 650 mg Al Hydrox/Mg Hydrox/Simethicone (Maalox Plus 30 Ml) 30 ml PO Q4 PRN PRN Reason: Indigestion / Heartburn Last Admin: 01/22/17 09:36 Dose: 30 ml Apixaban (Eliquis) 2.5 mg PO BID [facility] PRN Reason: Protocol Last Admin: 01/25/17 10:24 Dose: 2.5 mg Atorvastatin Calcium (Lipitor) 20 mg PO DAILY [facility] Last Admin: 01/25/17 10:24 Dose: 20 mg Carvedilol (Coreg) 6.25 mg PO Q12 [facility] Last Admin: 01/25/17 10:22 Dose: Not Given Divalproex Sodium (Depakote Dr(*Bid*)) 250 mg PO DAILY [facility] Last Admin: 01/25/17 10:23 Dose: 250 mg Divalproex Sodium (Depakote Dr(*Bid*)) 375 mg PO QPM [facility] Last Admin: 01/24/17 18:25 Dose: 375 mg Donepezil HCl (Aricept) 5 mg PO HS [facility] Last Admin: 01/24/17 22:20 Dose: 5 mg Enalapril Maleate (Vasotec) 2.5 mg PO DAILY [facility] Last Admin: 01/25/17 10:25 Dose: 2.5 mg Furosemide (Lasix) 40 mg IV BID [facility] Magnesium Hydroxide (Milk Of Magnesia) 30 ml PO HS PRN PRN Reason: Constipation Last Admin: 01/23/17 01:39 Dose: 30 ml Memantine (Namenda) 5 mg PO DAILY [facility] Last Admin: 01/25/17 10:25 Dose: 5 mg Mirtazapine (Remeron) 15 mg PO HS [facility] Last Admin: 01/24/17 22:10 Dose: 15 mg Nitroglycerin (Nitrostat Sl Tab) 0.4 mg SL Q5M PRN PRN Reason: chest pain Pantoprazole Sodium (Protonix Ec Tab) 40 mg PO Q12 [facility] Last Admin: 01/25/17 10:25 Dose: 40 mg Spironolactone (Aldactone) 12.5 mg PO DAILY [facility] Last Admin: 01/25/17 10:22 Dose: 12.5 mg - Labs Labs: 01/24/17 04:25 01/24/17 04:25 - Constitutional Appears: No Acute Distress - Head Exam Head Exam: NORMAL INSPECTION - Eye Exam Eye Exam: PERRL - ENT Exam ENT Exam: Normal Exam - Neck Exam Neck Exam: Normal Inspection - Respiratory Exam Respiratory Exam: Decreased Breath Sounds (at bases diminished.) - Cardiovascular Exam Cardiovascular Exam: REGULAR RHYTHM - GI/Abdominal Exam GI & Abdominal Exam: Soft, Normal Bowel Sounds - Extremities Exam Additional comments: Trace legs edema - Neurological Exam Neurological Exam: Awake Additional comments: Confused, forgetful, generalized weakness. - Psychiatric Exam Additional comments: Calm. - Skin Skin Exam: Warm Assessment and Plan (1) Pleural effusion, right Status: Chronic (2) CHF (congestive heart failure) Status: Chronic (3) Atelectasis of both lungs Status: Acute - Assessment and Plan (Free Text) Plan: CXR showed moderate large R pleural effusion unchanged in size. Pt with chronic CHF, asymptomatic, off O2, continue current Tx.
[2017-01-25] MEDS: Divalproex 125 mg DR (BID formulation) PO SCH (16:59)
--- NOTE | 2017-01-25 20:31 | PN ---
FOLLOWUP DATE: SUBJECTIVE: The patient appears comfortable. Denies any chest pain. PHYSICAL EXAMINATION: VITAL SIGNS: Blood pressure 96/50, heart rate 60, temperature 97.3, respirations 18. HEENT: Normocephalic. CHEST: Absent breath sounds over the left base. HEART: S1 and S2 regular. EXTREMITIES: Trace leg edema. ASSESSMENT: 1. Dilated cardiomyopathy. 2. Chronic atrial fibrillation. 3. Bilateral pleural effusion, status post thoracocentesis more than one. 4. Depression. RECOMMENDATIONS: Continue Aldactone 12.5 mg once a day, Eliquis 2.5 mg twice a day, Lasix 40 mg intravenously twice a day, Namenda 5 mg once a day, Vasotec 2.5 mg once a day. Coreg is on hold because of the patient's borderline hypertension. Luis August MD
--- NOTE | 2017-01-26 00:03 | CP.PCM.PN ---
Subjective - Date & Time of Evaluation Date of Evaluation: 01/24/17 Time of Evaluation: 20:40 - Subjective Subjective: NDenies any complain. Waiting for ANA PAULA to equipment operator intermodal yard placement. Daughter declined to take the patient becky. Objective - Vital Signs/Intake and Output Vital Signs (last 24 hours): Temp Pulse Resp BP Pulse Ox 97.5 F L 60 18 109/62 96 01/25/17 19:06 01/25/17 23:16 01/25/17 19:06 01/25/17 23:16 01/25/17 19:06 Intake and Output: 01/25/17 01/26/17 18:59 06:59 Intake Total 500 Balance 500 - Medications Medications: Current Medications Acetaminophen (Tylenol 325mg Tab) 650 mg PO Q4 PRN PRN Reason: Pain, Mild (1-3) Last Admin: 01/21/17 01:52 Dose: 650 mg Al Hydrox/Mg Hydrox/Simethicone (Maalox Plus 30 Ml) 30 ml PO Q4 PRN PRN Reason: Indigestion / Heartburn Last Admin: 01/22/17 09:36 Dose: 30 ml Apixaban (Eliquis) 2.5 mg PO BID [facility] PRN Reason: Protocol Last Admin: 01/25/17 16:58 Dose: 2.5 mg Atorvastatin Calcium (Lipitor) 20 mg PO DAILY [facility] Last Admin: 01/25/17 10:24 Dose: 20 mg Carvedilol (Coreg) 6.25 mg PO Q12 [facility] Last Admin: 01/25/17 23:16 Dose: 6.25 mg Divalproex Sodium (Depakote Dr(*Bid*)) 250 mg PO DAILY [facility] Last Admin: 01/25/17 10:23 Dose: 250 mg Divalproex Sodium (Depakote Dr(*Bid*)) 375 mg PO QPM [facility] Last Admin: 01/25/17 16:59 Dose: 375 mg Donepezil HCl (Aricept) 5 mg PO HS [facility] Last Admin: 01/25/17 22:16 Dose: 5 mg Enalapril Maleate (Vasotec) 2.5 mg PO DAILY [facility] Last Admin: 01/25/17 10:25 Dose: 2.5 mg Furosemide (Lasix) 40 mg IV BID [facility] Last Admin: 01/25/17 16:58 Dose: Not Given Magnesium Hydroxide (Milk Of Magnesia) 30 ml PO HS PRN PRN Reason: Constipation Last Admin: 01/23/17 01:39 Dose: 30 ml Memantine (Namenda) 5 mg PO DAILY [facility] Last Admin: 01/25/17 10:25 Dose: 5 mg Mirtazapine (Remeron) 15 mg PO HS [facility] Last Admin: 01/25/17 22:15 Dose: 15 mg Nitroglycerin (Nitrostat Sl Tab) 0.4 mg SL Q5M PRN PRN Reason: chest pain Pantoprazole Sodium (Protonix Ec Tab) 40 mg PO Q12 [facility] Last Admin: 01/25/17 22:15 Dose: 40 mg Spironolactone (Aldactone) 12.5 mg PO DAILY [facility] Last Admin: 01/25/17 10:22 Dose: 12.5 mg - Labs Labs: 01/24/17 04:25 01/24/17 04:25 Assessment and Plan (1) Acute on chronic combined systolic and diastolic CHF (congestive heart failure) Assessment & Plan: Chronic A. fibrillation Elevated Troponine with Possible NSTEMI Vs due to Cardiomyopathy/CHF O2 via NC ASA Serial trop and EKG Telemonitoring Continue BB/ACEI/Lasix/Spiranolactone Vanessa D/w Silviculturist about Elevated Trop, and Possibility Underlying CAD, and will manage conservatively due to Poor General Condition Status: Acute (2) Mood disorder due to known physiological condition with depressive features Assessment and Plan: Depression with PSychotic Behaviour Dementia Continue Remeron/Depakote/Aricept Status: Chronic
--- NOTE | 2017-01-26 00:04 | CP.PCM.PN ---
Subjective - Date & Time of Evaluation Date of Evaluation: 01/25/17 Time of Evaluation: 23:45 - Subjective Subjective: Seen and examined at the bed side. No complaint Objective - Vital Signs/Intake and Output Vital Signs (last 24 hours): Temp Pulse Resp BP Pulse Ox 97.5 F L 60 18 109/62 96 01/25/17 19:06 01/25/17 23:16 01/25/17 19:06 01/25/17 23:16 01/25/17 19:06 Intake and Output: 01/25/17 01/26/17 18:59 06:59 Intake Total 500 Balance 500 - Medications Medications: Current Medications Acetaminophen (Tylenol 325mg Tab) 650 mg PO Q4 PRN PRN Reason: Pain, Mild (1-3) Last Admin: 01/21/17 01:52 Dose: 650 mg Al Hydrox/Mg Hydrox/Simethicone (Maalox Plus 30 Ml) 30 ml PO Q4 PRN PRN Reason: Indigestion / Heartburn Last Admin: 01/22/17 09:36 Dose: 30 ml Apixaban (Eliquis) 2.5 mg PO BID [facility] PRN Reason: Protocol Last Admin: 01/25/17 16:58 Dose: 2.5 mg Atorvastatin Calcium (Lipitor) 20 mg PO DAILY [facility] Last Admin: 01/25/17 10:24 Dose: 20 mg Carvedilol (Coreg) 6.25 mg PO Q12 [facility] Last Admin: 01/25/17 23:16 Dose: 6.25 mg Divalproex Sodium (Depakote Dr(*Bid*)) 250 mg PO DAILY [facility] Last Admin: 01/25/17 10:23 Dose: 250 mg Divalproex Sodium (Depakote Dr(*Bid*)) 375 mg PO QPM [facility] Last Admin: 01/25/17 16:59 Dose: 375 mg Donepezil HCl (Aricept) 5 mg PO HS [facility] Last Admin: 01/25/17 22:16 Dose: 5 mg Enalapril Maleate (Vasotec) 2.5 mg PO DAILY [facility] Last Admin: 01/25/17 10:25 Dose: 2.5 mg Furosemide (Lasix) 40 mg IV BID [facility] Last Admin: 01/25/17 16:58 Dose: Not Given Magnesium Hydroxide (Milk Of Magnesia) 30 ml PO HS PRN PRN Reason: Constipation Last Admin: 01/23/17 01:39 Dose: 30 ml Memantine (Namenda) 5 mg PO DAILY [facility] Last Admin: 01/25/17 10:25 Dose: 5 mg Mirtazapine (Remeron) 15 mg PO HS [facility] Last Admin: 01/25/17 22:15 Dose: 15 mg Nitroglycerin (Nitrostat Sl Tab) 0.4 mg SL Q5M PRN PRN Reason: chest pain Pantoprazole Sodium (Protonix Ec Tab) 40 mg PO Q12 [facility] Last Admin: 01/25/17 22:15 Dose: 40 mg Spironolactone (Aldactone) 12.5 mg PO DAILY [facility] Last Admin: 01/25/17 10:22 Dose: 12.5 mg - Labs Labs: 01/24/17 04:25 01/24/17 04:25 - Constitutional Appears: No Acute Distress, Chronically Ill - Head Exam Head Exam: ATRAUMATIC, NORMAL INSPECTION, NORMOCEPHALIC - Eye Exam Eye Exam: EOMI, Normal appearance, PERRL Pupil Exam: NORMAL ACCOMODATION, PERRL - ENT Exam ENT Exam: Mucous Membranes Moist, Normal Exam - Neck Exam Neck Exam: Full ROM, Normal Inspection. absent: Lymphadenopathy - Respiratory Exam Respiratory Exam: Clear to Ausculation Bilateral, NORMAL BREATHING PATTERN - Cardiovascular Exam Cardiovascular Exam: REGULAR RHYTHM, +S1, +S2. absent: Murmur - GI/Abdominal Exam GI & Abdominal Exam: Soft, Normal Bowel Sounds. absent: Tenderness - Extremities Exam Extremities Exam: Full ROM, Normal Capillary Refill, Normal Inspection, Pedal Edema. absent: Joint Swelling - Back Exam Back Exam: NORMAL INSPECTION - Neurological Exam Neurological Exam: Alert, Awake, CN II-XII Intact - Psychiatric Exam Psychiatric exam: Flat Affect, Normal Affect. absent: Homicidal Ideation, Suicidal Ideation - Skin Skin Exam: Dry, Intact, Normal Color, Warm Assessment and Plan (1) Acute on chronic combined systolic and diastolic CHF (congestive heart failure) Assessment & Plan: Chronic A. fibrillation Elevated Troponine with Possible NSTEMI Vs due to Cardiomyopathy/CHF O2 via NC ASA Serial trop and EKG Telemonitoring Continue BB/ACEI/Lasix/Spiranolactone Vanessa D/w [place] Dehydrator Operator about Elevated Trop, and Possibility Underlying CAD, and will manage conservatively due to Poor General Condition Status: Acute (2) Mood disorder due to known physiological condition with depressive features Assessment and Plan: Depression with PSychotic Behaviour Dementia Continue Remeron/Depakote/Aricept Status: Chronic
[2017-01-26 07:21] LABS: HEMOGLOBIN 10.9 g/dL (12.0-18.0); MEAN CORPUSCULAR HEMOGLOBIN 26.2 pg (27.0-31.0); MEAN CORPUSCULAR HGB CONC 31.5 g/dL (33.0-37.0); RBC 4.17 Mil/uL (4.40-5.90); RED CELL DISTRIBUTION WIDTH 22.3 % (11.5-14.5); WHITE BLOOD COUNT 4.1 K/uL (4.8-10.8)
[2017-01-26 07:22] LABS: BLOOD UREA NITROGEN 30 mg/dl (9-20); CALCIUM 8.7 mg/dL (8.4-10.2); GFR AFRICAN-AMERICAN > 60; GFR NON-AFRICAN AMERICAN > 60
[2017-01-26] MEDS: Divalproex 250 mg DR(BID formulation) PO SCH (09:20)
[2017-01-26] MEDS: Pantoprazole 40 mg EC Tab PO SCH ×2 (09:20→21:58)
[2017-01-26] MEDS: Divalproex 125 mg DR (BID formulation) PO SCH (17:14)
--- NOTE | 2017-01-26 21:24 | PN ---
DATE: SUBJECTIVE: The patient denies any chest pain or dizziness. PHYSICAL EXAMINATION: VITAL SIGNS: Blood pressure 95/60, heart rate 60, temperature 97.7, respirations 20. HEENT: Normocephalic. CHEST: Absent breath sounds over the left base. HEART: S1, S2 regular. EXTREMITIES: 1+ edema. LABORATORY DATA: SMA-7 today is within normal limits except for carbon dioxide of 36 and BUN of 30. Today's hemoglobin and hematocrit are 10.1 and 34.6, white count 4.1, and platelet count is 115,000. ASSESSMENT: 1. Dilated cardiomyopathy. 2. Chronic atrial fibrillation. 3. Status post biventricular/implantable cardioverter-defibrillator placement. 4. Mild anemia. 5. Depression. RECOMMENDATIONS: Continue Aldactone 12.5 mg once a day, Coreg 6.25 mg twice a day, Lasix 40 mg intravenously twice a day, Lipitor 20 mg once a day, Vasotec 2.5 mg once a day, Namenda 5 mg once a day, Protonix 40 mg p.o. twice a day. Emi is on hold possibly for thoracocentesis, and we will verify that with her primary physician. Luis August MD
--- NOTE | 2017-01-27 02:17 | CP.PCM.PN ---
Subjective - Date & Time of Evaluation Date of Evaluation: 01/26/17 Time of Evaluation: 20:00 - Subjective Subjective: Seen. No Complaint Objective - Vital Signs/Intake and Output Vital Signs (last 24 hours): Temp Pulse Resp BP Pulse Ox 97.3 F L 60 19 105/63 95 01/27/17 00:00 01/27/17 00:00 01/27/17 00:00 01/27/17 00:00 01/27/17 00:00 - Medications Medications: Current Medications Acetaminophen (Tylenol 325mg Tab) 650 mg PO Q4 PRN PRN Reason: Pain, Mild (1-3) Last Admin: 01/26/17 02:46 Dose: 650 mg Al Hydrox/Mg Hydrox/Simethicone (Maalox Plus 30 Ml) 30 ml PO Q4 PRN PRN Reason: Indigestion / Heartburn Last Admin: 01/22/17 09:36 Dose: 30 ml Atorvastatin Calcium (Lipitor) 20 mg PO DAILY [facility] Last Admin: 01/26/17 09:22 Dose: 20 mg Carvedilol (Coreg) 6.25 mg PO Q12 [facility] Last Admin: 01/26/17 20:59 Dose: Not Given Divalproex Sodium (Depakote Dr(*Bid*)) 250 mg PO DAILY [facility] Last Admin: 01/26/17 09:20 Dose: 250 mg Divalproex Sodium (Depakote Dr(*Bid*)) 375 mg PO QPM [facility] Last Admin: 01/26/17 17:14 Dose: 375 mg Donepezil HCl (Aricept) 5 mg PO HS [facility] Last Admin: 01/26/17 21:58 Dose: 5 mg Enalapril Maleate (Vasotec) 2.5 mg PO DAILY [facility] Last Admin: 01/26/17 10:00 Dose: 2.5 mg Furosemide (Lasix) 40 mg IV BID [facility] Last Admin: 01/26/17 17:12 Dose: Not Given Magnesium Hydroxide (Milk Of Magnesia) 30 ml PO HS PRN PRN Reason: Constipation Last Admin: 01/23/17 01:39 Dose: 30 ml Memantine (Namenda) 5 mg PO DAILY [facility] Last Admin: 01/26/17 09:21 Dose: 5 mg Mirtazapine (Remeron) 15 mg PO HS [facility] Last Admin: 01/26/17 21:58 Dose: 15 mg Nitroglycerin (Nitrostat Sl Tab) 0.4 mg SL Q5M PRN PRN Reason: chest pain Pantoprazole Sodium (Protonix Ec Tab) 40 mg PO Q12 [facility] Last Admin: 01/26/17 21:58 Dose: 40 mg Spironolactone (Aldactone) 12.5 mg PO DAILY [facility] Last Admin: 01/26/17 09:21 Dose: 12.5 mg - Labs Labs: 01/26/17 06:30 01/26/17 06:30 Assessment and Plan (1) Acute on chronic combined systolic and diastolic CHF (congestive heart failure) Assessment & Plan: Chronic A. fibrillation Elevated Troponine with Possible NSTEMI Vs due to Cardiomyopathy/CHF O2 via [place] ASA Serial trop and EKG Telemonitoring Continue BB/ACEI/Lasix/Spiranolactone Vaenssa D/w Railway Signal Operator about Elevated Trop, and Possibility Underlying CAD, and will manage conservatively due to Poor General Condition Status: Acute (2) Mood disorder due to known physiological condition with depressive features Assessment and Plan: Depression with PSychotic Behaviour Dementia Continue Remeron/Depakote/Aricept Status: Chronic
[2017-01-27] MEDS: Divalproex 250 mg DR(BID formulation) PO SCH (10:10)
[2017-01-27] MEDS: Pantoprazole 40 mg EC Tab PO SCH ×2 (10:17→21:39)
--- NOTE | 2017-01-27 11:49 | PN ---
FOLLOWUP DATE: SUBJECTIVE: The patient denies any chest pain. He is comfortable on nasal O2. PHYSICAL EXAMINATION: VITAL SIGNS: Blood pressure 112/60, heart rate 71, temperature 97.9, respirations 20. HEENT: Pale conjunctivae. CHEST: Absent breath sounds over the left base. HEART: S1 and S2 regular. EXTREMITIES: 1+ pitting edema. ASSESSMENT: 1. Chronic atrial fibrillation. 2. Dilated cardiomyopathy, status post implantable cardioverter defibrillator placement. 3. Mild thrombocytopenia. 4. Depression. RECOMMENDATIONS: Continue Aldactone 12.5 mg once a day, Coreg 6.25 mg twice a day, Lasix 40 mg intravenously twice a day, Lipitor 20 mg once a day, enalapril 2.5 mg once a day. Eliquis still on hold because of the thrombocytopenia. I will obtain repeat CBC as well as INR and PTT. Luis August MD
[2017-01-27 13:07] LABS: HEMOGLOBIN 11.1 g/dL (12.0-18.0); MEAN CELL VOLUME 82.4 fl (80.0-94.0); MEAN CORPUSCULAR HEMOGLOBIN 26.6 pg (27.0-31.0); MEAN CORPUSCULAR HGB CONC 32.2 g/dL (33.0-37.0); RBC 4.16 Mil/uL (4.40-5.90); RED CELL DISTRIBUTION WIDTH 22.2 % (11.5-14.5); WHITE BLOOD COUNT 3.9 K/uL (4.8-10.8)
[2017-01-27 13:19] LABS: INR 1.2 (0.9-1.2); PARTIAL THROMBOPLASTIN TIME 28.2 Seconds (25.6-37.1)
[2017-01-27] MEDS: Divalproex 125 mg DR (BID formulation) PO SCH (18:01)
--- NOTE | 2017-01-27 23:19 | CP.PCM.PN ---
Subjective - Date & Time of Evaluation Date of Evaluation: 01/27/17 Time of Evaluation: 18:15 - Subjective Subjective: Seen and examined at the bed side. Sates he is feeling better. Objective - Vital Signs/Intake and Output Vital Signs (last 24 hours): Temp Pulse Resp BP Pulse Ox 97.6 F 59 L 20 93/59 L 100 01/27/17 16:23 01/27/17 21:38 01/27/17 16:23 01/27/17 21:38 01/27/17 16:23 - Medications Medications: Current Medications Acetaminophen (Tylenol 325mg Tab) 650 mg PO Q4 PRN PRN Reason: Pain, Mild (1-3) Last Admin: 01/26/17 02:46 Dose: 650 mg Al Hydrox/Mg Hydrox/Simethicone (Maalox Plus 30 Ml) 30 ml PO Q4 PRN PRN Reason: Indigestion / Heartburn Last Admin: 01/22/17 09:36 Dose: 30 ml Atorvastatin Calcium (Lipitor) 20 mg PO DAILY [facility] Last Admin: 01/27/17 10:16 Dose: 20 mg Carvedilol (Coreg) 6.25 mg PO Q12 [facility] Last Admin: 01/27/17 21:38 Dose: Not Given Divalproex Sodium (Depakote Dr(*Bid*)) 250 mg PO DAILY [facility] Last Admin: 01/27/17 10:10 Dose: 250 mg Divalproex Sodium (Depakote Dr(*Bid*)) 375 mg PO QPM [facility] Last Admin: 01/27/17 18:01 Dose: 375 mg Donepezil HCl (Aricept) 5 mg PO HS [facility] Last Admin: 01/27/17 21:39 Dose: 5 mg Enalapril Maleate (Vasotec) 2.5 mg PO DAILY [facility] Last Admin: 01/27/17 10:17 Dose: 2.5 mg Furosemide (Lasix) 40 mg IV BID [facility] Last Admin: 01/27/17 17:59 Dose: Not Given Magnesium Hydroxide (Milk Of Magnesia) 30 ml PO HS PRN PRN Reason: Constipation Last Admin: 01/23/17 01:39 Dose: 30 ml Memantine (Namenda) 5 mg PO DAILY [facility] Last Admin: 01/27/17 10:16 Dose: 5 mg Mirtazapine (Remeron) 15 mg PO HS [facility] Last Admin: 01/27/17 21:39 Dose: 15 mg Nitroglycerin (Nitrostat Sl Tab) 0.4 mg SL Q5M PRN PRN Reason: chest pain Pantoprazole Sodium (Protonix Ec Tab) 40 mg PO Q12 [facility] Last Admin: 01/27/17 21:39 Dose: 40 mg Spironolactone (Aldactone) 12.5 mg PO DAILY [facility] Last Admin: 01/27/17 10:09 Dose: 12.5 mg - Labs Labs: 01/27/17 12:20 01/26/17 06:30 PT 14.0 Seconds (9.8-13.1) H 01/27/17 12:20 INR 1.2 (0.9-1.2) 01/27/17 12:20 APTT 28.2 Seconds (25.6-37.1) 01/27/17 12:20 Assessment and Plan (1) Acute on chronic combined systolic and diastolic CHF (congestive heart failure) Assessment & Plan: Chronic A. fibrillation Elevated Troponine with Possible NSTEMI Vs due to Cardiomyopathy/CHF O2 via [place] ASA Serial trop and EKG Telemonitoring Continue BB/ACEI/Lasix/Spiranolactone Vanessa D/w Tobacco Warehouse Agent about Elevated Trop, and Possibility Underlying CAD, and will manage conservatively due to Poor General Condition Status: Acute (2) Mood disorder due to known physiological condition with depressive features , Dementia nt. Assessment and Plan: Depression with PSychotic Behaviour Dementia Continue Remeron/Depakote/Aricept (3) Social Hold due to a need for placement Status: Chronic
[2017-01-28] MEDS: Pantoprazole 40 mg EC Tab PO SCH ×2 (09:46→21:33)
[2017-01-28] MEDS: Divalproex 250 mg DR(BID formulation) PO SCH (09:46)
--- NOTE | 2017-01-28 15:55 | PN ---
FOLLOWUP DATE: SUBJECTIVE: The patient denies chest pain or shortness of breath. PHYSICAL EXAMINATION: VITAL SIGNS: Blood pressure 95/61, heart rate 60, temperature 97.4, respirations 20. HEENT: Normocephalic. CHEST: Absent breath sounds over the left base. HEART: S1 and S2 regular. ABDOMEN: Soft. EXTREMITIES: 1+ pitting edema. ASSESSMENT: 1. Dilated cardiomyopathy. 2. Chronic atrial fibrillation. 3. Mild thrombocytopenia. 4. Mild anemia. 5. Depression. RECOMMENDATIONS: Continue Aldactone 12.5 mg daily, Coreg 6.25 mg twice a day, Lasix 40 mg intravenously twice a day, Lipitor 20 mg orally daily, Vasotec 2.5 mg once a day. Resume Eliquis at 2.5 mg daily and obtain a followup BMP and CBC as well as PT/PTT. Luis August MD
[2017-01-28] MEDS: Divalproex 125 mg DR (BID formulation) PO SCH (17:16)
--- NOTE | 2017-01-28 23:14 | CP.PCM.PN ---
Subjective - Date & Time of Evaluation Date of Evaluation: 01/28/17 Time of Evaluation: 08:00 - Subjective Subjective: No Complaint. Objective - Vital Signs/Intake and Output Vital Signs (last 24 hours): Temp Pulse Resp BP Pulse Ox 97.8 F 58 L 20 116/73 94 L 01/28/17 17:00 01/28/17 21:33 01/28/17 17:00 01/28/17 21:33 01/28/17 17:00 - Medications Medications: Current Medications Acetaminophen (Tylenol 325mg Tab) 650 mg PO Q4 PRN PRN Reason: Pain, Mild (1-3) Last Admin: 01/26/17 02:46 Dose: 650 mg Al Hydrox/Mg Hydrox/Simethicone (Maalox Plus 30 Ml) 30 ml PO Q4 PRN PRN Reason: Indigestion / Heartburn Last Admin: 01/22/17 09:36 Dose: 30 ml Apixaban (Eliquis) 2.5 mg PO DAILY [facility] PRN Reason: Protocol Last Admin: 01/28/17 17:15 Dose: 2.5 mg Atorvastatin Calcium (Lipitor) 20 mg PO DAILY [facility] Last Admin: 01/28/17 09:46 Dose: 20 mg Carvedilol (Coreg) 6.25 mg PO Q12 [facility] Last Admin: 01/28/17 21:33 Dose: Not Given Divalproex Sodium (Depakote Dr(*Bid*)) 250 mg PO DAILY [facility] Last Admin: 01/28/17 09:46 Dose: 250 mg Divalproex Sodium (Depakote Dr(*Bid*)) 375 mg PO QPM [facility] Last Admin: 01/28/17 17:16 Dose: 375 mg Donepezil HCl (Aricept) 5 mg PO HS [facility] Last Admin: 01/28/17 21:34 Dose: 5 mg Enalapril Maleate (Vasotec) 2.5 mg PO DAILY [facility] Last Admin: 01/28/17 09:46 Dose: Not Given Furosemide (Lasix) 40 mg IV BID [facility] Last Admin: 01/28/17 17:18 Dose: 40 mg Magnesium Hydroxide (Milk Of Magnesia) 30 ml PO HS PRN PRN Reason: Constipation Last Admin: 01/23/17 01:39 Dose: 30 ml Memantine (Namenda) 5 mg PO DAILY [facility] Last Admin: 01/28/17 09:46 Dose: 5 mg Mirtazapine (Remeron) 15 mg PO HS [facility] Last Admin: 01/28/17 21:33 Dose: 15 mg Nitroglycerin (Nitrostat Sl Tab) 0.4 mg SL Q5M PRN PRN Reason: chest pain Pantoprazole Sodium (Protonix Ec Tab) 40 mg PO Q12 [facility] Last Admin: 01/28/17 21:33 Dose: 40 mg Spironolactone (Aldactone) 12.5 mg PO DAILY [facility] Last Admin: 01/28/17 09:45 Dose: Not Given - Labs Labs: 01/27/17 12:20 01/26/17 06:30 PT 14.0 Seconds (9.8-13.1) H 01/27/17 12:20 INR 1.2 (0.9-1.2) 01/27/17 12:20 APTT 28.2 Seconds (25.6-37.1) 01/27/17 12:20 Assessment and Plan (1) Acute on chronic combined systolic and diastolic CHF (congestive heart failure) Assessment & Plan: Chronic A. fibrillation Elevated Troponine with Possible NSTEMI Vs due to Cardiomyopathy/CHF O2 via [place] ASA Serial trop and EKG Telemonitoring Continue BB/ACEI/Lasix/Spiranolactone Vanessa D/w Chronic Disease Epidemiologist about Elevated Trop, and Possibility Underlying CAD, and will manage conservatively due to Poor General Condition (2) Mood disorder due to known physiological condition with depressive features Assessment and Plan: Depression with PSychotic Behaviour Dementia Continue Remeron/Depakote/Aricept Status: Chronic
[2017-01-29] MEDS: Pantoprazole 40 mg EC Tab PO SCH ×2 (08:22→21:36)
[2017-01-29] MEDS: Divalproex 250 mg DR(BID formulation) PO SCH (08:23)
[2017-01-29] MEDS: Divalproex 125 mg DR (BID formulation) PO SCH (17:16)
--- NOTE | 2017-01-29 19:09 | PN ---
DATE: SUBJECTIVE: The patient denies chest pain. He is comfortable in bed. PHYSICAL EXAMINATION: VITAL SIGNS: Blood pressure 102/60, heart rate 63, temperature 97.1, respirations 20. HEENT: Pale conjunctivae. CHEST: Absent breath sounds over the left base. HEART: S1, S2, regular. ABDOMEN: Soft. EXTREMITIES: No edema. ASSESSMENT: 1. Chronic atrial fibrillation. 2. Dilated cardiomyopathy. 3. Status post biventricular/implantable cardioverter-defibrillator placement. 4. Depression. 5. Thrombocytopenia. RECOMMENDATIONS: Continue Aldactone 12.5 mg once a day, Coreg 6.25 mg twice a day, Eliquis will be given 2.5 mg orally today as a single dose. Continue Vasotec 2.5 mg once a day. Obtain PT, PTT, INR as well as CBC and BMP in a.m. Luis August MD
--- NOTE | 2017-01-29 23:21 | CP.PCM.PN ---
Subjective - Date & Time of Evaluation Date of Evaluation: 01/29/17 Time of Evaluation: 11:55 - Subjective Subjective: No Complaint. Objective - Vital Signs/Intake and Output Vital Signs (last 24 hours): Temp Pulse Resp BP Pulse Ox 97.5 F L 59 L 20 91/59 L 93 L 01/29/17 16:47 01/29/17 21:36 01/29/17 16:47 01/29/17 21:36 01/29/17 16:47 - Medications Medications: Current Medications Acetaminophen (Tylenol 325mg Tab) 650 mg PO Q4 PRN PRN Reason: Pain, Mild (1-3) Last Admin: 01/29/17 12:05 Dose: 650 mg Al Hydrox/Mg Hydrox/Simethicone (Maalox Plus 30 Ml) 30 ml PO Q4 PRN PRN Reason: Indigestion / Heartburn Last Admin: 01/22/17 09:36 Dose: 30 ml Apixaban (Eliquis) 2.5 mg PO DAILY [facility] PRN Reason: Protocol Atorvastatin Calcium (Lipitor) 20 mg PO DAILY [facility] Last Admin: 01/29/17 08:27 Dose: 20 mg Carvedilol (Coreg) 6.25 mg PO Q12 [facility] Last Admin: 01/29/17 21:36 Dose: Not Given Divalproex Sodium (Depakote Dr(*Bid*)) 250 mg PO DAILY [facility] Last Admin: 01/29/17 08:23 Dose: 250 mg Divalproex Sodium (Depakote Dr(*Bid*)) 375 mg PO QPM [facility] Last Admin: 01/29/17 17:16 Dose: 375 mg Donepezil HCl (Aricept) 5 mg PO HS [facility] Last Admin: 01/29/17 21:36 Dose: 5 mg Enalapril Maleate (Vasotec) 2.5 mg PO DAILY [facility] Last Admin: 01/29/17 08:24 Dose: 2.5 mg Furosemide (Lasix) 40 mg IV BID [facility] Last Admin: 01/29/17 17:17 Dose: Not Given Magnesium Hydroxide (Milk Of Magnesia) 30 ml PO HS PRN PRN Reason: Constipation Last Admin: 01/23/17 01:39 Dose: 30 ml Memantine (Namenda) 5 mg PO DAILY [facility] Last Admin: 01/29/17 08:24 Dose: 5 mg Mirtazapine (Remeron) 15 mg PO HS [facility] Last Admin: 01/29/17 21:36 Dose: 15 mg Nitroglycerin (Nitrostat Sl Tab) 0.4 mg SL Q5M PRN PRN Reason: chest pain Pantoprazole Sodium (Protonix Ec Tab) 40 mg PO Q12 [facility] Last Admin: 01/29/17 21:36 Dose: 40 mg Spironolactone (Aldactone) 12.5 mg PO DAILY [facility] Last Admin: 01/29/17 08:18 Dose: 12.5 mg - Labs Labs: 01/27/17 12:20 01/26/17 06:30 PT 14.0 Seconds (9.8-13.1) H 01/27/17 12:20 INR 1.2 (0.9-1.2) 01/27/17 12:20 APTT 28.2 Seconds (25.6-37.1) 01/27/17 12:20 Assessment and Plan (1) Acute on chronic combined systolic and diastolic CHF (congestive heart failure) Assessment & Plan: Chronic A. 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 Assessment and Plan: Depression with Psychotic Behaviour Dementia Continue Remeron /Depakote/Aricept (3) Social Hold due to a need for placement Status: Chronic
[2017-01-30 06:46] LABS: INR 1.2 (0.9-1.2); PROTHROMBIN TIME 13.9 Seconds (9.8-13.1)
[2017-01-30 06:47] LABS: PARTIAL THROMBOPLASTIN TIME 34.1 Seconds (25.6-37.1)
[2017-01-30 06:51] LABS: BLOOD UREA NITROGEN 28 mg/dl (9-20); CALCIUM 8.9 mg/dL (8.4-10.2); GFR AFRICAN-AMERICAN > 60; GFR NON-AFRICAN AMERICAN > 60
[2017-01-30 06:55] LABS: HEMOGLOBIN 11.6 g/dL (12.0-18.0); MEAN CELL VOLUME 84.6 fl (80.0-94.0); MEAN CORPUSCULAR HEMOGLOBIN 26.7 pg (27.0-31.0); MEAN CORPUSCULAR HGB CONC 31.5 g/dL (33.0-37.0); RBC 4.35 Mil/uL (4.40-5.90); RED CELL DISTRIBUTION WIDTH 21.9 % (11.5-14.5); WHITE BLOOD COUNT 4.3 K/uL (4.8-10.8)
[2017-01-30] MEDS: Divalproex 250 mg DR(BID formulation) PO SCH (08:36)
[2017-01-30] MEDS: Pantoprazole 40 mg EC Tab PO SCH ×2 (08:39→21:33)
--- NOTE | 2017-01-30 16:00 | CP.PCM.PCO ---
Assessment/Plan - Assessment/Plan Assessment (Free Text): Pt stable, ambulating with PT, PT recommending home with services. CM made aware , pt has been referred to [facility]. Per CM, Nel, she spoke with pt's daughter who will be picking pt up today. Pt seen and cleared for d/c home with daughter by Dr. Patrick and Dr. August. Discussed with Dr. August, pt to stay on same meds as per med rec. Discussed with Dr. Patrick, pt to take meds as per med rec. All Rx for new medications given. Pt to resume rest of home meds as per med rec. Rx for walker given. RN aware of plan.
[2017-01-30] MEDS: Divalproex 125 mg DR (BID formulation) PO SCH (17:17)
--- NOTE | 2017-01-30 18:16 | PN ---
DATE: SUBJECTIVE: The patient is comfortable. Denies any chest pain or shortness of breath. PHYSICAL EXAMINATION: VITAL SIGNS: Blood pressure 102/57, heart rate 76, temperature 98.1, respirations 20. HEENT: Normocephalic. CHEST: Absent breath sounds over the left base. HEART: S1 and S2, regular. ABDOMEN: Soft. EXTREMITIES: Improved leg edema. LABORATORY DATA: Hemoglobin and hematocrit 11.6 and 36.8, today's platelet count is 104,000. INR is 1.2, PTT is 34.1. Today's SMA-7 is within normal limits except for BUN of 28. ASSESSMENT: 1. Dilated cardiomyopathy. 2. Chronic atrial fibrillation. 3. Status post implantable cardioverter-defibrillator placement. 4. Depression. RECOMMENDATIONS: Continue Aldactone 12.5 mg once a day, Coreg 6.25 mg twice a day, increase Eliquis to 2.5 mg twice a day and change Lasix to 20 mg p.o. twice a day. Case was discussed with SOFTWARE ENGINE[employer]. Luis August MD
--- NOTE | 2017-01-30 23:56 | CP.PCM.PN ---
Subjective - Date & Time of Evaluation Date of Evaluation: 01/30/17 Time of Evaluation: 09:45 - Subjective Subjective: No Comaint. Poor Appetite. Awaiting placement Objective - Vital Signs/Intake and Output Vital Signs (last 24 hours): Temp Pulse Resp BP Pulse Ox 98.1 F 60 20 113/67 96 01/30/17 16:49 01/30/17 21:31 01/30/17 16:49 01/30/17 21:31 01/30/17 16:49 - Medications Medications: Current Medications Acetaminophen (Tylenol 325mg Tab) 650 mg PO Q4 PRN PRN Reason: Pain, Mild (1-3) Last Admin: 01/29/17 12:05 Dose: 650 mg Al Hydrox/Mg Hydrox/Simethicone (Maalox Plus 30 Ml) 30 ml PO Q4 PRN PRN Reason: Indigestion / Heartburn Last Admin: 01/22/17 09:36 Dose: 30 ml Apixaban (Eliquis) 2.5 mg PO BID [facility] PRN Reason: Protocol Last Admin: 01/30/17 18:49 Dose: 2.5 mg Atorvastatin Calcium (Lipitor) 20 mg PO DAILY [facility] Last Admin: 01/30/17 08:35 Dose: 20 mg Carvedilol (Coreg) 6.25 mg PO Q12 [facility] Last Admin: 01/30/17 21:31 Dose: 6.25 mg Divalproex Sodium (Depakote Dr(*Bid*)) 250 mg PO DAILY [facility] Last Admin: 01/30/17 08:36 Dose: 250 mg Divalproex Sodium (Depakote Dr(*Bid*)) 375 mg PO QPM [facility] Last Admin: 01/30/17 17:17 Dose: 375 mg Donepezil HCl (Aricept) 5 mg PO HS [facility] Last Admin: 01/30/17 21:34 Dose: 5 mg Enalapril Maleate (Vasotec) 2.5 mg PO DAILY [facility] Last Admin: 01/30/17 08:40 Dose: 2.5 mg Furosemide (Lasix) 40 mg IV BID [facility] Last Admin: 01/30/17 17:12 Dose: Not Given Magnesium Hydroxide (Milk Of Magnesia) 30 ml PO HS PRN PRN Reason: Constipation Last Admin: 01/23/17 01:39 Dose: 30 ml Memantine (Namenda) 5 mg PO DAILY [facility] Last Admin: 01/30/17 08:36 Dose: 5 mg Mirtazapine (Remeron) 15 mg PO HS [facility] Last Admin: 01/30/17 21:34 Dose: 15 mg Nitroglycerin (Nitrostat Sl Tab) 0.4 mg SL Q5M PRN PRN Reason: chest pain Pantoprazole Sodium (Protonix Ec Tab) 40 mg PO Q12 [facility] Last Admin: 01/30/17 21:33 Dose: 40 mg Spironolactone (Aldactone) 12.5 mg PO DAILY [facility] Last Admin: 01/30/17 08:35 Dose: 12.5 mg - Labs Labs: 01/30/17 05:55 01/30/17 05:55 PT 13.9 Seconds (9.8-13.1) H 01/30/17 05:55 INR 1.2 (0.9-1.2) 01/30/17 05:55 APTT 34.1 Seconds (25.6-37.1) D 01/30/17 05:55 Assessment and Plan (1) Acute on chronic combined systolic and diastolic CHF (congestive heart failure) Assessment & Plan: Chronic A. fibrillation Elevated Troponine with Possible NSTEMI Vs due to Cardiomyopathy/CHF O2 via [place] ASA Serial trop and EKG Telemonitoring Continue BB/ACEI/Lasix/Spiranolactone Vanessa D/w Poolroom Table Attendant about Elevated Trop, and Possibility Underlying CAD, and will manage conservatively due to Poor General Condition Status: Acute (2) Mood disorder due to known physiological condition with depressive features , Dementia nt. Assessment and Plan: Depression with PSychotic Behaviour Dementia Continue Remeron/Depakote/Aricept (3) Social Hold due to a need for placement Status: Chronic
[2017-01-31] MEDS: Pantoprazole 40 mg EC Tab PO SCH ×2 (09:11→21:49)
[2017-01-31] MEDS: Divalproex 250 mg DR(BID formulation) PO SCH (09:19)
[2017-01-31] MEDS: Divalproex 125 mg DR (BID formulation) PO SCH (17:30)
[2017-02-01] MEDS: Pantoprazole 40 mg EC Tab PO SCH ×2 (08:44→21:12)
[2017-02-01] MEDS: Divalproex 250 mg DR(BID formulation) PO SCH (08:45)
--- NOTE | 2017-02-01 16:04 | CP.PCM.PN ---
Subjective - Date & Time of Evaluation Date of Evaluation: 01/31/17 Time of Evaluation: 22:45 - Subjective Subjective: Seen and examined at the bed side. His daughter first agreed to take him home. Then after declined to take him home. Denies any complaint. Objective - Vital Signs/Intake and Output Vital Signs (last 24 hours): Temp Pulse Resp BP Pulse Ox 97 F L 78 20 92/60 L 93 L 02/01/17 15:58 02/01/17 15:58 02/01/17 15:58 02/01/17 15:58 02/01/17 15:58 - Medications Medications: Current Medications Acetaminophen (Tylenol 325mg Tab) 650 mg PO Q4 PRN PRN Reason: Pain, Mild (1-3) Last Admin: 01/29/17 12:05 Dose: 650 mg Al Hydrox/Mg Hydrox/Simethicone (Maalox Plus 30 Ml) 30 ml PO Q4 PRN PRN Reason: Indigestion / Heartburn Last Admin: 01/22/17 09:36 Dose: 30 ml Apixaban (Eliquis) 2.5 mg PO BID [facility] PRN Reason: Protocol Atorvastatin Calcium (Lipitor) 20 mg PO DAILY [facility] Last Admin: 02/01/17 08:45 Dose: 20 mg Carvedilol (Coreg) 6.25 mg PO Q12 [facility] Last Admin: 02/01/17 08:45 Dose: 6.25 mg Divalproex Sodium (Depakote Dr(*Bid*)) 250 mg PO DAILY [facility] Last Admin: 02/01/17 08:45 Dose: 250 mg Divalproex Sodium (Depakote Dr(*Bid*)) 375 mg PO QPM [facility] Last Admin: 01/31/17 17:30 Dose: 375 mg Donepezil HCl (Aricept) 5 mg PO HS [facility] Last Admin: 01/31/17 21:49 Dose: 5 mg Enalapril Maleate (Vasotec) 2.5 mg PO DAILY [facility] Last Admin: 02/01/17 09:39 Dose: 2.5 mg Furosemide (Lasix) 20 mg PO BID [facility] Last Admin: 02/01/17 08:44 Dose: 20 mg Magnesium Hydroxide (Milk Of Magnesia) 30 ml PO HS PRN PRN Reason: Constipation Last Admin: 01/23/17 01:39 Dose: 30 ml Memantine (Namenda) 5 mg PO DAILY [facility] Last Admin: 02/01/17 09:39 Dose: 5 mg Mirtazapine (Remeron) 15 mg PO HS [facility] Last Admin: 01/31/17 21:49 Dose: 15 mg Nitroglycerin (Nitrostat Sl Tab) 0.4 mg SL Q5M PRN PRN Reason: chest pain Pantoprazole Sodium (Protonix Ec Tab) 40 mg PO Q12 [facility] Last Admin: 02/01/17 08:44 Dose: 40 mg Spironolactone (Aldactone) 12.5 mg PO DAILY [facility] Last Admin: 02/01/17 08:45 Dose: 12.5 mg - Labs Labs: 01/30/17 05:55 01/30/17 05:55 PT 13.9 Seconds (9.8-13.1) H 01/30/17 05:55 INR 1.2 (0.9-1.2) 01/30/17 05:55 APTT 34.1 Seconds (25.6-37.1) D 01/30/17 05:55 - Constitutional Appears: Well, No Acute Distress - Head Exam Head Exam: ATRAUMATIC, NORMAL INSPECTION, NORMOCEPHALIC - Eye Exam Eye Exam: EOMI, Normal appearance, PERRL Pupil Exam: NORMAL ACCOMODATION, PERRL - ENT Exam ENT Exam: Mucous Membranes Moist, Normal Exam - Neck Exam Neck Exam: Full ROM, Normal Inspection. absent: Lymphadenopathy - Respiratory Exam Respiratory Exam: Clear to Ausculation Bilateral, NORMAL BREATHING PATTERN - Cardiovascular Exam Cardiovascular Exam: REGULAR RHYTHM, +S1, +S2. absent: Murmur - GI/Abdominal Exam GI & Abdominal Exam: Soft, Normal Bowel Sounds. absent: Tenderness - Extremities Exam Extremities Exam: Normal Capillary Refill, Normal Inspection, Pedal Edema. absent: Joint Swelling - Back Exam Back Exam: NORMAL INSPECTION - Neurological Exam Neurological Exam: Alert, Awake, CN II-XII Intact - Psychiatric Exam Psychiatric exam: Normal Affect, Normal Mood - Skin Skin Exam: Dry, Intact, Normal Color, Warm Assessment and Plan (1) Acute on chronic combined systolic and diastolic CHF (congestive heart failure) Assessment & Plan: Chronic A. fibrillation Elevated Troponine with Possible NSTEMI Vs due to Cardiomyopathy/CHF O2 via [place] ASA Serial trop and EKG Telemonitoring Continue BB/ACEI/Lasix/Spiranolactone Eliquist D/w Yard Coordinator about Elevated Trop, and Possibility Underlying CAD, and will manage conservatively due to Poor General Condition Status: Acute (2) Mood disorder due to known physiological condition with depressive features , Dementia nt. Assessment and Plan: Depression with PSychotic Behaviour Dementia Continue Remeron/Depakote/Aricept (3) Social Hold due to a need for placement Status: Chronic
[2017-02-01] MEDS: Divalproex 125 mg DR (BID formulation) PO SCH (18:04)
--- NOTE | 2017-02-01 18:07 | PN ---
DATE: SUBJECTIVE: The patient denies chest pain. PHYSICAL EXAMINATION VITAL SIGNS: Blood pressure 114/72, heart rate 63, temperature 97.3, respirations 20. HEENT: Normocephalic. CHEST: Absent breath sounds over the left base. HEART: S1 and S2 regular. ABDOMEN: Soft. EXTREMITIES: Improved leg edema. LABORATORY DATA: The most recent SMA-7 two days ago was unremarkable except for BUN of 28. The most recent platelet count two days ago was 104,000. ASSESSMENT: 1. Dilated cardiomyopathy, status post implantable cardioverter-defibrillator placement. 2. Chronic atrial fibrillation. 3. Depression. 4. Thrombocytopenia. RECOMMENDATIONS: Continue Aldactone 12.5 mg once a day; Aricept 5 mg once a day; Coreg 6.25 mg twice a day; Eliquis 2.5 mg, I recommended to be increased to twice a day which I will order it now. Continue Lasix 20 mg p.o. twice a day, Lipitor 20 mg once a day, Vasotec 2.5 mg daily. Initially, it was told that the daughter who is able to accept the patient home; however, apparently, there was a change of plans and the patient will remain on the med-surg floor for now. Luis August MD
--- NOTE | 2017-02-01 22:18 | CP.PCM.PN ---
Subjective - Date & Time of Evaluation Date of Evaluation: 02/01/17 Time of Evaluation: 19:50 - Subjective Subjective: Seen and examined at the bed side.Not eating well. Denies any pain.Continues to lose weight. Dyspnea on exertion only. Objective - Vital Signs/Intake and Output Vital Signs (last 24 hours): Temp Pulse Resp BP Pulse Ox 97 F L 60 20 105/60 93 L 02/01/17 15:58 02/01/17 21:12 02/01/17 15:58 02/01/17 21:12 02/01/17 15:58 - Medications Medications: Current Medications Acetaminophen (Tylenol 325mg Tab) 650 mg PO Q4 PRN PRN Reason: Pain, Mild (1-3) Last Admin: 01/29/17 12:05 Dose: 650 mg Al Hydrox/Mg Hydrox/Simethicone (Maalox Plus 30 Ml) 30 ml PO Q4 PRN PRN Reason: Indigestion / Heartburn Last Admin: 01/22/17 09:36 Dose: 30 ml Apixaban (Eliquis) 2.5 mg PO BID [facility] PRN Reason: Protocol Last Admin: 02/01/17 18:04 Dose: 2.5 mg Atorvastatin Calcium (Lipitor) 20 mg PO DAILY [facility] Last Admin: 02/01/17 08:45 Dose: 20 mg Carvedilol (Coreg) 6.25 mg PO Q12 [facility] Last Admin: 02/01/17 21:12 Dose: 6.25 mg Divalproex Sodium (Depakote Dr(*Bid*)) 250 mg PO DAILY [facility] Last Admin: 02/01/17 08:45 Dose: 250 mg Divalproex Sodium (Depakote Dr(*Bid*)) 375 mg PO QPM [facility] Last Admin: 02/01/17 18:04 Dose: 375 mg Donepezil HCl (Aricept) 5 mg PO HS [facility] Last Admin: 02/01/17 21:12 Dose: 5 mg Enalapril Maleate (Vasotec) 2.5 mg PO DAILY [facility] Last Admin: 02/01/17 09:39 Dose: 2.5 mg Furosemide (Lasix) 20 mg PO BID [facility] Last Admin: 02/01/17 17:33 Dose: Not Given Magnesium Hydroxide (Milk Of Magnesia) 30 ml PO HS PRN PRN Reason: Constipation Last Admin: 01/23/17 01:39 Dose: 30 ml Memantine (Namenda) 5 mg PO DAILY [facility] Last Admin: 02/01/17 09:39 Dose: 5 mg Mirtazapine (Remeron) 15 mg PO HS [facility] Last Admin: 02/01/17 21:12 Dose: 15 mg Nitroglycerin (Nitrostat Sl Tab) 0.4 mg SL Q5M PRN PRN Reason: chest pain Pantoprazole Sodium (Protonix Ec Tab) 40 mg PO Q12 [facility] Last Admin: 02/01/17 21:12 Dose: 40 mg Spironolactone (Aldactone) 12.5 mg PO DAILY [facility] Last Admin: 02/01/17 08:45 Dose: 12.5 mg - Labs Labs: 01/30/17 05:55 01/30/17 05:55 PT 13.9 Seconds (9.8-13.1) H 01/30/17 05:55 INR 1.2 (0.9-1.2) 01/30/17 05:55 APTT 34.1 Seconds (25.6-37.1) D 01/30/17 05:55 Assessment and Plan (1) Acute on chronic combined systolic and diastolic CHF (congestive heart failure) Assessment & Plan: Chronic A. fibrillation Elevated Troponine with Possible NSTEMI Vs due to Cardiomyopathy/CHF O2 via [place] ASA Serial trop and EKG Telemonitoring Continue BB/ACEI/Lasix/Spiranolactone Vanessa D/w [employer] about Elevated Trop, and Possibility Underlying CAD, and will manage conservatively due to Poor General Condition Status: Acute (2) Mood disorder due to known physiological condition with depressive features , Dementia nt. Assessment and Plan: Depression with PSychotic Behaviour Dementia Continue Remeron/Depakote/Aricept (3) Social Hold due to a need for placement Status: Acute
[2017-02-02] MEDS: Pantoprazole 40 mg EC Tab PO SCH ×2 (08:41→21:02)
[2017-02-02] MEDS: Divalproex 250 mg DR(BID formulation) PO SCH (08:41)
--- NOTE | 2017-02-02 14:29 | CP.PCM.PN ---
Objective - Vital Signs/Intake and Output Vital Signs (last 24 hours): Temp Pulse Resp BP Pulse Ox 97.3 F L 60 20 103/66 96 02/02/17 08:42 02/02/17 08:42 02/02/17 08:42 02/02/17 08:42 02/02/17 08:42 - Medications Medications: Current Medications Acetaminophen (Tylenol 325mg Tab) 650 mg PO Q4 PRN PRN Reason: Pain, Mild (1-3) Last Admin: 01/29/17 12:05 Dose: 650 mg Al Hydrox/Mg Hydrox/Simethicone (Maalox Plus 30 Ml) 30 ml PO Q4 PRN PRN Reason: Indigestion / Heartburn Last Admin: 01/22/17 09:36 Dose: 30 ml Apixaban (Eliquis) 2.5 mg PO BID [facility] PRN Reason: Protocol Last Admin: 02/02/17 08:42 Dose: 2.5 mg Carvedilol (Coreg) 6.25 mg PO Q12 [facility] Last Admin: 02/02/17 08:42 Dose: 6.25 mg Divalproex Sodium (Depakote Dr(*Bid*)) 250 mg PO DAILY [facility] Last Admin: 02/02/17 08:41 Dose: 250 mg Divalproex Sodium (Depakote Dr(*Bid*)) 375 mg PO QPM [facility] Last Admin: 02/01/17 18:04 Dose: 375 mg Donepezil HCl (Aricept) 5 mg PO HS [facility] Last Admin: 02/01/17 21:12 Dose: 5 mg Enalapril Maleate (Vasotec) 2.5 mg PO DAILY [facility] Last Admin: 02/02/17 08:42 Dose: 2.5 mg Furosemide (Lasix) 20 mg PO BID [facility] Last Admin: 02/02/17 08:41 Dose: 20 mg Magnesium Hydroxide (Milk Of Magnesia) 30 ml PO HS PRN PRN Reason: Constipation Last Admin: 01/23/17 01:39 Dose: 30 ml Memantine (Namenda) 5 mg PO DAILY [facility] Last Admin: 02/02/17 08:43 Dose: 5 mg Mirtazapine (Remeron) 15 mg PO HS [facility] Last Admin: 02/01/17 21:12 Dose: 15 mg Nitroglycerin (Nitrostat Sl Tab) 0.4 mg SL Q5M PRN PRN Reason: chest pain Pantoprazole Sodium (Protonix Ec Tab) 40 mg PO Q12 [facility] Last Admin: 02/02/17 08:41 Dose: 40 mg Spironolactone (Aldactone) 12.5 mg PO DAILY [facility] Last Admin: 02/02/17 08:42 Dose: 12.5 mg - Labs Labs: 01/30/17 05:55 01/30/17 05:55 PT 13.9 Seconds (9.8-13.1) H 01/30/17 05:55 INR 1.2 (0.9-1.2) 01/30/17 05:55 APTT 34.1 Seconds (25.6-37.1) D 01/30/17 05:55 Assessment and Plan (1) Pleural effusion, right Status: Chronic (2) CHF (congestive heart failure) Status: Chronic (3) Atelectasis of both lungs Status: Acute
[2017-02-02] MEDS: Divalproex 125 mg DR (BID formulation) PO SCH (17:33)
--- NOTE | 2017-02-02 18:11 | PN ---
DATE: SUBJECTIVE: Patient denies any chest pain. No shortness of breath. PHYSICAL EXAMINATION: VITAL SIGNS: Blood pressure 103/66, heart rate 60, temperature 97.3, respirations 20. HEENT: Normocephalic. CHEST: Absent breath sounds over the left base. HEART: S1 and S2, regular. EXTREMITIES: No edema. ASSESSMENT: 1. Dilated cardiomyopathy. 2. Chronic atrial fibrillation. 3. Status post implantable cardioverter-defibrillator placement. 4. Depression. RECOMMENDATIONS: Continue Aldactone 12.5 mg once a day, Coreg 6.25 mg twice a day, Eliquis 2.5 mg twice a day, Lasix 20 mg p.o. twice a day, and Vasotec 2.5 mg once a day. Luis August MD
--- NOTE | 2017-02-03 00:15 | CP.PCM.PN ---
Subjective - Date & Time of Evaluation Date of Evaluation: 02/02/17 Time of Evaluation: 12:00 - Subjective Subjective: Seen and examined at the bed side.Not eating well. Denies any pain.Continues to lose weight. Dyspnea on exertion only. Objective - Vital Signs/Intake and Output Vital Signs (last 24 hours): Temp Pulse Resp BP Pulse Ox 97.7 F 76 20 97/61 L 99 02/02/17 16:14 02/02/17 20:57 02/02/17 16:14 02/02/17 20:57 02/02/17 16:14 - Medications Medications: Current Medications Acetaminophen (Tylenol 325mg Tab) 650 mg PO Q4 PRN PRN Reason: Pain, Mild (1-3) Last Admin: 01/29/17 12:05 Dose: 650 mg Al Hydrox/Mg Hydrox/Simethicone (Maalox Plus 30 Ml) 30 ml PO Q4 PRN PRN Reason: Indigestion / Heartburn Last Admin: 01/22/17 09:36 Dose: 30 ml Apixaban (Eliquis) 2.5 mg PO BID [facility] PRN Reason: Protocol Last Admin: 02/02/17 17:34 Dose: 2.5 mg Carvedilol (Coreg) 6.25 mg PO Q12 [facility] Last Admin: 02/02/17 20:57 Dose: Not Given Divalproex Sodium (Depakote Dr(*Bid*)) 250 mg PO DAILY [facility] Last Admin: 02/02/17 08:41 Dose: 250 mg Donepezil HCl (Aricept) 5 mg PO HS [facility] Last Admin: 02/02/17 21:02 Dose: 5 mg Enalapril Maleate (Vasotec) 2.5 mg PO DAILY [facility] Last Admin: 02/02/17 08:42 Dose: 2.5 mg Furosemide (Lasix) 20 mg PO BID [facility] Last Admin: 02/02/17 17:05 Dose: Not Given Magnesium Hydroxide (Milk Of Magnesia) 30 ml PO HS PRN PRN Reason: Constipation Last Admin: 01/23/17 01:39 Dose: 30 ml Memantine (Namenda) 5 mg PO DAILY [facility] Last Admin: 02/02/17 08:43 Dose: 5 mg Mirtazapine (Remeron) 15 mg PO HS [facility] Last Admin: 02/02/17 21:02 Dose: 15 mg Nitroglycerin (Nitrostat Sl Tab) 0.4 mg SL Q5M PRN PRN Reason: chest pain Pantoprazole Sodium (Protonix Ec Tab) 40 mg PO Q12 [facility] Last Admin: 02/02/17 21:02 Dose: 40 mg Spironolactone (Aldactone) 12.5 mg PO DAILY [facility] Last Admin: 02/02/17 08:42 Dose: 12.5 mg - Labs Labs: 01/30/17 05:55 01/30/17 05:55 PT 13.9 Seconds (9.8-13.1) H 01/30/17 05:55 INR 1.2 (0.9-1.2) 01/30/17 05:55 APTT 34.1 Seconds (25.6-37.1) D 01/30/17 05:55 Assessment and Plan (1) Acute on chronic combined systolic and diastolic CHF (congestive heart failure) Assessment & Plan: Chronic A. fibrillation Elevated Troponine with Possible NSTEMI Vs due to Cardiomyopathy/CHF O2 via [place] ASA Serial trop and EKG Telemonitoring Continue BB/ACEI/Lasix/Spiranolactone Vanessa D/w Geophysical Data Technician about Elevated Trop, and Possibility Underlying CAD, and will manage conservatively due to Poor General Condition Status: Acute (2) Mood disorder due to known physiological condition with depressive features , Dementia nt. Assessment and Plan: Depression with PSychotic Behaviour Dementia Continue Remeron/Depakote/Aricept (3) Social Hold due to a need for placement Status: Acute
[2017-02-03] MEDS: Divalproex 250 mg DR(BID formulation) PO SCH ×2 (08:36→17:12)
[2017-02-03] MEDS: Pantoprazole 40 mg EC Tab PO SCH ×2 (08:36→21:12)
--- NOTE | 2017-02-03 12:09 | PN ---
FOLLOWUP DATE: SUBJECTIVE: The patient denies any chest pain or shortness of breath. PHYSICAL EXAMINATION: VITAL SIGNS: Blood pressure 97/57, heart rate 60, temperature 97.5, respirations 18. HEENT: Normocephalic. CHEST: Absent breath sounds over left base. HEART: S1 and S2 are regular. EXTREMITIES: No edema. ASSESSMENT: 1. Dilated cardiomyopathy. 2. Status post implantable cardioverter-defibrillator placement. 3. Chronic atrial fibrillation. 4. Mild thrombocytopenia. 5. Borderline hypotension. RECOMMENDATIONS: Vasotec 2.5 mg daily, Lasix 20 mg p.o. twice a day, Coreg 6.25 mg twice a day or on hold because of borderline hypotension. I will reduce the future dose of Coreg to 3.125 mg. Continue Eliquis 2.5 mg twice a day. Luis August MD
[2017-02-03] MEDS ORDERED: Divalproex 125 mg DR (BID formulation) PO SCH (17:00)
[2017-02-03] MEDS: Divalproex 125 mg DR (BID formulation) PO SCH (17:11)
--- NOTE | 2017-02-04 00:29 | CP.PCM.PN ---
Subjective - Date & Time of Evaluation Date of Evaluation: 02/03/17 Time of Evaluation: 23:50 - Subjective Subjective: Seen and examined at the bed side.Not eating well. Denies any pain.Continues to lose weight. Dyspnea on exertion only. Objective - Vital Signs/Intake and Output Vital Signs (last 24 hours): Temp Pulse Resp BP Pulse Ox 97 F L 75 20 105/67 95 02/03/17 15:56 02/03/17 17:10 02/03/17 15:56 02/03/17 17:12 02/03/17 17:10 Intake and Output: 02/03/17 02/04/17 18:59 06:59 Intake Total 600 Output Total 1 Balance 599 - Medications Medications: Current Medications Acetaminophen (Tylenol 325mg Tab) 650 mg PO Q4 PRN PRN Reason: Pain, Mild (1-3) Last Admin: 01/29/17 12:05 Dose: 650 mg Al Hydrox/Mg Hydrox/Simethicone (Maalox Plus 30 Ml) 30 ml PO Q4 PRN PRN Reason: Indigestion / Heartburn Last Admin: 01/22/17 09:36 Dose: 30 ml Apixaban (Eliquis) 2.5 mg PO BID [facility] PRN Reason: Protocol Last Admin: 02/03/17 17:12 Dose: 2.5 mg Carvedilol (Coreg) 3.125 mg PO Q12 [facility] Last Admin: 02/03/17 21:12 Dose: Not Given Divalproex Sodium (Depakote Dr(*Bid*)) 250 mg PO BID [facility] Last Admin: 02/03/17 17:12 Dose: 250 mg Divalproex Sodium (Depakote Dr(*Bid*)) 125 mg PO DAILY@1700 [facility] Last Admin: 02/03/17 17:11 Dose: 125 mg Donepezil HCl (Aricept) 5 mg PO HS [facility] Last Admin: 02/03/17 21:12 Dose: Not Given Enalapril Maleate (Vasotec) 2.5 mg PO DAILY [facility] Last Admin: 02/03/17 08:36 Dose: Not Given Furosemide (Lasix) 20 mg PO BID [facility] Last Admin: 02/03/17 17:12 Dose: 20 mg Magnesium Hydroxide (Milk Of Magnesia) 30 ml PO HS PRN PRN Reason: Constipation Last Admin: 01/23/17 01:39 Dose: 30 ml Memantine (Namenda) 5 mg PO DAILY [facility] Last Admin: 02/03/17 08:36 Dose: 5 mg Mirtazapine (Remeron) 15 mg PO HS [facility] Last Admin: 02/03/17 21:12 Dose: Not Given Nitroglycerin (Nitrostat Sl Tab) 0.4 mg SL Q5M PRN PRN Reason: chest pain Pantoprazole Sodium (Protonix Ec Tab) 40 mg PO Q12 [facility] Last Admin: 02/03/17 21:12 Dose: Not Given Spironolactone (Aldactone) 12.5 mg PO DAILY [facility] Last Admin: 02/03/17 08:35 Dose: Not Given - Labs Labs: 01/30/17 05:55 01/30/17 05:55 PT 13.9 Seconds (9.8-13.1) H 01/30/17 05:55 INR 1.2 (0.9-1.2) 01/30/17 05:55 APTT 34.1 Seconds (25.6-37.1) D 01/30/17 05:55 Assessment and Plan (1) Acute on chronic combined systolic and diastolic CHF (congestive heart failure) Assessment & Plan: Chronic A. fibrillation Elevated Troponine with Possible NSTEMI Vs due to Cardiomyopathy/CHF O2 via [place] ASA Serial trop and EKG Telemonitoring Continue BB/ACEI/Lasix/Spiranolactone Vanessa D/w Insurance Claims Processor about Elevated Trop, and Possibility Underlying CAD, and will manage conservatively due to Poor General Condition Status: Acute (2) Mood disorder due to known physiological condition with depressive features , Dementia nt. Assessment and Plan: Depression with PSychotic Behaviour Dementia Continue Remeron/Depakote/Aricept (3) Social Hold due to a need for placement Status: Acute
[2017-02-04] MEDS: Pantoprazole 40 mg EC Tab PO SCH ×3 (00:58→21:03)
[2017-02-04 07:42] LABS: MEAN CELL VOLUME 84.5 fl (80.0-94.0); RBC 4.45 Mil/uL (4.40-5.90); RED CELL DISTRIBUTION WIDTH 21.6 % (11.5-14.5); WHITE BLOOD COUNT 4.2 K/uL (4.8-10.8)
[2017-02-04] MEDS: Divalproex 250 mg DR(BID formulation) PO SCH ×2 (08:50→16:55)
[2017-02-04 09:07] LABS: BLOOD UREA NITROGEN 31 mg/dl (9-20); GFR AFRICAN-AMERICAN > 60; GFR NON-AFRICAN AMERICAN > 60
[2017-02-04] MEDS: Divalproex 125 mg DR (BID formulation) PO SCH (16:55)
--- NOTE | 2017-02-04 20:25 | PN ---
DATE: SUBJECTIVE: The patient denies chest pain. He is comfortable, eating dinner. PHYSICAL EXAMINATION: VITAL SIGNS: Blood pressure 105/68, heart rate 77, temperature 98, and respirations 20. HEENT: Normocephalic. CHEST: Diminished breath sounds over the left base. HEART: S1 and S2, regular. ABDOMEN: Soft. EXTREMITIES: Trace leg edema. LABORATORY DATA: Hemoglobin and hematocrit 12.3 and 37.6, white count 4.2, and platelet count 107,000. SMA-7 is within normal limits, except for carbon dioxide of 38 and BUN of 31. ASSESSMENT: 1. Dilated cardiomyopathy. 2. Chronic atrial fibrillation. 3. Status post implantable cardioverter-defibrillator placement. 4. Mild thrombocytopenia. 5. Depression. RECOMMENDATIONS: Continue Aricept 5 mg once a day, Eliquis 2.5 mg once a day, Lasix 20 mg p.o. twice a day, and Vasotec 2.5 mg once a day. Coreg was withheld today because of blood pressure criteria. Luis August MD
--- NOTE | 2017-02-05 00:14 | CP.PCM.PN ---
Subjective - Date & Time of Evaluation Date of Evaluation: 02/04/17 Time of Evaluation: 17:25 - Subjective Subjective: Seen and examined at the bed side.Not eating well. Denies any pain.Continues to lose weight. Dyspnea on exertion only. Objective - Vital Signs/Intake and Output Vital Signs (last 24 hours): Temp Pulse Resp BP Pulse Ox 98 F 58 L 20 95/60 L 99 02/04/17 16:09 02/04/17 21:02 02/04/17 16:09 02/04/17 21:02 02/04/17 16:09 - Medications Medications: Current Medications Acetaminophen (Tylenol 325mg Tab) 650 mg PO Q4 PRN PRN Reason: Pain, Mild (1-3) Last Admin: 01/29/17 12:05 Dose: 650 mg Al Hydrox/Mg Hydrox/Simethicone (Maalox Plus 30 Ml) 30 ml PO Q4 PRN PRN Reason: Indigestion / Heartburn Last Admin: 01/22/17 09:36 Dose: 30 ml Apixaban (Eliquis) 2.5 mg PO BID [facility] PRN Reason: Protocol Last Admin: 02/04/17 16:55 Dose: 2.5 mg Carvedilol (Coreg) 3.125 mg PO Q12 [facility] Last Admin: 02/04/17 21:02 Dose: Not Given Divalproex Sodium (Depakote Dr(*Bid*)) 250 mg PO BID [facility] Last Admin: 02/04/17 16:55 Dose: 250 mg Divalproex Sodium (Depakote Dr(*Bid*)) 125 mg PO DAILY@1700 [facility] Last Admin: 02/04/17 16:55 Dose: 125 mg Donepezil HCl (Aricept) 5 mg PO HS [facility] Last Admin: 02/04/17 21:02 Dose: 5 mg Enalapril Maleate (Vasotec) 2.5 mg PO DAILY [facility] Last Admin: 02/04/17 08:51 Dose: 2.5 mg Furosemide (Lasix) 20 mg PO BID [facility] Last Admin: 02/04/17 16:56 Dose: 20 mg Magnesium Hydroxide (Milk Of Magnesia) 30 ml PO HS PRN PRN Reason: Constipation Last Admin: 01/23/17 01:39 Dose: 30 ml Memantine (Namenda) 5 mg PO DAILY [facility] Last Admin: 02/04/17 08:50 Dose: 5 mg Mirtazapine (Remeron) 15 mg PO HS [facility] Last Admin: 02/04/17 21:03 Dose: 15 mg Nitroglycerin (Nitrostat Sl Tab) 0.4 mg SL Q5M PRN PRN Reason: chest pain Pantoprazole Sodium (Protonix Ec Tab) 40 mg PO Q12 [facility] Last Admin: 02/04/17 21:03 Dose: 40 mg Spironolactone (Aldactone) 12.5 mg PO DAILY [facility] Last Admin: 02/04/17 08:51 Dose: Not Given - Labs Labs: 02/04/17 05:30 02/04/17 05:30 PT 13.9 Seconds (9.8-13.1) H 01/30/17 05:55 INR 1.2 (0.9-1.2) 01/30/17 05:55 APTT 34.1 Seconds (25.6-37.1) D 01/30/17 05:55 Assessment and Plan (1) Acute on chronic combined systolic and diastolic CHF (congestive heart failure) Assessment & Plan: Chronic A. fibrillation Elevated Troponine with Possible NSTEMI Vs due to Cardiomyopathy/CHF O2 via [place] ASA Serial trop and EKG Telemonitoring Continue BB/ACEI/Lasix/Spiranolactone Vanessa D/w Loan Processing Supervisor about Elevated Trop, and Possibility Underlying CAD, and will manage conservatively due to Poor General Condition Status: Acute (2) Mood disorder due to known physiological condition with depressive features , Dementia nt. Assessment and Plan: Depression with PSychotic Behaviour Dementia Continue Remeron/Depakote/Aricept (3) Social Hold due to a need for placement Status: Chronic Status: Acute
[2017-02-05] MEDS: Divalproex 250 mg DR(BID formulation) PO SCH ×2 (08:55→17:54)
[2017-02-05] MEDS: Pantoprazole 40 mg EC Tab PO SCH ×2 (08:56→22:44)
--- NOTE | 2017-02-05 10:58 | CP.PCM.PN ---
Subjective - Date & Time of Evaluation Date of Evaluation: 02/05/17 Time of Evaluation: 10:00 - Subjective Subjective: Seen and examined at the bed side.Not eating well. Denies any pain.Continues to lose weight. Dyspnea on exertion only. Objective - Vital Signs/Intake and Output Vital Signs (last 24 hours): Temp Pulse Resp BP Pulse Ox 97.8 F 71 18 103/65 97 02/05/17 08:15 02/05/17 08:15 02/05/17 08:15 02/05/17 08:54 02/05/17 08:15 - Medications Medications: Current Medications Acetaminophen (Tylenol 325mg Tab) 650 mg PO Q4 PRN PRN Reason: Pain, Mild (1-3) Last Admin: 01/29/17 12:05 Dose: 650 mg Al Hydrox/Mg Hydrox/Simethicone (Maalox Plus 30 Ml) 30 ml PO Q4 PRN PRN Reason: Indigestion / Heartburn Last Admin: 01/22/17 09:36 Dose: 30 ml Apixaban (Eliquis) 2.5 mg PO BID [facility] PRN Reason: Protocol Last Admin: 02/05/17 08:55 Dose: 2.5 mg Carvedilol (Coreg) 3.125 mg PO Q12 [facility] Last Admin: 02/05/17 08:55 Dose: 3.125 mg Divalproex Sodium (Depakote Dr(*Bid*)) 250 mg PO BID [facility] Last Admin: 02/05/17 08:55 Dose: 250 mg Divalproex Sodium (Depakote Dr(*Bid*)) 125 mg PO DAILY@1700 [facility] Last Admin: 02/04/17 16:55 Dose: 125 mg Donepezil HCl (Aricept) 5 mg PO HS [facility] Last Admin: 02/04/17 21:02 Dose: 5 mg Enalapril Maleate (Vasotec) 2.5 mg PO DAILY [facility] Last Admin: 02/05/17 08:56 Dose: 2.5 mg Furosemide (Lasix) 20 mg PO BID [facility] Last Admin: 02/05/17 08:54 Dose: 20 mg Magnesium Hydroxide (Milk Of Magnesia) 30 ml PO HS PRN PRN Reason: Constipation Last Admin: 01/23/17 01:39 Dose: 30 ml Memantine (Namenda) 5 mg PO DAILY [facility] Last Admin: 02/05/17 08:56 Dose: 5 mg Mirtazapine (Remeron) 15 mg PO HS [facility] Last Admin: 02/04/17 21:03 Dose: 15 mg Nitroglycerin (Nitrostat Sl Tab) 0.4 mg SL Q5M PRN PRN Reason: chest pain Pantoprazole Sodium (Protonix Ec Tab) 40 mg PO Q12 [facility] Last Admin: 02/05/17 08:56 Dose: 40 mg Spironolactone (Aldactone) 12.5 mg PO DAILY [facility] Last Admin: 02/05/17 08:55 Dose: 12.5 mg - Labs Labs: 02/04/17 05:30 02/04/17 05:30 PT 13.9 Seconds (9.8-13.1) H 01/30/17 05:55 INR 1.2 (0.9-1.2) 01/30/17 05:55 APTT 34.1 Seconds (25.6-37.1) D 01/30/17 05:55 Assessment and Plan (1) Acute on chronic combined systolic and diastolic CHF (congestive heart failure) Assessment & Plan: Chronic A. fibrillation Elevated Troponine with Possible NSTEMI Vs due to Cardiomyopathy/CHF O2 via [place] ASA Serial trop and EKG Telemonitoring Continue BB/ACEI/Lasix/Spiranolactone Vanessa D/w Travel Registered Nurse Oncology about Elevated Trop, and Possibility Underlying CAD, and will manage conservatively due to Poor General Condition Status: Acute (2) Mood disorder due to known physiological condition with depressive features , Dementia nt. Assessment and Plan: Depression with PSychotic Behaviour Dementia Continue Remeron/Depakote/Aricept (3) Social Hold due to a need for placement Status: Chronic Status: Acute
[2017-02-05] MEDS: Divalproex 125 mg DR (BID formulation) PO SCH (17:54)
--- NOTE | 2017-02-05 19:48 | PN ---
DATE: SUBJECTIVE: The patient denies any chest pain or shortness of breath. PHYSICAL EXAMINATION: VITAL SIGNS: Blood pressure 103/65, heart rate 71, temperature 97.8, respiration 18. HEENT: Normocephalic. CHEST: Absent breath sounds over left base. HEART: S1 and S2 are regular. EXTREMITIES: 1+ pitting edema. ASSESSMENT: 1. Dilated cardiomyopathy. 2. Chronic atrial fibrillation. 3. Status post implantable cardioverter-defibrillator placement. 4. Depression. 5. Improved hypotension. RECOMMENDATIONS: Continue Eliquis 2.5 mg twice a day, Coreg 3.125 mg once a day, increase Lasix to 40 mg p.o. twice a day, continue Vasotec 2.5 mg once a day. Luis August MD
[2017-02-05] MEDS ORDERED: Sodium Chloride 0.9% 250 ML IV SCH (21:30)
--- NOTE | 2017-02-05 21:54 | PCM.RRT ---
MARKING MACHINE TENDER Nurse Assessment - Situation MARKING MACHINE TENDER Responder Arrival Time: 09:30 Location: 6th floor Room Number: [id number] MARKING MACHINE TENDER Reason for Call: Hypotension MARKING MACHINE TENDER Called By: RN - IV IV Inserted during MARKING MACHINE TENDER?: No - Respiratory Oxygen Delivery Method: Room Air Received Nebulizer Treatments: No Was the Patient Ventilated with Bag/Mask 100% O2?: No Secretions Suctioned?: No Was the Patient Intubated?: No Was the Patient Placed on a Ventilator?: No - Diagnostic Test Ordered EKG: No Chest X-Ray: No CT Scan: No CPR started during MARKING MACHINE TENDER?: No - Time MARKING MACHINE TENDER Ended Time MARKING MACHINE TENDER Ended: 20:00 I.Reason for MARKING MACHINE TENDER - A) Acute Change in Patient: (Select all that apply): Staff member or family is worried about patient, Acute change in SBP below (85) Subjective: MARKING MACHINE TENDER was called for 71 y/o male with PMH of HTN, CAD, CHF, dementia, and mood disorder due to SBP below 85. Upon arrival, patient seemed lethargic, BP: 83/44 , PP 78, O2 sat 99%, RR 22. PE: CTABL, S1, S2, no JVD. By end of the MARKING MACHINE TENDER, patient was started on Bolus 250ml NS and following medications were held, Aldactone, Lasix, Vasotec, and Coreg. Will check patient's cardiovascular and Respiratory status periodically. Last BP checked 105/68, PP 78, O2 sat 99%. Case discussed with Dr. Pollack --- Giuliano Reinoso, PGY-1 - Neurological Status (Select all that apply): Lethargic - Respiratory Oxygen Delivery Method: Room Air - Constitutional Appears: Confused - Head Head Exam: NORMOCEPHALIC - Eyes Eye Exam: Normal appearance - Respiratory Exam Respiratory Exam: Clear to Ausculation Bilateral, NORMAL BREATHING PATTERN - Cardiovascular Exam Cardiovascular Exam: +S1, +S2. absent: JVD - GI/Abdominal Exam GI & Abdominal Exam: Soft - Neurological Exam Neurological Exam: absent: Alert, Awake - Extremities Exam Extremities Exam: absent: Pedal Edema Plan - Assessment of Findings&Treatment Plan MARKING MACHINE TENDER was called for 71 y/o male with PMH of HTN, CAD, CHF, dementia, mood disorder due to Hypotension - BP 84/44, PP 78, O2 Sat 99%, RR 21 on arrival - Hold Aldactone, Lasix, Vesotec and Corag - Bolus NS 250ml - Re-evaluate patient Case discussed with Dr. Pollack
[2017-02-06] MEDS: Divalproex 250 mg DR(BID formulation) PO SCH ×2 (09:25→17:07)
[2017-02-06] MEDS: Pantoprazole 40 mg EC Tab PO SCH ×2 (09:26→22:06)
--- NOTE | 2017-02-06 13:37 | PN ---
DATE: SUBJECTIVE: AIR POLLUTION ENGINEER was called last night because of hypotension. The patient's Coreg and Lasix were held. The patient denies any dizziness and he denies any chest pain at this time. PHYSICAL EXAMINATION: VITAL SIGNS: Blood pressure 97/61, heart rate 67, temperature 97.9. HEENT: Normocephalic. CHEST: Absent breath sounds over left base. HEART: S1and S2, regular. EXTREMITIES: Worsening left leg edema. ASSESSMENT: 1. Hypotension. 2. Dilated cardiomyopathy. 3. Chronic atrial fibrillation. 4. Rule out recurrent deep venous thrombosis. RECOMMENDATIONS: Discontinue Coreg and Lasix for now. Vasotec is also on hold. Transfer the patient to telemetry and obtain venous Doppler of the lower extremities. Obtain 12-lead EKG and chest x-ray. Luis August MD
--- NOTE | 2017-02-06 14:59 | RAD ---
PROCEDURE: CHEST RADIOGRAPH, 1 VIEW HISTORY: CHF COMPARISON: 01/24/2017 FINDINGS: LUNGS: Clear. PLEURA: Small to moderate right pleural effusion. Very small left pleural effusion. No pneumothorax. No significant interval change. CARDIOVASCULAR: AICD. OSSEOUS STRUCTURES: No significant abnormalities. VISUALIZED UPPER ABDOMEN: Normal. OTHER FINDINGS: None. IMPRESSION: Bilateral pleural effusion, right greater than left.
[2017-02-06] MEDS: Divalproex 125 mg DR (BID formulation) PO SCH (17:07)
--- NOTE | 2017-02-06 20:52 | CP.PCM.PN ---
Subjective - Date & Time of Evaluation Date of Evaluation: 02/06/17 Time of Evaluation: 18:05 - Subjective Subjective: A RR was called for 71 y/o male with PMH of HTN, CAD, CHF, dementia, mood disorder due to Hypotension 84/44, PP 78, O2 Sat 99%, RR 21 on arrival. Was bolused Cautiously due to Cardiomyopathy. Revenue Manager recommended transfer to Telemetry. Objective - Vital Signs/Intake and Output Vital Signs (last 24 hours): Temp Pulse Resp BP Pulse Ox 97.9 F 66 20 106/70 97 02/06/17 19:28 02/06/17 19:28 02/06/17 19:28 02/06/17 19:28 02/06/17 19:28 Intake and Output: 02/06/17 02/07/17 18:59 06:59 Intake Total 860 Balance 860 - Medications Medications: Current Medications Acetaminophen (Tylenol 325mg Tab) 650 mg PO Q4 PRN PRN Reason: Pain, Mild (1-3) Last Admin: 01/29/17 12:05 Dose: 650 mg Al Hydrox/Mg Hydrox/Simethicone (Maalox Plus 30 Ml) 30 ml PO Q4 PRN PRN Reason: Indigestion / Heartburn Last Admin: 01/22/17 09:36 Dose: 30 ml Apixaban (Eliquis) 2.5 mg PO BID [facility] PRN Reason: Protocol Last Admin: 02/06/17 17:07 Dose: 2.5 mg Carvedilol (Coreg) 3.125 mg PO Q12 [facility] Last Admin: 02/05/17 22:21 Dose: Not Given Divalproex Sodium (Depakote Dr(*Bid*)) 250 mg PO BID [facility] Last Admin: 02/06/17 17:07 Dose: 250 mg Divalproex Sodium (Depakote Dr(*Bid*)) 125 mg PO DAILY@1700 [facility] Last Admin: 02/06/17 17:07 Dose: 125 mg Donepezil HCl (Aricept) 5 mg PO HS [facility] Last Admin: 02/05/17 22:44 Dose: 5 mg Enalapril Maleate (Vasotec) 2.5 mg PO DAILY [facility] Last Admin: 02/05/17 08:56 Dose: 2.5 mg Furosemide (Lasix) 40 mg PO BID [facility] Last Admin: 02/05/17 17:56 Dose: Not Given Magnesium Hydroxide (Milk Of Magnesia) 30 ml PO HS PRN PRN Reason: Constipation Last Admin: 01/23/17 01:39 Dose: 30 ml Memantine (Namenda) 5 mg PO DAILY [facility] Last Admin: 02/06/17 09:26 Dose: 5 mg Mirtazapine (Remeron) 15 mg PO HS [facility] Last Admin: 02/05/17 22:43 Dose: 15 mg Nitroglycerin (Nitrostat Sl Tab) 0.4 mg SL Q5M PRN PRN Reason: chest pain Pantoprazole Sodium (Protonix Ec Tab) 40 mg PO Q12 [facility] Last Admin: 02/06/17 09:26 Dose: 40 mg Spironolactone (Aldactone) 12.5 mg PO DAILY [facility] Last Admin: 02/05/17 08:55 Dose: 12.5 mg - Labs Labs: 02/04/17 05:30 02/04/17 05:30 PT 13.9 Seconds (9.8-13.1) H 01/30/17 05:55 INR 1.2 (0.9-1.2) 01/30/17 05:55 APTT 34.1 Seconds (25.6-37.1) D 01/30/17 05:55 - Constitutional Appears: Well, No Acute Distress - Head Exam Head Exam: ATRAUMATIC, NORMAL INSPECTION, NORMOCEPHALIC - Eye Exam Eye Exam: EOMI, Normal appearance, PERRL Pupil Exam: NORMAL ACCOMODATION, PERRL - ENT Exam ENT Exam: Mucous Membranes Moist, Normal Exam - Neck Exam Neck Exam: Full ROM, Normal Inspection. absent: Lymphadenopathy - Respiratory Exam Respiratory Exam: Clear to Ausculation Bilateral, NORMAL BREATHING PATTERN - Cardiovascular Exam Cardiovascular Exam: REGULAR RHYTHM, +S1, +S2. absent: Murmur - GI/Abdominal Exam GI & Abdominal Exam: Soft, Normal Bowel Sounds. absent: Tenderness - Extremities Exam Extremities Exam: Normal Capillary Refill, Normal Inspection, Pedal Edema. absent: Joint Swelling - Back Exam Back Exam: NORMAL INSPECTION - Neurological Exam Neurological Exam: Abnormal Gait, Awake, CN II-XII Intact, Motor Sensory Deficit - Psychiatric Exam Psychiatric exam: Flat Affect - Skin Skin Exam: Dry, Intact, Normal Color, Warm Assessment and Plan (1) Acute on chronic combined systolic and diastolic CHF (congestive heart failure) Assessment & Plan: Chest Pain Chronic A.fibrillation Elevated Troponine with Possible NSTEMI Vs due to Cardiomyopathy/CHF O2 via [place] ASA D/C Telemonitoring Continue BB/ACEI/Lasix/Spiranolactone Vanessa Hayden/w Revenue Manager Downgraded the patient back to the floor while waiting for Placement. Status: Acute (2) Mood disorder due to known physiological condition with depressive features , Dementia nt. Assessment and Plan: Depression with Psychotic Behaviour Dementia Continue Remeron /Depakote/Aricept (3) Social Hold Waiting for placement to [facility]/Music Theory Professor Placement Daughter refused to take him home. Status: Acute
--- NOTE | 2017-02-07 06:27 | PQF GENQUE ---
This form is a permanent part of the medical record 02/07/17 Dr. Patrick, Patient with a history of CHF. The insurance coder has documented that the patient is 5'6", weighs 107 pounds and has a BMI of 17.2. She has classified this as Underweight. Would you please clarify if you concur with the BMI above with the classification of Underweight or if there is an associated diagnosis or not to go along with the BMI . Clarification of your documentation is requested to better reflect the severity of illness and intensity of treatment of your patient. Indicators present [] Specify: [] [] Specify: [] [] Specify: [] [] Specify: [] Location in the medical record that reflects the above clinical findings: [] Treatment Provided: [] PHYSICIAN'S RESPONSE Based on your medical judgment of the clinical indicators outlined above please clarify the following: [X] Practitioner response: Yes I Concur. Dx: Underweight [] If unable to determine, please check the box, sign and date. Present On Admission (POA) Indicator: [X] Present at the time of admission [] Not present at the time of admission [] Clinically Undetermined In responding to this query, please exercise your independent professional judgment. The fact that a question is asked does not imply that any particular answer is desired or expected. Thank you for your clarification on this documentation. If you have any questions please call:ext [phone] * Thank you, Liset Camara RN CDMP [facility]
[2017-02-07] MEDS: Pantoprazole 40 mg EC Tab PO SCH ×2 (09:11→21:14)
[2017-02-07] MEDS: Divalproex 250 mg DR(BID formulation) PO SCH ×2 (09:11→16:43)
--- NOTE | 2017-02-07 11:37 | US ---
Bilateral lower extremity ultrasound. Indication: Rule out DVT Technique: Duplex ultrasound evaluation of the bilateral lower extremity Comparison: None available Findings: There is evidence of eccentric thrombus with peripheral calcification at the level of the right common femoral vein. The right femoral and popliteal veins appear patent without thrombus. There is normal flow, compressibility, and augmentation of the left common femoral, femoral, and popliteal veins. The bilateral posterior tibial veins appear patent. Impression: There is evidence of eccentric thrombus with peripheral calcification at the level of the right common femoral vein ; likely chronic.
[2017-02-07] MEDS: Divalproex 125 mg DR (BID formulation) PO SCH (16:42)
--- NOTE | 2017-02-07 20:31 | PN ---
DATE: SUBJECTIVE: No reported hypotension, no reported sustained ventricular arrhythmia. Patient denies any chest pain. PHYSICAL EXAMINATION: VITAL SIGNS: Blood pressure 115/67, heart rate 74, temperature 97.5, respirations 18. HEENT: Normocephalic. CHEST: Absent breath sounds over the left base. HEART: S1 and S2, regular. EXTREMITIES: A 1+ pitting edema. IMAGING: Today's chest x-ray revealed cardiomegaly, moderate right pleural effusion and small left pleural effusion. Venous Doppler of the lower extremities, there is evidence of eccentric thrombus with peripheral calcification at the level of right common femoral vein, likely chronic. ASSESSMENT: 1. Chronic deep venous thrombosis of the right common femoral vein. 2. Dilated cardiomyopathy. 3. Chronic atrial fibrillation. 4. Status post hypotension. 5. Bilateral pleural effusion. RECOMMENDATIONS: Continue Aldactone 12.5 mg once a day, Aricept 5 mg once a day, Eliquis 2.5 mg twice a day. Vasotec, Coreg, and Lasix are still on hold. Discontinue telemetry. Luis August MD
--- NOTE | 2017-02-07 23:45 | CP.PCM.PN ---
Subjective - Date & Time of Evaluation Date of Evaluation: 02/07/17 Time of Evaluation: 13:05 - Subjective Subjective: Denies chest pain. Ambulated about 15 feet with me no SMITH. Objective - Vital Signs/Intake and Output Vital Signs (last 24 hours): Temp Pulse Resp BP Pulse Ox 97.4 F L 65 19 122/73 99 02/07/17 19:38 02/07/17 21:00 02/07/17 19:38 02/07/17 19:38 02/07/17 19:38 Intake and Output: 02/07/17 02/08/17 18:59 06:59 Intake Total 550 Balance 550 - Medications Medications: Current Medications Acetaminophen (Tylenol 325mg Tab) 650 mg PO Q4 PRN PRN Reason: Pain, Mild (1-3) Last Admin: 01/29/17 12:05 Dose: 650 mg Al Hydrox/Mg Hydrox/Simethicone (Maalox Plus 30 Ml) 30 ml PO Q4 PRN PRN Reason: Indigestion / Heartburn Last Admin: 01/22/17 09:36 Dose: 30 ml Apixaban (Eliquis) 2.5 mg PO BID [facility] PRN Reason: Protocol Last Admin: 02/07/17 16:42 Dose: 2.5 mg Carvedilol (Coreg) 3.125 mg PO Q12 [facility] Last Admin: 02/05/17 22:21 Dose: Not Given Divalproex Sodium (Depakote Dr(*Bid*)) 250 mg PO BID [facility] Last Admin: 02/07/17 16:43 Dose: 250 mg Divalproex Sodium (Depakote Dr(*Bid*)) 125 mg PO DAILY@1700 [facility] Last Admin: 02/07/17 16:42 Dose: 125 mg Donepezil HCl (Aricept) 5 mg PO HS [facility] Last Admin: 02/07/17 21:14 Dose: 5 mg Enalapril Maleate (Vasotec) 2.5 mg PO DAILY [facility] Last Admin: 02/05/17 08:56 Dose: 2.5 mg Furosemide (Lasix) 40 mg PO BID [facility] Last Admin: 02/05/17 17:56 Dose: Not Given Magnesium Hydroxide (Milk Of Magnesia) 30 ml PO HS PRN PRN Reason: Constipation Last Admin: 01/23/17 01:39 Dose: 30 ml Memantine (Namenda) 5 mg PO DAILY [facility] Last Admin: 02/07/17 09:11 Dose: 5 mg Mirtazapine (Remeron) 15 mg PO HS [facility] Last Admin: 02/07/17 21:14 Dose: 15 mg Nitroglycerin (Nitrostat Sl Tab) 0.4 mg SL Q5M PRN PRN Reason: chest pain Pantoprazole Sodium (Protonix Ec Tab) 40 mg PO Q12 [facility] Last Admin: 02/07/17 21:14 Dose: 40 mg Spironolactone (Aldactone) 12.5 mg PO DAILY [facility] Last Admin: 02/05/17 08:55 Dose: 12.5 mg - Labs Labs: 02/04/17 05:30 02/04/17 05:30 PT 13.9 Seconds (9.8-13.1) H 01/30/17 05:55 INR 1.2 (0.9-1.2) 01/30/17 05:55 APTT 34.1 Seconds (25.6-37.1) D 01/30/17 05:55 - Constitutional Appears: No Acute Distress, Chronically Ill - Head Exam Head Exam: ATRAUMATIC, NORMAL INSPECTION, NORMOCEPHALIC - Eye Exam Eye Exam: EOMI, Normal appearance, PERRL Pupil Exam: NORMAL ACCOMODATION, PERRL - ENT Exam ENT Exam: Mucous Membranes Moist, Normal Exam - Neck Exam Neck Exam: Full ROM, Normal Inspection. absent: Lymphadenopathy - Respiratory Exam Respiratory Exam: Decreased Breath Sounds (B/L Lower Lung field), NORMAL BREATHING PATTERN - Cardiovascular Exam Cardiovascular Exam: REGULAR RHYTHM, +S1, +S2. absent: Murmur - GI/Abdominal Exam GI & Abdominal Exam: Soft, Normal Bowel Sounds. absent: Tenderness - Extremities Exam Extremities Exam: Full ROM, Normal Capillary Refill, Normal Inspection. absent : Joint Swelling, Pedal Edema - Back Exam Back Exam: Full ROM, NORMAL INSPECTION - Neurological Exam Neurological Exam: Alert, Awake, CN II-XII Intact - Psychiatric Exam Psychiatric exam: Depressed, Flat Affect - Skin Skin Exam: Dry, Intact, Normal Color, Warm Assessment and Plan (1) Acute on chronic combined systolic and diastolic CHF (congestive heart failure) Assessment & Plan: Chest Pain Chronic A.fibrillation Elevated Troponine with Possible NSTEMI Vs due to Cardiomyopathy/CHF O2 via [place] ASA D/C Telemonitoring Continue BB/ACEI/Lasix/Spiranolactone Vanessa D/w Chief Compliance Officer Downgraded the patient back to the floor while waiting for Placement. Status: Acute (2) Mood disorder due to known physiological condition with depressive features , Dementia nt. 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 Status: Chronic Status: Chronic
[2017-02-08] MEDS: Divalproex 250 mg DR(BID formulation) PO SCH ×2 (08:50→16:54)
[2017-02-08] MEDS: Pantoprazole 40 mg EC Tab PO SCH ×2 (08:51→21:38)
[2017-02-08] MEDS: Divalproex 125 mg DR (BID formulation) PO SCH (16:54)
--- NOTE | 2017-02-08 19:02 | PN ---
DATE: SUBJECTIVE: The patient denies any chest pain or shortness of breath. He is awaiting his lunch. He is more communicating today than ever before. PHYSICAL EXAMINATION VITAL SIGNS: Blood pressure 117/55, heart rate 65, temperature 97.9, respirations 18. HEENT: Normocephalic. CHEST: Absent breath sounds over the left base. HEART: S1 and S2 regular. EXTREMITIES: Trace leg edema. ASSESSMENT: 1. Dilated cardiomyopathy. 2. Chronic atrial fibrillation. 3. 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 4. Depression. 5. Left pleural effusion. RECOMMENDATIONS: Continue Aricept 5 mg once a day, Eliquis 2.5 mg once a day, and 2.5 mg once a day. Coreg and Lasix are still on hold. Luis August MD
--- NOTE | 2017-02-09 00:46 | CP.PCM.PN ---
Subjective - Date & Time of Evaluation Date of Evaluation: 02/08/17 Time of Evaluation: 11:00 - Subjective Subjective: Seen and examined at the bed side.Not eating well. Denies any pain.Continues to lose weight. Dyspnea on exertion only. Objective - Vital Signs/Intake and Output Vital Signs (last 24 hours): Temp Pulse Resp BP Pulse Ox 97.6 F 62 18 118/76 97 02/08/17 23:43 02/08/17 23:43 02/08/17 23:43 02/08/17 23:43 02/08/17 23:43 Intake and Output: 02/08/17 02/09/17 18:59 06:59 Intake Total 1200 Balance 1200 - Medications Medications: Current Medications Acetaminophen (Tylenol 325mg Tab) 650 mg PO Q4 PRN PRN Reason: Pain, Mild (1-3) Last Admin: 02/08/17 04:33 Dose: 650 mg Al Hydrox/Mg Hydrox/Simethicone (Maalox Plus 30 Ml) 30 ml PO Q4 PRN PRN Reason: Indigestion / Heartburn Last Admin: 01/22/17 09:36 Dose: 30 ml Carvedilol (Coreg) 3.125 mg PO Q12 [facility] Last Admin: 02/05/17 22:21 Dose: Not Given Divalproex Sodium (Depakote Dr(*Bid*)) 250 mg PO BID [facility] Last Admin: 02/08/17 16:54 Dose: 250 mg Divalproex Sodium (Depakote Dr(*Bid*)) 125 mg PO DAILY@1700 [facility] Last Admin: 02/08/17 16:54 Dose: 125 mg Donepezil HCl (Aricept) 5 mg PO HS [facility] Last Admin: 02/08/17 21:38 Dose: 5 mg Enalapril Maleate (Vasotec) 2.5 mg PO DAILY [facility] Last Admin: 02/05/17 08:56 Dose: 2.5 mg Furosemide (Lasix) 40 mg PO BID [facility] Last Admin: 02/05/17 17:56 Dose: Not Given Magnesium Hydroxide (Milk Of Magnesia) 30 ml PO HS PRN PRN Reason: Constipation Last Admin: 01/23/17 01:39 Dose: 30 ml Memantine (Namenda) 5 mg PO DAILY [facility] Last Admin: 02/08/17 08:51 Dose: 5 mg Mirtazapine (Remeron) 15 mg PO HS [facility] Last Admin: 02/08/17 21:38 Dose: 15 mg Nitroglycerin (Nitrostat Sl Tab) 0.4 mg SL Q5M PRN PRN Reason: chest pain Pantoprazole Sodium (Protonix Ec Tab) 40 mg PO Q12 [facility] Last Admin: 02/08/17 21:38 Dose: 40 mg Spironolactone (Aldactone) 12.5 mg PO DAILY [facility] Last Admin: 02/05/17 08:55 Dose: 12.5 mg - Labs Labs: 02/04/17 05:30 02/04/17 05:30 PT 13.9 Seconds (9.8-13.1) H 01/30/17 05:55 INR 1.2 (0.9-1.2) 01/30/17 05:55 APTT 34.1 Seconds (25.6-37.1) D 01/30/17 05:55 Assessment and Plan (1) Acute on chronic combined systolic and diastolic CHF (congestive heart failure) Assessment & Plan: Chronic A. fibrillation Elevated Troponine with Possible NSTEMI Vs due to Cardiomyopathy/CHF O2 via [place] ASA Serial trop and EKG Telemonitoring Continue BB/ACEI/Lasix/Spiranolactone Vanessa D/w Reinforced Ironworker about Elevated Trop, and Possibility Underlying CAD, and will manage conservatively due to Poor General Condition Status: Acute (2) Mood disorder due to known physiological condition with depressive features , Dementia nt. Assessment and Plan: Depression with PSychotic Behaviour Dementia Continue Remeron/Depakote/Aricept (3) Social Hold due to a need for placement Status: Chronic Status: Acute
[2017-02-09] MEDS: Divalproex 250 mg DR(BID formulation) PO SCH ×2 (09:52→16:39)
[2017-02-09] MEDS: Pantoprazole 40 mg EC Tab PO SCH ×2 (09:53→22:20)
[2017-02-09] MEDS: Divalproex 125 mg DR (BID formulation) PO SCH (16:39)
--- NOTE | 2017-02-09 20:51 | PN ---
DATE: FOLLOWUP SUBJECTIVE: The patient denies chest pain or shortness of breath. PHYSICAL EXAMINATION: VITAL SIGNS: Blood pressure 104/57, heart rate 60, temperature 97.3, respirations 20. HEENT: Normocephalic. CHEST: Absent breath sounds over the bases. HEART: S1 and S2 regular. EXTREMITIES: 1+ pitting edema. ASSESSMENT: 1. Dilated cardiomyopathy. 2. Chronic atrial fibrillation. 3. 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 4. Depression. 5. Nonsustained ventricular tachycardia. 6. Borderline hypotension. RECOMMENDATIONS: 1. Continue Aricept 5 mg at bedtime, Depakote at 250 mg twice a day. 2. Vasotec, Lasix and Coreg are on hold today because of current systolic blood pressure. Luis August MD
--- NOTE | 2017-02-10 00:10 | CP.PCM.PN ---
Subjective - Date & Time of Evaluation Date of Evaluation: 02/09/17 Time of Evaluation: 15:30 - Subjective Subjective: Seen and examined at the bed side.Not eating well. Denies any pain.Continues to lose weight. Dyspnea on exertion only. Objective - Vital Signs/Intake and Output Vital Signs (last 24 hours): Temp Pulse Resp BP Pulse Ox 97.3 F L 60 20 104/57 L 98 02/09/17 16:40 02/09/17 16:40 02/09/17 16:40 02/09/17 16:40 02/09/17 16:40 - Medications Medications: Current Medications Acetaminophen (Tylenol 325mg Tab) 650 mg PO Q4 PRN PRN Reason: Pain, Mild (1-3) Last Admin: 02/08/17 04:33 Dose: 650 mg Al Hydrox/Mg Hydrox/Simethicone (Maalox Plus 30 Ml) 30 ml PO Q4 PRN PRN Reason: Indigestion / Heartburn Last Admin: 01/22/17 09:36 Dose: 30 ml Carvedilol (Coreg) 3.125 mg PO Q12 [facility] Last Admin: 02/05/17 22:21 Dose: Not Given Divalproex Sodium (Depakote Dr(*Bid*)) 250 mg PO BID [facility] Last Admin: 02/09/17 16:39 Dose: 250 mg Divalproex Sodium (Depakote Dr(*Bid*)) 125 mg PO DAILY@1700 [facility] Last Admin: 02/09/17 16:39 Dose: 125 mg Donepezil HCl (Aricept) 5 mg PO HS [facility] Last Admin: 02/09/17 22:20 Dose: 5 mg Enalapril Maleate (Vasotec) 2.5 mg PO DAILY [facility] Last Admin: 02/05/17 08:56 Dose: 2.5 mg Furosemide (Lasix) 40 mg PO BID [facility] Last Admin: 02/05/17 17:56 Dose: Not Given Magnesium Hydroxide (Milk Of Magnesia) 30 ml PO HS PRN PRN Reason: Constipation Last Admin: 01/23/17 01:39 Dose: 30 ml Memantine (Namenda) 5 mg PO DAILY [facility] Last Admin: 02/09/17 09:52 Dose: 5 mg Mirtazapine (Remeron) 15 mg PO HS [facility] Last Admin: 02/09/17 22:20 Dose: 15 mg Nitroglycerin (Nitrostat Sl Tab) 0.4 mg SL Q5M PRN PRN Reason: chest pain Pantoprazole Sodium (Protonix Ec Tab) 40 mg PO Q12 [facility] Last Admin: 02/09/17 22:20 Dose: 40 mg Spironolactone (Aldactone) 12.5 mg PO DAILY [facility] Last Admin: 02/05/17 08:55 Dose: 12.5 mg - Labs Labs: 02/04/17 05:30 02/04/17 05:30 PT 13.9 Seconds (9.8-13.1) H 01/30/17 05:55 INR 1.2 (0.9-1.2) 01/30/17 05:55 APTT 34.1 Seconds (25.6-37.1) D 01/30/17 05:55 Assessment and Plan (1) Acute on chronic combined systolic and diastolic CHF (congestive heart failure) Assessment & Plan: Chronic A. fibrillation Elevated Troponine with Possible NSTEMI Vs due to Cardiomyopathy/CHF O2 via [place] ASA Serial trop and EKG Telemonitoring Continue BB/ACEI/Lasix/Spiranolactone Vanessa D/w Overlock Hemmer about Elevated Trop, and Possibility Underlying CAD, and will manage conservatively due to Poor General Condition Status: Acute (2) Mood disorder due to known physiological condition with depressive features , Dementia nt. Assessment and Plan: Depression with PSychotic Behaviour Dementia Continue Remeron/Depakote/Aricept (3) Social Hold due to a need for placement Status: Chronic Status: Acute
[2017-02-10] MEDS: Pantoprazole 40 mg EC Tab PO SCH ×2 (08:19→21:41)
[2017-02-10] MEDS: Divalproex 250 mg DR(BID formulation) PO SCH ×2 (08:19→17:00)
[2017-02-10] MEDS: Divalproex 125 mg DR (BID formulation) PO SCH (17:00)
[2017-02-10 20:05] LABS: MEAN CELL VOLUME 87.5 fl (80.0-94.0); MEAN CORPUSCULAR HEMOGLOBIN 26.9 pg (27.0-31.0); MEAN CORPUSCULAR HGB CONC 30.8 g/dL (33.0-37.0); RBC 4.08 Mil/uL (4.40-5.90)
--- NOTE | 2017-02-11 00:05 | PN ---
DATE: SUBJECTIVE: The patient denies any chest pain or shortness of breath. He is comfortable and at times verbally communicating. PHYSICAL EXAMINATION: VITAL SIGNS: Blood pressure 110/64, heart rate 68, temperature 97.8, respiration 19. HEENT: Normocephalic. CHEST: Clear. HEART: S1 and S2 regular. EXTREMITIES: 1+ pitting edema. ASSESSMENT: 1. Dilated cardiomyopathy. 2. Chronic atrial fibrillation. 3. 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 4. Depression. 5. Improving hypotension. RECOMMENDATIONS: Continue Aricept 5 mg once a day, Coreg 3.125 mg twice a day, it is still on hold. Continue Remeron, Namenda, milk of magnesia. Lasix and enalapril are also on hold. Resume Eliquis if there is no contraindication. Luis August MD
--- NOTE | 2017-02-11 00:16 | CP.PCM.PN ---
Subjective - Date & Time of Evaluation Date of Evaluation: 02/10/17 Time of Evaluation: 22:45 - Subjective Subjective: Seen and examined at the bed side.Not eating well. Denies any pain.Continues to lose weight. Dyspnea on exertion only. Objective - Vital Signs/Intake and Output Vital Signs (last 24 hours): Temp Pulse Resp BP Pulse Ox 97.7 F 76 20 118/66 97 02/10/17 23:12 02/10/17 23:12 02/10/17 23:12 02/10/17 23:12 02/10/17 23:12 Intake and Output: 02/10/17 02/11/17 18:59 06:59 Intake Total 240 Balance 240 - Medications Medications: Current Medications Acetaminophen (Tylenol 325mg Tab) 650 mg PO Q4 PRN PRN Reason: Pain, Mild (1-3) Last Admin: 02/10/17 09:57 Dose: 650 mg Al Hydrox/Mg Hydrox/Simethicone (Maalox Plus 30 Ml) 30 ml PO Q4 PRN PRN Reason: Indigestion / Heartburn Last Admin: 01/22/17 09:36 Dose: 30 ml Apixaban (Eliquis) 2.5 mg PO BID [facility] PRN Reason: Protocol Last Admin: 02/10/17 21:40 Dose: 2.5 mg Carvedilol (Coreg) 3.125 mg PO Q12 [facility] Last Admin: 02/05/17 22:21 Dose: Not Given Divalproex Sodium (Depakote Dr(*Bid*)) 250 mg PO BID [facility] Last Admin: 02/10/17 17:00 Dose: 250 mg Divalproex Sodium (Depakote Dr(*Bid*)) 125 mg PO DAILY@1700 [facility] Last Admin: 02/10/17 17:00 Dose: 125 mg Donepezil HCl (Aricept) 5 mg PO HS [facility] Last Admin: 02/10/17 21:41 Dose: 5 mg Enalapril Maleate (Vasotec) 2.5 mg PO DAILY [facility] Last Admin: 02/05/17 08:56 Dose: 2.5 mg Furosemide (Lasix) 40 mg PO BID [facility] Last Admin: 02/05/17 17:56 Dose: Not Given Magnesium Hydroxide (Milk Of Magnesia) 30 ml PO HS PRN PRN Reason: Constipation Last Admin: 01/23/17 01:39 Dose: 30 ml Memantine (Namenda) 5 mg PO DAILY [facility] Last Admin: 02/10/17 08:19 Dose: 5 mg Mirtazapine (Remeron) 15 mg PO HS [facility] Last Admin: 02/10/17 21:41 Dose: 15 mg Nitroglycerin (Nitrostat Sl Tab) 0.4 mg SL Q5M PRN PRN Reason: chest pain Pantoprazole Sodium (Protonix Ec Tab) 40 mg PO Q12 [facility] Last Admin: 02/10/17 21:41 Dose: 40 mg Spironolactone (Aldactone) 12.5 mg PO DAILY [facility] Last Admin: 02/05/17 08:55 Dose: 12.5 mg - Labs Labs: 02/10/17 20:01 02/04/17 05:30 PT 13.9 Seconds (9.8-13.1) H 01/30/17 05:55 INR 1.2 (0.9-1.2) 01/30/17 05:55 APTT 34.1 Seconds (25.6-37.1) D 01/30/17 05:55 Assessment and Plan (1) Acute on chronic combined systolic and diastolic CHF (congestive heart failure) Assessment & Plan: Chronic A.fibrillation Elevated Troponine with Possible NSTEMI Vs due to Cardiomyopathy/CHF O2 via [place] ASA Serial trop and EKG Telemonitoring Continue BB/ACEI/Lasix/Spiranolactone Vanessa D/w Evaporator Operator Molasses about Elevated Trop, and Possibility Underlying CAD, and will manage conservatively due to Poor General Condition Status: Acute (2) Mood disorder due to known physiological condition with depressive features , Dementia nt. Assessment and Plan: Depression with Psychotic Behaviour Dementia Continue Remeron/Depakote/Aricept Status: Acute
[2017-02-11] MEDS: Divalproex 250 mg DR(BID formulation) PO SCH ×2 (08:39→16:49)
[2017-02-11] MEDS: Pantoprazole 40 mg EC Tab PO SCH ×3 (08:39→21:20)
[2017-02-11 12:48] LABS: AMYLASE 91 U/L (30-110); LIPASE 138 U/L (23-300)
--- NOTE | 2017-02-11 13:56 | PN ---
DATE: FOLLOWUP SUBJECTIVE: The patient refuses to take his medications and refuses to eat today. When I asked him for the reasons, the patient stated that the pills are not good for his stomach. The patient denies any nausea or vomiting or abdominal pain at this time. PHYSICAL EXAMINATION: VITAL SIGNS: Blood pressure 118/66, heart rate 76, temperature 97.7, respirations 20. HEENT: Normocephalic. CHEST: Absent breath sounds over bases. HEART: S1 and S2 regular. EXTREMITIES: 1+ pitting edema. LABORATORY DATA: Yesterday's hemoglobin and hematocrit 11 and 35.7, white count 5.0, platelet count 100,000. ASSESSMENT: 1. Dilated cardiomyopathy. 2. Depression. 3. Chronic atrial fibrillation. 4. 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 5. Thrombocytopenia. RECOMMENDATIONS: I would obtain serum amylase and lipase level beside a basic chemistry. I will discuss the issue with the primary care physician for psychiatry followup. Luis August MD
[2017-02-11] MEDS: Divalproex 125 mg DR (BID formulation) PO SCH (16:48)
--- NOTE | 2017-02-11 23:58 | CP.PCM.PN ---
Subjective - Date & Time of Evaluation Date of Evaluation: 02/11/17 Time of Evaluation: 15:20 - Subjective Subjective: Seen and examined at the bed side.Not eating well. Denies any pain.Continues to lose weight. Dyspnea on exertion only. Objective - Vital Signs/Intake and Output Vital Signs (last 24 hours): Temp Pulse Resp BP Pulse Ox 97.7 F 76 20 118/66 97 02/10/17 23:12 02/10/17 23:12 02/10/17 23:12 02/10/17 23:12 02/10/17 23:12 - Medications Medications: Current Medications Acetaminophen (Tylenol 325mg Tab) 650 mg PO Q4 PRN PRN Reason: Pain, Mild (1-3) Last Admin: 02/10/17 09:57 Dose: 650 mg Al Hydrox/Mg Hydrox/Simethicone (Maalox Plus 30 Ml) 30 ml PO Q4 PRN PRN Reason: Indigestion / Heartburn Last Admin: 01/22/17 09:36 Dose: 30 ml Apixaban (Eliquis) 2.5 mg PO BID [facility] PRN Reason: Protocol Last Admin: 02/11/17 16:48 Dose: 2.5 mg Carvedilol (Coreg) 3.125 mg PO Q12 [facility] Last Admin: 02/05/17 22:21 Dose: Not Given Divalproex Sodium (Depakote Dr(*Bid*)) 250 mg PO BID [facility] Last Admin: 02/11/17 16:49 Dose: 250 mg Divalproex Sodium (Depakote Dr(*Bid*)) 125 mg PO DAILY@1700 [facility] Last Admin: 02/11/17 16:48 Dose: 125 mg Donepezil HCl (Aricept) 5 mg PO HS [facility] Last Admin: 02/11/17 21:20 Dose: 5 mg Enalapril Maleate (Vasotec) 2.5 mg PO DAILY [facility] Last Admin: 02/05/17 08:56 Dose: 2.5 mg Furosemide (Lasix) 40 mg PO BID [facility] Last Admin: 02/05/17 17:56 Dose: Not Given Magnesium Hydroxide (Milk Of Magnesia) 30 ml PO HS PRN PRN Reason: Constipation Last Admin: 01/23/17 01:39 Dose: 30 ml Memantine (Namenda) 5 mg PO DAILY [facility] Last Admin: 02/11/17 16:49 Dose: 5 mg Mirtazapine (Remeron) 15 mg PO HS [facility] Last Admin: 02/11/17 21:20 Dose: 15 mg Nitroglycerin (Nitrostat Sl Tab) 0.4 mg SL Q5M PRN PRN Reason: chest pain Pantoprazole Sodium (Protonix Ec Tab) 40 mg PO Q12 [facility] Last Admin: 02/11/17 21:20 Dose: 40 mg Spironolactone (Aldactone) 12.5 mg PO DAILY [facility] Last Admin: 02/05/17 08:55 Dose: 12.5 mg - Labs Labs: 02/10/17 20:01 02/04/17 05:30 PT 13.9 Seconds (9.8-13.1) H 01/30/17 05:55 INR 1.2 (0.9-1.2) 01/30/17 05:55 APTT 34.1 Seconds (25.6-37.1) D 01/30/17 05:55 Assessment and Plan (1) Acute on chronic combined systolic and diastolic CHF (congestive heart failure) Assessment & Plan: Chronic A.fibrillation Elevated Troponine with Possible NSTEMI Vs due to Cardiomyopathy/CHF O2 via [place] ASA Serial trop and EKG Telemonitoring Continue BB/ACEI/Lasix/Spiranolactone Vanessa D/w Barrel Inspector Tight about Elevated Trop, and Possibility Underlying CAD, and will manage conservatively due to Poor General Condition Status: Acute (2) Mood disorder due to known physiological condition with depressive features , Dementia nt. Assessment and Plan: Depression with Psychotic Behaviour Dementia Continue Remeron/Depakote/Aricept Status: Acute
[2017-02-12] MEDS: Divalproex 250 mg DR(BID formulation) PO SCH ×2 (08:19→17:47)
[2017-02-12] MEDS: Pantoprazole 40 mg EC Tab PO SCH ×2 (08:20→22:11)
[2017-02-12] MEDS: Alum-Mag Hydrox-Simethicone Susp (30 mL) PO PRN (09:41)
[2017-02-12 09:56] LABS: BASO % 0.4 % (0.0-2.0); HEMOGLOBIN 11.6 g/dL (12.0-18.0); LYMPH # 0.3 K/uL (1.0-4.3); LYMPH % 6.2 % (20.0-40.0); MEAN CELL VOLUME 86.1 fl (80.0-94.0); MEAN CORPUSCULAR HEMOGLOBIN 27.4 pg (27.0-31.0); MEAN CORPUSCULAR HGB CONC 31.8 g/dL (33.0-37.0); MEAN PLATELET VOLUME 10.9 fl (7.2-11.7); MONO # 0.5 K/uL (0.0-0.8); MONO % 12.5 % (0.0-10.0); NEUT # 3.5 K/uL (1.8-7.0); NEUT % 80.9 % (50.0-75.0); NRBC % 0.3 % (0.0-0.0); PLATELET COUNT 111 K/uL (130-400); RBC 4.23 Mil/uL (4.40-5.90); RED CELL DISTRIBUTION WIDTH 21.6 % (11.5-14.5); WHITE BLOOD COUNT 4.4 K/uL (4.8-10.8)
[2017-02-12 10:13] LABS: ALB/GLOB RATIO 1.1 (1.0-2.1); ALT/SGPT 26 U/L (21-72); AST/SGOT 47 U/L (17-59); BLOOD UREA NITROGEN 39 mg/dl (9-20); CALCIUM 9.6 mg/dL (8.4-10.2); GFR AFRICAN-AMERICAN > 60; GFR NON-AFRICAN AMERICAN > 60
[2017-02-12 10:25] LABS: INR 1.8 (0.9-1.2); PROTHROMBIN TIME 20.3 Seconds (9.8-13.1)
[2017-02-12 11:26] LABS: ANISOCYTOSIS MODERATE; BASOPHIL 1 % (0-2); LYMPHOCYTE 7 % (20-50); MONOCYTE 11 % (0-10); NEUTROPHIL 81 % (42-75); PLATELET ESTIMATE SLIGHTLY DECREASED (NORMAL); POIKILOCYTOSIS SLIGHT; TOTAL CELLS COUNTED 100
[2017-02-12 11:27] LABS: HYPOCHROMIC SLIGHT; LARGE PLATELETS PRESENT; OVALOCYTES SLIGHT; TEARDROP CELLS SLIGHT
--- NOTE | 2017-02-12 15:36 | PN ---
DATE: FOLLOWUP SUBJECTIVE: The patient did receive his medications and ate his breakfast today. He did experience abdominal discomfort at lunch time and did not eat his lunch. The patient apparently was found wandering on the second floor yesterday despite all the precautions taken on the sixth floor. The patient denies any chest pain or shortness of breath. PHYSICAL EXAMINATION: VITAL SIGNS: Blood pressure 118/64, heart rate 62, temperature 97.6, respirations 18. HEENT: Normocephalic. CHEST: Absent breath sounds over the bases. HEART: S1 and S2 regular. EXTREMITIES: 1+ pitting edema. LABORATORY DATA: Today's SMA-7: Sodium 140, potassium 5.3, chloride 99, CO2 of 30, glucose 195, BUN 39, creatinine 1.2. Amylase and lipase are within normal limit. ASSESSMENT: 1. Congestive heart failure. 2. Mild hyperkalemia. 3. Chronic atrial fibrillation. 4. 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 5. Mild thrombocytopenia. RECOMMENDATIONS: Hold Aldactone for now because of hyperkalemia. Continue Eliquis 2.5 mg twice a day. Hold Lasix in the meantime. Psychiatry followup will be requested. Luis August MD
[2017-02-12] MEDS: Divalproex 125 mg DR (BID formulation) PO SCH (17:47)
[2017-02-12] MEDS: Magnesium Hydroxide Susp 30 ml UD PO PRN (17:47)
[2017-02-13 06:07] LABS: HEMOGLOBIN 11.6 g/dL (12.0-18.0); MEAN CELL VOLUME 86.6 fl (80.0-94.0); MEAN CORPUSCULAR HGB CONC 31.1 g/dL (33.0-37.0); RBC 4.31 Mil/uL (4.40-5.90); RED CELL DISTRIBUTION WIDTH 21.9 % (11.5-14.5); WHITE BLOOD COUNT 5.2 K/uL (4.8-10.8)
[2017-02-13 06:15] LABS: BLOOD UREA NITROGEN 44 mg/dl (9-20); CALCIUM 9.2 mg/dL (8.4-10.2); GFR AFRICAN-AMERICAN > 60; GFR NON-AFRICAN AMERICAN > 60
[2017-02-13] MEDS: Pantoprazole 40 mg EC Tab PO SCH ×2 (09:09→21:09)
[2017-02-13] MEDS: Divalproex 250 mg DR(BID formulation) PO SCH ×2 (09:10→17:17)
[2017-02-13] MEDS ORDERED: Sod Polystyrene Sulf 15 gm/60 ml Susp PO ONE (11:26)
--- NOTE | 2017-02-13 12:43 | PCM.PYCHPN ---
Psychiatric Progress Note - Psychiatric Progress Note Problems Identified/Issues Discussed: Psychiatry Consult follow-up Patient known to ghost writer from previous admissions. He is a poor historian due to chronic dementia. CC: "I'm okay" HPI: 71 yo male w/ h/o dementia w/ behavioral disturbances and mood disorder unspecified, currently reports that he feels "okay." Patient was lethargic during the interview and kept falling asleep while ghost writer was trying to ask him questions. Patient seems to be at his baseline of functioning. He has chronic poor insight/judgment due to chronic dementia. No current AH/VH/SI/HI. PPHx: Recently hospitalized on 3NS for dementia w/ behavioral disturbance and mood disorder; currently being treated with Depakote 250 mg PO Daily/ 375 mg PO QPM and Remeron 15 mg PO HS PMHx: HTN, CAD, CHF, dementia, mood disorder ALL: NKDA MSE: A + O x self, hospital; Elderly male, poor eye contact, falling asleep. Denies AH/VH/SI/HI, poor insight/ judgment due to chronic dementia. Impression: 71 yr old male with dementia w/ behavioral disturbance and mood disorder; patient is at his baseline of functioning and does not need acute inpatient psychiatric treatment at this time. -Continue Depakote 250 mg PO Daily/ 375 mg PO QPM, Remeron 15 mg PO HS, Namenda 5 mg PO Daily and Aricept 10 mg PO HS -No acute inpatient psychiatric admission indicated
--- NOTE | 2017-02-13 17:48 | PN ---
DATE: SUBJECTIVE: Patient is experiencing abdominal discomfort. He took his Eliquis, but did not receive all of his Kayexalate dose. He ate breakfast, but very small lunch. PHYSICAL EXAMINATION: VITAL SIGNS: Blood pressure 112/84, heart rate 90, temperature 98.4, respirations 20. HEENT: Normocephalic. CHEST: Absent breath sounds over the bases. HEART: S1, S2 regular. ABDOMEN: Soft. EXTREMITIES: A 1+ pitting edema. LABORATORY DATA: Hemoglobin and hematocrit 11.6 and 37.3, platelet count 118,000. SMA-7: Sodium 143, potassium 5.5, chloride 100, CO2 of 32, glucose 119, BUN 44, creatinine 1.1. ASSESSMENT: 1. Congestive heart failure. 2. Hyperkalemia. 3. Mild prerenal azotemia. 4. Chronic atrial fibrillation. 5. Depression. RECOMMENDATIONS: I did review the psychiatry evaluation and impression was dementia with behavioral disturbance and mood disorder. The patient does not need acute inpatient psychiatric treatment at this time. Continue Depakote, Remeron, Namenda, and Aricept. No acute inpatient psychiatry admission is indicated. I recommended to discontinue Aldactone and keep holding Vasotec for now. Also, Lasix is on hold because of prerenal azotemia. I would request abdominal ultrasound. Luis August MD
[2017-02-13] MEDS: Divalproex 125 mg DR (BID formulation) PO SCH (21:10)
--- NOTE | 2017-02-13 23:37 | CP.PCM.PN ---
Subjective - Date & Time of Evaluation Date of Evaluation: 02/13/17 Time of Evaluation: 18:30 - Subjective Subjective: Seen and examined at the bed side. Denies abdominal pain. Still waiting for placement. Objective - Vital Signs/Intake and Output Vital Signs (last 24 hours): Temp Pulse Resp BP Pulse Ox 97.4 F L 60 20 116/75 96 02/13/17 16:41 02/13/17 16:41 02/13/17 16:41 02/13/17 16:41 02/13/17 16:41 - Medications Medications: Current Medications Acetaminophen (Tylenol 325mg Tab) 650 mg PO Q4 PRN PRN Reason: Pain, Mild (1-3) Last Admin: 02/12/17 09:33 Dose: 650 mg Al Hydrox/Mg Hydrox/Simethicone (Maalox Plus 30 Ml) 30 ml PO Q4 PRN PRN Reason: Indigestion / Heartburn Last Admin: 02/12/17 09:41 Dose: 30 ml Apixaban (Eliquis) 2.5 mg PO BID [facility] PRN Reason: Protocol Last Admin: 02/13/17 17:17 Dose: 2.5 mg Carvedilol (Coreg) 3.125 mg PO Q12 [facility] Last Admin: 02/05/17 22:21 Dose: Not Given Divalproex Sodium (Depakote Dr(*Bid*)) 250 mg PO BID [facility] Last Admin: 02/13/17 17:17 Dose: 250 mg Divalproex Sodium (Depakote Dr(*Bid*)) 125 mg PO DAILY@1700 [facility] Last Admin: 02/13/17 21:10 Dose: 125 mg Donepezil HCl (Aricept) 5 mg PO HS [facility] Last Admin: 02/13/17 21:38 Dose: 5 mg Enalapril Maleate (Vasotec) 2.5 mg PO DAILY [facility] Last Admin: 02/05/17 08:56 Dose: 2.5 mg Furosemide (Lasix) 40 mg PO BID [facility] Last Admin: 02/05/17 17:56 Dose: Not Given Magnesium Hydroxide (Milk Of Magnesia) 30 ml PO HS PRN PRN Reason: Constipation Last Admin: 02/12/17 17:47 Dose: 30 ml Memantine (Namenda) 5 mg PO DAILY [facility] Last Admin: 02/13/17 09:10 Dose: 5 mg Mirtazapine (Remeron) 15 mg PO HS [facility] Last Admin: 02/13/17 21:37 Dose: 15 mg Nitroglycerin (Nitrostat Sl Tab) 0.4 mg SL Q5M PRN PRN Reason: chest pain Ondansetron HCl (Zofran Inj) 4 mg IVP Q6 PRN PRN Reason: Nausea/Vomiting Pantoprazole Sodium (Protonix Ec Tab) 40 mg PO Q12 [facility] Last Admin: 02/13/17 21:09 Dose: 40 mg Spironolactone (Aldactone) 12.5 mg PO DAILY [facility] Last Admin: 02/05/17 08:55 Dose: 12.5 mg - Labs Labs: 02/13/17 05:35 02/13/17 05:35 PT 20.3 Seconds (9.8-13.1) H 02/12/17 09:25 INR 1.8 (0.9-1.2) H 02/12/17 09:25 APTT 34.1 Seconds (25.6-37.1) D 01/30/17 05:55 - Constitutional Appears: No Acute Distress, Chronically Ill - Head Exam Head Exam: ATRAUMATIC, NORMAL INSPECTION, NORMOCEPHALIC - Eye Exam Eye Exam: EOMI, Normal appearance, PERRL Pupil Exam: NORMAL ACCOMODATION, PERRL - ENT Exam ENT Exam: Mucous Membranes Moist, Normal Exam - Neck Exam Neck Exam: Full ROM, Normal Inspection. absent: Lymphadenopathy - Respiratory Exam Respiratory Exam: Clear to Ausculation Bilateral, NORMAL BREATHING PATTERN - Cardiovascular Exam Cardiovascular Exam: REGULAR RHYTHM, +S1, +S2. absent: Murmur - GI/Abdominal Exam GI & Abdominal Exam: Soft, Normal Bowel Sounds. absent: Tenderness - Extremities Exam Extremities Exam: Full ROM, Normal Capillary Refill, Normal Inspection, Pedal Edema. absent: Joint Swelling - Back Exam Back Exam: NORMAL INSPECTION - Neurological Exam Neurological Exam: Abnormal Gait, Alert, Awake, CN II-XII Intact, Oriented x3 - Psychiatric Exam Psychiatric exam: Agitated, Flat Affect - Skin Skin Exam: Dry, Intact, Normal Color, Warm Assessment and Plan (1) Acute on chronic combined systolic and diastolic CHF (congestive heart failure) Assessment & Plan: Continue Current Care Status: Chronic (2) Pleural effusion Status: Chronic (3) Dementia Status: Chronic (4) Seizures Status: Chronic (5) CAD (coronary artery disease) Status: Chronic (6) CHF (congestive heart failure) Status: Chronic (7) Depression Status: Chronic (8) Hypothyroidism Status: Chronic (9) Social discord Status: Acute
[2017-02-14 07:58] LABS: BLOOD UREA NITROGEN 40 mg/dl (9-20); CALCIUM 9.3 mg/dL (8.4-10.2); GFR AFRICAN-AMERICAN > 60; GFR NON-AFRICAN AMERICAN > 60
[2017-02-14] MEDS ORDERED: Sod Polystyrene Sulf 15 gm/60 ml Susp PO ONE (08:38)
[2017-02-14] MEDS: Pantoprazole 40 mg EC Tab PO SCH ×2 (08:48→21:35)
[2017-02-14] MEDS: Divalproex 250 mg DR(BID formulation) PO SCH ×2 (08:48→16:10)
--- NOTE | 2017-02-14 13:29 | PN ---
DATE: SUBJECTIVE: The patient denies any abdominal pain. The patient did refuse to undergo abdominal ultrasound today after he arrived to the department. He denies any chest pain at this time. PHYSICAL EXAMINATION: VITAL SIGNS: Blood pressure 121/78, heart rate 62, temperature 97, respirations 20. HEENT: Normocephalic. CHEST: Absent breath sounds over the bases. HEART: S1, S2 regular. EXTREMITIES: 1+ pitting edema. LABORATORY DATA: Today's potassium was 5.3. BUN and creatinine are 40 and 1.0. ASSESSMENT: 1. Congestive heart failure. 2. Chronic atrial fibrillation. 3. 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 4. Abdominal discomfort. 5. Hyperkalemia. RECOMMENDATIONS: Continue Aricept 5 mg once a day, Eliquis 2.5 mg twice a day. Aldactone and Lasix are still on hold as well as Vasotec. I did discuss the case with Dr. Rodriguez and he recommended a Gastroenterology consult. Luis August MD
[2017-02-14] MEDS: Divalproex 125 mg DR (BID formulation) PO SCH (16:09)
[2017-02-14] MEDS: Alum-Mag Hydrox-Simethicone Susp (30 mL) PO PRN (16:24)
--- NOTE | 2017-02-14 23:47 | CP.PCM.PN ---
Subjective - Date & Time of Evaluation Date of Evaluation: 02/14/17 Time of Evaluation: 17:25 - Subjective Subjective: Seen and examined at the bed side.Not eating well. Denies any pain.Continues to lose weight. Dyspnea on exertion only. Objective - Vital Signs/Intake and Output Vital Signs (last 24 hours): Temp Pulse Resp BP Pulse Ox 97.6 F 60 20 121/79 95 02/14/17 16:10 02/14/17 16:10 02/14/17 16:10 02/14/17 16:10 02/14/17 16:10 - Medications Medications: Current Medications Acetaminophen (Tylenol 325mg Tab) 650 mg PO Q4 PRN PRN Reason: Pain, Mild (1-3) Last Admin: 02/12/17 09:33 Dose: 650 mg Al Hydrox/Mg Hydrox/Simethicone (Maalox Plus 30 Ml) 30 ml PO Q4 PRN PRN Reason: Indigestion / Heartburn Last Admin: 02/14/17 16:24 Dose: 30 ml Apixaban (Eliquis) 2.5 mg PO BID [facility] PRN Reason: Protocol Last Admin: 02/14/17 16:09 Dose: 2.5 mg Carvedilol (Coreg) 3.125 mg PO Q12 [facility] Last Admin: 02/05/17 22:21 Dose: Not Given Divalproex Sodium (Depakote Dr(*Bid*)) 250 mg PO BID [facility] Last Admin: 02/14/17 16:10 Dose: 250 mg Divalproex Sodium (Depakote Dr(*Bid*)) 125 mg PO DAILY@1700 [facility] Last Admin: 02/14/17 16:09 Dose: 125 mg Donepezil HCl (Aricept) 5 mg PO HS [facility] Last Admin: 02/14/17 21:35 Dose: 5 mg Enalapril Maleate (Vasotec) 2.5 mg PO DAILY [facility] Last Admin: 02/05/17 08:56 Dose: 2.5 mg Furosemide (Lasix) 40 mg PO BID [facility] Last Admin: 02/05/17 17:56 Dose: Not Given Magnesium Hydroxide (Milk Of Magnesia) 30 ml PO HS PRN PRN Reason: Constipation Last Admin: 02/12/17 17:47 Dose: 30 ml Memantine (Namenda) 5 mg PO DAILY [facility] Last Admin: 02/14/17 08:48 Dose: 5 mg Mirtazapine (Remeron) 15 mg PO HS [facility] Last Admin: 02/14/17 21:35 Dose: 15 mg Nitroglycerin (Nitrostat Sl Tab) 0.4 mg SL Q5M PRN PRN Reason: chest pain Ondansetron HCl (Zofran Inj) 4 mg IVP Q6 PRN PRN Reason: Nausea/Vomiting Pantoprazole Sodium (Protonix Ec Tab) 40 mg PO Q12 [facility] Last Admin: 02/14/17 21:35 Dose: 40 mg Spironolactone (Aldactone) 12.5 mg PO DAILY [facility] Last Admin: 02/05/17 08:55 Dose: 12.5 mg - Labs Labs: 02/13/17 05:35 02/14/17 07:30 PT 20.3 Seconds (9.8-13.1) H 02/12/17 09:25 INR 1.8 (0.9-1.2) H 02/12/17 09:25 APTT 34.1 Seconds (25.6-37.1) D 01/30/17 05:55 Assessment and Plan (1) Acute on chronic combined systolic and diastolic CHF (congestive heart failure) Status: Acute (2) Pleural effusion Status: Chronic (3) Dementia Status: Chronic (4) Seizures Status: Chronic (5) CAD (coronary artery disease) Status: Chronic (6) CHF (congestive heart failure) Status: Chronic (7) Depression Status: Chronic (8) Hypothyroidism Status: Chronic (9) Social discord Status: Acute
[2017-02-15 07:30] LABS: HEMOGLOBIN 11.9 g/dL (12.0-18.0); MEAN CELL VOLUME 86.7 fl (80.0-94.0); MEAN CORPUSCULAR HEMOGLOBIN 26.8 pg (27.0-31.0); RBC 4.42 Mil/uL (4.40-5.90); RED CELL DISTRIBUTION WIDTH 21.5 % (11.5-14.5); WHITE BLOOD COUNT 4.2 K/uL (4.8-10.8)
[2017-02-15 07:53] LABS: BLOOD UREA NITROGEN 47 mg/dl (9-20); CALCIUM 9.4 mg/dL (8.4-10.2); GFR AFRICAN-AMERICAN > 60; GFR NON-AFRICAN AMERICAN > 60
[2017-02-15] MEDS: Pantoprazole 40 mg EC Tab PO SCH ×2 (08:28→21:18)
[2017-02-15] MEDS: Divalproex 250 mg DR(BID formulation) PO SCH ×2 (08:31→16:28)
[2017-02-15] MEDS ORDERED: Sod Polystyrene Sulf 15 gm/60 ml Susp PO ONE (13:10)
[2017-02-15] MEDS: Divalproex 125 mg DR (BID formulation) PO SCH (16:28)
--- NOTE | 2017-02-15 21:12 | PN ---
DATE: SUBJECTIVE: The patient denies any chest pain or shortness of breath. According to the nurse, the patient refused abdominal ultrasound today as the patient went downstairs. No reported vomiting, no reported hypotension. PHYSICAL EXAMINATION: VITAL SIGNS: Blood pressure 117/67, heart rate 60, temperature 97.7, respirations 20. HEENT: Normocephalic. CHEST: Absent breath sounds over the bases. HEART: S1 and S2, regular. EXTREMITIES: 1+ pitting edema. LABORATORY DATA: Hemoglobin and hematocrit 11.9 and 38.3, white count 12.2, platelet count 119,000. SMA-7: Sodium 144, potassium 5.5, chloride 101, CO2 of 23, glucose 97, BUN 47, creatinine 1.0. ASSESSMENT: 1. Dilated cardiomyopathy. 2. Status post implantable cardioverter-defibrillator placement. 3. 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 4. Depression. 5. Bilateral pleural effusion. 6. Hyperkalemia. RECOMMENDATIONS: Continue current p.r.n. IV Zofran, continue Remeron, continue Eliquis at 2.5 mg twice a day. Coreg, Aldactone, and enalapril are on hold. Luis August MD
[2017-02-16] MEDS: Divalproex 250 mg DR(BID formulation) PO SCH ×2 (08:30→16:35)
[2017-02-16] MEDS: Pantoprazole 40 mg EC Tab PO SCH ×2 (08:35→21:22)
[2017-02-16] MEDS: Divalproex 125 mg DR (BID formulation) PO SCH (16:35)
--- NOTE | 2017-02-16 19:01 | PN ---
DATE: SUBJECTIVE: Patient denies any chest pain or abdominal pain and no reported vomiting. PHYSICAL EXAMINATION: VITAL SIGNS: Blood pressure 111/59, heart rate 65, temperature 97.7, respirations 20. HEENT: Normocephalic. CHEST: Absent breath sounds over the bases. HEART: S1, S2, regular. ABDOMEN: Soft. EXTREMITIES: 1+ pitting edema. ASSESSMENT: 1. Dilated cardiomyopathy. 2. Status post implantable cardioverter-defibrillator placement. 3. Mild thrombocytopenia. 4. Hyperkalemia. 5. Depression. RECOMMENDATIONS: Continue current Depakote. Continue Eliquis 2.5 mg twice a day, Namenda at 5 mg p.o. daily, Remeron at 15 mg at bedtime. Vasotec, Aldactone and Lasix are still on hold. We will obtain BNP in a.m. Luis August MD
--- NOTE | 2017-02-17 00:02 | CP.PCM.PN ---
Subjective - Date & Time of Evaluation Date of Evaluation: 02/15/17 Time of Evaluation: 22:10 - Subjective Subjective: Seen and examined at the bed side.Not eating well. Denies any pain.Continues to lose weight. Dyspnea on exertion only. Objective - Vital Signs/Intake and Output Vital Signs (last 24 hours): Temp Pulse Resp BP Pulse Ox 97.3 F L 60 20 109/65 91 L 02/16/17 16:20 02/16/17 16:20 02/16/17 16:20 02/16/17 16:20 02/16/17 16:20 - Medications Medications: Current Medications Acetaminophen (Tylenol 325mg Tab) 650 mg PO Q4 PRN PRN Reason: Pain, Mild (1-3) Last Admin: 02/12/17 09:33 Dose: 650 mg Al Hydrox/Mg Hydrox/Simethicone (Maalox Plus 30 Ml) 30 ml PO Q4 PRN PRN Reason: Indigestion / Heartburn Last Admin: 02/14/17 16:24 Dose: 30 ml Apixaban (Eliquis) 2.5 mg PO BID [facility] PRN Reason: Protocol Last Admin: 02/16/17 16:35 Dose: 2.5 mg Carvedilol (Coreg) 3.125 mg PO Q12 [facility] Last Admin: 02/05/17 22:21 Dose: Not Given Divalproex Sodium (Depakote Dr(*Bid*)) 250 mg PO BID [facility] Last Admin: 02/16/17 16:35 Dose: 250 mg Divalproex Sodium (Depakote Dr(*Bid*)) 125 mg PO DAILY@1700 [facility] Last Admin: 02/16/17 16:35 Dose: 125 mg Donepezil HCl (Aricept) 5 mg PO HS [facility] Last Admin: 02/16/17 21:23 Dose: 5 mg Enalapril Maleate (Vasotec) 2.5 mg PO DAILY [facility] Last Admin: 02/05/17 08:56 Dose: 2.5 mg Furosemide (Lasix) 40 mg PO BID [facility] Last Admin: 02/05/17 17:56 Dose: Not Given Magnesium Hydroxide (Milk Of Magnesia) 30 ml PO HS PRN PRN Reason: Constipation Last Admin: 02/12/17 17:47 Dose: 30 ml Memantine (Namenda) 5 mg PO DAILY [facility] Last Admin: 02/16/17 08:35 Dose: 5 mg Mirtazapine (Remeron) 15 mg PO HS [facility] Last Admin: 02/16/17 21:23 Dose: 15 mg Nitroglycerin (Nitrostat Sl Tab) 0.4 mg SL Q5M PRN PRN Reason: chest pain Ondansetron HCl (Zofran Inj) 4 mg IVP Q6 PRN PRN Reason: Nausea/Vomiting Pantoprazole Sodium (Protonix Ec Tab) 40 mg PO Q12 [facility] Last Admin: 02/16/17 21:22 Dose: 40 mg Spironolactone (Aldactone) 12.5 mg PO DAILY [facility] Last Admin: 02/05/17 08:55 Dose: 12.5 mg - Labs Labs: 02/15/17 07:05 02/15/17 07:05 PT 20.3 Seconds (9.8-13.1) H 02/12/17 09:25 INR 1.8 (0.9-1.2) H 02/12/17 09:25 APTT 34.1 Seconds (25.6-37.1) D 01/30/17 05:55 Assessment and Plan (1) Acute on chronic combined systolic and diastolic CHF (congestive heart failure) Status: Acute (2) Pleural effusion Status: Chronic (3) Dementia Status: Chronic (4) Seizures Status: Chronic (5) CAD (coronary artery disease) Status: Chronic (6) CHF (congestive heart failure) Status: Chronic (7) Depression Status: Chronic (8) Hypothyroidism Status: Chronic (9) Social discord Status: Acute
--- NOTE | 2017-02-17 00:08 | CP.PCM.PN ---
Subjective - Date & Time of Evaluation Date of Evaluation: 02/16/17 Time of Evaluation: 23:55 - Subjective Subjective: Seen and examined at the bed side.Not eating well. Denies any pain.Continues to lose weight. Dyspnea on exertion only. Objective - Vital Signs/Intake and Output Vital Signs (last 24 hours): Temp Pulse Resp BP Pulse Ox 97.3 F L 60 20 109/65 91 L 02/16/17 16:20 02/16/17 16:20 02/16/17 16:20 02/16/17 16:20 02/16/17 16:20 - Medications Medications: Current Medications Acetaminophen (Tylenol 325mg Tab) 650 mg PO Q4 PRN PRN Reason: Pain, Mild (1-3) Last Admin: 02/12/17 09:33 Dose: 650 mg Al Hydrox/Mg Hydrox/Simethicone (Maalox Plus 30 Ml) 30 ml PO Q4 PRN PRN Reason: Indigestion / Heartburn Last Admin: 02/14/17 16:24 Dose: 30 ml Apixaban (Eliquis) 2.5 mg PO BID [facility] PRN Reason: Protocol Last Admin: 02/16/17 16:35 Dose: 2.5 mg Carvedilol (Coreg) 3.125 mg PO Q12 [facility] Last Admin: 02/05/17 22:21 Dose: Not Given Divalproex Sodium (Depakote Dr(*Bid*)) 250 mg PO BID [facility] Last Admin: 02/16/17 16:35 Dose: 250 mg Divalproex Sodium (Depakote Dr(*Bid*)) 125 mg PO DAILY@1700 [facility] Last Admin: 02/16/17 16:35 Dose: 125 mg Donepezil HCl (Aricept) 5 mg PO HS [facility] Last Admin: 02/16/17 21:23 Dose: 5 mg Enalapril Maleate (Vasotec) 2.5 mg PO DAILY [facility] Last Admin: 02/05/17 08:56 Dose: 2.5 mg Furosemide (Lasix) 40 mg PO BID [facility] Last Admin: 02/05/17 17:56 Dose: Not Given Magnesium Hydroxide (Milk Of Magnesia) 30 ml PO HS PRN PRN Reason: Constipation Last Admin: 02/12/17 17:47 Dose: 30 ml Memantine (Namenda) 5 mg PO DAILY [facility] Last Admin: 02/16/17 08:35 Dose: 5 mg Mirtazapine (Remeron) 15 mg PO HS [facility] Last Admin: 02/16/17 21:23 Dose: 15 mg Nitroglycerin (Nitrostat Sl Tab) 0.4 mg SL Q5M PRN PRN Reason: chest pain Ondansetron HCl (Zofran Inj) 4 mg IVP Q6 PRN PRN Reason: Nausea/Vomiting Pantoprazole Sodium (Protonix Ec Tab) 40 mg PO Q12 [facility] Last Admin: 02/16/17 21:22 Dose: 40 mg Spironolactone (Aldactone) 12.5 mg PO DAILY [facility] Last Admin: 02/05/17 08:55 Dose: 12.5 mg - Labs Labs: 02/15/17 07:05 02/15/17 07:05 PT 20.3 Seconds (9.8-13.1) H 02/12/17 09:25 INR 1.8 (0.9-1.2) H 02/12/17 09:25 APTT 34.1 Seconds (25.6-37.1) D 01/30/17 05:55 Assessment and Plan (1) Acute on chronic combined systolic and diastolic CHF (congestive heart failure) Status: Acute (2) Pleural effusion Status: Chronic (3) Dementia Status: Chronic (4) Seizures Status: Chronic (5) CAD (coronary artery disease) Status: Chronic (6) CHF (congestive heart failure) Status: Chronic (7) Depression Status: Chronic (8) Hypothyroidism Status: Chronic (9) Social discord Status: Acute
[2017-02-17 08:59] LABS: BLOOD UREA NITROGEN 51 mg/dl (9-20); CALCIUM 9.4 mg/dL (8.4-10.2); GFR AFRICAN-AMERICAN > 60; GFR NON-AFRICAN AMERICAN 60
[2017-02-17] MEDS: Divalproex 250 mg DR(BID formulation) PO SCH ×2 (09:03→19:50)
[2017-02-17] MEDS: Pantoprazole 40 mg EC Tab PO SCH ×2 (09:04→21:34)
--- NOTE | 2017-02-17 13:24 | PN ---
DATE: FOLLOWUP SUBJECTIVE: The patient denies any chest pain. PHYSICAL EXAMINATION: VITAL SIGNS: Blood pressure 112/72, heart rate 92, temperature 98, respirations 20. HEENT: Normocephalic. CHEST: Absent breath sounds over the bases. HEART: S1 and S2 regular. EXTREMITIES: 1+ pitting edema. LABORATORY DATA: SMA-7: Sodium of 147, potassium 4.9, chloride 101, CO2 of 35, glucose 74, BUN 51, creatinine 1.2. ASSESSMENT: 1. Congestive heart failure. 2. Improved hyperkalemia. 3. Prerenal azotemia. 4. Uncontrolled diabetes mellitus. 5. Chronic atrial fibrillation. RECOMMENDATIONS: Continue Aricept at 5 mg once a day, Depakote 250 mg twice a day, Eliquis 2.5 mg twice a day. Lasix, Aldactone and enalapril should remain on hold. Luis August MD
[2017-02-17] MEDS: Divalproex 125 mg DR (BID formulation) PO SCH (16:57)
--- NOTE | 2017-02-17 23:40 | CP.PCM.PN ---
Subjective - Date & Time of Evaluation Date of Evaluation: 02/17/17 Time of Evaluation: 10:35 - Subjective Subjective: Seen and examined at the bed side.Not eating well. Denies any pain.Continues to lose weight. Dyspnea on exertion only. Objective - Vital Signs/Intake and Output Vital Signs (last 24 hours): Temp Pulse Resp BP Pulse Ox 97.6 F 63 20 106/64 96 02/17/17 16:29 02/17/17 16:29 02/17/17 16:29 02/17/17 16:29 02/17/17 16:29 - Medications Medications: Current Medications Acetaminophen (Tylenol 325mg Tab) 650 mg PO Q4 PRN PRN Reason: Pain, Mild (1-3) Last Admin: 02/12/17 09:33 Dose: 650 mg Al Hydrox/Mg Hydrox/Simethicone (Maalox Plus 30 Ml) 30 ml PO Q4 PRN PRN Reason: Indigestion / Heartburn Last Admin: 02/14/17 16:24 Dose: 30 ml Carvedilol (Coreg) 3.125 mg PO Q12 [facility] Last Admin: 02/05/17 22:21 Dose: Not Given Divalproex Sodium (Depakote Dr(*Bid*)) 250 mg PO BID [facility] Last Admin: 02/17/17 19:50 Dose: 250 mg Divalproex Sodium (Depakote Dr(*Bid*)) 125 mg PO DAILY@1700 [facility] Last Admin: 02/17/17 16:57 Dose: 125 mg Donepezil HCl (Aricept) 5 mg PO HS [facility] Last Admin: 02/17/17 21:34 Dose: 5 mg Enalapril Maleate (Vasotec) 2.5 mg PO DAILY [facility] Last Admin: 02/05/17 08:56 Dose: 2.5 mg Furosemide (Lasix) 40 mg PO BID [facility] Last Admin: 02/05/17 17:56 Dose: Not Given Magnesium Hydroxide (Milk Of Magnesia) 30 ml PO HS PRN PRN Reason: Constipation Last Admin: 02/12/17 17:47 Dose: 30 ml Memantine (Namenda) 5 mg PO DAILY [facility] Last Admin: 02/17/17 09:04 Dose: 5 mg Mirtazapine (Remeron) 15 mg PO HS [facility] Last Admin: 02/17/17 21:34 Dose: 15 mg Nitroglycerin (Nitrostat Sl Tab) 0.4 mg SL Q5M PRN PRN Reason: chest pain Ondansetron HCl (Zofran Inj) 4 mg IVP Q6 PRN PRN Reason: Nausea/Vomiting Pantoprazole Sodium (Protonix Ec Tab) 40 mg PO Q12 [facility] Last Admin: 02/17/17 21:34 Dose: 40 mg Spironolactone (Aldactone) 12.5 mg PO DAILY [facility] Last Admin: 02/05/17 08:55 Dose: 12.5 mg - Labs Labs: 02/15/17 07:05 02/17/17 08:00 PT 20.3 Seconds (9.8-13.1) H 02/12/17 09:25 INR 1.8 (0.9-1.2) H 02/12/17 09:25 APTT 34.1 Seconds (25.6-37.1) D 01/30/17 05:55 Assessment and Plan (1) Acute on chronic combined systolic and diastolic CHF (congestive heart failure) Status: Acute (2) Pleural effusion Status: Chronic (3) Dementia Status: Chronic (4) Seizures Status: Chronic (5) CAD (coronary artery disease) Status: Chronic (6) CHF (congestive heart failure) Status: Chronic (7) Depression Status: Chronic (8) Hypothyroidism Status: Chronic (9) Social discord Status: Acute
[2017-02-18] MEDS: Pantoprazole 40 mg EC Tab PO SCH ×2 (08:28→21:09)
[2017-02-18] MEDS: Divalproex 250 mg DR(BID formulation) PO SCH ×2 (08:28→16:38)
[2017-02-18] MEDS: Divalproex 125 mg DR (BID formulation) PO SCH (16:38)
--- NOTE | 2017-02-18 21:49 | PN ---
DATE: SUBJECTIVE: The patient denies any chest pain or shortness of breath. No abdominal pain. PHYSICAL EXAMINATION: VITAL SIGNS: Blood pressure 111/62, heart rate 71, temperature 98, respirations 20. HEENT: Normocephalic. CHEST: Absent breath sounds over the bases. HEART: S1 and S2 regular. EXTREMITIES: 2+ pitting edema. ASSESSMENT: 1. Dilated cardiomyopathy. 2. Chronic atrial fibrillation. 3. Bilateral pleural effusion. 4. Depression. 5. Prerenal azotemia. 6. Borderline hypotension. RECOMMENDATIONS: Continue Eliquis 2.5 mg twice a day, which was renewed today. I will start Lasix 20 mg p.o. daily. Discontinue Aldactone. Enalapril will be kept on hold. Luis August MD
--- NOTE | 2017-02-19 01:00 | CP.PCM.PN ---
Subjective - Date & Time of Evaluation Date of Evaluation: 02/18/17 Time of Evaluation: 17:40 - Subjective Subjective: Seen and examined at the bed side.Not eating well. Denies any pain.Continues to lose weight. Dyspnea on exertion only. Objective - Vital Signs/Intake and Output Vital Signs (last 24 hours): Temp Pulse Resp BP Pulse Ox 97.4 F L 60 19 107/62 95 02/19/17 00:19 02/19/17 00:19 02/19/17 00:19 02/19/17 00:19 02/19/17 00:19 - Medications Medications: Current Medications Acetaminophen (Tylenol 325mg Tab) 650 mg PO Q4 PRN PRN Reason: Pain, Mild (1-3) Last Admin: 02/12/17 09:33 Dose: 650 mg Al Hydrox/Mg Hydrox/Simethicone (Maalox Plus 30 Ml) 30 ml PO Q4 PRN PRN Reason: Indigestion / Heartburn Last Admin: 02/14/17 16:24 Dose: 30 ml Apixaban (Eliquis) 2.5 mg PO BID [facility] PRN Reason: Protocol Last Admin: 02/18/17 16:38 Dose: 2.5 mg Carvedilol (Coreg) 3.125 mg PO Q12 [facility] Last Admin: 02/05/17 22:21 Dose: Not Given Divalproex Sodium (Depakote Dr(*Bid*)) 250 mg PO BID [facility] Last Admin: 02/18/17 16:38 Dose: 250 mg Divalproex Sodium (Depakote Dr(*Bid*)) 125 mg PO DAILY@1700 [facility] Last Admin: 02/18/17 16:38 Dose: 125 mg Donepezil HCl (Aricept) 5 mg PO HS [facility] Last Admin: 02/18/17 21:10 Dose: 5 mg Enalapril Maleate (Vasotec) 2.5 mg PO DAILY [facility] Last Admin: 02/05/17 08:56 Dose: 2.5 mg Furosemide (Lasix) 20 mg PO DAILY [facility] Magnesium Hydroxide (Milk Of Magnesia) 30 ml PO HS PRN PRN Reason: Constipation Last Admin: 02/12/17 17:47 Dose: 30 ml Memantine (Namenda) 5 mg PO DAILY [facility] Last Admin: 02/18/17 08:28 Dose: 5 mg Mirtazapine (Remeron) 15 mg PO HS [facility] Last Admin: 02/18/17 21:10 Dose: 15 mg Nitroglycerin (Nitrostat Sl Tab) 0.4 mg SL Q5M PRN PRN Reason: chest pain Ondansetron HCl (Zofran Inj) 4 mg IVP Q6 PRN PRN Reason: Nausea/Vomiting Pantoprazole Sodium (Protonix Ec Tab) 40 mg PO Q12 [facility] Last Admin: 02/18/17 21:09 Dose: 40 mg - Labs Labs: 02/15/17 07:05 02/17/17 08:00 PT 20.3 Seconds (9.8-13.1) H 02/12/17 09:25 INR 1.8 (0.9-1.2) H 02/12/17 09:25 APTT 34.1 Seconds (25.6-37.1) D 01/30/17 05:55 Assessment and Plan (1) Acute on chronic combined systolic and diastolic CHF (congestive heart failure) Status: Acute (2) Pleural effusion Status: Chronic (3) Dementia Status: Chronic (4) Seizures Status: Chronic (5) CAD (coronary artery disease) Status: Chronic (6) CHF (congestive heart failure) Status: Chronic (7) Depression Status: Chronic (8) Hypothyroidism Status: Chronic (9) Social discord Status: Acute
[2017-02-19] MEDS: Divalproex 250 mg DR(BID formulation) PO SCH ×2 (08:59→16:15)
[2017-02-19] MEDS: Pantoprazole 40 mg EC Tab PO SCH ×2 (08:59→21:22)
--- NOTE | 2017-02-19 14:16 | CP.PCM.PN ---
Subjective - Date & Time of Evaluation Date of Evaluation: 02/19/17 Time of Evaluation: 13:50 - Subjective Subjective: Seen and Examined at the bed side. Patient Drowsy but arousable and saturating 88-89% in RA. RR was called earlier for similar Symptom, and CXR done during [facility] shows B/L Effusions and some congestion. Otherwise All he rest of vital signs are normal. Stat Labs, EKG and ABG requested , and initiated transfer to telemetry. Denies fever or chills. Denies abdominal pain. Has been refusing U/S abdomen, and Gi Consulted when he was complaining of abdominal pain. Poor po intake. Objective - Vital Signs/Intake and Output Vital Signs (last 24 hours): Temp Pulse Resp BP Pulse Ox 97.3 F L 60 18 121/80 93 L 02/19/17 08:34 02/19/17 08:34 02/19/17 08:34 02/19/17 08:59 02/19/17 08:34 - Medications Medications: Current Medications Acetaminophen (Tylenol 325mg Tab) 650 mg PO Q4 PRN PRN Reason: Pain, Mild (1-3) Last Admin: 02/12/17 09:33 Dose: 650 mg Al Hydrox/Mg Hydrox/Simethicone (Maalox Plus 30 Ml) 30 ml PO Q4 PRN PRN Reason: Indigestion / Heartburn Last Admin: 02/14/17 16:24 Dose: 30 ml Apixaban (Eliquis) 2.5 mg PO BID [facility] PRN Reason: Protocol Last Admin: 02/19/17 08:59 Dose: 2.5 mg Carvedilol (Coreg) 3.125 mg PO Q12 [facility] Last Admin: 02/05/17 22:21 Dose: Not Given Divalproex Sodium (Depakote Dr(*Bid*)) 250 mg PO BID [facility] Last Admin: 02/19/17 08:59 Dose: 250 mg Divalproex Sodium (Depakote Dr(*Bid*)) 125 mg PO DAILY@1700 [facility] Last Admin: 02/18/17 16:38 Dose: 125 mg Donepezil HCl (Aricept) 5 mg PO HS [facility] Last Admin: 02/18/17 21:10 Dose: 5 mg Enalapril Maleate (Vasotec) 2.5 mg PO DAILY [facility] Last Admin: 02/05/17 08:56 Dose: 2.5 mg Furosemide (Lasix) 20 mg PO DAILY [facility] Last Admin: 02/19/17 08:59 Dose: 20 mg Magnesium Hydroxide (Milk Of Magnesia) 30 ml PO HS PRN PRN Reason: Constipation Last Admin: 02/12/17 17:47 Dose: 30 ml Memantine (Namenda) 5 mg PO DAILY [facility] Last Admin: 02/19/17 08:59 Dose: 5 mg Mirtazapine (Remeron) 15 mg PO HS [facility] Last Admin: 02/18/17 21:10 Dose: 15 mg Nitroglycerin (Nitrostat Sl Tab) 0.4 mg SL Q5M PRN PRN Reason: chest pain Ondansetron HCl (Zofran Inj) 4 mg IVP Q6 PRN PRN Reason: Nausea/Vomiting Pantoprazole Sodium (Protonix Ec Tab) 40 mg PO Q12 [facility] Last Admin: 02/19/17 08:59 Dose: 40 mg - Labs Labs: 02/15/17 07:05 02/17/17 08:00 PT 20.3 Seconds (9.8-13.1) H 02/12/17 09:25 INR 1.8 (0.9-1.2) H 02/12/17 09:25 APTT 34.1 Seconds (25.6-37.1) D 01/30/17 05:55 Assessment and Plan (1) Acute on chronic combined systolic and diastolic CHF (congestive heart failure) Status: Chronic (2) Pleural effusion Status: Chronic (3) Dementia Status: Chronic (4) Seizures Status: Chronic (5) CAD (coronary artery disease) Status: Chronic (6) CHF (congestive heart failure) Status: Chronic (7) Depression Status: Chronic (8) Hypothyroidism Status: Chronic (9) Social discord Status: Acute
--- NOTE | 2017-02-19 14:24 | PN ---
DATE: FOLLOWUP SUBJECTIVE: The patient denies any chest pain. He refuses to eat. However, he ate a little food with some assistance from me. PHYSICAL EXAMINATION: VITAL SIGNS: Blood pressure 121/80, heart rate 60, temperature 97.3, respirations 18. HEENT: Normocephalic. CHEST: Absent breath sounds over the bases. HEART: S1 and S2 regular. EXTREMITIES: 1+ pitting edema. ASSESSMENT: 1. Depression and poor appetite. 2. History of abdominal pain. 3. Dilated cardiomyopathy. 4. Chronic atrial fibrillation. 5. Chronic deep venous thrombosis of the right common femoral vein. RECOMMENDATIONS: Case was discussed with Dr. Rodriguez. GI consult will be requested. I recommended to attempt a bedside abdominal ultrasound as the patient changed his mind when he goes to the ultrasound department. Continue Eliquis 2.5 mg twice a day, Lasix 20 mg p.o. once a day. Vasotec is on hold. Luis August MD
[2017-02-19] MEDS: Divalproex 125 mg DR (BID formulation) PO SCH (16:14)
[2017-02-20] MEDS: Pantoprazole 40 mg EC Tab PO SCH ×2 (09:25→21:21)
[2017-02-20] MEDS: Divalproex 250 mg DR(BID formulation) PO SCH ×2 (09:25→16:53)
--- NOTE | 2017-02-20 13:15 | PN ---
DATE: FOLLOWUP SUBJECTIVE: The patient appears weak. He denies any chest pain. PHYSICAL EXAMINATION: VITAL SIGNS: Blood pressure 100/60, heart rate 60, temperature 97.4, respirations 16. HEENT: Normocephalic. CHEST: Absent breath sounds at the bases. HEART: S1 and S2 regular. EXTREMITIES: 1+ pitting edema. LABORATORY DATA: Abdominal ultrasound was performed; however, the report is still pending. ASSESSMENT: 1. Dilated cardiomyopathy. 2. Chronic atrial fibrillation. 3. Status post implantable cardioverter-defibrillator placement. 4. 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 5. Abdominal pain. 6. Rule out underlying sepsis. 7. Hypotension. RECOMMENDATIONS: Hold current Coreg. Hold Lasix. I will follow abdominal ultrasound. The patient is awaiting GI consultation. I will obtain 2 sets of blood cultures as well as urine culture. Luis August MD
--- NOTE | 2017-02-20 15:25 | RAD ---
HISTORY: nausea COMPARISON: Abdomen KUB 01/23/2017. FINDINGS: BOWEL: Restrained motion distorts the examination at this time, particularly at the upper abdomen. A nonobstructive bowel gas pattern is appreciate with gas seen filling large small bowel loops in a variable fashion as well as the stomach somewhat. BONES: Multilevel facet joint degenerative changes are reiterated space with a dextroscoliotic lumbar spinal deformity again appreciated. Bilateral sacroiliac and hip joint degenerative changes are present with the pubic symphysis grossly intact. Phleboliths are again seen the inferior pelvis soft tissues bilaterally. OTHER FINDINGS: An inferior vena cava filter is again identified placed. No gross free intraperitoneal gas is appreciated. IMPRESSION: Nonobstructive bowel gas pattern. IVC filter again evident.
--- NOTE | 2017-02-20 16:39 | RAD ---
HISTORY: Hypoxia COMPARISON: Comparison chest 02/06/2017. FINDINGS: LUNGS: Bibasilar effusions and bibasilar atelectasis and/or infiltrates. Underlying mild pulmonary vascular congestive changes felt to be present. PLEURA: No significant pleural effusion identified, no pneumothorax apparent. CARDIOVASCULAR: Heart appears enlarged. No change bipolar pacemaker/ defibrillator. OSSEOUS STRUCTURES: No significant abnormalities. VISUALIZED UPPER ABDOMEN: Normal. OTHER FINDINGS: None. IMPRESSION: Bilateral effusions and bibasilar atelectasis and/or infiltrates. . Underlying mild pulmonary vascular congestive changes felt be present.
[2017-02-20] MEDS: Divalproex 125 mg DR (BID formulation) PO SCH (16:53)
--- NOTE | 2017-02-20 16:56 | PCM.RRT ---
COATING TECHNICIAN Nurse Assessment - Situation COATING TECHNICIAN Responder Arrival Time: 16:25 Location: 6th floor Room Number: 667 COATING TECHNICIAN Reason for Call: O2 Saturation below 90% COATING TECHNICIAN Called By: RN - IV IV Inserted during COATING TECHNICIAN?: No - Respiratory Oxygen Delivery Method: Nasal Cannula Received Nebulizer Treatments: No Was the Patient Ventilated with Bag/Mask 100% O2?: No Secretions Suctioned?: No Was the Patient Intubated?: No Was the Patient Placed on a Ventilator?: No - Medication Medications Administered During COATING TECHNICIAN: nitro sublinqual - Diagnostic Test Ordered EKG: No Chest X-Ray: Yes CT Scan: No CPR started during COATING TECHNICIAN?: No - Vital Signs Vital Signs: Rapid Response Vital Sign Blood Pressure 88/54 Pulse Rate 60 Respiratory Rate 12 Oxygen Saturation 100 - Time COATING TECHNICIAN Ended Time COATING TECHNICIAN Ended: 20:00 - Vital Signs at end of COATING TECHNICIAN Vital Signs at end of COATING TECHNICIAN: Rapid Response End Vital Sign Blood Pressure 94/51 Pulse Rate 60 Respiratory Rate 12 O2 Sat by Pulse Oximetry 99 - Recommendations COATING TECHNICIAN Level of Care Recommendations: Discharge to Emergency Room I.Reason for COATING TECHNICIAN - A) Acute Change in Patient: (Select all that apply): Acute change in SpO2 less - Neurological Status (Select all that apply): Alert, Responsive, Oriented, Verbal, Follows Commands - Respiratory Oxygen Delivery Method: Nasal Cannula @L/min Oxygen Flow Rate: 3 - Constitutional Appears: Non-toxic, No Acute Distress, Chronically Ill - Head Head Exam: NORMAL INSPECTION, NORMOCEPHALIC - Eyes Eye Exam: EOMI, Normal appearance, PERRL - Respiratory Exam Respiratory Exam: Rales (basilar rales), NORMAL BREATHING PATTERN. absent: Wheezes, Respiratory Distress - Cardiovascular Exam Cardiovascular Exam: REGULAR RHYTHM, +S1, +S2 - GI/Abdominal Exam GI & Abdominal Exam: Soft, Normal Bowel Sounds. absent: Tenderness - Neurological Exam Neurological Exam: Alert, Awake Additional exam: oriented to person - Extremities Exam Extremities Exam: absent: Calf Tenderness Plan - Assessment of Findings&Treatment Plan COATING TECHNICIAN called bec of low Saturation : less than 80% Responded to the COATING TECHNICIAN with the residents Pt seen and examined rpt Saturation without intervention =100% on 3-4 liters Pt not in distress Lungs : bibasilar rales Noted fingers to be cold - ? erroneous measurement BP and GA stable - will cont to observe - cont Oxygen at 2-3 liters - CXR DR Patrick - pt's PMD notified of event
[2017-02-20 17:57] LABS: BASO % 0.1 % (0.0-2.0); HEMOGLOBIN 12.4 g/dL (12.0-18.0); LYMPH # 0.2 K/uL (1.0-4.3); LYMPH % 3.8 % (20.0-40.0); MEAN CORPUSCULAR HEMOGLOBIN 26.6 pg (27.0-31.0); MEAN CORPUSCULAR HGB CONC 30.5 g/dL (33.0-37.0); MEAN PLATELET VOLUME 10.5 fl (7.2-11.7); MONO # 0.5 K/uL (0.0-0.8); MONO % 8.9 % (0.0-10.0); NEUT # 4.9 K/uL (1.8-7.0); NEUT % 87.2 % (50.0-75.0); NRBC % 0.2 % (0.0-0.0); PLATELET COUNT 98 K/uL (130-400); RBC 4.65 Mil/uL (4.40-5.90); RED CELL DISTRIBUTION WIDTH 20.6 % (11.5-14.5); WHITE BLOOD COUNT 5.6 K/uL (4.8-10.8)
[2017-02-20 18:21] LABS: EOSINOPHIL 1 % (0-7); LYMPHOCYTE 2 % (20-50); MONOCYTE 9 % (0-10); NEUTROPHIL 88 % (42-75); TOTAL CELLS COUNTED 100
[2017-02-20 18:22] LABS: PLATELET ESTIMATE DECREASED (NORMAL)
[2017-02-20 18:23] LABS: ANISOCYTOSIS MODERATE
[2017-02-20 18:24] LABS: HYPOCHROMIC SLIGHT; OVALOCYTES SLIGHT; TARGET CELLS SLIGHT
[2017-02-20 18:45] LABS: ALBUMIN 3.7 g/dL (3.5-5.0); ALT/SGPT 46 U/L (21-72); AST/SGOT 46 U/L (17-59); B-TYPE NATRIURETIC PEPTIDE 29200 pg/ml (0-900); BLOOD UREA NITROGEN 42 mg/dl (9-20); CALCIUM 9.2 mg/dL (8.4-10.2); GFR AFRICAN-AMERICAN > 60; GFR NON-AFRICAN AMERICAN 60
--- NOTE | 2017-02-21 00:02 | CP.PCM.PN ---
Subjective - Date & Time of Evaluation Date of Evaluation: 02/20/17 Time of Evaluation: 17:10 - Subjective Subjective: Seen and Examined at the bed side. Patient Drowsy but arousable and saturating 88-89% in RA. RR was called earlier for similar Symptom, and CXR done during [employer] shows B/L Effusions and some congestion. Otherwise All he rest of vital signs are normal. Stat Labs, EKG and ABG requested , and initiated transfer to telemetry. Denies fever or chills. Denies abdominal pain. Has been refusing U/S abdomen, and Gi Consulted when he was complaining of abdominal pain. Poor po intake. Objective - Vital Signs/Intake and Output Vital Signs (last 24 hours): Temp Pulse Resp BP Pulse Ox 97.2 F L 60 20 104/54 L 99 02/20/17 19:44 02/20/17 19:44 02/20/17 19:44 02/20/17 19:44 02/20/17 19:44 - Medications Medications: Current Medications Acetaminophen (Tylenol 325mg Tab) 650 mg PO Q4 PRN PRN Reason: Pain, Mild (1-3) Last Admin: 02/12/17 09:33 Dose: 650 mg Al Hydrox/Mg Hydrox/Simethicone (Maalox Plus 30 Ml) 30 ml PO Q4 PRN PRN Reason: Indigestion / Heartburn Last Admin: 02/14/17 16:24 Dose: 30 ml Apixaban (Eliquis) 2.5 mg PO BID [facility] PRN Reason: Protocol Last Admin: 02/20/17 16:53 Dose: 2.5 mg Carvedilol (Coreg) 3.125 mg PO Q12 [facility] Last Admin: 02/05/17 22:21 Dose: Not Given Divalproex Sodium (Depakote Dr(*Bid*)) 250 mg PO BID [facility] Last Admin: 02/20/17 16:53 Dose: 250 mg Divalproex Sodium (Depakote Dr(*Bid*)) 125 mg PO DAILY@1700 [facility] Last Admin: 02/20/17 16:53 Dose: 125 mg Donepezil HCl (Aricept) 5 mg PO HS [facility] Last Admin: 02/20/17 21:21 Dose: 5 mg Enalapril Maleate (Vasotec) 2.5 mg PO DAILY [facility] Last Admin: 02/05/17 08:56 Dose: 2.5 mg Furosemide (Lasix) 20 mg PO DAILY [facility] Last Admin: 02/20/17 09:26 Dose: Not Given Ciprofloxacin (Cipro 400mg/200ml Dsw) 400 mg in 200 mls @ 200 mls/hr IVPB Q12 [facility] PRN Reason: Protocol Metronidazole (Flagyl 500mg/100ml Ns) 100 mls @ 100 mls/hr IVPB Q8 [facility] PRN Reason: Protocol Lactobacillus Acidophilus (Bacid Acidophilus) 1 cap PO BID [facility] Magnesium Hydroxide (Milk Of Magnesia) 30 ml PO HS PRN PRN Reason: Constipation Last Admin: 02/12/17 17:47 Dose: 30 ml Memantine (Namenda) 5 mg PO DAILY [facility] Last Admin: 02/20/17 09:27 Dose: 5 mg Mirtazapine (Remeron) 15 mg PO HS [facility] Last Admin: 02/20/17 21:21 Dose: 15 mg Nitroglycerin (Nitrostat Sl Tab) 0.4 mg SL Q5M PRN PRN Reason: chest pain Ondansetron HCl (Zofran Inj) 4 mg IVP Q6 PRN PRN Reason: Nausea/Vomiting Pantoprazole Sodium (Protonix Ec Tab) 40 mg PO Q12 [facility] Last Admin: 02/20/17 21:21 Dose: 40 mg - Labs Labs: 02/20/17 17:49 02/20/17 17:49 PT 20.3 Seconds (9.8-13.1) H 02/12/17 09:25 INR 1.8 (0.9-1.2) H 02/12/17 09:25 APTT 34.1 Seconds (25.6-37.1) D 01/30/17 05:55 - Constitutional Appears: Well, No Acute Distress, Chronically Ill, Other (Drowsy but arousable) - Head Exam Head Exam: ATRAUMATIC, NORMAL INSPECTION, NORMOCEPHALIC - Eye Exam Eye Exam: EOMI Pupil Exam: PERRL - ENT Exam ENT Exam: Mucous Membranes Moist, Normal Exam - Neck Exam Neck Exam: Full ROM, Normal Inspection. absent: Lymphadenopathy - Respiratory Exam Respiratory Exam: Clear to Ausculation Bilateral, Rales, NORMAL BREATHING PATTERN. absent: Wheezes, Stridor - Cardiovascular Exam Cardiovascular Exam: REGULAR RHYTHM, +S1, +S2. absent: Murmur - GI/Abdominal Exam GI & Abdominal Exam: Soft, Normal Bowel Sounds. absent: Tenderness - Extremities Exam Extremities Exam: Full ROM, Normal Capillary Refill, Pedal Edema. absent: Joint Swelling - Back Exam Back Exam: NORMAL INSPECTION. absent: CVA tenderness (L), CVA tenderness (R) - Neurological Exam Neurological Exam: Abnormal Gait, Awake, CN II-XII Intact, Oriented x3 - Psychiatric Exam Psychiatric exam: Normal Affect, Normal Mood - Skin Skin Exam: Dry, Intact, Normal Color, Warm Assessment and Plan (1) Acute on chronic combined systolic and diastolic CHF (congestive heart failure) Assessment & Plan: Hypoxemia, Lethargy R/O Sepsis Chronic A.fibrillation Elevated Troponine with Possible NSTEMI Vs due to Cardiomyopathy/CHF Continuous 2-3L O2 via NC ASA IV antibiotics Telemonitoring LAsix 20mg IV stat dose given Continue Lasix 20mg daily Eliquis CArdiology Follow up (2) Mood disorder due to known physiological condition with depressive features , Dementia nt. Assessment and Plan: Depression with Psychotic Behaviour Dementia Continue Remeron /Depakote/Aricept (3) Social Hold Waiting for placement to [facility] Daughter refused to take him home. Status: Chronic
[2017-02-21] MEDS: metroNIDAZOLE 500mg/100ml NS 100 ML IVPB SCH ×3 (01:48→17:50)
[2017-02-21 05:45] LABS: EOS % 0.1 % (0.0-4.0); HEMOGLOBIN 11.5 g/dL (12.0-18.0); LYMPH # 0.3 K/uL (1.0-4.3); LYMPH % 7.3 % (20.0-40.0); MEAN CELL VOLUME 86.5 fl (80.0-94.0); MEAN CORPUSCULAR HGB CONC 31.3 g/dL (33.0-37.0); MEAN PLATELET VOLUME 9.8 fl (7.2-11.7); MONO # 0.5 K/uL (0.0-0.8); MONO % 12.6 % (0.0-10.0); NEUT # 3.3 K/uL (1.8-7.0); NRBC % 0.3 % (0.0-0.0); RBC 4.27 Mil/uL (4.40-5.90); RED CELL DISTRIBUTION WIDTH 20.6 % (11.5-14.5); WHITE BLOOD COUNT 4.2 K/uL (4.8-10.8)
[2017-02-21 06:01] LABS: ALB/GLOB RATIO 0.9 (1.0-2.1); ALBUMIN 3.4 g/dL (3.5-5.0); ALT/SGPT 44 U/L (21-72); AST/SGOT 43 U/L (17-59); BLOOD UREA NITROGEN 39 mg/dl (9-20); CALCIUM 8.8 mg/dL (8.4-10.2); GFR AFRICAN-AMERICAN > 60; GFR NON-AFRICAN AMERICAN 60; MAGNESIUM 1.9 MG/DL (1.6-2.3)
[2017-02-21] MEDS: Lactobacillus Acidophilus 500 MU Cap PO SCH ×2 (08:54→17:48)
[2017-02-21] MEDS: Ciprofloxacin 400mg/200ml D5W 400 MG/200 ML BAG IVPB SCH ×2 (08:55→21:14)
[2017-02-21] MEDS: Pantoprazole 40 mg EC Tab PO SCH ×3 (08:56→21:22)
[2017-02-21] MEDS: Divalproex 250 mg DR(BID formulation) PO SCH ×2 (08:57→17:48)
--- NOTE | 2017-02-21 13:47 | PN ---
DATE: SUBJECTIVE: The patient was transferred to telemetry.after rapid response for hypoxemia He still appears depressed, but awake and denies chest pain or shortness of breath. PHYSICAL EXAMINATION VITAL SIGNS: Blood pressure 109/57, heart rate 61, temperature 97.4, respirations 18. HEENT: Normocephalic. CHEST: Absent breath sounds over the bases. HEART: S1 and S2 are regular. EXTREMITIES: 2+ pitting edema. LABORATORY DATA: Hemoglobin and hematocrit 11.5 and 36.9. White count 4.2, platelet count 87,000. SMA-7: Sodium 145, potassium 4.5, chloride 96, CO2 of 41, glucose 80, BUN 39, creatinine 1.2. Troponin is borderline at 0.123. EKG revealed biventricular paced rhythm underlying AFib with PVCs. Abdominal x-ray, nonobstructive bowel gas pattern. IVC filter is evident. Chest x-ray revealed cardiomegaly, moderate left pleural effusion. ASSESSMENT: 1. Status post rapid response, patient's oxygen saturation was less than 90%. 2. Congestive heart failure. 3. Chronic atrial fibrillation. 4. Borderline troponin elevation. 5. Depression. 6. Rule out underlying sepsis. RECOMMENDATIONS: Continue current IV Cipro at 400 mg q.12 hours, Coreg 3.125 mg twice a day. Hold for systolic blood pressure below 90. Continue Eliquis 2.5 mg twice a day, Lasix at 20 mg orally daily. Vasotec still on hold. I will follow blood pressure and urine culture that was ordered yesterday. The patient is not a suitable candidate for invasive cardiac workup at least at this time. Luis August MD MTDJackelyn
[2017-02-21] MEDS: Divalproex 125 mg DR (BID formulation) PO SCH (17:48)
--- NOTE | 2017-02-21 17:51 | CARD ---
APPROVED REPORT EKG Measurement Heart [id number] <Conclusion> Qm-[id number]-[id number] rhythm with occasional premature ventricular complexes Abnormal ECG
--- NOTE | 2017-02-21 18:05 | CP.PCM.PN ---
Subjective - Date & Time of Evaluation Date of Evaluation: 02/21/17 Time of Evaluation: 18:05 - Subjective Subjective: Seen and Examined at the bed side. Patient Drowsy but arousable and saturating 88-89% in RA. RR was called earlier for similar Symptom, and CXR done during [employer] [facility] shows B/L Effusions and some congestion. Otherwise All he rest of vital signs are normal. Stat Labs, EKG and ABG requested , and initiated transfer to telemetry. Denies fever or chills. Denies abdominal pain. Has been refusing U/S abdomen, and Gi Consulted when he was complaining of abdominal pain. Poor po intake. Objective - Vital Signs/Intake and Output Vital Signs (last 24 hours): Temp Pulse Resp BP Pulse Ox 97.4 F L 60 20 123/69 99 02/21/17 15:54 02/21/17 15:54 02/21/17 15:54 02/21/17 15:54 02/21/17 15:54 - Medications Medications: Current Medications Acetaminophen (Tylenol 325mg Tab) 650 mg PO Q4 PRN PRN Reason: Pain, Mild (1-3) Last Admin: 02/12/17 09:33 Dose: 650 mg Al Hydrox/Mg Hydrox/Simethicone (Maalox Plus 30 Ml) 30 ml PO Q4 PRN PRN Reason: Indigestion / Heartburn Last Admin: 02/14/17 16:24 Dose: 30 ml Apixaban (Eliquis) 2.5 mg PO BID [facility] PRN Reason: Protocol Last Admin: 02/21/17 17:48 Dose: Not Given Carvedilol (Coreg) 3.125 mg PO Q12 [facility] Last Admin: 02/05/17 22:21 Dose: Not Given Divalproex Sodium (Depakote Dr(*Bid*)) 250 mg PO BID [facility] Last Admin: 02/21/17 17:48 Dose: Not Given Divalproex Sodium (Depakote Dr(*Bid*)) 125 mg PO DAILY@1700 [facility] Last Admin: 02/21/17 17:48 Dose: Not Given Donepezil HCl (Aricept) 5 mg PO HS [facility] Last Admin: 02/20/17 21:21 Dose: 5 mg Enalapril Maleate (Vasotec) 2.5 mg PO DAILY [facility] Last Admin: 02/05/17 08:56 Dose: 2.5 mg Furosemide (Lasix) 20 mg PO DAILY [facility] Last Admin: 02/21/17 08:57 Dose: 20 mg Ciprofloxacin (Cipro 400mg/200ml Dsw) 400 mg in 200 mls @ 200 mls/hr IVPB Q12 [facility] PRN Reason: Protocol Last Admin: 02/21/17 08:55 Dose: 200 mls/hr Metronidazole (Flagyl 500mg/100ml Ns) 100 mls @ 100 mls/hr IVPB Q8 [facility] PRN Reason: Protocol Last Admin: 02/21/17 17:50 Dose: Not Given Lactobacillus Acidophilus (Bacid Acidophilus) 1 cap PO BID [facility] Last Admin: 02/21/17 17:48 Dose: Not Given Magnesium Hydroxide (Milk Of Magnesia) 30 ml PO HS PRN PRN Reason: Constipation Last Admin: 02/12/17 17:47 Dose: 30 ml Memantine (Namenda) 5 mg PO DAILY [facility] Last Admin: 02/21/17 08:56 Dose: 5 mg Mirtazapine (Remeron) 15 mg PO HS [facility] Last Admin: 02/20/17 21:21 Dose: 15 mg Nitroglycerin (Nitrostat Sl Tab) 0.4 mg SL Q5M PRN PRN Reason: chest pain Ondansetron HCl (Zofran Inj) 4 mg IVP Q6 PRN PRN Reason: Nausea/Vomiting Pantoprazole Sodium (Protonix Ec Tab) 40 mg PO Q12 [facility] Last Admin: 02/21/17 08:56 Dose: 40 mg - Labs Labs: 02/21/17 04:20 02/21/17 04:20 PT 20.3 Seconds (9.8-13.1) H 02/12/17 09:25 INR 1.8 (0.9-1.2) H 02/12/17 09:25 APTT 34.1 Seconds (25.6-37.1) D 01/30/17 05:55 Assessment and Plan (1) Acute on chronic combined systolic and diastolic CHF (congestive heart failure) Assessment & Plan: hronic A. fibrillation Elevated Troponine with Possible NSTEMI Vs due to Cardiomyopathy/CHF O2 via NC ASA Serial trop and EKG Telemonitoring Continue BB/ACEI/Lasix/Spiranolactone Vanessa D/w Emblem Drawer In about Elevated Trop, and Possibility Underlying CAD, and will manage conservatively due to Poor General Condition Status: Acute (2) Mood disorder due to known physiological condition with depressive features , Dementia nt. Assessment and Plan: Depression with PSychotic Behaviour Dementia Continue Remeron/Depakote/Aricept (3) Social Hold due to a need for placement Status: Chronic
[2017-02-22] MEDS: metroNIDAZOLE 500mg/100ml NS 100 ML IVPB SCH ×3 (01:38→16:19)
--- NOTE | 2017-02-22 04:15 | CON ---
DATE: 02/21/2017 REFERRING: Dr. Bermudez. REASON FOR CONSULTATION: Failure to thrive, failure to take p.o. HISTORY OF PRESENT ILLNESS: This is a 71-year-old male with multiple medical problems, mood disorder, dementia, hypertension, essentially GI is called for failure to take p.o. The patient is well known to me from previous admissions. He is a poor historian, at times combative, at times not compliant, history of . Currently, patient is lying in bed comfortably, in no apparent distress. PAST MEDICAL HISTORY: As above. PAST SURGICAL HISTORY: As above. MEDICATIONS: Have been reviewed. REVIEW OF SYSTEMS: Unable to obtain as patient is a poor historian. PHYSICAL EXAMINATION: GENERAL: This is a pleasant elderly-appearing male, lying in bed comfortably, in no apparent distress. HEENT: Head: Normocephalic, atraumatic. Eyes: Pupils are equal,round, and reactive to light bilaterally. No conjunctival pallor or icterus. NECK: Supple. Normal range of motion. No lymphadenopathy appreciated. LUNGS: Coarse breath sounds bilaterally. HEART: S1 and S2, regular rate and rhythm. No murmur appreciated. ABDOMEN: Soft, nontender. Bowel sounds present. No rebound. No guarding. RECTAL: Deferred. EXTREMITIES: Pulses present bilaterally. SKIN: Warm, dry, and intact. NEUROLOGIC: A and O x2. LABORATORY DATA: Labs have been reviewed. WBC is 4.3, hemoglobin 11.5, hematocrit 36.9. Troponins are positive at 0.123. LFTs essentially unremarkable. Ultrasound is ordered, but not done as the patient refused. Abdominal x-ray shows nonobstructive gas pattern. ASSESSMENT: This is a 71-year-old male with dementia and multiple medical problems. From GI standpoint, as far as I can tell, patient is eating well this time p.o., at times obviously combative. Goals of care need to be clarified. Placement is an issue. 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 I appreciate all consultants' inputs. From GI standpoint, I could offer endoscopy if there is any pain, but it is not at this point. LFTs are within normal limits. Thank you for the consult. Josh Ojeda MD/ PhD cc: Dr. Bermudez.
[2017-02-22] MEDS: Lactobacillus Acidophilus 500 MU Cap PO SCH ×2 (08:41→16:19)
[2017-02-22] MEDS: Divalproex 250 mg DR(BID formulation) PO SCH ×2 (08:41→16:19)
[2017-02-22] MEDS: Ciprofloxacin 400mg/200ml D5W 400 MG/200 ML BAG IVPB SCH ×2 (08:43→21:03)
[2017-02-22] MEDS: Pantoprazole 40 mg EC Tab PO SCH ×2 (08:43→20:52)
--- NOTE | 2017-02-22 12:28 | CP.PCM.PN ---
Subjective - Date & Time of Evaluation Date of Evaluation: 02/22/17 Time of Evaluation: 12:27 - Subjective Subjective: no overnight events Objective - Vital Signs/Intake and Output Vital Signs (last 24 hours): Temp Pulse Resp BP Pulse Ox 97.3 F L 60 20 109/65 95 02/22/17 12:14 02/22/17 12:14 02/22/17 12:14 02/22/17 12:14 02/22/17 12:14 - Medications Medications: Current Medications Acetaminophen (Tylenol 325mg Tab) 650 mg PO Q4 PRN PRN Reason: Pain, Mild (1-3) Last Admin: 02/12/17 09:33 Dose: 650 mg Al Hydrox/Mg Hydrox/Simethicone (Maalox Plus 30 Ml) 30 ml PO Q4 PRN PRN Reason: Indigestion / Heartburn Last Admin: 02/14/17 16:24 Dose: 30 ml Apixaban (Eliquis) 2.5 mg PO BID [facility] PRN Reason: Protocol Last Admin: 02/22/17 08:42 Dose: 2.5 mg Carvedilol (Coreg) 3.125 mg PO Q12 [facility] Last Admin: 02/05/17 22:21 Dose: Not Given Divalproex Sodium (Depakote Dr(*Bid*)) 250 mg PO BID [facility] Last Admin: 02/22/17 08:41 Dose: 250 mg Divalproex Sodium (Depakote Dr(*Bid*)) 125 mg PO DAILY@1700 [facility] Last Admin: 02/21/17 17:48 Dose: Not Given Donepezil HCl (Aricept) 5 mg PO HS [facility] Last Admin: 02/21/17 21:22 Dose: Not Given Enalapril Maleate (Vasotec) 2.5 mg PO DAILY [facility] Last Admin: 02/05/17 08:56 Dose: 2.5 mg Furosemide (Lasix) 20 mg PO DAILY [facility] Last Admin: 02/21/17 08:57 Dose: 20 mg Ciprofloxacin (Cipro 400mg/200ml Dsw) 400 mg in 200 mls @ 200 mls/hr IVPB Q12 [facility] PRN Reason: Protocol Last Admin: 02/22/17 08:43 Dose: 200 mls/hr Metronidazole (Flagyl 500mg/100ml Ns) 100 mls @ 100 mls/hr IVPB Q8 [facility] PRN Reason: Protocol Last Admin: 02/22/17 08:42 Dose: 100 mls/hr Lactobacillus Acidophilus (Bacid Acidophilus) 1 cap PO BID [facility] Last Admin: 02/22/17 08:41 Dose: 1 cap Magnesium Hydroxide (Milk Of Magnesia) 30 ml PO HS PRN PRN Reason: Constipation Last Admin: 02/12/17 17:47 Dose: 30 ml Memantine (Namenda) 5 mg PO DAILY [facility] Last Admin: 02/22/17 08:43 Dose: 5 mg Mirtazapine (Remeron) 15 mg PO HS [facility] Last Admin: 02/21/17 21:22 Dose: Not Given Nitroglycerin (Nitrostat Sl Tab) 0.4 mg SL Q5M PRN PRN Reason: chest pain Ondansetron HCl (Zofran Inj) 4 mg IVP Q6 PRN PRN Reason: Nausea/Vomiting Pantoprazole Sodium (Protonix Ec Tab) 40 mg PO Q12 [facility] Last Admin: 02/22/17 08:43 Dose: 40 mg - Labs Labs: 02/21/17 04:20 02/21/17 04:20 PT 20.3 Seconds (9.8-13.1) H 02/12/17 09:25 INR 1.8 (0.9-1.2) H 02/12/17 09:25 APTT 34.1 Seconds (25.6-37.1) D 01/30/17 05:55 - Respiratory Exam Respiratory Exam: Clear to Ausculation Bilateral - Cardiovascular Exam Cardiovascular Exam: REGULAR RHYTHM - GI/Abdominal Exam GI & Abdominal Exam: Soft, Normal Bowel Sounds Assessment and Plan - Assessment and Plan (Free Text) Assessment: 71 yo male with multiple medical problems from GI standpoint, no active issues
--- NOTE | 2017-02-22 20:41 | PN ---
SUBJECTIVE: Patient denies any chest pain; however, he appears uncomfortable. His nurse, her name is Lilian, who spoke in Greek could not verify exactly what was his complaint. PHYSICAL EXAMINATION: VITAL SIGNS: Blood pressure 109/69, heart rate 68, temperature 97.5, respirations 20. HEENT: Normocephalic. CHEST: Diminished breath sounds at the bases. HEART: S1, S2 regular. EXTREMITIES: 1+ pitting edema. LABORATORY DATA: Blood culture is negative after 48 hours and urine culture is negative, has no growth. ASSESSMENT: 1. Dilated cardiomyopathy. 2. Chronic atrial fibrillation. 3. Abdominal pain. I did review the gastroenterology followup today which stated that the patient had no active issues from GI standpoint. RECOMMENDATIONS: Continue Namenda 5 mg once a day, milk of magnesia at 30 mL at bedtime p.r.n., sublingual nitroglycerin p.r.n., Protonix 40 mg p.o. twice a day. Vasotec is still on hold. Eliquis was not given today because the patient had refused according to the nurse. Luis August MD
[2017-02-23] MEDS: metroNIDAZOLE 500mg/100ml NS 100 ML IVPB SCH ×3 (00:59→20:04)
--- NOTE | 2017-02-23 02:15 | CP.PCM.PN ---
Subjective - Date & Time of Evaluation Date of Evaluation: 02/22/17 Time of Evaluation: 14:00 - Subjective Subjective: Seen and Examined at the bed side. Patient Drowsy but arousable and saturating 88-89% in RA. RR was called earlier for similar Symptom, and CXR done during ARMY MANAGER shows B/L Effusions and some congestion. Otherwise All he rest of vital signs are normal. Stat Labs, EKG and ABG requested , and initiated transfer to telemetry. Denies fever or chills. Denies abdominal pain. Has been refusing U/S abdomen, and Gi Consulted when he was complaining of abdominal pain. Poor po intake. Objective - Vital Signs/Intake and Output Vital Signs (last 24 hours): Temp Pulse Resp BP Pulse Ox 97.3 F L 79 18 112/73 94 L 02/23/17 00:17 02/23/17 00:17 02/23/17 00:17 02/23/17 00:17 02/23/17 00:17 Intake and Output: 02/22/17 02/23/17 18:59 06:59 Intake Total 550 Balance 550 - Medications Medications: Current Medications Acetaminophen (Tylenol 325mg Tab) 650 mg PO Q4 PRN PRN Reason: Pain, Mild (1-3) Last Admin: 02/12/17 09:33 Dose: 650 mg Al Hydrox/Mg Hydrox/Simethicone (Maalox Plus 30 Ml) 30 ml PO Q4 PRN PRN Reason: Indigestion / Heartburn Last Admin: 02/14/17 16:24 Dose: 30 ml Apixaban (Eliquis) 2.5 mg PO BID [facility] PRN Reason: Protocol Last Admin: 02/22/17 16:19 Dose: Not Given Carvedilol (Coreg) 3.125 mg PO Q12 [facility] Last Admin: 02/05/17 22:21 Dose: Not Given Divalproex Sodium (Depakote Dr(*Bid*)) 250 mg PO BID [facility] Last Admin: 02/22/17 16:19 Dose: Not Given Divalproex Sodium (Depakote Dr(*Bid*)) 125 mg PO DAILY@1700 [facility] Last Admin: 02/21/17 17:48 Dose: Not Given Donepezil HCl (Aricept) 5 mg PO HS [facility] Last Admin: 02/22/17 21:00 Dose: 5 mg Enalapril Maleate (Vasotec) 2.5 mg PO DAILY [facility] Last Admin: 02/05/17 08:56 Dose: 2.5 mg Furosemide (Lasix) 20 mg PO DAILY [facility] Last Admin: 02/22/17 16:20 Dose: 20 mg Ciprofloxacin (Cipro 400mg/200ml Dsw) 400 mg in 200 mls @ 200 mls/hr IVPB Q12 [facility] PRN Reason: Protocol Last Admin: 02/22/17 21:03 Dose: 200 mls/hr Metronidazole (Flagyl 500mg/100ml Ns) 100 mls @ 100 mls/hr IVPB Q8 [facility] PRN Reason: Protocol Last Admin: 02/23/17 00:59 Dose: 100 mls/hr Lactobacillus Acidophilus (Bacid Acidophilus) 1 cap PO BID [facility] Last Admin: 02/22/17 16:19 Dose: Not Given Magnesium Hydroxide (Milk Of Magnesia) 30 ml PO HS PRN PRN Reason: Constipation Last Admin: 02/12/17 17:47 Dose: 30 ml Memantine (Namenda) 5 mg PO DAILY [facility] Last Admin: 02/22/17 08:43 Dose: 5 mg Mirtazapine (Remeron) 15 mg PO HS [facility] Last Admin: 02/22/17 21:00 Dose: 15 mg Nitroglycerin (Nitrostat Sl Tab) 0.4 mg SL Q5M PRN PRN Reason: chest pain Ondansetron HCl (Zofran Inj) 4 mg IVP Q6 PRN PRN Reason: Nausea/Vomiting Pantoprazole Sodium (Protonix Ec Tab) 40 mg PO Q12 [facility] Last Admin: 02/22/17 20:52 Dose: 40 mg - Labs Labs: 02/21/17 04:20 02/21/17 04:20 PT 20.3 Seconds (9.8-13.1) H 02/12/17 09:25 INR 1.8 (0.9-1.2) H 02/12/17 09:25 APTT 34.1 Seconds (25.6-37.1) D 01/30/17 05:55 Assessment and Plan (1) Acute on chronic combined systolic and diastolic CHF (congestive heart failure) Assessment & Plan: Chronic A. fibrillation Elevated Troponine with Possible NSTEMI Vs due to Cardiomyopathy/CHF O2 via NC ASA Serial trop and EKG Telemonitoring Continue BB/ACEI/Lasix/Spiranolactone Vanessa D/w Repack Room Worker about Elevated Trop, and Possibility Underlying CAD, and will manage conservatively due to Poor General Condition Status: Acute (2) Mood disorder due to known physiological condition with depressive features , Dementia nt. Assessment and Plan: Depression with PSychotic Behaviour Dementia Continue Remeron/Depakote/Aricept (3) Social Hold due to a need for placement Status: Acute
[2017-02-23] MEDS: Divalproex 125 mg DR (BID formulation) PO SCH ×2 (08:57→16:47)
[2017-02-23] MEDS: Ciprofloxacin 400mg/200ml D5W 400 MG/200 ML BAG IVPB SCH ×2 (08:57→21:19)
[2017-02-23] MEDS: Divalproex 250 mg DR(BID formulation) PO SCH ×2 (08:57→16:47)
[2017-02-23] MEDS: Pantoprazole 40 mg EC Tab PO SCH ×2 (08:58→21:18)
[2017-02-23] MEDS: Lactobacillus Acidophilus 500 MU Cap PO SCH ×2 (08:59→16:51)
--- NOTE | 2017-02-23 14:26 | PN ---
SUBJECTIVE: The patient denies chest pain. He is sitting in front of the nursing station. According to nurse, he has good appetite. He sometimes refuses his meds, but he allows for them in the evening. The patient is reported to have nonsustained ventricular tachycardia. PHYSICAL EXAMINATION: VITAL SIGNS: Blood pressure 105/59, heart rate 75, temperature 96.9, respirations 20. HEENT: Normocephalic. CHEST: Absent breath sounds over the bases. HEART: S1 and S2 regular. EXTREMITIES: 1+ pitting edema. ASSESSMENT: 1. Dilated cardiomyopathy. 2. Status post implantable cardioverter-defibrillator placement. 3. Chronic right common femoral vein deep venous thrombosis, status post inferior vena cava filter. 4. Depression. 5. History of abdominal pain. 6. Mild thrombocytopenia. RECOMMENDATIONS: Continue Aricept at 5 mg once a day, IV Cipro at 400 mg q.12 hours. Resume Coreg at 3.125 mg twice a day and hold for blood pressure below 110. Continue Eliquis at 2.5 mg twice a day. Luis August MD
[2017-02-23] MEDS: Alum-Mag Hydrox-Simethicone Susp (30 mL) PO PRN (16:51)
[2017-02-24] MEDS: metroNIDAZOLE 500mg/100ml NS 100 ML IVPB SCH ×3 (01:35→17:13)
[2017-02-24] MEDS: Lactobacillus Acidophilus 500 MU Cap PO SCH ×2 (09:30→17:11)
[2017-02-24] MEDS: Divalproex 250 mg DR(BID formulation) PO SCH ×2 (09:31→17:12)
[2017-02-24] MEDS: Ciprofloxacin 400mg/200ml D5W 400 MG/200 ML BAG IVPB SCH ×2 (09:31→21:16)
[2017-02-24] MEDS: Pantoprazole 40 mg EC Tab PO SCH ×2 (09:32→21:16)
--- NOTE | 2017-02-24 12:11 | CP.PCM.PN ---
Subjective - Date & Time of Evaluation Date of Evaluation: 02/24/17 Time of Evaluation: 12:10 - Subjective Subjective: no overnight events Objective - Vital Signs/Intake and Output Vital Signs (last 24 hours): Temp Pulse Resp BP Pulse Ox 97.9 F 61 18 108/59 L 95 02/24/17 08:00 02/24/17 08:00 02/24/17 08:00 02/24/17 09:36 02/24/17 08:00 Intake and Output: 02/24/17 02/24/17 06:59 18:59 Intake Total 600 Output Total 400 Balance 200 - Medications Medications: Current Medications Acetaminophen (Tylenol 325mg Tab) 650 mg PO Q4 PRN PRN Reason: Pain, Mild (1-3) Last Admin: 02/12/17 09:33 Dose: 650 mg Al Hydrox/Mg Hydrox/Simethicone (Maalox Plus 30 Ml) 30 ml PO Q4 PRN PRN Reason: Indigestion / Heartburn Last Admin: 02/23/17 16:51 Dose: 30 ml Apixaban (Eliquis) 2.5 mg PO BID [facility] PRN Reason: Protocol Last Admin: 02/24/17 09:31 Dose: 2.5 mg Carvedilol (Coreg) 3.125 mg PO Q12 [facility] Last Admin: 02/05/17 22:21 Dose: Not Given Divalproex Sodium (Depakote Dr(*Bid*)) 250 mg PO BID [facility] Last Admin: 02/24/17 09:31 Dose: 250 mg Divalproex Sodium (Depakote Dr(*Bid*)) 125 mg PO DAILY@1700 [facility] Last Admin: 02/23/17 16:47 Dose: 125 mg Donepezil HCl (Aricept) 5 mg PO HS [facility] Last Admin: 02/23/17 21:18 Dose: 5 mg Enalapril Maleate (Vasotec) 2.5 mg PO DAILY [facility] Last Admin: 02/05/17 08:56 Dose: 2.5 mg Furosemide (Lasix) 20 mg PO DAILY [facility] Last Admin: 02/24/17 09:36 Dose: 20 mg Ciprofloxacin (Cipro 400mg/200ml Dsw) 400 mg in 200 mls @ 200 mls/hr IVPB Q12 [facility] PRN Reason: Protocol Last Admin: 02/24/17 09:31 Dose: 200 mls/hr Metronidazole (Flagyl 500mg/100ml Ns) 100 mls @ 100 mls/hr IVPB Q8 [facility] PRN Reason: Protocol Last Admin: 02/24/17 09:34 Dose: 100 mls/hr Lactobacillus Acidophilus (Bacid Acidophilus) 1 cap PO BID [facility] Last Admin: 02/24/17 09:30 Dose: 1 cap Magnesium Hydroxide (Milk Of Magnesia) 30 ml PO HS PRN PRN Reason: Constipation Last Admin: 02/12/17 17:47 Dose: 30 ml Memantine (Namenda) 5 mg PO DAILY [facility] Last Admin: 02/24/17 09:32 Dose: 5 mg Mirtazapine (Remeron) 15 mg PO HS [facility] Last Admin: 02/23/17 21:18 Dose: 15 mg Nitroglycerin (Nitrostat Sl Tab) 0.4 mg SL Q5M PRN PRN Reason: chest pain Ondansetron HCl (Zofran Inj) 4 mg IVP Q6 PRN PRN Reason: Nausea/Vomiting Pantoprazole Sodium (Protonix Ec Tab) 40 mg PO Q12 [facility] Last Admin: 02/24/17 09:32 Dose: 40 mg - Labs Labs: 02/21/17 04:20 02/21/17 04:20 PT 20.3 Seconds (9.8-13.1) H 02/12/17 09:25 INR 1.8 (0.9-1.2) H 02/12/17 09:25 APTT 34.1 Seconds (25.6-37.1) D 01/30/17 05:55 - Head Exam Head Exam: NORMOCEPHALIC - Respiratory Exam Respiratory Exam: NORMAL BREATHING PATTERN - Cardiovascular Exam Cardiovascular Exam: REGULAR RHYTHM - GI/Abdominal Exam GI & Abdominal Exam: Soft, Normal Bowel Sounds Assessment and Plan - Assessment and Plan (Free Text) Assessment: 71 yo male with multiple medical problems no active GI issues
[2017-02-24] MEDS: Divalproex 125 mg DR (BID formulation) PO SCH (17:12)
--- NOTE | 2017-02-24 18:59 | CP.PCM.PN ---
Subjective - Date & Time of Evaluation Date of Evaluation: 02/24/17 Time of Evaluation: 19:00 - Subjective Subjective: Seen and Examined at the bed side. Patient Drowsy but arousable and saturating 88-89% in RA. RR was called earlier for similar Symptom, and CXR done during SQL DATA ARCHITECT shows B/L Effusions and some congestion. Otherwise All he rest of vital signs are normal. Stat Labs, EKG and ABG requested , and initiated transfer to telemetry. Denies fever or chills. Denies abdominal pain. Has been refusing U/S abdomen, and Gi Consulted when he was complaining of abdominal pain. Poor po intake. Objective - Vital Signs/Intake and Output Vital Signs (last 24 hours): Temp Pulse Resp BP Pulse Ox 97.9 F 65 14 113/60 96 02/24/17 16:17 02/24/17 16:17 02/24/17 16:17 02/24/17 16:17 02/24/17 16:17 Intake and Output: 02/24/17 02/24/17 06:59 18:59 Intake Total 600 Output Total 400 Balance 200 - Medications Medications: Current Medications Acetaminophen (Tylenol 325mg Tab) 650 mg PO Q4 PRN PRN Reason: Pain, Mild (1-3) Last Admin: 02/12/17 09:33 Dose: 650 mg Al Hydrox/Mg Hydrox/Simethicone (Maalox Plus 30 Ml) 30 ml PO Q4 PRN PRN Reason: Indigestion / Heartburn Last Admin: 02/23/17 16:51 Dose: 30 ml Apixaban (Eliquis) 2.5 mg PO BID [facility] PRN Reason: Protocol Last Admin: 02/24/17 17:12 Dose: 2.5 mg Carvedilol (Coreg) 3.125 mg PO Q12 [facility] Last Admin: 02/05/17 22:21 Dose: Not Given Ciprofloxacin (Cipro) 500 mg PO Q12 [facility] Stop: 02/27/17 21:01 Divalproex Sodium (Depakote Dr(*Bid*)) 250 mg PO BID [facility] Last Admin: 02/24/17 17:12 Dose: 250 mg Divalproex Sodium (Depakote Dr(*Bid*)) 125 mg PO DAILY@1700 [facility] Last Admin: 02/24/17 17:12 Dose: 125 mg Donepezil HCl (Aricept) 5 mg PO HS [facility] Last Admin: 02/23/17 21:18 Dose: 5 mg Enalapril Maleate (Vasotec) 2.5 mg PO DAILY [facility] Last Admin: 02/05/17 08:56 Dose: 2.5 mg Furosemide (Lasix) 20 mg PO DAILY [facility] Last Admin: 02/24/17 09:36 Dose: 20 mg Ciprofloxacin (Cipro 400mg/200ml Dsw) 400 mg in 200 mls @ 200 mls/hr IVPB Q12 [facility] PRN Reason: Protocol Stop: 02/25/17 06:59 Last Admin: 02/24/17 09:31 Dose: 200 mls/hr Metronidazole (Flagyl 500mg/100ml Ns) 100 mls @ 100 mls/hr IVPB Q8 [facility] PRN Reason: Protocol Stop: 02/25/17 06:59 Last Admin: 02/24/17 17:13 Dose: 100 mls/hr Lactobacillus Acidophilus (Bacid Acidophilus) 1 cap PO BID [facility] Last Admin: 02/24/17 17:11 Dose: 1 cap Magnesium Hydroxide (Milk Of Magnesia) 30 ml PO HS PRN PRN Reason: Constipation Last Admin: 02/12/17 17:47 Dose: 30 ml Memantine (Namenda) 5 mg PO DAILY [facility] Last Admin: 02/24/17 09:32 Dose: 5 mg Metronidazole (Flagyl) 500 mg PO Q8 [facility] Stop: 02/28/17 01:01 Mirtazapine (Remeron) 15 mg PO HS [facility] Last Admin: 02/23/17 21:18 Dose: 15 mg Nitroglycerin (Nitrostat Sl Tab) 0.4 mg SL Q5M PRN PRN Reason: chest pain Ondansetron HCl (Zofran Inj) 4 mg IVP Q6 PRN PRN Reason: Nausea/Vomiting Pantoprazole Sodium (Protonix Ec Tab) 40 mg PO Q12 [facility] Last Admin: 02/24/17 09:32 Dose: 40 mg - Labs Labs: 02/21/17 04:20 02/21/17 04:20 PT 20.3 Seconds (9.8-13.1) H 02/12/17 09:25 INR 1.8 (0.9-1.2) H 02/12/17 09:25 APTT 34.1 Seconds (25.6-37.1) D 01/30/17 05:55 Assessment and Plan (1) Acute on chronic combined systolic and diastolic CHF (congestive heart failure) Assessment & Plan: Chronic A. fibrillation Elevated Troponine with Possible NSTEMI Vs due to Cardiomyopathy/CHF O2 via NC ASA Serial trop and EKG Telemonitoring Continue BB/ACEI/Lasix/Spiranolactone Vanessa D/w Hogshead Stock Clerk about Elevated Trop, and Possibility Underlying CAD, and will manage conservatively due to Poor General Condition Status: Acute (2) Mood disorder due to known physiological condition with depressive features , Dementia nt. Assessment and Plan: Depression with PSychotic Behaviour Dementia Continue Remeron/Depakote/Aricept (3) Social Hold due to a need for placement Status: Acute
--- NOTE | 2017-02-24 19:00 | CP.PCM.PN ---
Subjective - Date & Time of Evaluation Date of Evaluation: 02/23/17 Time of Evaluation: 17:00 - Subjective Subjective: Seen and Examined at the bed side. Patient Drowsy but arousable and saturating 88-89% in RA. RR was called earlier for similar Symptom, and CXR done during COLOR MIXER shows B/L Effusions and some congestion. Otherwise All he rest of vital signs are normal. Stat Labs, EKG and ABG requested , and initiated transfer to telemetry. Denies fever or chills. Denies abdominal pain. Has been refusing U/S abdomen, and Gi Consulted when he was complaining of abdominal pain. Poor po intake. Objective - Vital Signs/Intake and Output Vital Signs (last 24 hours): Temp Pulse Resp BP Pulse Ox 97.9 F 65 14 113/60 96 02/24/17 16:17 02/24/17 16:17 02/24/17 16:17 02/24/17 16:17 02/24/17 16:17 - Medications Medications: Current Medications Acetaminophen (Tylenol 325mg Tab) 650 mg PO Q4 PRN PRN Reason: Pain, Mild (1-3) Last Admin: 02/12/17 09:33 Dose: 650 mg Al Hydrox/Mg Hydrox/Simethicone (Maalox Plus 30 Ml) 30 ml PO Q4 PRN PRN Reason: Indigestion / Heartburn Last Admin: 02/23/17 16:51 Dose: 30 ml Apixaban (Eliquis) 2.5 mg PO BID [facility] PRN Reason: Protocol Last Admin: 02/24/17 17:12 Dose: 2.5 mg Carvedilol (Coreg) 3.125 mg PO Q12 [facility] Last Admin: 02/05/17 22:21 Dose: Not Given Ciprofloxacin (Cipro) 500 mg PO Q12 [facility] Stop: 02/27/17 21:01 Divalproex Sodium (Depakote Dr(*Bid*)) 250 mg PO BID [facility] Last Admin: 02/24/17 17:12 Dose: 250 mg Divalproex Sodium (Depakote Dr(*Bid*)) 125 mg PO DAILY@1700 [facility] Last Admin: 02/24/17 17:12 Dose: 125 mg Donepezil HCl (Aricept) 5 mg PO HS [facility] Last Admin: 02/23/17 21:18 Dose: 5 mg Enalapril Maleate (Vasotec) 2.5 mg PO DAILY [facility] Last Admin: 02/05/17 08:56 Dose: 2.5 mg Furosemide (Lasix) 20 mg PO DAILY [facility] Last Admin: 02/24/17 09:36 Dose: 20 mg Ciprofloxacin (Cipro 400mg/200ml Dsw) 400 mg in 200 mls @ 200 mls/hr IVPB Q12 [facility] PRN Reason: Protocol Stop: 02/25/17 06:59 Last Admin: 02/24/17 09:31 Dose: 200 mls/hr Metronidazole (Flagyl 500mg/100ml Ns) 100 mls @ 100 mls/hr IVPB Q8 [facility] PRN Reason: Protocol Stop: 02/25/17 06:59 Last Admin: 02/24/17 17:13 Dose: 100 mls/hr Lactobacillus Acidophilus (Bacid Acidophilus) 1 cap PO BID [facility] Last Admin: 02/24/17 17:11 Dose: 1 cap Magnesium Hydroxide (Milk Of Magnesia) 30 ml PO HS PRN PRN Reason: Constipation Last Admin: 02/12/17 17:47 Dose: 30 ml Memantine (Namenda) 5 mg PO DAILY [facility] Last Admin: 02/24/17 09:32 Dose: 5 mg Metronidazole (Flagyl) 500 mg PO Q8 [facility] Stop: 02/28/17 01:01 Mirtazapine (Remeron) 15 mg PO HS [facility] Last Admin: 02/23/17 21:18 Dose: 15 mg Nitroglycerin (Nitrostat Sl Tab) 0.4 mg SL Q5M PRN PRN Reason: chest pain Ondansetron HCl (Zofran Inj) 4 mg IVP Q6 PRN PRN Reason: Nausea/Vomiting Pantoprazole Sodium (Protonix Ec Tab) 40 mg PO Q12 [facility] Last Admin: 02/24/17 09:32 Dose: 40 mg - Labs Labs: 02/21/17 04:20 02/21/17 04:20 PT 20.3 Seconds (9.8-13.1) H 02/12/17 09:25 INR 1.8 (0.9-1.2) H 02/12/17 09:25 APTT 34.1 Seconds (25.6-37.1) D 01/30/17 05:55 Assessment and Plan (1) Acute on chronic combined systolic and diastolic CHF (congestive heart failure) Assessment & Plan: hronic A. fibrillation Elevated Troponine with Possible NSTEMI Vs due to Cardiomyopathy/CHF O2 via [place] ASA Serial trop and EKG Telemonitoring Continue BB/ACEI/Lasix/Spiranolactone Vanessa D/w Hub Cutter Apprentice about Elevated Trop, and Possibility Underlying CAD, and will manage conservatively due to Poor General Condition Status: Acute (2) Mood disorder due to known physiological condition with depressive features , Dementia nt. Assessment and Plan: Depression with PSychotic Behaviour Dementia Continue Remeron/Depakote/Aricept (3) Social Hold due to a need for placement Status: Chronic
--- NOTE | 2017-02-24 23:44 | PN ---
SUBJECTIVE: The patient denies any chest pain or abdominal pain. History of poor appetite. PHYSICAL EXAMINATION: VITAL SIGNS: Blood pressure 115/60, heart rate 65, temperature 97.9, respirations 14. HEENT: Normocephalic. CHEST: Absent breath sounds over the bases. HEART: S1 and S2 are regular. ABDOMEN: Soft. EXTREMITIES: 2+ pitting edema with bilateral leg redness. ASSESSMENT: 1. Dilated cardiomyopathy. 2. Chronic atrial fibrillation. 3. Status post implantable cardioverter-defibrillator placement. 4. Depression. 5. Abdominal discomfort and poor appetite. RECOMMENDATIONS: I did review Gastroenterology followup today, which concluded no active GI issues. Continue current Aricept 5 mg once a day. IV Cipro at 400 mg q. 12 hours. Continue Eliquis at 2.5 mg twice a day. Lasix was resumed at 20 mg p.o. daily. Both Vasotec and Coreg are still on hold. A blood pressure earlier today was 108/59. Luis August MD
[2017-02-25] MEDS: metroNIDAZOLE 500mg/100ml NS 100 ML IVPB SCH (00:43)
[2017-02-25] MEDS: Divalproex 250 mg DR(BID formulation) PO SCH ×2 (09:20→16:22)
[2017-02-25] MEDS: Pantoprazole 40 mg EC Tab PO SCH ×2 (09:21→21:00)
[2017-02-25] MEDS: Lactobacillus Acidophilus 500 MU Cap PO SCH ×2 (09:24→16:22)
--- NOTE | 2017-02-25 13:11 | PN ---
DATE: FOLLOWUP SUBJECTIVE: The patient is having poor appetite. No reported ventricular tachycardia on the monitor. He did receive all his medications for this morning. PHYSICAL EXAMINATION: VITAL SIGNS: Blood pressure 120/87, heart rate 60, temperature 98.3, respirations 14. HEENT: Normocephalic. CHEST: Absent breath sounds over the bases. HEART: S1 and S2 regular. EXTREMITIES: 1+ pitting edema. ASSESSMENT: 1. Dilated cardiomyopathy. 2. Chronic atrial fibrillation. 3. Depression. 4. History of deep venous thrombosis, status post inferior vena cava filter placement. 5. Borderline troponin elevation. 6. Bilateral pleural effusion, status post thoracocentesis last month. RECOMMENDATIONS: Continue Aricept 5 mg at bedtime. Coreg will be resumed at 3.125 mg twice a day. Continue Eliquis at 2.5 mg twice a day and I will verify with the nurse why it was not given today. Continue Lasix 20 mg once a day. Vasotec is still on hold. Luis August MD
[2017-02-25] MEDS: Divalproex 125 mg DR (BID formulation) PO SCH (16:22)
--- NOTE | 2017-02-26 00:13 | CP.PCM.PN ---
Subjective - Date & Time of Evaluation Date of Evaluation: 02/25/17 Time of Evaluation: 23:45 - Subjective Subjective: Seen and Examined at the bed side. Patient Drowsy but arousable and saturating 88-89% in RA. RR was called earlier for similar Symptom, and CXR done during GROUND MIXER shows B/L Effusions and some congestion. Otherwise All he rest of vital signs are normal. Stat Labs, EKG and ABG requested , and initiated transfer to telemetry. Denies fever or chills. Denies abdominal pain. Has been refusing U/S abdomen, and Gi Consulted when he was complaining of abdominal pain. Poor po intake. Objective - Vital Signs/Intake and Output Vital Signs (last 24 hours): Temp Pulse Resp BP Pulse Ox 97.4 F L 67 16 102/65 94 L 02/25/17 20:19 02/25/17 20:19 02/25/17 20:19 02/25/17 20:19 02/25/17 20:19 Intake and Output: 02/25/17 02/26/17 18:59 06:59 Intake Total 500 Balance 500 - Medications Medications: Current Medications Acetaminophen (Tylenol 325mg Tab) 650 mg PO Q4 PRN PRN Reason: Pain, Mild (1-3) Last Admin: 02/12/17 09:33 Dose: 650 mg Al Hydrox/Mg Hydrox/Simethicone (Maalox Plus 30 Ml) 30 ml PO Q4 PRN PRN Reason: Indigestion / Heartburn Last Admin: 02/23/17 16:51 Dose: 30 ml Apixaban (Eliquis) 2.5 mg PO BID [facility] PRN Reason: Protocol Last Admin: 02/25/17 16:20 Dose: Not Given Carvedilol (Coreg) 3.125 mg PO Q12 [facility] Last Admin: 02/05/17 22:21 Dose: Not Given Ciprofloxacin (Cipro) 500 mg PO Q12 [facility] Stop: 02/27/17 21:01 Last Admin: 02/25/17 21:00 Dose: 500 mg Divalproex Sodium (Depakote Dr(*Bid*)) 250 mg PO BID [facility] Last Admin: 02/25/17 16:22 Dose: 250 mg Divalproex Sodium (Depakote Dr(*Bid*)) 125 mg PO DAILY@1700 [facility] Last Admin: 02/25/17 16:22 Dose: 125 mg Donepezil HCl (Aricept) 5 mg PO HS [facility] Last Admin: 02/25/17 21:00 Dose: 5 mg Enalapril Maleate (Vasotec) 2.5 mg PO DAILY [facility] Last Admin: 02/05/17 08:56 Dose: 2.5 mg Furosemide (Lasix) 20 mg PO DAILY [facility] Last Admin: 02/25/17 09:24 Dose: 20 mg Lactobacillus Acidophilus (Bacid Acidophilus) 1 cap PO BID [facility] Last Admin: 02/25/17 16:22 Dose: 1 cap Magnesium Hydroxide (Milk Of Magnesia) 30 ml PO HS PRN PRN Reason: Constipation Last Admin: 02/12/17 17:47 Dose: 30 ml Memantine (Namenda) 5 mg PO DAILY [facility] Last Admin: 02/25/17 09:21 Dose: 5 mg Metronidazole (Flagyl) 500 mg PO Q8 [facility] Stop: 02/28/17 01:01 Last Admin: 02/26/17 00:04 Dose: Not Given Mirtazapine (Remeron) 15 mg PO HS [facility] Last Admin: 02/25/17 21:00 Dose: 15 mg Nitroglycerin (Nitrostat Sl Tab) 0.4 mg SL Q5M PRN PRN Reason: chest pain Ondansetron HCl (Zofran Inj) 4 mg IVP Q6 PRN PRN Reason: Nausea/Vomiting Pantoprazole Sodium (Protonix Ec Tab) 40 mg PO Q12 [facility] Last Admin: 02/25/17 21:00 Dose: 40 mg - Labs Labs: 02/21/17 04:20 02/21/17 04:20 PT 20.3 Seconds (9.8-13.1) H 02/12/17 09:25 INR 1.8 (0.9-1.2) H 02/12/17 09:25 APTT 34.1 Seconds (25.6-37.1) D 01/30/17 05:55 Assessment and Plan (1) Acute on chronic combined systolic and diastolic CHF (congestive heart failure) Assessment & Plan: hronic A. fibrillation Elevated Troponine with Possible NSTEMI Vs due to Cardiomyopathy/CHF O2 via [place] ASA Serial trop and EKG Telemonitoring Continue BB/ACEI/Lasix/Spiranolactone Vanessa D/w Radiation Protection Specialist about Elevated Trop, and Possibility Underlying CAD, and will manage conservatively due to Poor General Condition Status: Acute (2) Mood disorder due to known physiological condition with depressive features , Dementia nt. Assessment and Plan: Depression with PSychotic Behaviour Dementia Continue Remeron/Depakote/Aricept (3) Social Hold due to a need for placement Status: Acute
[2017-02-26] MEDS: Pantoprazole 40 mg EC Tab PO SCH ×2 (08:52→21:18)
[2017-02-26] MEDS: Divalproex 250 mg DR(BID formulation) PO SCH ×2 (08:53→17:12)
[2017-02-26] MEDS: Lactobacillus Acidophilus 500 MU Cap PO SCH ×2 (08:58→17:11)
--- NOTE | 2017-02-26 12:47 | PN ---
SUBJECTIVE: The patient according to the nurse has good appetite and ate very well today. No reported ventricular tachycardia. He denies any chest pain, and he is not in any apparent distress. PHYSICAL EXAMINATION: VITAL SIGNS: Blood pressure 100/46, heart rate 59, temperature 97.9, respirations 20. HEENT: Normocephalic. CHEST: Diminished breath sounds over the bases. HEART: S1, S2 regular. ABDOMEN: Soft. EXTREMITIES: 1+ pitting edema. LABORATORY DATA: Blood cultures negative after 5 days and urine culture no growth. ASSESSMENT: 1. Dilated cardiomyopathy. 2. Chronic atrial fibrillation. 3. Borderline hypotension. 4. Depression. 5. Right common femoral vein deep venous thrombosis, status post inferior vena cava filter placement. 6. Thrombocytopenia. RECOMMENDATIONS: Continue Aricept at 5 mg once a day, Cipro 500 mg p.o. twice a day, Flagyl 500 mg p.o. q. 8 hours. Enalapril and Coreg are still on hold as well as Eliquis. I will obtain CBC today prior to resuming Eliquis. Luis August MD
[2017-02-26 13:26] LABS: HEMOGLOBIN 12.7 g/dL (12.0-18.0); MEAN CELL VOLUME 85.5 fl (80.0-94.0); MEAN CORPUSCULAR HEMOGLOBIN 26.6 pg (27.0-31.0); MEAN CORPUSCULAR HGB CONC 31.1 g/dL (33.0-37.0); RBC 4.79 Mil/uL (4.40-5.90); WHITE BLOOD COUNT 5.1 K/uL (4.8-10.8)
[2017-02-26 13:50] LABS: BLOOD UREA NITROGEN 38 mg/dl (9-20); CALCIUM 9.3 mg/dL (8.4-10.2); GFR AFRICAN-AMERICAN > 60; GFR NON-AFRICAN AMERICAN > 60
[2017-02-26] MEDS ORDERED: Sod Polystyrene Sulf 15 gm/60 ml Susp PO ONE (16:41)
[2017-02-26] MEDS: Divalproex 125 mg DR (BID formulation) PO SCH (17:12)
--- NOTE | 2017-02-26 23:13 | CP.PCM.PN ---
Subjective - Date & Time of Evaluation Date of Evaluation: 02/26/17 Time of Evaluation: 23:30 - Subjective Subjective: Seen and Examined at the bed side. Patient Drowsy but arousable and saturating 88-89% in RA. RR was called earlier for similar Symptom, and CXR done during MONITORING MANAGER shows B/L Effusions and some congestion. Otherwise All he rest of vital signs are normal. Stat Labs, EKG and ABG requested , and initiated transfer to telemetry. Denies fever or chills. Denies abdominal pain. Has been refusing U/S abdomen, and Gi Consulted when he was complaining of abdominal pain. Poor po intake. Objective - Vital Signs/Intake and Output Vital Signs (last 24 hours): Temp Pulse Resp BP Pulse Ox 97.6 F 63 18 103/57 L 93 L 02/26/17 19:48 02/26/17 19:48 02/26/17 19:48 02/26/17 19:48 02/26/17 19:48 - Medications Medications: Current Medications Acetaminophen (Tylenol 325mg Tab) 650 mg PO Q4 PRN PRN Reason: Pain, Mild (1-3) Last Admin: 02/12/17 09:33 Dose: 650 mg Al Hydrox/Mg Hydrox/Simethicone (Maalox Plus 30 Ml) 30 ml PO Q4 PRN PRN Reason: Indigestion / Heartburn Last Admin: 02/23/17 16:51 Dose: 30 ml Apixaban (Eliquis) 2.5 mg PO BID [facility] PRN Reason: Protocol Last Admin: 02/26/17 17:12 Dose: 2.5 mg Carvedilol (Coreg) 3.125 mg PO Q12 [facility] Last Admin: 02/05/17 22:21 Dose: Not Given Ciprofloxacin (Cipro) 500 mg PO Q12 [facility] Stop: 02/27/17 21:01 Last Admin: 02/26/17 21:18 Dose: 500 mg Divalproex Sodium (Depakote Dr(*Bid*)) 250 mg PO BID [facility] Last Admin: 02/26/17 17:12 Dose: 250 mg Divalproex Sodium (Depakote Dr(*Bid*)) 125 mg PO DAILY@1700 [facility] Last Admin: 02/26/17 17:12 Dose: 125 mg Donepezil HCl (Aricept) 5 mg PO HS [facility] Last Admin: 02/26/17 21:18 Dose: 5 mg Enalapril Maleate (Vasotec) 2.5 mg PO DAILY [facility] Last Admin: 02/05/17 08:56 Dose: 2.5 mg Furosemide (Lasix) 20 mg PO DAILY [facility] Last Admin: 02/26/17 08:57 Dose: 20 mg Lactobacillus Acidophilus (Bacid Acidophilus) 1 cap PO BID [facility] Last Admin: 02/26/17 17:11 Dose: 1 cap Magnesium Hydroxide (Milk Of Magnesia) 30 ml PO HS PRN PRN Reason: Constipation Last Admin: 02/12/17 17:47 Dose: 30 ml Memantine (Namenda) 5 mg PO DAILY [facility] Last Admin: 02/26/17 08:52 Dose: 5 mg Metronidazole (Flagyl) 500 mg PO Q8 [facility] Stop: 02/28/17 01:01 Last Admin: 02/26/17 17:12 Dose: 500 mg Mirtazapine (Remeron) 15 mg PO HS [facility] Last Admin: 02/26/17 21:18 Dose: 15 mg Nitroglycerin (Nitrostat Sl Tab) 0.4 mg SL Q5M PRN PRN Reason: chest pain Ondansetron HCl (Zofran Inj) 4 mg IVP Q6 PRN PRN Reason: Nausea/Vomiting Pantoprazole Sodium (Protonix Ec Tab) 40 mg PO Q12 [facility] Last Admin: 02/26/17 21:18 Dose: 40 mg - Labs Labs: 02/26/17 13:19 02/26/17 13:19 PT 20.3 Seconds (9.8-13.1) H 02/12/17 09:25 INR 1.8 (0.9-1.2) H 02/12/17 09:25 APTT 34.1 Seconds (25.6-37.1) D 01/30/17 05:55 Assessment and Plan (1) Acute on chronic combined systolic and diastolic CHF (congestive heart failure) Assessment & Plan: hronic A. fibrillation Elevated Troponine with Possible NSTEMI Vs due to Cardiomyopathy/CHF O2 via [place] ASA Serial trop and EKG Telemonitoring Continue BB/ACEI/Lasix/Spiranolactone Vanessa D/w Mirror Installer about Elevated Trop, and Possibility Underlying CAD, and will manage conservatively due to Poor General Condition Status: Acute (2) Mood disorder due to known physiological condition with depressive features , Dementia nt. Assessment and Plan: Depression with PSychotic Behaviour Dementia Continue Remeron/Depakote/Aricept (3) Social Hold due to a need for placement Status: Acute
[2017-02-27] MEDS: Pantoprazole 40 mg EC Tab PO SCH ×2 (09:00→21:27)
[2017-02-27] MEDS: Divalproex 250 mg DR(BID formulation) PO SCH ×2 (09:00→17:51)
[2017-02-27] MEDS: Lactobacillus Acidophilus 500 MU Cap PO SCH ×2 (09:03→17:52)
[2017-02-27 13:07] LABS: BLOOD UREA NITROGEN 32 mg/dl (9-20); CALCIUM 8.8 mg/dL (8.4-10.2); GFR AFRICAN-AMERICAN > 60; GFR NON-AFRICAN AMERICAN > 60
--- NOTE | 2017-02-27 14:43 | PN ---
DATE: SUBJECTIVE: The patient has no reported ventricular arrhythmia. PHYSICAL EXAMINATION: VITAL SIGNS: Blood pressure 100/48, heart rate 55, temperature 97.6, respirations 20. HEENT: Normocephalic. CHEST: Diminished breath sounds over the bases. HEART: S1 and S2, regular. EXTREMITIES: A 1+ pitting edema. ASSESSMENT: 1. Dilated cardiomyopathy. 2. Thrombocytopenia. 3. Prerenal azotemia. 4. Chronic atrial fibrillation. 5. Depression. 6. Bilateral pleural effusion. 7. Borderline hypotension. RECOMMENDATIONS: Continue Eliquis 2.5 mg twice a day, continue oral Cipro 500 mg twice a day, Lasix 20 mg p.o. once a day. Enalapril and Coreg are still on hold. Case was discussed with the primary physician yesterday. Luis August MD
[2017-02-27] MEDS: Divalproex 125 mg DR (BID formulation) PO SCH (17:50)
--- NOTE | 2017-02-27 23:27 | CP.PCM.PN ---
Subjective - Date & Time of Evaluation Date of Evaluation: 02/27/17 Time of Evaluation: 22:25 - Subjective Subjective: Seen and Examined at the bed side. Patient Drowsy but arousable and saturating 88-89% in RA. RR was called earlier for similar Symptom, and CXR done during QUALITY CONTROL SCIENTIST shows B/L Effusions and some congestion. Otherwise All he rest of vital signs are normal. Stat Labs, EKG and ABG requested , and initiated transfer to telemetry. Denies fever or chills. Denies abdominal pain. Has been refusing U/S abdomen, and Gi Consulted when he was complaining of abdominal pain. Poor po intake. Objective - Vital Signs/Intake and Output Vital Signs (last 24 hours): Temp Pulse Resp BP Pulse Ox 97.4 F L 61 19 107/46 L 91 L 02/27/17 19:24 02/27/17 19:24 02/27/17 19:24 02/27/17 19:24 02/27/17 19:24 - Medications Medications: Current Medications Acetaminophen (Tylenol 325mg Tab) 650 mg PO Q4 PRN PRN Reason: Pain, Mild (1-3) Last Admin: 02/12/17 09:33 Dose: 650 mg Al Hydrox/Mg Hydrox/Simethicone (Maalox Plus 30 Ml) 30 ml PO Q4 PRN PRN Reason: Indigestion / Heartburn Last Admin: 02/23/17 16:51 Dose: 30 ml Apixaban (Eliquis) 2.5 mg PO BID [facility] PRN Reason: Protocol Last Admin: 02/27/17 17:50 Dose: 2.5 mg Carvedilol (Coreg) 3.125 mg PO Q12 [facility] Last Admin: 02/05/17 22:21 Dose: Not Given Divalproex Sodium (Depakote Dr(*Bid*)) 250 mg PO BID [facility] Last Admin: 02/27/17 17:51 Dose: 250 mg Divalproex Sodium (Depakote Dr(*Bid*)) 125 mg PO DAILY@1700 [facility] Last Admin: 02/27/17 17:50 Dose: 125 mg Donepezil HCl (Aricept) 5 mg PO HS [facility] Last Admin: 02/27/17 21:27 Dose: 5 mg Enalapril Maleate (Vasotec) 2.5 mg PO DAILY [facility] Last Admin: 02/05/17 08:56 Dose: 2.5 mg Furosemide (Lasix) 20 mg PO DAILY [facility] Last Admin: 02/27/17 09:03 Dose: 20 mg Lactobacillus Acidophilus (Bacid Acidophilus) 1 cap PO BID [facility] Last Admin: 02/27/17 17:52 Dose: 1 cap Magnesium Hydroxide (Milk Of Magnesia) 30 ml PO HS PRN PRN Reason: Constipation Last Admin: 02/12/17 17:47 Dose: 30 ml Memantine (Namenda) 5 mg PO DAILY [facility] Last Admin: 02/27/17 09:00 Dose: 5 mg Metronidazole (Flagyl) 500 mg PO Q8 [facility] Stop: 02/28/17 01:01 Last Admin: 02/27/17 17:50 Dose: 500 mg Mirtazapine (Remeron) 15 mg PO HS [facility] Last Admin: 02/27/17 21:27 Dose: 15 mg Nitroglycerin (Nitrostat Sl Tab) 0.4 mg SL Q5M PRN PRN Reason: chest pain Ondansetron HCl (Zofran Inj) 4 mg IVP Q6 PRN PRN Reason: Nausea/Vomiting Pantoprazole Sodium (Protonix Ec Tab) 40 mg PO Q12 [facility] Last Admin: 02/27/17 21:27 Dose: 40 mg - Labs Labs: 02/26/17 13:19 02/27/17 12:39 PT 20.3 Seconds (9.8-13.1) H 02/12/17 09:25 INR 1.8 (0.9-1.2) H 02/12/17 09:25 APTT 34.1 Seconds (25.6-37.1) D 01/30/17 05:55 Assessment and Plan (1) Acute on chronic combined systolic and diastolic CHF (congestive heart failure) Assessment & Plan: hronic A. fibrillation Elevated Troponine with Possible NSTEMI Vs due to Cardiomyopathy/CHF O2 via [place] ASA Serial trop and EKG Telemonitoring Continue BB/ACEI/Lasix/Spiranolactone Vanessa D/w Pinsetter Mechanic Helper about Elevated Trop, and Possibility Underlying CAD, and will manage conservatively due to Poor General Condition Status: Acute (2) Mood disorder due to known physiological condition with depressive features , Dementia nt. Assessment and Plan: Depression with PSychotic Behaviour Dementia Continue Remeron/Depakote/Aricept (3) Social Hold due to a need for placement Status: Acute
[2017-02-28] MEDS: Divalproex 250 mg DR(BID formulation) PO SCH ×2 (09:23→16:08)
[2017-02-28] MEDS: Pantoprazole 40 mg EC Tab PO SCH ×2 (09:24→21:12)
[2017-02-28] MEDS: Lactobacillus Acidophilus 500 MU Cap PO SCH ×2 (09:26→16:07)
[2017-02-28 12:20] LABS: BLOOD UREA NITROGEN 28 mg/dl (9-20); CALCIUM 8.6 mg/dL (8.4-10.2); GFR AFRICAN-AMERICAN > 60; GFR NON-AFRICAN AMERICAN > 60
--- NOTE | 2017-02-28 14:46 | PN ---
FOLLOWUP SUBJECTIVE: The patient was noted to have 14 runs of nonsustained ventricular tachycardia on the monitor. He denies any chest pain. PHYSICAL EXAMINATION: VITAL SIGNS: Blood pressure 112/62, heart rate 80, temperature 97.2, respirations 20. HEENT: Normocephalic. CHEST: Diminished breath sounds over the bases. HEART: S1 and S2 regular. EXTREMITIES: 1+ pitting edema. LABORATORY DATA: SMA-7: Sodium 145, potassium 3.9, chloride 96, CO2 of 45, glucose 91, BUN 28, creatinine 1.0. Magnesium 2.0. ASSESSMENT: 1. Dilated cardiomyopathy. 2. Status post implantable cardioverter-defibrillator, biventricular pacemaker placement. 3. Nonsustained ventricular tachycardia. 4. Chronic atrial fibrillation. 5. Depression. 6. Bilateral pleural effusion. RECOMMENDATIONS: Continue Eliquis 2.5 mg twice a day, Lasix 20 mg once a day. Resume Coreg 3.125 mg twice a day. Luis August MD
--- NOTE | 2017-02-28 15:38 | CP.PCM.PN ---
Subjective - Date & Time of Evaluation Date of Evaluation: 02/28/17 Time of Evaluation: 15:30 - Subjective Subjective: Seen and examined at the bed side. Denies chest pain or sob at rest. SMITH. poor Po intake. Objective - Vital Signs/Intake and Output Vital Signs (last 24 hours): Temp Pulse Resp BP Pulse Ox 97.2 F L 80 20 112/62 97 02/28/17 12:14 02/28/17 12:14 02/28/17 12:14 02/28/17 12:14 02/28/17 12:14 - Medications Medications: Current Medications Acetaminophen (Tylenol 325mg Tab) 650 mg PO Q4 PRN PRN Reason: Pain, Mild (1-3) Last Admin: 02/12/17 09:33 Dose: 650 mg Al Hydrox/Mg Hydrox/Simethicone (Maalox Plus 30 Ml) 30 ml PO Q4 PRN PRN Reason: Indigestion / Heartburn Last Admin: 02/23/17 16:51 Dose: 30 ml Apixaban (Eliquis) 2.5 mg PO BID [facility] PRN Reason: Protocol Last Admin: 02/28/17 09:23 Dose: 2.5 mg Carvedilol (Coreg) 3.125 mg PO Q12 [facility] Last Admin: 02/05/17 22:21 Dose: Not Given Divalproex Sodium (Depakote Dr(*Bid*)) 250 mg PO BID [facility] Last Admin: 02/28/17 09:23 Dose: 250 mg Divalproex Sodium (Depakote Dr(*Bid*)) 125 mg PO DAILY@1700 [facility] Last Admin: 02/27/17 17:50 Dose: 125 mg Donepezil HCl (Aricept) 5 mg PO HS [facility] Last Admin: 02/27/17 21:27 Dose: 5 mg Enalapril Maleate (Vasotec) 2.5 mg PO DAILY [facility] Last Admin: 02/05/17 08:56 Dose: 2.5 mg Furosemide (Lasix) 20 mg PO DAILY [facility] Last Admin: 02/28/17 09:23 Dose: 20 mg Lactobacillus Acidophilus (Bacid Acidophilus) 1 cap PO BID [facility] Last Admin: 02/28/17 09:26 Dose: 1 cap Magnesium Hydroxide (Milk Of Magnesia) 30 ml PO HS PRN PRN Reason: Constipation Last Admin: 02/12/17 17:47 Dose: 30 ml Memantine (Namenda) 5 mg PO DAILY [facility] Last Admin: 02/28/17 09:24 Dose: 5 mg Mirtazapine (Remeron) 15 mg PO HS [facility] Last Admin: 02/27/17 21:27 Dose: 15 mg Nitroglycerin (Nitrostat Sl Tab) 0.4 mg SL Q5M PRN PRN Reason: chest pain Ondansetron HCl (Zofran Inj) 4 mg IVP Q6 PRN PRN Reason: Nausea/Vomiting Pantoprazole Sodium (Protonix Ec Tab) 40 mg PO Q12 [facility] Last Admin: 02/28/17 09:24 Dose: 40 mg - Labs Labs: 02/26/17 13:19 02/28/17 11:40 PT 20.3 Seconds (9.8-13.1) H 02/12/17 09:25 INR 1.8 (0.9-1.2) H 02/12/17 09:25 APTT 34.1 Seconds (25.6-37.1) D 01/30/17 05:55 - Constitutional Appears: Chronically Ill - Head Exam Head Exam: ATRAUMATIC, NORMAL INSPECTION, NORMOCEPHALIC - Eye Exam Eye Exam: EOMI - ENT Exam ENT Exam: Mucous Membranes Dry - Neck Exam Neck Exam: Full ROM, Normal Inspection - Respiratory Exam Respiratory Exam: Decreased Breath Sounds, Rales. absent: Wheezes - Cardiovascular Exam Cardiovascular Exam: +S1, +S2. absent: Murmur - GI/Abdominal Exam GI & Abdominal Exam: Soft, Normal Bowel Sounds. absent: Tenderness - Extremities Exam Extremities Exam: Pedal Edema - Back Exam Back Exam: absent: CVA tenderness (L), CVA tenderness (R) - Neurological Exam Neurological Exam: Abnormal Gait - Psychiatric Exam Psychiatric exam: Agitated (On and off), Depressed, Flat Affect - Skin Skin Exam: Intact, Normal Color Assessment and Plan (1) Acute on chronic combined systolic and diastolic CHF (congestive heart failure) Assessment & Plan: hronic A. fibrillation Elevated Troponine with Possible NSTEMI Vs due to Cardiomyopathy/CHF O2 via [place] ASA Serial trop and EKG Telemonitoring Continue BB/ACEI/Lasix/Spiranolactone Vanessa D/w Discharge Coordinator about Elevated Trop, and Possibility Underlying CAD, and will manage conservatively due to Poor General Condition Status: Acute (2) Mood disorder due to known physiological condition with depressive features , Dementia nt. Assessment and Plan: Depression with Psychotic Behaviour Dementia Continue Remeron/Depakote/Aricept (3) Social Hold due to a need for placement Status: Chronic
[2017-02-28] MEDS: Divalproex 125 mg DR (BID formulation) PO SCH (16:08)
[2017-03-01] MEDS: Lactobacillus Acidophilus 500 MU Cap PO SCH ×2 (08:40→16:54)
[2017-03-01] MEDS: Pantoprazole 40 mg EC Tab PO SCH ×2 (08:40→21:10)
[2017-03-01] MEDS: Divalproex 250 mg DR(BID formulation) PO SCH ×2 (08:41→16:54)
[2017-03-01] MEDS: Divalproex 125 mg DR (BID formulation) PO SCH (16:54)
--- NOTE | 2017-03-01 20:30 | CP.PCM.PN ---
Subjective - Date & Time of Evaluation Date of Evaluation: 03/01/17 Time of Evaluation: 08:05 - Subjective Subjective: Seen and examined at the bed side. Poor Po intake. otherwise no complaint. Objective - Vital Signs/Intake and Output Vital Signs (last 24 hours): Temp Pulse Resp BP Pulse Ox 97.5 F L 75 14 107/78 96 03/01/17 20:05 03/01/17 20:05 03/01/17 20:05 03/01/17 20:05 03/01/17 20:05 - Medications Medications: Current Medications Acetaminophen (Tylenol 325mg Tab) 650 mg PO Q4 PRN PRN Reason: Pain, Mild (1-3) Last Admin: 02/12/17 09:33 Dose: 650 mg Al Hydrox/Mg Hydrox/Simethicone (Maalox Plus 30 Ml) 30 ml PO Q4 PRN PRN Reason: Indigestion / Heartburn Last Admin: 02/23/17 16:51 Dose: 30 ml Apixaban (Eliquis) 2.5 mg PO BID [facility] PRN Reason: Protocol Last Admin: 03/01/17 16:54 Dose: 2.5 mg Carvedilol (Coreg) 3.125 mg PO Q12 [facility] Last Admin: 03/01/17 08:40 Dose: Not Given Divalproex Sodium (Depakote Dr(*Bid*)) 250 mg PO BID [facility] Last Admin: 03/01/17 16:54 Dose: 250 mg Divalproex Sodium (Depakote Dr(*Bid*)) 125 mg PO DAILY@1700 [facility] Last Admin: 03/01/17 16:54 Dose: 125 mg Donepezil HCl (Aricept) 5 mg PO HS [facility] Last Admin: 02/28/17 21:12 Dose: 5 mg Enalapril Maleate (Vasotec) 2.5 mg PO DAILY [facility] Last Admin: 02/05/17 08:56 Dose: 2.5 mg Furosemide (Lasix) 20 mg PO DAILY [facility] Last Admin: 03/01/17 08:44 Dose: Not Given Lactobacillus Acidophilus (Bacid Acidophilus) 1 cap PO BID [facility] Last Admin: 03/01/17 16:54 Dose: 1 cap Magnesium Hydroxide (Milk Of Magnesia) 30 ml PO HS PRN PRN Reason: Constipation Last Admin: 02/12/17 17:47 Dose: 30 ml Memantine (Namenda) 5 mg PO DAILY [facility] Last Admin: 03/01/17 08:41 Dose: 5 mg Mirtazapine (Remeron) 15 mg PO HS [facility] Last Admin: 02/28/17 21:12 Dose: 15 mg Nitroglycerin (Nitrostat Sl Tab) 0.4 mg SL Q5M PRN PRN Reason: chest pain Ondansetron HCl (Zofran Inj) 4 mg IVP Q6 PRN PRN Reason: Nausea/Vomiting Pantoprazole Sodium (Protonix Ec Tab) 40 mg PO Q12 [facility] Last Admin: 03/01/17 08:40 Dose: 40 mg - Labs Labs: 02/26/17 13:19 02/28/17 11:40 PT 20.3 Seconds (9.8-13.1) H 02/12/17 09:25 INR 1.8 (0.9-1.2) H 02/12/17 09:25 APTT 34.1 Seconds (25.6-37.1) D 01/30/17 05:55 - Head Exam Head Exam: ATRAUMATIC, NORMAL INSPECTION, NORMOCEPHALIC - ENT Exam ENT Exam: Mucous Membranes Moist, Normal Exam - Respiratory Exam Respiratory Exam: Chest Wall Tenderness, Clear to Ausculation Bilateral - Cardiovascular Exam Cardiovascular Exam: Tachycardia, +S1, +S2 Assessment and Plan (1) Acute on chronic combined systolic and diastolic CHF (congestive heart failure) Assessment & Plan: Chronic A.fibrillation Elevated Troponine with Possible NSTEMI Vs due to Cardiomyopathy/CHF O2 via [place] ASA Serial trop and EKG Telemonitoring Continue BB/ACEI/Lasix/Spiranolactone Vanessa D/w Mineral Surveyor about Elevated Trop, and Possibility Underlying CAD, and will manage conservatively due to Poor General Condition Status: Acute (2) Mood disorder due to known physiological condition with depressive features , Dementia nt. Assessment and Plan: Depression with Psychotic Behaviour Dementia Continue Remeron/Depakote/Aricept (3) Social Hold due to a need for Placement Status: Chronic
[2017-03-02] MEDS: Lactobacillus Acidophilus 500 MU Cap PO SCH ×2 (08:50→16:33)
[2017-03-02] MEDS: Divalproex 250 mg DR(BID formulation) PO SCH ×2 (08:51→16:33)
[2017-03-02] MEDS: Pantoprazole 40 mg EC Tab PO SCH ×2 (08:51→21:45)
[2017-03-02 13:31] LABS: HEMOGLOBIN 12.7 g/dL (12.0-18.0); MEAN CELL VOLUME 85.1 fl (80.0-94.0); MEAN CORPUSCULAR HEMOGLOBIN 26.9 pg (27.0-31.0); MEAN CORPUSCULAR HGB CONC 31.7 g/dL (33.0-37.0); RBC 4.72 Mil/uL (4.40-5.90); RED CELL DISTRIBUTION WIDTH 19.2 % (11.5-14.5); WHITE BLOOD COUNT 3.7 K/uL (4.8-10.8)
[2017-03-02 13:59] LABS: BLOOD UREA NITROGEN 37 mg/dl (9-20); CALCIUM 8.6 mg/dL (8.4-10.2); GFR AFRICAN-AMERICAN > 60; GFR NON-AFRICAN AMERICAN > 60; MAGNESIUM 2.1 MG/DL (1.6-2.3)
[2017-03-02] MEDS: Divalproex 125 mg DR (BID formulation) PO SCH (16:30)
--- NOTE | 2017-03-02 23:04 | CP.PCM.PN ---
Subjective - Date & Time of Evaluation Date of Evaluation: 03/02/17 Time of Evaluation: 16:05 - Subjective Subjective: Poor PO intake, and very low calorie count. Currently on IVF. Unable to place to [facility]/exterminator NH due to combined Medical and Psychological disorders. Family declined to take him home. Continue to lose weight as he is refusing to eat. on and off drinking the supplements. Objective - Vital Signs/Intake and Output Vital Signs (last 24 hours): Temp Pulse Resp BP Pulse Ox 97.9 F 62 16 98/76 L 99 03/02/17 20:04 03/02/17 21:43 03/02/17 20:04 03/02/17 21:43 03/02/17 20:04 Intake and Output: 03/02/17 03/03/17 18:59 06:59 Intake Total 500 Output Total 400 Balance 100 - Medications Medications: Current Medications Acetaminophen (Tylenol 325mg Tab) 650 mg PO Q4 PRN PRN Reason: Pain, Mild (1-3) Last Admin: 02/12/17 09:33 Dose: 650 mg Al Hydrox/Mg Hydrox/Simethicone (Maalox Plus 30 Ml) 30 ml PO Q4 PRN PRN Reason: Indigestion / Heartburn Last Admin: 02/23/17 16:51 Dose: 30 ml Apixaban (Eliquis) 2.5 mg PO BID [facility] PRN Reason: Protocol Last Admin: 03/02/17 16:33 Dose: 2.5 mg Carvedilol (Coreg) 3.125 mg PO Q12 [facility] Last Admin: 03/02/17 21:43 Dose: Not Given Divalproex Sodium (Depakote Dr(*Bid*)) 250 mg PO BID [facility] Last Admin: 03/02/17 16:33 Dose: 250 mg Divalproex Sodium (Depakote Dr(*Bid*)) 125 mg PO DAILY@1700 [facility] Last Admin: 03/01/17 16:54 Dose: 125 mg Donepezil HCl (Aricept) 5 mg PO HS [facility] Last Admin: 03/02/17 21:45 Dose: 5 mg Enalapril Maleate (Vasotec) 2.5 mg PO DAILY [facility] Last Admin: 02/05/17 08:56 Dose: 2.5 mg Furosemide (Lasix) 20 mg PO DAILY [facility] Last Admin: 03/02/17 08:53 Dose: 20 mg Lactobacillus Acidophilus (Bacid Acidophilus) 1 cap PO BID [facility] Last Admin: 03/02/17 16:33 Dose: 1 cap Magnesium Hydroxide (Milk Of Magnesia) 30 ml PO HS PRN PRN Reason: Constipation Last Admin: 02/12/17 17:47 Dose: 30 ml Memantine (Namenda) 5 mg PO DAILY [facility] Last Admin: 03/02/17 08:51 Dose: 5 mg Mirtazapine (Remeron) 15 mg PO HS [facility] Last Admin: 03/02/17 21:45 Dose: 15 mg Nitroglycerin (Nitrostat Sl Tab) 0.4 mg SL Q5M PRN PRN Reason: chest pain Ondansetron HCl (Zofran Inj) 4 mg IVP Q6 PRN PRN Reason: Nausea/Vomiting Pantoprazole Sodium (Protonix Ec Tab) 40 mg PO Q12 [facility] Last Admin: 03/02/17 21:45 Dose: 40 mg - Labs Labs: 03/02/17 13:28 03/02/17 13:28 PT 20.3 Seconds (9.8-13.1) H 02/12/17 09:25 INR 1.8 (0.9-1.2) H 02/12/17 09:25 APTT 34.1 Seconds (25.6-37.1) D 01/30/17 05:55 Assessment and Plan (1) Acute on chronic combined systolic and diastolic CHF (congestive heart failure) Assessment & Plan: Chronic A.fibrillation Elevated Troponine with Possible NSTEMI Vs due to Cardiomyopathy/CHF O2 via NC ASA Serial trop and EKG Telemonitoring Continue BB/ACEI/Lasix/Spiranolactone Vanessa D/w Packing Line Operator about Elevated Trop, and Possibility Underlying CAD, and will manage conservatively due to Poor General Condition Status: Acute (2) Mood disorder due to known physiological condition with depressive features , Dementia nt. Assessment and Plan: Depression with Psychotic Behaviour Dementia Continue Remeron/Depakote/Aricept (3) Social Hold due to a need for Placement Status: Acute
[2017-03-03] MEDS: Divalproex 250 mg DR(BID formulation) PO SCH ×2 (09:17→17:04)
[2017-03-03] MEDS: Pantoprazole 40 mg EC Tab PO SCH ×2 (09:17→21:44)
[2017-03-03] MEDS: Lactobacillus Acidophilus 500 MU Cap PO SCH ×2 (09:21→17:05)
[2017-03-03] MEDS: Divalproex 125 mg DR (BID formulation) PO SCH (17:04)
--- NOTE | 2017-03-03 17:40 | CP.PCM.PN ---
Subjective - Date & Time of Evaluation Date of Evaluation: 03/03/17 Time of Evaluation: 17:00 - Subjective Subjective: Seen and examined at the bed side. On and off NS-VT but no syncope or chest pain. Poor Po intake, and loosing weight. SMITH. Objective - Vital Signs/Intake and Output Vital Signs (last 24 hours): Temp Pulse Resp BP Pulse Ox 98.4 F 60 16 111/76 96 03/03/17 16:12 03/03/17 16:12 03/03/17 16:12 03/03/17 16:12 03/03/17 16:12 Intake and Output: 03/03/17 03/03/17 06:59 18:59 Output Total 200 Balance -200 - Medications Medications: Current Medications Acetaminophen (Tylenol 325mg Tab) 650 mg PO Q4 PRN PRN Reason: Pain, Mild (1-3) Last Admin: 02/12/17 09:33 Dose: 650 mg Al Hydrox/Mg Hydrox/Simethicone (Maalox Plus 30 Ml) 30 ml PO Q4 PRN PRN Reason: Indigestion / Heartburn Last Admin: 02/23/17 16:51 Dose: 30 ml Apixaban (Eliquis) 2.5 mg PO BID [facility] PRN Reason: Protocol Last Admin: 03/03/17 17:04 Dose: 2.5 mg Carvedilol (Coreg) 3.125 mg PO Q12 [facility] 234 B[facility]S [facility] Last Admin: 03/03/17 09:12 Dose: Not Given Divalproex Sodium (Depakote Dr(*Bid*)) 250 mg PO BID [facility] 234 BEDS AT [facility] Last Admin: 03/03/17 17:04 Dose: 250 mg Divalproex Sodium (Depakote Dr(*Bid*)) 125 mg PO DAILY@1700 [facility] 234 BEDS AT [facility] Last Admin: 03/03/17 17:04 Dose: 125 mg Donepezil HCl (Aricept) 5 mg PO HS [facility]S [facility] 234 BEDS AT [facility] Last Admin: 03/02/17 21:45 Dose: 5 mg Enalapril Maleate (Vasotec) 2.5 mg PO DAILY COUNTS [facility]CLUDE 234 BEDS AT THE [facility] Last Admin: 02/05/17 08:56 Dose: 2.5 mg Furosemide (Lasix) 20 mg PO DAILY [facility]S [facility] 234 BEDS AT [facility] Last Admin: 03/03/17 09:12 Dose: Not Given Lactobacillus Acidophilus (Bacid Acidophilus) 1 cap PO BID [facility] 234 BEDS AT [facility] Last Admin: 03/03/17 17:05 Dose: 1 cap Magnesium Hydroxide (Milk Of Magnesia) 30 ml PO HS PRN PRN Reason: Constipation Last Admin: 02/12/17 17:47 Dose: 30 ml Memantine (Namenda) 5 mg PO DAILY [facility] 234 BEDS AT [facility] Last Admin: 03/03/17 09:19 Dose: 5 mg Mirtazapine (Remeron) 15 mg PO HS [facility]S [facility]CLUDE 234 BEDS AT [facility] Last Admin: 03/02/17 21:45 Dose: 15 mg Nitroglycerin (Nitrostat Sl Tab) 0.4 mg SL Q5M PRN PRN Reason: chest pain Ondansetron HCl (Zofran Inj) 4 mg IVP Q6 PRN PRN Reason: Nausea/Vomiting Pantoprazole Sodium (Protonix Ec Tab) 40 mg PO Q12 [facility] 234 BEDS AT [facility] Last Admin: 03/03/17 09:17 Dose: 40 mg - Labs Labs: 03/02/17 13:28 03/02/17 13:28 PT 20.3 Seconds (9.8-13.1) H 02/12/17 09:25 INR 1.8 (0.9-1.2) H 02/12/17 09:25 APTT 34.1 Seconds (25.6-37.1) D 01/30/17 05:55 - Constitutional Appears: No Acute Distress, Chronically Ill - Head Exam Head Exam: ATRAUMATIC, NORMAL INSPECTION, NORMOCEPHALIC - ENT Exam ENT Exam: Mucous Membranes Moist - Neck Exam Neck Exam: Full ROM, Normal Inspection - Respiratory Exam Respiratory Exam: Decreased Breath Sounds, Rales. absent: Wheezes - Cardiovascular Exam Cardiovascular Exam: +S1, +S2 - GI/Abdominal Exam Additional comments: +AICD on the left chest. - Neurological Exam Neurological Exam: Abnormal Gait, Awake Assessment and Plan (1) Acute on chronic combined systolic and diastolic CHF (congestive heart failure) Assessment & Plan: Chronic A.fibrillation Elevated Troponine with Possible NSTEMI Vs due to Cardiomyopathy/CHF O2 via NC ASA Serial trop and EKG Telemonitoring Continue BB/ACEI/Lasix/Spiranolactone Vanessa D/w Voting Machine Mechanic about Elevated Trop, and Possibility Underlying CAD, and will manage conservatively due to Poor General Condition Status: Acute (2) Mood disorder due to known physiological condition with depressive features , Dementia nt. Assessment and Plan: Depression with Psychotic Behaviour Dementia Continue Remeron/Depakote/Aricept (3) Social Hold due to a need for Placement Status: Acute
[2017-03-04] MEDS: Divalproex 250 mg DR(BID formulation) PO SCH ×2 (08:34→16:21)
[2017-03-04] MEDS: Lactobacillus Acidophilus 500 MU Cap PO SCH ×2 (08:40→16:20)
[2017-03-04] MEDS: Pantoprazole 40 mg EC Tab PO SCH ×2 (08:41→21:21)
[2017-03-04] MEDS: Divalproex 125 mg DR (BID formulation) PO SCH (16:21)
--- NOTE | 2017-03-04 22:32 | PN ---
DATE: SUBJECTIVE: No reported nonsustained ventricular tachycardia today. No reported chest pain. Patient was borderline hypertensive earlier with blood pressure of 89/54. PHYSICAL EXAMINATION: VITAL SIGNS: Currently blood pressure is 98/62, heart rate 60, temperature 97.5, respirations 16. HEENT: Normocephalic. CHEST: Diminished breath sounds of the bases. HEART: S1 and S2 regular. EXTREMITIES: Improved leg edema. LABORATORY DATA: Two days ago, BUN and creatinine were 37 and 1.1. Potassium was within normal limits at 4.1. CO2 was elevated at 43. On the same day, on 03/02/2017, platelet count was 77. ASSESSMENT: 1. Dilated cardiomyopathy. 2. Chronic atrial fibrillation. 3. Right femoral vein deep venous thrombosis, status post inferior vena cava filter placement. 4. Worsening thrombocytopenia. RECOMMENDATIONS: Continue Coreg at 3.125 mg twice a day, Depakote 250 mg twice a day, Lasix 20 mg p.o. once a day, enalapril 2.5 mg once a day, Eliquis was discontinued today, which I agree with. Obtain a CBC and BMP in a.m. Luis August MD
[2017-03-05 08:03] LABS: HEMOGLOBIN 12.1 g/dL (12.0-18.0); MEAN CELL VOLUME 86.2 fl (80.0-94.0); MEAN CORPUSCULAR HEMOGLOBIN 26.3 pg (27.0-31.0); MEAN CORPUSCULAR HGB CONC 30.5 g/dL (33.0-37.0); RBC 4.59 Mil/uL (4.40-5.90); RED CELL DISTRIBUTION WIDTH 19.2 % (11.5-14.5); WHITE BLOOD COUNT 4.3 K/uL (4.8-10.8)
[2017-03-05 08:58] LABS: BLOOD UREA NITROGEN 43 mg/dl (9-20); CALCIUM 8.6 mg/dL (8.4-10.2); GFR AFRICAN-AMERICAN > 60; GFR NON-AFRICAN AMERICAN > 60
[2017-03-05] MEDS: Lactobacillus Acidophilus 500 MU Cap PO SCH ×2 (09:56→17:56)
[2017-03-05] MEDS: Divalproex 250 mg DR(BID formulation) PO SCH ×2 (09:56→17:56)
[2017-03-05] MEDS: Pantoprazole 40 mg EC Tab PO SCH ×2 (09:58→21:27)
[2017-03-05] MEDS: Divalproex 125 mg DR (BID formulation) PO SCH (17:56)
--- NOTE | 2017-03-06 00:11 | CP.PCM.PN ---
Subjective - Date & Time of Evaluation Date of Evaluation: 03/04/17 Time of Evaluation: 23:30 - Subjective Subjective: Poor PO intake, and very low calorie count. Currently on IVF. 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 Family declined to take him home. Continue to lose weight as he is refusing to eat. on and off drinking the supplements. Objective - Vital Signs/Intake and Output Vital Signs (last 24 hours): Temp Pulse Resp BP Pulse Ox 97.4 F L 62 18 120/80 96 03/05/17 21:00 03/05/17 21:27 03/05/17 21:00 03/05/17 21:27 03/05/17 21:00 Intake and Output: 03/05/17 03/06/17 18:59 06:59 Intake Total 650 Output Total 600 Balance 50 - Medications Medications: Current Medications Acetaminophen (Tylenol 325mg Tab) 650 mg PO Q4 PRN PRN Reason: Pain, Mild (1-3) Last Admin: 02/12/17 09:33 Dose: 650 mg Al Hydrox/Mg Hydrox/Simethicone (Maalox Plus 30 Ml) 30 ml PO Q4 PRN PRN Reason: Indigestion / Heartburn Last Admin: 02/23/17 16:51 Dose: 30 ml Carvedilol (Coreg) 3.125 mg PO Q12 [facility] Last Admin: 03/05/17 21:27 Dose: 3.125 mg Divalproex Sodium (Depakote Dr(*Bid*)) 250 mg PO BID [facility] Last Admin: 03/05/17 17:56 Dose: 250 mg Divalproex Sodium (Depakote Dr(*Bid*)) 125 mg PO DAILY@1700 [facility] Last Admin: 03/05/17 17:56 Dose: 125 mg Donepezil HCl (Aricept) 5 mg PO HS [facility] Last Admin: 03/05/17 21:27 Dose: 5 mg Enalapril Maleate (Vasotec) 2.5 mg PO DAILY [facility] Last Admin: 02/05/17 08:56 Dose: 2.5 mg Furosemide (Lasix) 20 mg PO DAILY [facility] Last Admin: 03/05/17 09:58 Dose: Not Given Lactobacillus Acidophilus (Bacid Acidophilus) 1 cap PO BID [facility] Last Admin: 03/05/17 17:56 Dose: 1 cap Magnesium Hydroxide (Milk Of Magnesia) 30 ml PO HS PRN PRN Reason: Constipation Last Admin: 02/12/17 17:47 Dose: 30 ml Memantine (Namenda) 5 mg PO DAILY [facility] Last Admin: 03/05/17 09:58 Dose: 5 mg Mirtazapine (Remeron) 15 mg PO HS [facility] Last Admin: 03/05/17 21:27 Dose: 15 mg Nitroglycerin (Nitrostat Sl Tab) 0.4 mg SL Q5M PRN PRN Reason: chest pain Ondansetron HCl (Zofran Inj) 4 mg IVP Q6 PRN PRN Reason: Nausea/Vomiting Pantoprazole Sodium (Protonix Ec Tab) 40 mg PO Q12 [facility] Last Admin: 03/05/17 21:27 Dose: 40 mg - Labs Labs: 03/05/17 07:38 03/05/17 07:38 PT 20.3 Seconds (9.8-13.1) H 02/12/17 09:25 INR 1.8 (0.9-1.2) H 02/12/17 09:25 APTT 34.1 Seconds (25.6-37.1) D 01/30/17 05:55 Assessment and Plan (1) Acute on chronic combined systolic and diastolic CHF (congestive heart failure) Assessment & Plan: Chronic A.fibrillation Elevated Troponine with Possible NSTEMI Vs due to Cardiomyopathy/CHF O2 via [place] ASA Serial trop and EKG Telemonitoring Continue BB/ACEI/Lasix/Spiranolactone Vanessa D/w Rn Progressive Care Unit about Elevated Trop, and Possibility Underlying CAD, and will manage conservatively due to Poor General Condition Status: Acute (2) Mood disorder due to known physiological condition with depressive features , Dementia nt. Assessment and Plan: Depression with Psychotic Behaviour Dementia Continue Remeron/Depakote/Aricept Status: Acute
--- NOTE | 2017-03-06 00:12 | CP.PCM.PN ---
Subjective - Date & Time of Evaluation Date of Evaluation: 03/05/17 Time of Evaluation: 23:05 - Subjective Subjective: Poor PO intake, and very low calorie count. Currently on IVF. 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 Family declined to take him home. Continue to lose weight as he is refusing to eat. on and off drinking the supplements. Objective - Vital Signs/Intake and Output Vital Signs (last 24 hours): Temp Pulse Resp BP Pulse Ox 97.4 F L 62 18 120/80 96 03/05/17 21:00 03/05/17 21:27 03/05/17 21:00 03/05/17 21:27 03/05/17 21:00 Intake and Output: 03/05/17 03/06/17 18:59 06:59 Intake Total 650 Output Total 600 Balance 50 - Medications Medications: Current Medications Acetaminophen (Tylenol 325mg Tab) 650 mg PO Q4 PRN PRN Reason: Pain, Mild (1-3) Last Admin: 02/12/17 09:33 Dose: 650 mg Al Hydrox/Mg Hydrox/Simethicone (Maalox Plus 30 Ml) 30 ml PO Q4 PRN PRN Reason: Indigestion / Heartburn Last Admin: 02/23/17 16:51 Dose: 30 ml Carvedilol (Coreg) 3.125 mg PO Q12 [facility] Last Admin: 03/05/17 21:27 Dose: 3.125 mg Divalproex Sodium (Depakote Dr(*Bid*)) 250 mg PO BID [facility] Last Admin: 03/05/17 17:56 Dose: 250 mg Divalproex Sodium (Depakote Dr(*Bid*)) 125 mg PO DAILY@1700 [facility] [place] Last Admin: 03/05/17 17:56 Dose: 125 mg Donepezil HCl (Aricept) 5 mg PO HS [facility] Last Admin: 03/05/17 21:27 Dose: 5 mg Enalapril Maleate (Vasotec) 2.5 mg PO DAILY [facility] Last Admin: 02/05/17 08:56 Dose: 2.5 mg Furosemide (Lasix) 20 mg PO DAILY [facility] Last Admin: 03/05/17 09:58 Dose: Not Given Lactobacillus Acidophilus (Bacid Acidophilus) 1 cap PO BID [facility] [place] Last Admin: 03/05/17 17:56 Dose: 1 cap Magnesium Hydroxide (Milk Of Magnesia) 30 ml PO HS PRN PRN Reason: Constipation Last Admin: 02/12/17 17:47 Dose: 30 ml Memantine (Namenda) 5 mg PO DAILY [facility] [place] Last Admin: 03/05/17 09:58 Dose: 5 mg Mirtazapine (Remeron) 15 mg PO HS [facility] [place] Last Admin: 03/05/17 21:27 Dose: 15 mg Nitroglycerin (Nitrostat Sl Tab) 0.4 mg SL Q5M PRN PRN Reason: chest pain Ondansetron HCl (Zofran Inj) 4 mg IVP Q6 PRN PRN Reason: Nausea/Vomiting Pantoprazole Sodium (Protonix Ec Tab) 40 mg PO Q12 [facility] [place] Last Admin: 03/05/17 21:27 Dose: 40 mg - Labs Labs: 03/05/17 07:38 03/05/17 07:38 PT 20.3 Seconds (9.8-13.1) H 02/12/17 09:25 INR 1.8 (0.9-1.2) H 02/12/17 09:25 APTT 34.1 Seconds (25.6-37.1) D 01/30/17 05:55 Assessment and Plan (1) Acute on chronic combined systolic and diastolic CHF (congestive heart failure) Assessment & Plan: Chronic A.fibrillation Elevated Troponine with Possible NSTEMI Vs due to Cardiomyopathy/CHF O2 via [place] ASA Serial trop and EKG Telemonitoring Continue BB/ACEI/Lasix/Spiranolactone Vanessa D/w Night Auditor about Elevated Trop, and Possibility Underlying CAD, and will manage conservatively due to Poor General Condition Status: Acute (2) Mood disorder due to known physiological condition with depressive features , Dementia nt. Assessment and Plan: Depression with Psychotic Behaviour Dementia Continue Remeron/Depakote/Aricept (3) Social Hold due to a need for Placement Status: Acute
[2017-03-06] MEDS: Lactobacillus Acidophilus 500 MU Cap PO SCH ×2 (09:33→17:24)
[2017-03-06] MEDS: Divalproex 250 mg DR(BID formulation) PO SCH ×2 (09:34→17:24)
[2017-03-06] MEDS: Pantoprazole 40 mg EC Tab PO SCH ×2 (09:36→21:56)
--- NOTE | 2017-03-06 16:38 | PN ---
DATE: SUBJECTIVE: The patient refuses to eat or drink. He was slightly hypotensive today. I discussed the case with the nurse and I asked her to hold Coreg therapy. The patient was also started on normal saline at 80 mL an hour. The patient denies any abdominal pain. PHYSICAL EXAMINATION: VITAL SIGNS: Blood pressure 100/62, heart rate 66, temperature 97.3, respirations 16. HEENT: Normocephalic. CHEST: Diminished breath sounds over the bases. HEART: S1 and S2, regular. ABDOMEN: Soft. EXTREMITIES: No pedal edema. LABORATORY DATA: Yesterday's BUN and creatinine were 43 and 1.1 respectively, CO2 was 47. Yesterday's hemoglobin and hematocrit were within normal limits. Yesterday's platelet count was 75,000. ASSESSMENT: 1. Dilated cardiomyopathy. 2. Nonsustained ventricular tachycardia. 3. Chronic atrial fibrillation. 4. Worsening thrombocytopenia. 5. Dehydration and prerenal azotemia. RECOMMENDATIONS: Hold Coreg for systolic blood pressure below 110. The patient is currently off Lasix. Vasotec is still on hold. Monitor for any signs of volume overload. Overall, prognosis is poor. Luis August MD
[2017-03-06] MEDS: Divalproex 125 mg DR (BID formulation) PO SCH (17:24)
[2017-03-06] MEDS ORDERED: Sodium Chloride 0.9% 1,000 ML IV SCH (20:00)
--- NOTE | 2017-03-06 21:02 | CP.PCM.PN ---
Subjective - Date & Time of Evaluation Date of Evaluation: 03/06/17 Time of Evaluation: 19:25 - Subjective Subjective: Poor PO intake, and very low calorie count. Currently on IVF. 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 Family declined to take him home. Continue to lose weight as he is refusing to eat. on and off drinking the supplements. Objective - Vital Signs/Intake and Output Vital Signs (last 24 hours): Temp Pulse Resp BP Pulse Ox 97.5 F L 60 16 111/58 L 100 03/06/17 20:38 03/06/17 20:38 03/06/17 20:38 03/06/17 20:38 03/06/17 20:38 Intake and Output: 03/06/17 03/07/17 18:59 06:59 Intake Total 320 Output Total 0 Balance 320 - Medications Medications: Current Medications Acetaminophen (Tylenol 325mg Tab) 650 mg PO Q4 PRN PRN Reason: Pain, Mild (1-3) Last Admin: 02/12/17 09:33 Dose: 650 mg Al Hydrox/Mg Hydrox/Simethicone (Maalox Plus 30 Ml) 30 ml PO Q4 PRN PRN Reason: Indigestion / Heartburn Last Admin: 02/23/17 16:51 Dose: 30 ml Carvedilol (Coreg) 3.125 mg PO Q12 [facility] Last Admin: 03/06/17 09:34 Dose: Not Given Divalproex Sodium (Depakote Dr(*Bid*)) 250 mg PO BID [facility] Last Admin: 03/06/17 17:24 Dose: Not Given Divalproex Sodium (Depakote Dr(*Bid*)) 125 mg PO DAILY@1700 [facility] Last Admin: 03/06/17 17:24 Dose: Not Given Donepezil HCl (Aricept) 5 mg PO HS [facility] Last Admin: 03/05/17 21:27 Dose: 5 mg Enalapril Maleate (Vasotec) 2.5 mg PO DAILY [facility] Last Admin: 02/05/17 08:56 Dose: 2.5 mg Sodium Chloride (Sodium Chloride 0.9%) 1,000 mls @ 65 mls/hr IV .[id number] [facility] Stop: 03/07/17 11:23 Lactobacillus Acidophilus (Bacid Acidophilus) 1 cap PO BID [facility] Last Admin: 03/06/17 17:24 Dose: Not Given Magnesium Hydroxide (Milk Of Magnesia) 30 ml PO HS PRN PRN Reason: Constipation Last Admin: 02/12/17 17:47 Dose: 30 ml Memantine (Namenda) 5 mg PO DAILY [facility] Last Admin: 03/06/17 09:37 Dose: 5 mg Mirtazapine (Remeron) 15 mg PO HS [facility] Last Admin: 03/05/17 21:27 Dose: 15 mg Nitroglycerin (Nitrostat Sl Tab) 0.4 mg SL Q5M PRN PRN Reason: chest pain Ondansetron HCl (Zofran Inj) 4 mg IVP Q6 PRN PRN Reason: Nausea/Vomiting Pantoprazole Sodium (Protonix Ec Tab) 40 mg PO Q12 [facility] Last Admin: 03/06/17 09:36 Dose: 40 mg - Labs Labs: 03/05/17 07:38 03/05/17 07:38 PT 20.3 Seconds (9.8-13.1) H 02/12/17 09:25 INR 1.8 (0.9-1.2) H 02/12/17 09:25 APTT 34.1 Seconds (25.6-37.1) D 01/30/17 05:55 Assessment and Plan (1) Acute on chronic combined systolic and diastolic CHF (congestive heart failure) Assessment & Plan: Chronic A.fibrillation Elevated Troponine with Possible NSTEMI Vs due to Cardiomyopathy/CHF O2 via [place] ASA Serial trop and EKG Telemonitoring Continue BB/ACEI/Lasix/Spiranolactone Vanessa D/w Patient Support Partner about Elevated Trop, and Possibility Underlying CAD, and will manage conservatively due to Poor General Condition Status: Acute (2) Mood disorder due to known physiological condition with depressive features , Dementia nt. Assessment and Plan: Depression with Psychotic Behaviour Dementia Continue Remeron/Depakote/Aricept (3) Social Hold due to a need for Placement Status: Acute
[2017-03-07] MEDS: Lactobacillus Acidophilus 500 MU Cap PO SCH ×2 (09:56→17:35)
[2017-03-07] MEDS: Pantoprazole 40 mg EC Tab PO SCH ×2 (09:57→21:24)
[2017-03-07] MEDS: Divalproex 250 mg DR(BID formulation) PO SCH ×2 (09:57→17:35)
[2017-03-07] MEDS: [UNRECOGNIZED DRUG - OTHER] IV SCH (17:37)
[2017-03-07] MEDS: MULTIVITAMIN IV SCH (17:37)
[2017-03-07] MEDS: DEXTROSE IV SCH (17:37)
[2017-03-07] MEDS: Divalproex 125 mg DR (BID formulation) PO SCH (17:37)
--- NOTE | 2017-03-07 18:32 | CP.PCM.PN ---
Subjective - Date & Time of Evaluation Date of Evaluation: 03/07/17 Time of Evaluation: 18:20 - Subjective Subjective: Seen and examined at the bed side.Not eating well. Denies any pain.Continues to lose weight. Dyspnea on exertion only. Objective - Vital Signs/Intake and Output Vital Signs (last 24 hours): Temp Pulse Resp BP Pulse Ox 97.8 F 63 14 106/67 99 03/07/17 17:00 03/07/17 17:00 03/07/17 17:00 03/07/17 17:00 03/07/17 17:00 Intake and Output: 03/07/17 03/07/17 06:59 18:59 Intake Total 1020 Output Total 400 Balance 620 - Medications Medications: Current Medications Acetaminophen (Tylenol 325mg Tab) 650 mg PO Q4 PRN PRN Reason: Pain, Mild (1-3) Last Admin: 02/12/17 09:33 Dose: 650 mg Al Hydrox/Mg Hydrox/Simethicone (Maalox Plus 30 Ml) 30 ml PO Q4 PRN PRN Reason: Indigestion / Heartburn Last Admin: 02/23/17 16:51 Dose: 30 ml Carvedilol (Coreg) 3.125 mg PO Q12 [facility] Last Admin: 03/07/17 09:56 Dose: Not Given Divalproex Sodium (Depakote Dr(*Bid*)) 250 mg PO BID [facility] Last Admin: 03/07/17 17:35 Dose: Not Given Divalproex Sodium (Depakote Dr(*Bid*)) 125 mg PO DAILY@1700 [facility] Last Admin: 03/07/17 17:37 Dose: Not Given Donepezil HCl (Aricept) 5 mg PO HS [facility] Last Admin: 03/06/17 21:56 Dose: 5 mg Enalapril Maleate (Vasotec) 2.5 mg PO DAILY [facility] Last Admin: 02/05/17 08:56 Dose: 2.5 mg Multivitamins/Vitamin C 10 ml/ (Dextrose/Sodium Chloride) 510 mls @ 40 mls/hr IV .[id number] [facility] Last Admin: 03/07/17 17:37 Dose: 40 mls/hr Lactobacillus Acidophilus (Bacid Acidophilus) 1 cap PO BID [facility] Last Admin: 03/07/17 17:35 Dose: Not Given Magnesium Hydroxide (Milk Of Magnesia) 30 ml PO HS PRN PRN Reason: Constipation Last Admin: 02/12/17 17:47 Dose: 30 ml Memantine (Namenda) 5 mg PO DAILY [facility] Last Admin: 03/07/17 09:57 Dose: Not Given Mirtazapine (Remeron) 15 mg PO HS [facility] Last Admin: 03/06/17 21:56 Dose: 15 mg Nitroglycerin (Nitrostat Sl Tab) 0.4 mg SL Q5M PRN PRN Reason: chest pain Ondansetron HCl (Zofran Inj) 4 mg IVP Q6 PRN PRN Reason: Nausea/Vomiting Pantoprazole Sodium (Protonix Ec Tab) 40 mg PO Q12 [facility] Last Admin: 03/07/17 09:57 Dose: Not Given - Labs Labs: 03/05/17 07:38 03/05/17 07:38 PT 20.3 Seconds (9.8-13.1) H 02/12/17 09:25 INR 1.8 (0.9-1.2) H 02/12/17 09:25 APTT 34.1 Seconds (25.6-37.1) D 01/30/17 05:55 - Constitutional Appears: Well - Head Exam Head Exam: ATRAUMATIC, NORMAL INSPECTION, NORMOCEPHALIC - Eye Exam Eye Exam: EOMI, Normal appearance, PERRL Pupil Exam: NORMAL ACCOMODATION, PERRL - ENT Exam ENT Exam: Mucous Membranes Moist, Normal Exam - Neck Exam Neck Exam: Full ROM, Normal Inspection. absent: Lymphadenopathy - Respiratory Exam Respiratory Exam: Clear to Ausculation Bilateral, NORMAL BREATHING PATTERN - Cardiovascular Exam Cardiovascular Exam: REGULAR RHYTHM, +S1, +S2. absent: Murmur - GI/Abdominal Exam GI & Abdominal Exam: Soft, Normal Bowel Sounds. absent: Tenderness - Extremities Exam Extremities Exam: Full ROM, Normal Capillary Refill, Normal Inspection. absent : Joint Swelling, Pedal Edema - Back Exam Back Exam: NORMAL INSPECTION. absent: CVA tenderness (L), CVA tenderness (R) - Neurological Exam Neurological Exam: Alert, Awake, CN II-XII Intact, Normal Gait, Oriented x3 - Psychiatric Exam Psychiatric exam: Normal Affect, Normal Mood - Skin Skin Exam: Dry, Intact, Normal Color, Warm Assessment and Plan (1) Acute on chronic combined systolic and diastolic CHF (congestive heart failure) Assessment & Plan: Continue Current Care Repeat labs Add Prostat Status: Acute
--- NOTE | 2017-03-07 19:32 | PN ---
SUBJECTIVE: Patient refuses to eat, drink, or even take his medications. The ABRASIVE GRINDER spoke to the patient's daughter who is agreeable for a gastrostomy feeding tube placement after she discussed it with her . No reported ventricular tachycardia. PHYSICAL EXAMINATION: VITAL SIGNS: Blood pressure is 98/62, heart rate 60, temperature 97.5, respirations 18. HEENT: Normocephalic. CHEST: Absent breath sounds over the bases. HEART: S1, S2 regular. EXTREMITIES: No edema. ASSESSMENT AND PLAN: 1. Dilated cardiomyopathy. 2. Chronic atrial fibrillation. 3. Depression and refusal to eat or drink. 4. Dehydration and prerenal azotemia. RECOMMENDATIONS: So far, the patient refuses to take his medications. I recommend starting D5 normal saline at 40 mL an hour with multivitamin ampule added to each liter of IV fluid. Luis August MD
[2017-03-08] MEDS: DEXTROSE IV SCH ×2 (05:21→17:40)
[2017-03-08] MEDS: MULTIVITAMIN IV SCH ×2 (05:21→17:40)
[2017-03-08] MEDS: [UNRECOGNIZED DRUG - OTHER] IV SCH ×2 (05:21→17:40)
[2017-03-08 06:22] LABS: BASO % 0.1 % (0.0-2.0); EOS % 0.1 % (0.0-4.0); HEMOGLOBIN 12.4 g/dL (12.0-18.0); LYMPH # 0.3 K/uL (1.0-4.3); LYMPH % 4.8 % (20.0-40.0); MEAN CELL VOLUME 86.4 fl (80.0-94.0); MEAN CORPUSCULAR HEMOGLOBIN 26.5 pg (27.0-31.0); MEAN CORPUSCULAR HGB CONC 30.7 g/dL (33.0-37.0); MEAN PLATELET VOLUME 10.3 fl (7.2-11.7); MONO # 0.4 K/uL (0.0-0.8); NEUT # 5.2 K/uL (1.8-7.0); NRBC % 0.1 % (0.0-0.0); PLATELET COUNT 77 K/uL (130-400); RBC 4.69 Mil/uL (4.40-5.90); RED CELL DISTRIBUTION WIDTH 19.3 % (11.5-14.5); WHITE BLOOD COUNT 5.9 K/uL (4.8-10.8)
[2017-03-08 06:27] LABS: ALB/GLOB RATIO 0.9 (1.0-2.1); ALBUMIN 3.3 g/dL (3.5-5.0); ALT/SGPT 36 U/L (21-72); AST/SGOT 60 U/L (17-59); BLOOD UREA NITROGEN 29 mg/dl (9-20); GFR AFRICAN-AMERICAN > 60; GFR NON-AFRICAN AMERICAN > 60; MAGNESIUM 2.3 MG/DL (1.6-2.3)
[2017-03-08] MEDS: Lactobacillus Acidophilus 500 MU Cap PO SCH (08:55)
[2017-03-08] MEDS: Divalproex 250 mg DR(BID formulation) PO SCH ×2 (08:58→17:41)
[2017-03-08] MEDS: Pantoprazole 40 mg EC Tab PO SCH ×2 (09:00→21:21)
[2017-03-08 09:13] LABS: BANDS 1 % (0-2); LYMPHOCYTE 5 % (20-50); MONOCYTE 7 % (0-10); NEUTROPHIL 87 % (42-75); PLATELET ESTIMATE DECREASED (NORMAL); TOTAL CELLS COUNTED 100
[2017-03-08 09:14] LABS: ANISOCYTOSIS SLIGHT; LARGE PLATELETS PRESENT; OVALOCYTES SLIGHT; POIKILOCYTOSIS SLIGHT; TEARDROP CELLS SLIGHT
--- NOTE | 2017-03-08 13:54 | PN ---
DATE: FOLLOWUP SUBJECTIVE: The patient is started to drink some liquids. He was started on D5 normal saline at 40 mL an hour with multivitamin bag to each liter of IV fluid. PHYSICAL EXAMINATION: VITAL SIGNS: Blood pressure 107/70, heart rate 60, temperature 97.7, respirations 18. HEENT: Normocephalic. CHEST: Diminished breath sounds over the bases. HEART: S1 and S2 regular. EXTREMITIES: No pedal edema. LABORATORY DATA: Hemoglobin and hematocrit and white count are within normal limit. Platelet count 77,000. SMA-7: Sodium 146, potassium 3.8, chloride 95, CO2 of 47, glucose 192, BUN 29, creatinine 0.9. ASSESSMENT: 1. Dilated cardiomyopathy. 2. Chronic atrial fibrillation. 3. 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 4. Depression. 5. Thrombocytopenia. RECOMMENDATIONS: Continue IV fluid infusion at 40 mL an hour with multivitamin 20 mL to each bag. Resume oral medications once the patient allows. Consider Psychiatry followup. Luis August MD
[2017-03-08] MEDS: Divalproex 125 mg DR (BID formulation) PO SCH (17:41)
--- NOTE | 2017-03-08 23:42 | CP.PCM.PN ---
Subjective - Date & Time of Evaluation Date of Evaluation: 03/08/17 Time of Evaluation: 17:00 - Subjective Subjective: Poor PO intake, and very low calorie count. Currently on IVF. 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 Family declined to take him home. Continue to lose weight as he is refusing to eat. on and off drinking the supplements. Objective - Vital Signs/Intake and Output Vital Signs (last 24 hours): Temp Pulse Resp BP Pulse Ox 97.6 F 60 20 111/69 96 03/08/17 19:27 03/08/17 21:21 03/08/17 19:27 03/08/17 21:21 03/08/17 19:27 - Medications Medications: Current Medications Acetaminophen (Tylenol 325mg Tab) 650 mg PO Q4 PRN PRN Reason: Pain, Mild (1-3) Last Admin: 02/12/17 09:33 Dose: 650 mg Al Hydrox/Mg Hydrox/Simethicone (Maalox Plus 30 Ml) 30 ml PO Q4 PRN PRN Reason: Indigestion / Heartburn Last Admin: 02/23/17 16:51 Dose: 30 ml Carvedilol (Coreg) 3.125 mg PO Q12 [facility] Last Admin: 03/08/17 21:21 Dose: 3.125 mg Divalproex Sodium (Depakote Dr(*Bid*)) 250 mg PO BID [facility] Last Admin: 03/08/17 17:41 Dose: 250 mg Divalproex Sodium (Depakote Dr(*Bid*)) 125 mg PO DAILY@1700 [facility] Last Admin: 03/08/17 17:41 Dose: 125 mg Donepezil HCl (Aricept) 5 mg PO HS [facility] Last Admin: 03/08/17 21:21 Dose: 5 mg Enalapril Maleate (Vasotec) 2.5 mg PO DAILY [facility] Last Admin: 02/05/17 08:56 Dose: 2.5 mg Multivitamins/Vitamin C 10 ml/ (Dextrose/Sodium Chloride) 510 mls @ 40 mls/hr IV .[id number] [facility] Last Admin: 03/08/17 17:40 Dose: 40 mls/hr Magnesium Hydroxide (Milk Of Magnesia) 30 ml PO HS PRN PRN Reason: Constipation Last Admin: 02/12/17 17:47 Dose: 30 ml Memantine (Namenda) 5 mg PO DAILY [facility] Last Admin: 03/08/17 09:00 Dose: Not Given Mirtazapine (Remeron) 15 mg PO HS [facility] Last Admin: 03/08/17 21:20 Dose: 15 mg Nitroglycerin (Nitrostat Sl Tab) 0.4 mg SL Q5M PRN PRN Reason: chest pain Ondansetron HCl (Zofran Inj) 4 mg IVP Q6 PRN PRN Reason: Nausea/Vomiting Pantoprazole Sodium (Protonix Ec Tab) 40 mg PO Q12 [facility] Last Admin: 03/08/17 21:21 Dose: 40 mg - Labs Labs: 03/08/17 05:45 03/08/17 05:45 PT 20.3 Seconds (9.8-13.1) H 02/12/17 09:25 INR 1.8 (0.9-1.2) H 02/12/17 09:25 APTT 34.1 Seconds (25.6-37.1) D 01/30/17 05:55 Assessment and Plan (1) Acute on chronic combined systolic and diastolic CHF (congestive heart failure) Assessment & Plan: Chronic A.fibrillation Elevated Troponine with Possible NSTEMI Vs due to Cardiomyopathy/CHF O2 via [place] ASA Serial trop and EKG Telemonitoring Continue BB/ACEI/Lasix/Spiranolactone Vanessa D/w Desk Pen Set Assembler about Elevated Trop, and Possibility Underlying CAD, and will manage conservatively due to Poor General Condition Status: Acute (2) Mood disorder due to known physiological condition with depressive features , Dementia nt. Assessment and Plan: Depression with Psychotic Behaviour Dementia Continue Remeron/Depakote/Aricept (3) Social Hold due to a need for Placement Status: Acute
[2017-03-09] MEDS: MULTIVITAMIN IV SCH ×2 (06:00→21:26)
[2017-03-09] MEDS: [UNRECOGNIZED DRUG - OTHER] IV SCH ×2 (06:00→21:26)
[2017-03-09] MEDS: DEXTROSE IV SCH ×2 (06:00→21:26)
[2017-03-09] MEDS: Pantoprazole 40 mg EC Tab PO SCH ×2 (09:00→21:25)
[2017-03-09] MEDS: Divalproex 250 mg DR(BID formulation) PO SCH ×2 (09:00→17:52)
--- NOTE | 2017-03-09 13:00 | PN ---
DATE: SUBJECTIVE: Patient denies any chest pain or abdominal pain. He is still refusing to eat or take his medications. No reported ventricular arrhythmia. PHYSICAL EXAMINATION VITAL SIGNS: Blood pressure 95/58, heart rate 60, temperature 97.6, respirations 20. HEENT: Normocephalic. CHEST: Diminished breath sounds over the bases. HEART: S1 and S2 regular. EXTREMITIES: Improved leg edema. ASSESSMENT: 1. Dilated cardiomyopathy. 2. Chronic atrial fibrillation. 3. Right common femoral vein chronic deep venous thrombosis, status post inferior vena cava filer placement. 4. Depression. 5. Dehydration and prerenal azotemia. 6. Thrombocytopenia. RECOMMENDATIONS: Continue current IV fluids with multivitamin. Resume oral medications once patient complies with his oral meds. In the meantime, discussions have been going on with family regarding gastrostomy feeding tube placement. Luis August MD
[2017-03-09] MEDS: Divalproex 125 mg DR (BID formulation) PO SCH (17:52)
[2017-03-10] MEDS: MULTIVITAMIN IV SCH ×2 (06:32→19:35)
[2017-03-10] MEDS: DEXTROSE IV SCH ×2 (06:32→19:35)
[2017-03-10] MEDS: [UNRECOGNIZED DRUG - OTHER] IV SCH ×2 (06:32→19:35)
[2017-03-10] MEDS: Pantoprazole 40 mg EC Tab PO SCH ×2 (08:35→21:38)
[2017-03-10] MEDS: Divalproex 250 mg DR(BID formulation) PO SCH ×2 (08:35→17:03)
[2017-03-10 14:44] LABS: HEMOGLOBIN 12.9 g/dL (12.0-18.0); MEAN CELL VOLUME 88.3 fl (80.0-94.0); MEAN CORPUSCULAR HEMOGLOBIN 26.5 pg (27.0-31.0); MEAN CORPUSCULAR HGB CONC 29.9 g/dL (33.0-37.0); RBC 4.89 Mil/uL (4.40-5.90); RED CELL DISTRIBUTION WIDTH 19.5 % (11.5-14.5); WHITE BLOOD COUNT 4.9 K/uL (4.8-10.8)
[2017-03-10 15:07] LABS: BLOOD UREA NITROGEN 30 mg/dl (9-20); CALCIUM 8.9 mg/dL (8.4-10.2); GFR AFRICAN-AMERICAN > 60; GFR NON-AFRICAN AMERICAN > 60; MAGNESIUM 2.3 MG/DL (1.6-2.3)
--- NOTE | 2017-03-10 16:35 | PN ---
DATE: SUBJECTIVE: The patient was noted to have 10 beats run of nonsustained ventricular tachycardia. The patient still refuses to eat. He allowed some medications to be given. He appears weak. No apparent respiratory distress. PHYSICAL EXAMINATION: VITAL SIGNS: Blood pressure 103/65, heart rate 59, temperature 98.4, and respirations 20. HEENT: Normocephalic. CHEST: Diminished breath sounds over the bases. HEART: S1 and S2, regular. EXTREMITIES: No pedal edema. ASSESSMENT: 1. Depression and anorexia. 2. Chronic atrial fibrillation. 3. Chronic right common femoral vein deep venous thrombosis, status post inferior vena cava filter. 4. Dilated cardiomyopathy, status post implantable cardioverter-defibrillator placement. 5. Nonsustained ventricular tachycardia. RECOMMENDATIONS: Case was discussed with WOOD CUTTER. I recommended Psychiatry followup. Continue Coreg at 3.125 mg twice a day if the patient allows medications. In the meantime, I will obtain BMP and magnesium level as well as CBC today. Luis August MD
[2017-03-10] MEDS: Divalproex 125 mg DR (BID formulation) PO SCH (17:03)
--- NOTE | 2017-03-10 23:36 | CP.PCM.PN ---
Subjective - Date & Time of Evaluation Date of Evaluation: 03/09/17 Time of Evaluation: 11:10 - Subjective Subjective: Poor PO intake, and very low calorie count. Currently on IVF. 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 Family declined to take him home. Continue to lose weight as he is refusing to eat. on and off drinking the supplements. Objective - Vital Signs/Intake and Output Vital Signs (last 24 hours): Temp Pulse Resp BP Pulse Ox 97.5 F L 60 20 92/59 L 96 03/10/17 19:36 03/10/17 21:36 03/10/17 19:36 03/10/17 21:36 03/10/17 19:36 - Medications Medications: Current Medications Acetaminophen (Tylenol 325mg Tab) 650 mg PO Q4 PRN PRN Reason: Pain, Mild (1-3) Last Admin: 02/12/17 09:33 Dose: 650 mg Al Hydrox/Mg Hydrox/Simethicone (Maalox Plus 30 Ml) 30 ml PO Q4 PRN PRN Reason: Indigestion / Heartburn Last Admin: 02/23/17 16:51 Dose: 30 ml Carvedilol (Coreg) 3.125 mg PO Q12 [facility] Last Admin: 03/10/17 21:36 Dose: Not Given Divalproex Sodium (Depakote Dr(*Bid*)) 250 mg PO BID [facility] Last Admin: 03/10/17 17:03 Dose: 250 mg Divalproex Sodium (Depakote Dr(*Bid*)) 125 mg PO DAILY@1700 [facility] Last Admin: 03/10/17 17:03 Dose: 125 mg Donepezil HCl (Aricept) 5 mg PO HS [facility] Last Admin: 03/10/17 21:38 Dose: 5 mg Enalapril Maleate (Vasotec) 2.5 mg PO DAILY [facility] Last Admin: 02/05/17 08:56 Dose: 2.5 mg Multivitamins/Vitamin C 10 ml/ (Dextrose/Sodium Chloride) 510 mls @ 40 mls/hr IV .[id number] [facility] Last Admin: 03/10/17 19:35 Dose: Not Given Dextrose/Sodium Chloride (Dextrose 5%-0.9% Ns 500 Ml) 500 mls @ 50 mls/hr IV .Q10H [facility] Stop: 03/11/17 15:03 Last Admin: 03/10/17 19:34 Dose: 50 mls/hr Magnesium Hydroxide (Milk Of Magnesia) 30 ml PO HS PRN PRN Reason: Constipation Last Admin: 02/12/17 17:47 Dose: 30 ml Memantine (Namenda) 5 mg PO DAILY [facility] Last Admin: 03/10/17 08:35 Dose: 5 mg Mirtazapine (Remeron) 15 mg PO HS [facility] Last Admin: 03/10/17 21:38 Dose: 15 mg Nitroglycerin (Nitrostat Sl Tab) 0.4 mg SL Q5M PRN PRN Reason: chest pain Ondansetron HCl (Zofran Inj) 4 mg IVP Q6 PRN PRN Reason: Nausea/Vomiting Pantoprazole Sodium (Protonix Ec Tab) 40 mg PO Q12 [facility] Last Admin: 03/10/17 21:38 Dose: 40 mg - Labs Labs: 03/10/17 02:38 03/10/17 02:38 PT 20.3 Seconds (9.8-13.1) H 02/12/17 09:25 INR 1.8 (0.9-1.2) H 02/12/17 09:25 APTT 34.1 Seconds (25.6-37.1) D 01/30/17 05:55 Assessment and Plan (1) Acute on chronic combined systolic and diastolic CHF (congestive heart failure) Assessment & Plan: Chronic A.fibrillation Elevated Troponine with Possible NSTEMI Vs due to Cardiomyopathy/CHF O2 via [place] ASA Serial trop and EKG Telemonitoring Continue BB/ACEI/Lasix/Spiranolactone Vanessa D/w Oliving Machine Operator about Elevated Trop, and Possibility Underlying CAD, and will manage conservatively due to Poor General Condition Status: Acute (2) Mood disorder due to known physiological condition with depressive features , Dementia nt. Assessment and Plan: Depression with Psychotic Behaviour Dementia Continue Remeron/Depakote/Aricept (3) Social Hold due to a need for Placement Status: Acute
--- NOTE | 2017-03-10 23:38 | CP.PCM.PN ---
Subjective - Date & Time of Evaluation Date of Evaluation: 03/10/17 Time of Evaluation: 12:10 - Subjective Subjective: Poor PO intake, and very low calorie count. Currently on IVF. 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 Family declined to take him home. Continue to lose weight as he is refusing to eat. on and off drinking the supplements. Objective - Vital Signs/Intake and Output Vital Signs (last 24 hours): Temp Pulse Resp BP Pulse Ox 97.5 F L 60 20 92/59 L 96 03/10/17 19:36 03/10/17 21:36 03/10/17 19:36 03/10/17 21:36 03/10/17 19:36 - Medications Medications: Current Medications Acetaminophen (Tylenol 325mg Tab) 650 mg PO Q4 PRN PRN Reason: Pain, Mild (1-3) Last Admin: 02/12/17 09:33 Dose: 650 mg Al Hydrox/Mg Hydrox/Simethicone (Maalox Plus 30 Ml) 30 ml PO Q4 PRN PRN Reason: Indigestion / Heartburn Last Admin: 02/23/17 16:51 Dose: 30 ml Carvedilol (Coreg) 3.125 mg PO Q12 [facility] Last Admin: 03/10/17 21:36 Dose: Not Given Divalproex Sodium (Depakote Dr(*Bid*)) 250 mg PO BID [facility] Last Admin: 03/10/17 17:03 Dose: 250 mg Divalproex Sodium (Depakote Dr(*Bid*)) 125 mg PO DAILY@1700 [facility] Last Admin: 03/10/17 17:03 Dose: 125 mg Donepezil HCl (Aricept) 5 mg PO HS [facility] Last Admin: 03/10/17 21:38 Dose: 5 mg Enalapril Maleate (Vasotec) 2.5 mg PO DAILY [facility] Last Admin: 02/05/17 08:56 Dose: 2.5 mg Multivitamins/Vitamin C 10 ml/ (Dextrose/Sodium Chloride) 510 mls @ 40 mls/hr IV .[id number] [facility] Last Admin: 03/10/17 19:35 Dose: Not Given Dextrose/Sodium Chloride (Dextrose 5%-0.9% Ns 500 Ml) 500 mls @ 50 mls/hr IV .Q10H [facility] Stop: 03/11/17 15:03 Last Admin: 03/10/17 19:34 Dose: 50 mls/hr Magnesium Hydroxide (Milk Of Magnesia) 30 ml PO HS PRN PRN Reason: Constipation Last Admin: 02/12/17 17:47 Dose: 30 ml Memantine (Namenda) 5 mg PO DAILY [facility] Last Admin: 03/10/17 08:35 Dose: 5 mg Mirtazapine (Remeron) 15 mg PO HS [facility] Last Admin: 03/10/17 21:38 Dose: 15 mg Nitroglycerin (Nitrostat Sl Tab) 0.4 mg SL Q5M PRN PRN Reason: chest pain Ondansetron HCl (Zofran Inj) 4 mg IVP Q6 PRN PRN Reason: Nausea/Vomiting Pantoprazole Sodium (Protonix Ec Tab) 40 mg PO Q12 [facility] Last Admin: 03/10/17 21:38 Dose: 40 mg - Labs Labs: 03/10/17 02:38 03/10/17 02:38 PT 20.3 Seconds (9.8-13.1) H 02/12/17 09:25 INR 1.8 (0.9-1.2) H 02/12/17 09:25 APTT 34.1 Seconds (25.6-37.1) D 01/30/17 05:55 Assessment and Plan (1) Acute on chronic combined systolic and diastolic CHF (congestive heart failure) Assessment & Plan: Chronic A.fibrillation Elevated Troponine with Possible NSTEMI Vs due to Cardiomyopathy/CHF O2 via [place] ASA Serial trop and EKG Telemonitoring Continue BB/ACEI/Lasix/Spiranolactone Vanessa D/w Personal Consultant about Elevated Trop, and Possibility Underlying CAD, and will manage conservatively due to Poor General Condition Status: Acute (2) Mood disorder due to known physiological condition with depressive features , Dementia nt. Assessment and Plan: Depression with Psychotic Behaviour Dementia Continue Remeron/Depakote/Aricept (3) Social Hold due to a need for Placement Status: Acute
[2017-03-11] MEDS: Divalproex 250 mg DR(BID formulation) PO SCH ×2 (08:51→16:50)
[2017-03-11] MEDS: Pantoprazole 40 mg EC Tab PO SCH ×2 (08:51→21:13)
[2017-03-11] MEDS: MULTIVITAMIN IV SCH (12:21)
[2017-03-11] MEDS: [UNRECOGNIZED DRUG - OTHER] IV SCH (12:21)
[2017-03-11] MEDS: DEXTROSE IV SCH (12:21)
[2017-03-11] MEDS: Divalproex 125 mg DR (BID formulation) PO SCH (16:50)
--- NOTE | 2017-03-11 17:10 | PN ---
DATE: SUBJECTIVE: The patient appears weak, no reported ventricular tachycardia this morning. PHYSICAL EXAMINATION: VITAL SIGNS: Blood pressure 99/62, heart rate 69, temperature 96.8, respirations 20. HEENT: Normocephalic. CHEST: Basal rhonchi. HEART: S1 and S2, regular. EXTREMITIES: Trace leg edema. LABORATORY DATA: Yesterday's hemoglobin, hematocrit, and white count are within normal limits, platelet count has dropped to 73,000. Yesterday's SMA-7 sodium 143, potassium 5.2, chloride 97, C02 of 39, glucose 127, BUN 30, creatinine 0.8, magnesium is 2.3. ASSESSMENT: 1. Dilated cardiomyopathy. 2. Recurrent nonsustained ventricular tachycardia. 3. Chronic atrial fibrillation. 4. Worsening thrombocytopenia. 5. Depression. RECOMMENDATIONS: Continue current oral Depakote. Continue milk of magnesia and Maalox. Continue IV fluids with multivitamins at 45 mL per hour. Awaiting family decision for gastrostomy feeding tube placement. Luis August MD
--- NOTE | 2017-03-11 22:48 | CP.PCM.PN ---
Subjective - Date & Time of Evaluation Date of Evaluation: 03/11/17 Time of Evaluation: 17:15 - Subjective Subjective: Poor PO intake, and very low calorie count. Currently on IVF. 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 Family declined to take him home. Continue to lose weight as he is refusing to eat. on and off drinking the supplements. Objective - Vital Signs/Intake and Output Vital Signs (last 24 hours): Temp Pulse Resp BP Pulse Ox 97.4 F L 51 L 18 98/64 L 95 03/11/17 20:02 03/11/17 21:14 03/11/17 20:02 03/11/17 21:14 03/11/17 20:02 - Medications Medications: Current Medications Acetaminophen (Tylenol 325mg Tab) 650 mg PO Q4 PRN PRN Reason: Pain, Mild (1-3) Last Admin: 02/12/17 09:33 Dose: 650 mg Al Hydrox/Mg Hydrox/Simethicone (Maalox Plus 30 Ml) 30 ml PO Q4 PRN PRN Reason: Indigestion / Heartburn Last Admin: 02/23/17 16:51 Dose: 30 ml Carvedilol (Coreg) 3.125 mg PO Q12 [facility] Last Admin: 03/11/17 21:14 Dose: Not Given Divalproex Sodium (Depakote Dr(*Bid*)) 250 mg PO BID [facility] Last Admin: 03/11/17 16:50 Dose: 250 mg Divalproex Sodium (Depakote Dr(*Bid*)) 125 mg PO DAILY@1700 [facility] Last Admin: 03/11/17 16:50 Dose: 125 mg Donepezil HCl (Aricept) 5 mg PO HS [facility] Last Admin: 03/11/17 21:14 Dose: 5 mg Enalapril Maleate (Vasotec) 2.5 mg PO DAILY [facility] Last Admin: 02/05/17 08:56 Dose: 2.5 mg Multivitamins/Vitamin C 10 ml/ (Dextrose/Sodium Chloride) 510 mls @ 40 mls/hr IV .[id number] [facility] Last Admin: 03/11/17 12:21 Dose: Not Given Magnesium Hydroxide (Milk Of Magnesia) 30 ml PO HS PRN PRN Reason: Constipation Last Admin: 12/03/17 17:47 Dose: 30 ml Memantine (Namenda) 5 mg PO DAILY [facility] Last Admin: 03/11/17 08:52 Dose: 5 mg Mirtazapine (Remeron) 15 mg PO HS [facility] Last Admin: 03/11/17 21:13 Dose: 15 mg Nitroglycerin (Nitrostat Sl Tab) 0.4 mg SL Q5M PRN PRN Reason: chest pain Ondansetron HCl (Zofran Inj) 4 mg IVP Q6 PRN PRN Reason: Nausea/Vomiting Pantoprazole Sodium (Protonix Ec Tab) 40 mg PO Q12 [facility] Last Admin: 03/11/17 21:13 Dose: 40 mg - Labs Labs: 03/10/17 02:38 03/10/17 02:38 PT 20.3 Seconds (9.8-13.1) H 02/12/17 09:25 INR 1.8 (0.9-1.2) H 02/12/17 09:25 APTT 34.1 Seconds (25.6-37.1) D 01/30/17 05:55 Assessment and Plan (1) Acute on chronic combined systolic and diastolic CHF (congestive heart failure) Assessment & Plan: Chronic A.fibrillation Elevated Troponine with Possible NSTEMI Vs due to Cardiomyopathy/CHF O2 via [place] ASA Serial trop and EKG Telemonitoring Continue BB/ACEI/Lasix/Spiranolactone Vanessa D/w Freelance Operator about Elevated Trop, and Possibility Underlying CAD, and will manage conservatively due to Poor General Condition Status: Acute (2) Mood disorder due to known physiological condition with depressive features , Dementia nt. Assessment and Plan: Depression with Psychotic Behaviour Dementia Continue Remeron/Depakote/Aricept (3) Social Hold due to a need for Placement Status: Acute
[2017-03-12 09:04] LABS: BLOOD UREA NITROGEN 31 mg/dl (9-20); CALCIUM 9.2 mg/dL (8.4-10.2); GFR AFRICAN-AMERICAN > 60; GFR NON-AFRICAN AMERICAN > 60
[2017-03-12] MEDS: Pantoprazole 40 mg EC Tab PO SCH ×2 (10:03→22:08)
[2017-03-12] MEDS: Divalproex 250 mg DR(BID formulation) PO SCH ×2 (10:03→16:40)
[2017-03-12] MEDS: MULTIVITAMIN IV SCH (13:58)
[2017-03-12] MEDS: [UNRECOGNIZED DRUG - OTHER] IV SCH (13:58)
[2017-03-12] MEDS: DEXTROSE IV SCH (13:58)
--- NOTE | 2017-03-12 15:31 | PN ---
DATE: SUBJECTIVE: Patient was noted to have a 17 beats run of nonsustained ventricular tachycardia. Still refusing to eat, but he allowed his Coreg. PHYSICAL EXAMINATION VITAL SIGNS: Blood pressure 97/62, heart rate 60, temperature 97.6, respirations 18. HEENT: Normocephalic. CHEST: Diminished breath sounds over the bases. HEART: S1 and S2 regular. EXTREMITIES: Trace leg edema. LABORATORY DATA: Today's SMA-7: Sodium 147, potassium 4.3, chloride 97, CO2 46, glucose 115, BUN 31, creatinine 0.9. Magnesium day before yesterday was 2.3, within normal limit. ASSESSMENT: 1. Dilated cardiomyopathy. 2. Chronic atrial fibrillation. 3. Nonsustained ventricular tachycardia. 4. Depression. 5. Severe anorexia. 6. 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 RECOMMENDATIONS: Case was discussed at length with the primary physician. Continue Coreg 3.125 mg twice a day, milk of magnesia 30 mL p.o. at bedtime, Depakote 250 mg twice a day, Protonix 40 mg p.o. twice a day. I recommended Psychiatry followup. Luis August MD
[2017-03-12] MEDS: Divalproex 125 mg DR (BID formulation) PO SCH (16:40)
[2017-03-13] MEDS: DEXTROSE IV SCH ×2 (05:17→05:19)
[2017-03-13] MEDS: [UNRECOGNIZED DRUG - OTHER] IV SCH ×2 (05:17→05:19)
[2017-03-13] MEDS: MULTIVITAMIN IV SCH ×2 (05:17→05:19)
[2017-03-13] MEDS: Divalproex 250 mg DR(BID formulation) PO SCH ×2 (11:33→17:11)
[2017-03-13] MEDS: Pantoprazole 40 mg EC Tab PO SCH ×2 (11:34→22:40)
--- NOTE | 2017-03-13 13:04 | PN ---
DATE: SUBJECTIVE: The patient is in no apparent distress. No reported ventricular tachycardia today. PHYSICAL EXAMINATION: VITAL SIGNS: Blood pressure 123/89, heart rate 73, temperature 96.1, respirations 20. HEENT: Normocephalic. CHEST: Diminished breath sounds over the bases. HEART: S1 and S2, regular. EXTREMITIES: Trace leg edema. ASSESSMENT: 1. Dilated cardiomyopathy. 2. Recurrent nonsustained ventricular tachycardia. 3. Chronic atrial fibrillation. 4. 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 5. Depression and anorexia. RECOMMENDATIONS: Continue Coreg 3.125 mg twice a day, Namenda 5 mg daily, Remeron at 15 mg once a day, Zofran 4 mg intravenously q.6 hours p.r.n., Aricept 5 mg daily, and Depakote at 250 mg twice a day. Luis August MD
[2017-03-13] MEDS: Divalproex 125 mg DR (BID formulation) PO SCH (17:11)
[2017-03-13] MEDS ORDERED: [UNRECOGNIZED DRUG - OTHER] IV SCH (21:15)
[2017-03-13] MEDS ORDERED: MULTIVITAMIN IV SCH (21:15)
[2017-03-13] MEDS ORDERED: DEXTROSE IV SCH (21:15)
--- NOTE | 2017-03-14 01:12 | CP.PCM.PN ---
Subjective - Date & Time of Evaluation Date of Evaluation: 03/12/17 Time of Evaluation: 23:25 - Subjective Subjective: Poor PO intake, and very low calorie count. Currently on IVF. 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 Family declined to take him home. Continue to lose weight as he is refusing to eat. on and off drinking the supplements. Objective - Vital Signs/Intake and Output Vital Signs (last 24 hours): Temp Pulse Resp BP Pulse Ox 98.3 F 60 20 102/68 98 03/14/17 00:19 03/14/17 00:19 03/14/17 00:19 03/14/17 00:19 03/14/17 00:19 - Medications Medications: Current Medications Acetaminophen (Tylenol 325mg Tab) 650 mg PO Q4 PRN PRN Reason: Pain, Mild (1-3) Last Admin: 03/11/17 22:15 Dose: 650 mg Al Hydrox/Mg Hydrox/Simethicone (Maalox Plus 30 Ml) 30 ml PO Q4 PRN PRN Reason: Indigestion / Heartburn Last Admin: 02/23/17 16:51 Dose: 30 ml Carvedilol (Coreg) 3.125 mg PO Q12 [facility] Last Admin: 03/13/17 22:40 Dose: Not Given Divalproex Sodium (Depakote Dr(*Bid*)) 250 mg PO BID [facility] Last Admin: 03/13/17 17:11 Dose: 250 mg Divalproex Sodium (Depakote Dr(*Bid*)) 125 mg PO DAILY@1700 [facility] Last Admin: 03/13/17 17:11 Dose: 125 mg Donepezil HCl (Aricept) 5 mg PO HS [facility] Last Admin: 03/13/17 22:40 Dose: 5 mg Enalapril Maleate (Vasotec) 2.5 mg PO DAILY [facility] Last Admin: 02/05/17 08:56 Dose: 2.5 mg Multivitamins/Vitamin C 10 ml/ (Dextrose/Sodium Chloride) 510 mls @ 40 mls/hr IV .[id number] [facility] Magnesium Hydroxide (Milk Of Magnesia) 30 ml PO HS PRN PRN Reason: Constipation Last Admin: 02/12/17 17:47 Dose: 30 ml Memantine (Namenda) 5 mg PO DAILY [facility] Last Admin: 03/13/17 11:33 Dose: 5 mg Mirtazapine (Remeron) 15 mg PO HS [facility] Last Admin: 03/13/17 22:40 Dose: 15 mg Nitroglycerin (Nitrostat Sl Tab) 0.4 mg SL Q5M PRN PRN Reason: chest pain Ondansetron HCl (Zofran Inj) 4 mg IVP Q6 PRN PRN Reason: Nausea/Vomiting Pantoprazole Sodium (Protonix Ec Tab) 40 mg PO Q12 [facility] Last Admin: 03/13/17 22:40 Dose: 40 mg - Labs Labs: 03/10/17 02:38 03/12/17 06:30 PT 20.3 Seconds (9.8-13.1) H 02/12/17 09:25 INR 1.8 (0.9-1.2) H 02/12/17 09:25 APTT 34.1 Seconds (25.6-37.1) D 01/30/17 05:55 Assessment and Plan (1) Acute on chronic combined systolic and diastolic CHF (congestive heart failure) Assessment & Plan: Chronic A.fibrillation Elevated Troponine with Possible NSTEMI Vs due to Cardiomyopathy/CHF O2 via [place] ASA Serial trop and EKG Telemonitoring Continue BB/ACEI/Lasix/Spiranolactone Vanessa D/w Asw Specialist about Elevated Trop, and Possibility Underlying CAD, and will manage conservatively due to Poor General Condition Status: Acute (2) Mood disorder due to known physiological condition with depressive features , Dementia nt. Assessment and Plan: Depression with Psychotic Behaviour Dementia Continue Remeron/Depakote/Aricept (3) Social Hold due to a need for Placement Status: Acute
--- NOTE | 2017-03-14 01:15 | CP.PCM.PN ---
Subjective - Date & Time of Evaluation Date of Evaluation: 03/13/17 Time of Evaluation: 19:00 - Subjective Subjective: Poor PO intake, and very low calorie count. Currently on IVF. 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 Family declined to take him home. Continue to lose weight as he is refusing to eat. on and off drinking the supplements. Objective - Vital Signs/Intake and Output Vital Signs (last 24 hours): Temp Pulse Resp BP Pulse Ox 98.3 F 60 20 102/68 98 03/14/17 00:19 03/14/17 00:19 03/14/17 00:19 03/14/17 00:19 03/14/17 00:19 - Medications Medications: Current Medications Acetaminophen (Tylenol 325mg Tab) 650 mg PO Q4 PRN PRN Reason: Pain, Mild (1-3) Last Admin: 03/11/17 22:15 Dose: 650 mg Al Hydrox/Mg Hydrox/Simethicone (Maalox Plus 30 Ml) 30 ml PO Q4 PRN PRN Reason: Indigestion / Heartburn Last Admin: 02/23/17 16:51 Dose: 30 ml Carvedilol (Coreg) 3.125 mg PO Q12 [facility] Last Admin: 03/13/17 22:40 Dose: Not Given Divalproex Sodium (Depakote Dr(*Bid*)) 250 mg PO BID [facility] Last Admin: 03/13/17 17:11 Dose: 250 mg Divalproex Sodium (Depakote Dr(*Bid*)) 125 mg PO DAILY@1700 [facility] Last Admin: 03/13/17 17:11 Dose: 125 mg Donepezil HCl (Aricept) 5 mg PO HS [facility] Last Admin: 03/13/17 22:40 Dose: 5 mg Enalapril Maleate (Vasotec) 2.5 mg PO DAILY [facility] Last Admin: 02/05/17 08:56 Dose: 2.5 mg Multivitamins/Vitamin C 10 ml/ (Dextrose/Sodium Chloride) 510 mls @ 40 mls/hr IV .[id number] [facility] Magnesium Hydroxide (Milk Of Magnesia) 30 ml PO HS PRN PRN Reason: Constipation Last Admin: 02/12/17 17:47 Dose: 30 ml Memantine (Namenda) 5 mg PO DAILY [facility] Last Admin: 03/13/17 11:33 Dose: 5 mg Mirtazapine (Remeron) 15 mg PO HS [facility] Last Admin: 03/13/17 22:40 Dose: 15 mg Nitroglycerin (Nitrostat Sl Tab) 0.4 mg SL Q5M PRN PRN Reason: chest pain Ondansetron HCl (Zofran Inj) 4 mg IVP Q6 PRN PRN Reason: Nausea/Vomiting Pantoprazole Sodium (Protonix Ec Tab) 40 mg PO Q12 [facility] Last Admin: 03/13/17 22:40 Dose: 40 mg - Labs Labs: 03/10/17 02:38 03/12/17 06:30 PT 20.3 Seconds (9.8-13.1) H 02/12/17 09:25 INR 1.8 (0.9-1.2) H 02/12/17 09:25 APTT 34.1 Seconds (25.6-37.1) D 01/30/17 05:55 - Constitutional Appears: No Acute Distress, Cachectic, Chronically Ill - Head Exam Head Exam: ATRAUMATIC, NORMAL INSPECTION, NORMOCEPHALIC - Neck Exam Neck Exam: Full ROM, Normal Inspection - Respiratory Exam Respiratory Exam: Rales, NORMAL BREATHING PATTERN - Cardiovascular Exam Cardiovascular Exam: REGULAR RHYTHM, +S1, +S2 Additional comments: +Left sided AICD. - GI/Abdominal Exam GI & Abdominal Exam: Soft. absent: Tenderness - Neurological Exam Neurological Exam: Abnormal Gait, Alert, Awake Assessment and Plan (1) Acute on chronic combined systolic and diastolic CHF (congestive heart failure) Assessment & Plan: Chronic A.fibrillation Elevated Troponine with Possible NSTEMI Vs due to Cardiomyopathy/CHF O2 via [place] ASA Serial trop and EKG Telemonitoring Continue BB/ACEI/Lasix/Spiranolactone Vanessa D/w Instrumentation Controls Engineer about Elevated Trop, and Possibility Underlying CAD, and will manage conservatively due to Poor General Condition Status: Acute (2) Mood disorder due to known physiological condition with depressive features , Dementia nt. Assessment and Plan: Depression with Psychotic Behaviour Dementia Continue Remeron/Depakote/Aricept (3) Social Hold due to a need for Placement Status: Acute
[2017-03-14] MEDS: DEXTROSE IV SCH ×2 (06:07→17:02)
[2017-03-14] MEDS: [UNRECOGNIZED DRUG - OTHER] IV SCH ×2 (06:07→17:02)
[2017-03-14] MEDS: MULTIVITAMIN IV SCH ×2 (06:07→17:02)
[2017-03-14] MEDS: Divalproex 250 mg DR(BID formulation) PO SCH ×2 (08:54→17:01)
[2017-03-14] MEDS: Pantoprazole 40 mg EC Tab PO SCH (08:54)
[2017-03-14] MEDS: Divalproex 125 mg DR (BID formulation) PO SCH (17:01)
[2017-03-14] MEDS: Sodium Chloride 0.9% 1,000 ML IV SCH (20:36)
--- NOTE | 2017-03-14 20:55 | PN ---
DATE: SUBJECTIVE: The patient appears weak, in no apparent respiratory distress and no reported ventricular tachycardia. PHYSICAL EXAMINATION: VITAL SIGNS: His blood pressure is 97/64, heart rate 60, temperature 96, respirations 18. HEENT: Normocephalic. CHEST: Diminished breath sounds over the bases. HEART: S1, S2 regular. EXTREMITIES: 1+ arm edema. ASSESSMENT: 1. Dilated cardiomyopathy. 2. Anorexia. 3. Dehydration. 4. Congestive heart failure. 5. 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 6. Thrombocytopenia. RECOMMENDATIONS: Case was discussed with Dr. Patrick. The patient will be started normal saline 75 mL an hour beside his multivitamin, D5 normal saline at 45 mL an hour. Medications were withheld because of borderline hypotension. No feedback from the patient's daughter yet to discuss a DNR status. Luis August MD
--- NOTE | 2017-03-15 00:41 | CP.PCM.PN ---
Subjective - Date & Time of Evaluation Date of Evaluation: 03/14/17 Time of Evaluation: 17:15 - Subjective Subjective: Poor PO intake, and very low calorie count. Currently on IVF. 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 Family declined to take him home. Continue to lose weight as he is refusing to eat. on and off drinking the supplements. Objective - Vital Signs/Intake and Output Vital Signs (last 24 hours): Temp Pulse Resp BP Pulse Ox 97.6 F 60 16 105/66 95 03/15/17 00:29 03/15/17 00:29 03/15/17 00:29 03/15/17 00:29 03/15/17 00:29 - Medications Medications: Current Medications Carvedilol (Coreg) 3.125 mg PO Q12 [facility] Last Admin: 03/14/17 20:40 Dose: Not Given Divalproex Sodium (Depakote Dr(*Bid*)) 250 mg PO BID [facility] Last Admin: 03/14/17 17:01 Dose: Not Given Divalproex Sodium (Depakote Dr(*Bid*)) 125 mg PO DAILY@1700 [facility] Last Admin: 03/14/17 17:01 Dose: Not Given Enalapril Maleate (Vasotec) 2.5 mg PO DAILY [facility] Last Admin: 02/05/17 08:56 Dose: 2.5 mg Multivitamins/Vitamin C 10 ml/ (Dextrose/Sodium Chloride) 510 mls @ 40 mls/hr IV .[id number] [facility] Last Admin: 03/14/17 17:02 Dose: Not Given Sodium Chloride (Sodium Chloride 0.9%) 1,000 mls @ 75 mls/hr IV .[id number] [facility] Stop: 03/15/17 16:06 Last Admin: 03/14/17 20:36 Dose: 75 mls/hr - Labs Labs: 03/10/17 02:38 03/12/17 06:30 PT 20.3 Seconds (9.8-13.1) H 02/12/17 09:25 INR 1.8 (0.9-1.2) H 02/12/17 09:25 APTT 34.1 Seconds (25.6-37.1) D 01/30/17 05:55 Assessment and Plan (1) Acute on chronic combined systolic and diastolic CHF (congestive heart failure) Assessment & Plan: Chronic A.fibrillation Elevated Troponine with Possible NSTEMI Vs due to Cardiomyopathy/CHF O2 via [place] ASA Serial trop and EKG Telemonitoring Continue BB/ACEI/Lasix/Spiranolactone Vanessa D/w Canvas Goods Fabricator about Elevated Trop, and Possibility Underlying CAD, and will manage conservatively due to Poor General Condition Status: Acute (2) Mood disorder due to known physiological condition with depressive features , Dementia nt. Assessment and Plan: Depression with Psychotic Behaviour Dementia Continue Remeron/Depakote/Aricept Status: Acute
[2017-03-15] MEDS: [UNRECOGNIZED DRUG - OTHER] IV SCH ×2 (06:40→19:45)
[2017-03-15] MEDS: MULTIVITAMIN IV SCH ×2 (06:40→19:45)
[2017-03-15] MEDS: DEXTROSE IV SCH ×2 (06:40→19:45)
[2017-03-15] MEDS: Divalproex 250 mg DR(BID formulation) PO SCH ×2 (09:51→17:21)
--- NOTE | 2017-03-15 11:57 | CP.PCM.PN ---
Subjective - Date & Time of Evaluation Date of Evaluation: 03/15/17 Time of Evaluation: 11:15 - Subjective Subjective: Seen and examined at the bed side. Continue to have poor appetite. Multiple Ventricular arrhythmia.Abdominal pain.Running low BP. Poor prognosis Objective - Vital Signs/Intake and Output Vital Signs (last 24 hours): Temp Pulse Resp BP Pulse Ox 96.1 F L 60 18 94/50 L 100 03/15/17 08:00 03/15/17 09:51 03/15/17 08:00 03/15/17 09:51 03/15/17 08:00 Intake and Output: 03/15/17 03/15/17 06:59 18:59 Intake Total 950 Balance 950 - Medications Medications: Current Medications Divalproex Sodium (Depakote Dr(*Bid*)) 250 mg PO BID [facility] Last Admin: 03/15/17 09:51 Dose: Not Given Enalapril Maleate (Vasotec) 2.5 mg PO DAILY [facility] Last Admin: 02/05/17 08:56 Dose: 2.5 mg Multivitamins/Vitamin C 10 ml/ (Dextrose/Sodium Chloride) 510 mls @ 40 mls/hr IV .[id number] [facility] Last Admin: 03/15/17 06:40 Dose: Not Given Sodium Chloride (Sodium Chloride 0.9%) 1,000 mls @ 75 mls/hr IV .[id number] [facility] Stop: 03/15/17 16:06 Last Admin: 03/14/17 20:36 Dose: 75 mls/hr - Labs Labs: 03/10/17 02:38 03/12/17 06:30 PT 20.3 Seconds (9.8-13.1) H 02/12/17 09:25 INR 1.8 (0.9-1.2) H 02/12/17 09:25 APTT 34.1 Seconds (25.6-37.1) D 01/30/17 05:55 Assessment and Plan (1) Acute on chronic combined systolic and diastolic CHF (congestive heart failure) Assessment & Plan: Chronic A.fibrillation Elevated Troponine with Possible NSTEMI Vs due to Cardiomyopathy/CHF Anasarca O2 via [place] ASA Serial trop and EKG Telemonitoring Continue BB/ACEI/Lasix/Spiranolactone Vanessa D/w Leather Whitener about Elevated Trop, and Possibility Underlying CAD, and will manage conservatively due to Poor General Condition Status: Acute (2) Mood disorder due to known physiological condition with depressive features , Dementia nt. Assessment and Plan: Depression with Psychotic Behaviour Dementia Continue Remeron/Depakote/Aricept Status: Acute
[2017-03-15] MEDS ORDERED: Proshield Plus GEL TOP PRN (13:18)
[2017-03-15 13:57] LABS: PROTHROMBIN TIME 15.3 Seconds (9.8-13.1)
[2017-03-15 13:58] LABS: INR 1.4 (0.9-1.2)
[2017-03-15 14:01] LABS: BLOOD UREA NITROGEN 43 mg/dl (9-20); CALCIUM 9.1 mg/dL (8.4-10.2); GFR AFRICAN-AMERICAN > 60; GFR NON-AFRICAN AMERICAN > 60
[2017-03-15 14:35] LABS: HEMOGLOBIN 12.4 g/dL (12.0-18.0); MEAN CELL VOLUME 87.3 fl (80.0-94.0); MEAN CORPUSCULAR HGB CONC 30.9 g/dL (33.0-37.0); RBC 4.61 Mil/uL (4.40-5.90); RED CELL DISTRIBUTION WIDTH 19.7 % (11.5-14.5); WHITE BLOOD COUNT 5.3 K/uL (4.8-10.8)
[2017-03-15] MEDS ORDERED: ZINC OXIDE CREAM(BALMEX) TOP PRN (14:45)
--- NOTE | 2017-03-15 16:45 | CP.PCM.PN ---
Subjective - Date & Time of Evaluation Date of Evaluation: 03/15/17 Time of Evaluation: 16:44 - Subjective Subjective: no overnight events Objective - Vital Signs/Intake and Output Vital Signs (last 24 hours): Temp Pulse Resp BP Pulse Ox 97.3 F L 65 16 90/68 L 98 03/15/17 16:01 03/15/17 16:01 03/15/17 16:01 03/15/17 16:01 03/15/17 16:01 Intake and Output: 03/15/17 03/15/17 06:59 18:59 Intake Total 950 Balance 950 - Medications Medications: Current Medications Divalproex Sodium (Depakote Dr(*Bid*)) 250 mg PO BID [facility] Last Admin: 03/15/17 09:51 Dose: Not Given Enalapril Maleate (Vasotec) 2.5 mg PO DAILY [facility] Last Admin: 02/05/17 08:56 Dose: 2.5 mg Multivitamins/Vitamin C 10 ml/ (Dextrose/Sodium Chloride) 510 mls @ 40 mls/hr IV .[id number] [facility] Last Admin: 03/15/17 06:40 Dose: Not Given Petrolatum (Balmex 11.3%) 1 applic TOP DAILY PRN PRN Reason: MASD - Labs Labs: 03/15/17 12:55 03/15/17 12:55 PT 15.3 Seconds (9.8-13.1) H 03/15/17 12:55 INR 1.4 (0.9-1.2) H 03/15/17 12:55 APTT 34.1 Seconds (25.6-37.1) D 01/30/17 05:55 - Respiratory Exam Respiratory Exam: NORMAL BREATHING PATTERN - Cardiovascular Exam Cardiovascular Exam: REGULAR RHYTHM - GI/Abdominal Exam GI & Abdominal Exam: Soft, Normal Bowel Sounds Assessment and Plan - Assessment and Plan (Free Text) Assessment: 71 yo male with FTT will need consent from POA if we are to pursue peg will need cardiac clearance as well
[2017-03-16] MEDS: Sodium Chloride 0.9% 1,000 ML IV SCH (05:40)
--- NOTE | 2017-03-16 07:31 | PN ---
DATE: SUBJECTIVE: The patient is weak and no reported ventricular tachycardia. PHYSICAL EXAMINATION: VITAL SIGNS: Blood pressure 101/67. heart rate 60, temperature 96.2, respirations 18. HEENT: Normocephalic. CHEST: Diminished breath sounds over the bases. HEART: S1 and S2, regular. EXTREMITIES: A 1+ pitting edema. ASSESSMENT: 1. Dilated cardiomyopathy. 2. Anorexia. 3. Chronic atrial fibrillation. 4. Recurrent nonsustained ventricular tachycardia. 5. Depression. 6. Thrombocytopenia. RECOMMENDATIONS: Continue current normal saline infusion at 75 mL an hour and D5 normal saline with multivitamin at 40 mL an hour for as long as patient is not in volume overload. Luis August MD
[2017-03-16] MEDS: MULTIVITAMIN IV SCH ×2 (08:48→21:30)
[2017-03-16] MEDS: DEXTROSE IV SCH ×2 (08:48→21:30)
[2017-03-16] MEDS: [UNRECOGNIZED DRUG - OTHER] IV SCH ×2 (08:48→21:30)
[2017-03-16] MEDS: Divalproex 250 mg DR(BID formulation) PO SCH ×2 (08:48→16:35)
--- NOTE | 2017-03-16 08:53 | CP.PCM.PCO ---
Assessment & Plan - Assessment and Plan (Free Text) Assessment: pt. received in bed very lethargic, dyspneic, arousable to deep tactile stimuli ; b/l UE/ LE swelling oxygen saturation 80-88% on 2 L [place] Advance Directives discussed with KARLA Upton who wishes comfort care and DNR/ DNI Explained DNR/DNI at length to POA that in the event of cardiac or respiratory arrest, no chest compressions, assisted ventilations, intubation, defibrillation, or cardiotonic medications are to be initiated- POA agrees pt. placed on 100% NRB Hospice Evaluation Above discussed with who agrees with plan
--- NOTE | 2017-03-16 23:33 | PN ---
DATE: SUBJECTIVE: Patient is lethargic, has very poor oral intake, mildly congested. A DNR order was obtained from the family. PHYSICAL EXAMINATION: VITAL SIGNS: Blood pressure 81/49, heart rate 62, temperature 97.3, respirations 14. HEENT: No pallor or icterus. CHEST: Bilateral diffuse rhonchi. HEART: S1 and S2 regular. EXTREMITIES: 1+ arm edema. LABORATORY DATA: Yesterday's platelet count 70,000. Hemoglobin, hematocrit, white count, and platelet count, all within normal limit. Yesterday's potassium was 5.5. ASSESSMENT: 1. Dilated cardiomyopathy. 2. Chronic atrial fibrillation. 3. Thrombocytopenia. 4. Prerenal azotemia. 5. Hyperkalemia. 6. Depression. RECOMMENDATIONS: Continue current Depakote at 250 mg twice a day, D5 normal saline with multivitamin infusion. Overall, prognosis is grave. Luis August MD
[2017-03-17] MEDS: Divalproex 250 mg DR(BID formulation) PO SCH ×2 (08:02→16:29)
--- NOTE | 2017-03-17 10:46 | PN ---
DATE: FOLLOWUP SUBJECTIVE: The patient is still lethargic. He has very poor oral intake. He was evaluated by Hospice, but was not considered a candidate for hospice. No reported ventricular tachycardia this morning. PHYSICAL EXAMINATION: VITAL SIGNS: Blood pressure 101/72, heart rate 60, temperature 97.4, respirations 15. HEENT: Normocephalic. CHEST: Diminished breath sounds over the bases. HEART: S1 and S2 regular. EXTREMITIES: 1+ arm and leg edema. ASSESSMENT: 1. Hypotension. 2. Dilated cardiomyopathy. 3. Chronic atrial fibrillation. 4. Depression. 5. 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 6. Thrombocytopenia. RECOMMENDATIONS: Continue current D5 normal saline with multivitamin at 40 mL an hour. Continue current Depakote. The daughter may consent for gastrostomy feeding tube placement. Luis August MD
[2017-03-17] MEDS: [UNRECOGNIZED DRUG - OTHER] IV SCH (11:19)
[2017-03-17] MEDS: MULTIVITAMIN IV SCH (11:19)
[2017-03-17] MEDS: DEXTROSE IV SCH (11:19)
[2017-03-18] MEDS: DEXTROSE IV SCH ×2 (03:11→12:18)
[2017-03-18] MEDS: [UNRECOGNIZED DRUG - OTHER] IV SCH ×2 (03:11→12:18)
[2017-03-18] MEDS: MULTIVITAMIN IV SCH ×2 (03:11→12:18)
[2017-03-18] MEDS: Divalproex 250 mg DR(BID formulation) PO SCH ×2 (09:25→16:33)
--- NOTE | 2017-03-18 12:45 | PN ---
DATE: FOLLOWUP SUBJECTIVE: The patient is lethargic. No reported vomiting. PHYSICAL EXAMINATION: VITAL SIGNS: Blood pressure 101/63, heart rate 60, temperature 97.8, respirations 20. HEENT: Normocephalic. CHEST: Absent breath sounds over the bases. HEART: S1 and S2 regular. ABDOMEN: Distended with diminished bowel sounds. EXTREMITIES: 1+ pitting edema. ASSESSMENT: 1. Rule out ileus. 2. Dilated cardiomyopathy, status post implantable cardioverter-defibrillator placement. 3. Chronic atrial fibrillation. 4. Dehydration and prerenal azotemia. 5. Depression. RECOMMENDATIONS: Continue current Depakote 250 mg twice a day. I did order an abdomen and pelvic CT scan without either p.o. or IV contrast. Luis August MD
--- NOTE | 2017-03-18 20:00 | CT ---
EXAM: CT Abdomen and Pelvis Without Intravenous Contrast EXAM DATE/TIME: 03/18/2017 12:28 PM CLINICAL HISTORY: 71 years old, male; Pain; Abdominal pain; Generalized; Patient HX: Abd pain distention. Hypoxia. Thoracentesis multiple times; Additional info: Distension TECHNIQUE: Axial computed tomography images of the abdomen and pelvis without intravenous contrast. All CT scans at this facility use one or more dose reduction techniques, viz.: automated exposure control; ma/kV adjustment per patient size (including targeted exams where dose is matched to indication; i.e. head); or iterative reconstruction technique. Coronal and sagittal reformatted images were created and reviewed. COMPARISON: Prior CT abdomen and pelvis of 2016-12-17 FINDINGS: LIMITATIONS: Moderate streak/motion artifact. LOWER THORAX: Interval development of a cluster of small, ill-defined nodules in the right lung base anteriorly. Findings are most likely secondary to a mild infectious bronchiolitis/pneumonia. Bilateral pleural effusions again seen, moderate to large in size, enlarged in size compared to the prior CT. There is adjacent dense consolidation in the lung bases, most likely representing compressive atelectasis. Heart again appears markedly enlarged. Cardiac pacing device is in place. ABDOMEN: LIVER: No acute abnormality of the liver identified. GALLBLADDER AND BILE DUCTS: High density material seen throughout the gallbladder, most likely representing sludge. No radioopaque gallstones are seen. PANCREAS: No CT evidence of acute pancreatitis. SPLEEN: No acute abnormality of the spleen identified. ADRENALS: No acute abnormality of the adrenal glands identified. KIDNEYS AND URETERS: Indeterminate small hyperdense lesion again seen in the left kidney, image 119/series. This could represent a hyperdense cyst, but a solid lesion is not entirely excluded. Consider further evaluation with renal ultrasound or renal protocol CT or MRI, on a nonemergent basis. Low density lesions in the right kidney, most likely representing cysts. No acute abnormality of the kidneys identified. STOMACH AND BOWEL: Bowel is overall suboptimally evaluated due to motion artifact and unenhanced technique. There is no definite bowel obstruction or evidence of diffuse colitis/pancolitis. APPENDIX:Normal appendix is not seen, however, there are no significant inflammatory changes visualized in the expected location of the appendix to suggest appendicitis. Recommend clinical correlation. PELVIS: BLADDER: Moderate, diffuse thickening of the bladder wall again seen. REPRODUCTIVE: No acute abnormality of the reproductive organs is seen. ABDOMEN and PELVIS: INTRAPERITONEAL SPACE: Large amount of abdominal and pelvic ascites, increased in amount since the prior CT. No evidence of free air. BONES/JOINTS: No acute fractures or other acute bony abnormality noted. SOFT TISSUES: Marked, subcutaneous edema/anasarca, mildly worsened in degree since the prior CT. VASCULATURE: IVC filter in place. Atherosclerotic calcification. No evidence of abdominal aortic aneurysm. LYMPH NODES: No evidence of diffuse lymphadenopathy. IMPRESSION: - Large amount of free fluid, moderate to large bilateral pleural effusions, and diffuse anasarca. Findings appear worsened/increased compared to a prior CT of 12/17/2016. - Interval development of a cluster of small, ill-defined nodules in the right lung base anteriorly. Findings are most likely secondary to a mild infectious bronchiolitis/pneumonia. - Otherwise, no significant change is seen. - Cardiomegaly. - Bladder wall thickening. This is a nonspecific finding, but can be seen with cystitis. Recommend clinical correlation. - Incidental indeterminate hyperdense renal lesion. - See above for remaining findings.
--- NOTE | 2017-03-18 23:51 | CP.PCM.PN ---
Subjective - Date & Time of Evaluation Date of Evaluation: 03/16/17 Time of Evaluation: 22:15 - Subjective Subjective: Seen and examined at the bed side. Continue to have poor appetite. Multiple Ventricular arrhythmia.Abdominal pain.Running low BP. Poor prognosis Objective - Vital Signs/Intake and Output Vital Signs (last 24 hours): Temp Pulse Resp BP Pulse Ox 97.3 F L 68 22 98/63 L 99 03/18/17 19:39 03/18/17 19:39 03/18/17 19:39 03/18/17 19:39 03/18/17 19:39 Intake and Output: 03/18/17 03/19/17 18:59 06:59 Intake Total 1030 Output Total 2 Balance 1028 - Medications Medications: Current Medications Divalproex Sodium (Depakote Dr(*Bid*)) 250 mg PO BID [facility] Last Admin: 03/18/17 16:33 Dose: 250 mg Enalapril Maleate (Vasotec) 2.5 mg PO DAILY [facility] Last Admin: 02/05/17 08:56 Dose: 2.5 mg Multivitamins/Vitamin C 10 ml/ (Dextrose/Sodium Chloride) 510 mls @ 40 mls/hr IV .[id number] [facility] Last Admin: 03/18/17 12:18 Dose: 40 mls/hr Petrolatum (Balmex 11.3%) 1 applic TOP DAILY PRN PRN Reason: MASD - Labs Labs: 03/15/17 12:55 03/15/17 12:55 PT 15.3 Seconds (9.8-13.1) H 03/15/17 12:55 INR 1.4 (0.9-1.2) H 03/15/17 12:55 APTT 34.1 Seconds (25.6-37.1) D 01/30/17 05:55 Assessment and Plan (1) Acute on chronic combined systolic and diastolic CHF (congestive heart failure) Assessment & Plan: Chronic A.fibrillation Elevated Troponine with Possible NSTEMI Vs due to Cardiomyopathy/CHF Multiple NS-VT O2 via [place] ASA Telemonitoring Continue BB/ACEI/Lasix/Spiranolactone Vanessa D/w Environmental Health And Safety Leader about Elevated Trop, and Possibility Underlying CAD, and will manage conservatively due to Poor General Condition Status: Acute (2) Mood disorder due to known physiological condition with depressive features , Dementia nt. Assessment and Plan: Depression with Psychotic Behaviour Dementia Continue Remeron/Depakote/Aricept (3) Social Hold due to a need for Placement, & (4) DNR/DNI Status: Acute
--- NOTE | 2017-03-18 23:52 | CP.PCM.PN ---
Subjective - Date & Time of Evaluation Date of Evaluation: 03/28/17 Time of Evaluation: 17:35 - Subjective Subjective: Seen and examined at the bed side. Continue to have poor appetite. Multiple Ventricular arrhythmia.Abdominal pain.Running low BP. Poor prognosis Objective - Vital Signs/Intake and Output Vital Signs (last 24 hours): Temp Pulse Resp BP Pulse Ox 97.3 F L 68 22 98/63 L 99 03/18/17 19:39 03/18/17 19:39 03/18/17 19:39 03/18/17 19:39 03/18/17 19:39 Intake and Output: 03/18/17 03/19/17 18:59 06:59 Intake Total 1030 Output Total 2 Balance 1028 - Medications Medications: Current Medications Divalproex Sodium (Depakote Dr(*Bid*)) 250 mg PO BID [facility] Last Admin: 03/18/17 16:33 Dose: 250 mg Enalapril Maleate (Vasotec) 2.5 mg PO DAILY [facility] Last Admin: 02/05/17 08:56 Dose: 2.5 mg Multivitamins/Vitamin C 10 ml/ (Dextrose/Sodium Chloride) 510 mls @ 40 mls/hr IV .[id number] [facility] Last Admin: 03/18/17 12:18 Dose: 40 mls/hr Petrolatum (Balmex 11.3%) 1 applic TOP DAILY PRN PRN Reason: MASD - Labs Labs: 03/15/17 12:55 03/15/17 12:55 PT 15.3 Seconds (9.8-13.1) H 03/15/17 12:55 INR 1.4 (0.9-1.2) H 03/15/17 12:55 APTT 34.1 Seconds (25.6-37.1) D 01/30/17 05:55 Assessment and Plan (1) Acute on chronic combined systolic and diastolic CHF (congestive heart failure) Assessment & Plan: Chronic A.fibrillation Elevated Troponine with Possible NSTEMI Vs due to Cardiomyopathy/CHF Multiple NS-VT O2 via [place] ASA Telemonitoring Continue BB/ACEI/Lasix/Spiranolactone Vanessa D/w Environmental Engineering Manager about Elevated Trop, and Possibility Underlying CAD, and will manage conservatively due to Poor General Condition Status: Acute (2) Mood disorder due to known physiological condition with depressive features , Dementia nt. Assessment and Plan: Depression with Psychotic Behaviour Dementia Continue Remeron/Depakote/Aricept (3) Social Hold due to a need for Placement, & (4) DNR/DNI Status: Acute
--- NOTE | 2017-03-18 23:52 | CP.PCM.PN ---
Subjective - Date & Time of Evaluation Date of Evaluation: 03/17/17 Time of Evaluation: 22:25 - Subjective Subjective: Seen and examined at the bed side. Continue to have poor appetite. Multiple Ventricular arrhythmia.Abdominal pain.Running low BP. Poor prognosis Objective - Vital Signs/Intake and Output Vital Signs (last 24 hours): Temp Pulse Resp BP Pulse Ox 97.3 F L 68 22 98/63 L 99 03/18/17 19:39 03/18/17 19:39 03/18/17 19:39 03/18/17 19:39 03/18/17 19:39 Intake and Output: 03/18/17 03/19/17 18:59 06:59 Intake Total 1030 Output Total 2 Balance 1028 - Medications Medications: Current Medications Divalproex Sodium (Depakote Dr(*Bid*)) 250 mg PO BID [facility] Last Admin: 03/18/17 16:33 Dose: 250 mg Enalapril Maleate (Vasotec) 2.5 mg PO DAILY [facility] Last Admin: 02/05/17 08:56 Dose: 2.5 mg Multivitamins/Vitamin C 10 ml/ (Dextrose/Sodium Chloride) 510 mls @ 40 mls/hr IV .[id number] [facility] Last Admin: 03/18/17 12:18 Dose: 40 mls/hr Petrolatum (Balmex 11.3%) 1 applic TOP DAILY PRN PRN Reason: MASD - Labs Labs: 03/15/17 12:55 03/15/17 12:55 PT 15.3 Seconds (9.8-13.1) H 03/15/17 12:55 INR 1.4 (0.9-1.2) H 03/15/17 12:55 APTT 34.1 Seconds (25.6-37.1) D 01/30/17 05:55 Assessment and Plan (1) Acute on chronic combined systolic and diastolic CHF (congestive heart failure) Assessment & Plan: Chronic A.fibrillation Elevated Troponine with Possible NSTEMI Vs due to Cardiomyopathy/CHF Multiple NS-VT O2 via [place] ASA Telemonitoring Continue BB/ACEI/Lasix/Spiranolactone Vanessa D/w Power Plant Operator about Elevated Trop, and Possibility Underlying CAD, and will manage conservatively due to Poor General Condition Status: Acute (2) Mood disorder due to known physiological condition with depressive features , Dementia nt. Assessment and Plan: Depression with Psychotic Behaviour Dementia Continue Remeron/Depakote/Aricept (3) Social Hold due to a need for Placement, & (4) DNR/DNI Status: Acute
[2017-03-19] MEDS: Divalproex 250 mg DR(BID formulation) PO SCH ×2 (08:47→16:30)
--- NOTE | 2017-03-19 19:11 | PN ---
DATE: SUBJECTIVE: The patient is lethargic. He does not appear to be in acute respiratory distress. PHYSICAL EXAMINATION: VITAL SIGNS: Blood pressure 115/73, heart rate 68, temperature 97.4, respirations 20. HEENT: Significant temporal muscle wasting. NECK: No JVD. CHEST: Diminished breath sounds over the bases. HEART: S1, S2 regular. EXTREMITIES: 1+ arm and leg edema. LABORATORY DATA: Abdomen and pelvis CT scan without p.o. or IV contrast revealed large amount of free fluid, [id number] bilateral pleural effusion, and diffuse anasarca. Findings appeared worsening compared to prior CT scan in 12/2006. Interval development of cluster of small ill-defined nodules in the right lung base clearly. Findings are most likely secondary to mild infectious bronchiolitis/pneumonia, cardiomegaly, bladder wall thickening, nonspecific finding which can be seen with cystitis, recommend clinical correlation. ASSESSMENT: 1. Dilated cardiomyopathy. 2. Anasarca with [id number] pleural effusion and large ascites. 3. Chronic atrial fibrillation. 4. Depression. 5. Thrombocytopenia. 6. 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 RECOMMENDATIONS: Continue current Depakote. IV fluid and multivitamin are on hold. I will administer a dose of Lasix 20 mg IV push as a single dose. Overall prognosis is very poor. Luis August MD
[2017-03-20] MEDS: Divalproex 250 mg DR(BID formulation) PO SCH ×2 (08:30→16:49)
--- NOTE | 2017-03-20 18:40 | PN ---
DATE: SUBJECTIVE: Patient is lethargic, mildly tachypneic, in no acute distress. PHYSICAL EXAMINATION: VITAL SIGNS: Blood pressure 99/61, heart rate 60, temperature 98, respirations 20. HEENT: Normocephalic. CHEST: Significant intercostal muscle wasting and bilateral rhonchi. HEART: S1 and S2 regular. ABDOMEN: Moderate ascites. EXTREMITIES: 1+ pitting edema. ASSESSMENT: 1. Dilated cardiomyopathy. 2. Anasarca. 3. Depression. 4. Chronic atrial fibrillation. 5. Prerenal azotemia. 6. Right chronic common femoral vein deep venous thrombosis and history of inferior vena cava filter placement. 7. Thrombocytopenia. RECOMMENDATIONS: 1. Continue current Depakote. 2. Overall prognosis is grave. Luis August MD
--- NOTE | 2017-03-20 22:13 | CP.PCM.PN ---
Subjective - Date & Time of Evaluation Date of Evaluation: 03/19/17 Time of Evaluation: 17:10 - Subjective Subjective: Seen and examined at the bed side. Continue to have poor appetite. Multiple Ventricular arrhythmia.Abdominal pain.Running low BP. Poor prognosis Objective - Vital Signs/Intake and Output Vital Signs (last 24 hours): Temp Pulse Resp BP Pulse Ox 97.4 F L 63 20 104/59 L 95 03/20/17 19:32 03/20/17 19:32 03/20/17 19:32 03/20/17 19:32 03/20/17 19:32 - Medications Medications: Current Medications Divalproex Sodium (Depakote Dr(*Bid*)) 250 mg PO BID [facility] Last Admin: 03/20/17 16:49 Dose: 250 mg Enalapril Maleate (Vasotec) 2.5 mg PO DAILY [facility] Last Admin: 02/05/17 08:56 Dose: 2.5 mg Furosemide (Lasix) 20 mg PO DAILY [facility] Last Admin: 03/20/17 18:09 Dose: 20 mg Multivitamins/Vitamin C 10 ml/ (Dextrose/Sodium Chloride) 510 mls @ 40 mls/hr IV .[id number] [facility] Last Admin: 03/18/17 12:18 Dose: 40 mls/hr Petrolatum (Balmex 11.3%) 1 applic TOP DAILY PRN PRN Reason: MASD - Labs Labs: 03/15/17 12:55 03/15/17 12:55 PT 15.3 Seconds (9.8-13.1) H 03/15/17 12:55 INR 1.4 (0.9-1.2) H 03/15/17 12:55 APTT 34.1 Seconds (25.6-37.1) D 01/30/17 05:55 Assessment and Plan (1) Acute on chronic combined systolic and diastolic CHF (congestive heart failure) Assessment & Plan: Chronic A.fibrillation Elevated Troponine with Possible NSTEMI Vs due to Cardiomyopathy/CHF Multiple NS-VT O2 via [place] ASA Telemonitoring Continue BB/ACEI/Lasix/Spiranolactone Vanessa D/w Electromechanical Inspector about Elevated Trop, and Possibility Underlying CAD, and will manage conservatively due to Poor General Condition Status: Acute (2) Mood disorder due to known physiological condition with depressive features , Dementia nt. Assessment and Plan: Depression with Psychotic Behaviour Dementia Continue Remeron/Depakote/Aricept (3) Social Hold due to a need for Placement, & (4) DNR/DNI Status: Acute
--- NOTE | 2017-03-20 22:14 | CP.PCM.PN ---
Subjective - Date & Time of Evaluation Date of Evaluation: 03/20/17 Time of Evaluation: 17:00 - Subjective Subjective: Seen and examined at the bed side. Continue to have poor appetite. Multiple Ventricular arrhythmia.Abdominal pain.Running low BP. Poor prognosis Objective - Vital Signs/Intake and Output Vital Signs (last 24 hours): Temp Pulse Resp BP Pulse Ox 97.4 F L 63 20 104/59 L 95 03/20/17 19:32 03/20/17 19:32 03/20/17 19:32 03/20/17 19:32 03/20/17 19:32 - Medications Medications: Current Medications Divalproex Sodium (Depakote Dr(*Bid*)) 250 mg PO BID [facility] Last Admin: 03/20/17 16:49 Dose: 250 mg Enalapril Maleate (Vasotec) 2.5 mg PO DAILY [facility] Last Admin: 02/05/17 08:56 Dose: 2.5 mg Furosemide (Lasix) 20 mg PO DAILY [facility] Last Admin: 03/20/17 18:09 Dose: 20 mg Multivitamins/Vitamin C 10 ml/ (Dextrose/Sodium Chloride) 510 mls @ 40 mls/hr IV .[id number] [facility] Last Admin: 03/18/17 12:18 Dose: 40 mls/hr Petrolatum (Balmex 11.3%) 1 applic TOP DAILY PRN PRN Reason: MASD - Labs Labs: 03/15/17 12:55 03/15/17 12:55 PT 15.3 Seconds (9.8-13.1) H 03/15/17 12:55 INR 1.4 (0.9-1.2) H 03/15/17 12:55 APTT 34.1 Seconds (25.6-37.1) D 01/30/17 05:55 Assessment and Plan (1) Acute on chronic combined systolic and diastolic CHF (congestive heart failure) Assessment & Plan: Chronic A.fibrillation Elevated Troponine with Possible NSTEMI Vs due to Cardiomyopathy/CHF Multiple NS-VT O2 via [place] ASA Telemonitoring Continue BB/ACEI/Lasix/Spiranolactone Vanessa D/w Credit Checker about Elevated Trop, and Possibility Underlying CAD, and will manage conservatively due to Poor General Condition Status: Acute (2) Mood disorder due to known physiological condition with depressive features , Dementia nt. Assessment and Plan: Depression with Psychotic Behaviour Dementia Continue Remeron/Depakote/Aricept (3) Social Hold due to a need for Placement, & (4) DNR/DNI Status: Acute
[2017-03-21] MEDS: Divalproex 250 mg DR(BID formulation) PO SCH ×2 (08:28→16:46)
--- NOTE | 2017-03-21 13:24 | PN ---
DATE: SUBJECTIVE: The patient is currently lethargic, mildly tachypneic, does not appear to be in acute distress. PHYSICAL EXAMINATION: VITAL SIGNS: Blood pressure 100/60, heart rate 60, temperature 97.2, and respirations 18. HEENT: Temporal wasting. NECK: No JVD. CHEST: Intercostal muscle wasting with bilateral rhonchi. HEART: S1 and S2, regular. ABDOMEN: Moderate ascites. EXTREMITIES: A 1+ pitting edema. ASSESSMENT: 1. Dilated cardiomyopathy. 2. Chronic atrial fibrillation. 3. Anasarca. 4. Depression. 5. Thrombocytopenia. RECOMMENDATIONS: Lasix 20 mg p.o. was given today. Continue current Depakote. I will start Lasix at 20 mg intravenously daily, hold for systolic blood pressure below 110. Overall prognosis is grave. Luis August MD
--- NOTE | 2017-03-21 18:42 | CP.PCM.PN ---
Subjective - Date & Time of Evaluation Date of Evaluation: 03/21/17 Time of Evaluation: 18:20 - Subjective Subjective: Seen and examined at the bed side. Continue to have poor appetite. Multiple Ventricular arrhythmia. Generalized body swelling. Running low BP. Poor prognosis Objective - Vital Signs/Intake and Output Vital Signs (last 24 hours): Temp Pulse Resp BP Pulse Ox 98.3 F 60 14 97/62 L 97 03/21/17 16:16 03/21/17 16:16 03/21/17 16:16 03/21/17 16:16 03/21/17 16:16 - Medications Medications: Current Medications Divalproex Sodium (Depakote Dr(*Bid*)) 250 mg PO BID [facility] Last Admin: 03/21/17 16:46 Dose: 250 mg Enalapril Maleate (Vasotec) 2.5 mg PO DAILY [facility] Last Admin: 02/05/17 08:56 Dose: 2.5 mg Furosemide (Lasix) 20 mg PO DAILY [facility] Last Admin: 03/21/17 08:31 Dose: 20 mg Furosemide (Lasix) 20 mg IVP DAILY [facility] Multivitamins/Vitamin C 10 ml/ (Dextrose/Sodium Chloride) 510 mls @ 40 mls/hr IV .[id number] [facility] Last Admin: 03/18/17 12:18 Dose: 40 mls/hr Petrolatum (Balmex 11.3%) 1 applic TOP DAILY PRN PRN Reason: MASD - Labs Labs: 03/15/17 12:55 03/15/17 12:55 PT 15.3 Seconds (9.8-13.1) H 03/15/17 12:55 INR 1.4 (0.9-1.2) H 03/15/17 12:55 APTT 34.1 Seconds (25.6-37.1) D 01/30/17 05:55 Assessment and Plan (1) Acute on chronic combined systolic and diastolic CHF (congestive heart failure) Assessment & Plan: Chronic A.fibrillation Elevated Troponine with Possible NSTEMI Vs due to Cardiomyopathy/CHF Multiple NS-VT O2 via [place] ASA Telemonitoring Continue BB/ACEI/Lasix/Spiranolactone Vanessa D/w Executive Secretary about Elevated Trop, and Possibility Underlying CAD, and will manage conservatively due to Poor General Condition Status: Acute (2) Mood disorder due to known physiological condition with depressive features , Dementia nt. Assessment and Plan: Depression with Psychotic Behaviour Dementia Continue Remeron/Depakote/Aricept (3) Social Hold due to a need for Placement, & (4) DNR/DNI Status: Acute
[2017-03-22] MEDS: Divalproex 250 mg DR(BID formulation) PO SCH ×2 (08:58→16:59)
--- NOTE | 2017-03-22 14:13 | PQF GENQUE ---
This form is a permanent part of the medical record 03/22/17 Dr. Patrick, Would you please clarify if the NSTEMI is ruled in or ruled out. Documentation of elevated troponin with possible NSTEMI vs due to cardiomyopathy /CHF. Clarification of your documentation is requested to better reflect the severity of illness and intensity of treatment of your patient. Indicators present [] Specify: [] [] Specify: [] [] Specify: [] [] Specify: [] Location in the medical record that reflects the above clinical findings: [] Treatment Provided: [] PHYSICIAN'S RESPONSE Based on your medical judgment of the clinical indicators outlined above please clarify the following: [] Practitioner response [] If unable to determine, please check the box, sign and date. Present On Admission (POA) Indicator: [] Present at the time of admission [] Not present at the time of admission [] Clinically Undetermined In responding to this query, please exercise your independent professional judgment. The fact that a question is asked does not imply that any particular answer is desired or expected. Thank you for your clarification on this documentation. If you have any questions please call:extension [phone] * Thank you, Liset Camara RN [facility]
--- NOTE | 2017-03-22 19:19 | PN ---
DATE: SUBJECTIVE: The patient is more communicative today, he ate and takes his oral medications, for that reason I discontinued IV Lasix. PHYSICAL EXAMINATION: VITAL SIGNS: Blood pressure 98/64, heart rate 60, temperature 97.5, and respirations 20. HEENT: Normocephalic. CHEST: Diminished breath sounds over the bases. HEART: S1 and S2, regular. ABDOMEN: Soft. EXTREMITIES: A 1+ pitting edema. ASSESSMENT: 1. Dilated cardiomyopathy. 2. Status post implantable cardioverter defibrillator placement. 3. Chronic atrial fibrillation. 4. Anasarca. 5. Thrombocytopenia. RECOMMENDATIONS: Continue oral Lasix 20 mg once a day. Continue Depakote 250 mg twice a day. Overall prognosis is poor. Luis August MD
--- NOTE | 2017-03-22 19:23 | PN ---
DATE: SUBJECTIVE: The patient is more communicative today. He ate and takes his oral medications, for that reason I discontinued IV Lasix. PHYSICAL EXAMINATION: VITAL SIGNS: Blood pressure 98/64, heart rate 60, temperature 97.5, and respirations 20. HEENT: Normocephalic. CHEST: Diminished breath sounds over the bases. HEART: S1 and S2, regular. ABDOMEN: Soft. EXTREMITIES: A 1+ pitting edema. ASSESSMENT: 1. Dilated cardiomyopathy. 2. Status post implantable cardioverter defibrillator placement. 3. Chronic atrial fibrillation. 4. Anasarca. 5. Thrombocytopenia. RECOMMENDATIONS: Continue oral Lasix 20 mg once a day. Continue Depakote 250 mg twice a day. Overall prognosis is poor. Luis August MD
--- NOTE | 2017-03-22 23:06 | CP.PCM.PN ---
Subjective - Date & Time of Evaluation Date of Evaluation: 03/22/17 Time of Evaluation: 20:30 - Subjective Subjective: Seen and examined at the bed side. Continue to have poor appetite. Multiple Ventricular arrhythmia. Generalized body swelling. Running low BP. Poor prognosis Objective - Vital Signs/Intake and Output Vital Signs (last 24 hours): Temp Pulse Resp BP Pulse Ox 97.7 F 60 20 100/78 96 03/22/17 19:12 03/22/17 19:12 03/22/17 19:12 03/22/17 19:12 03/22/17 19:12 Intake and Output: 03/22/17 03/23/17 18:59 06:59 Intake Total 1000 Balance 1000 - Medications Medications: Current Medications Divalproex Sodium (Depakote Dr(*Bid*)) 250 mg PO BID [facility] Last Admin: 03/22/17 16:59 Dose: 250 mg Enalapril Maleate (Vasotec) 2.5 mg PO DAILY [facility] Last Admin: 02/05/17 08:56 Dose: 2.5 mg Furosemide (Lasix) 20 mg PO DAILY [facility] Last Admin: 03/22/17 08:59 Dose: 20 mg Multivitamins/Vitamin C 10 ml/ (Dextrose/Sodium Chloride) 510 mls @ 40 mls/hr IV .[id number] [facility] Last Admin: 03/18/17 12:18 Dose: 40 mls/hr Petrolatum (Balmex 11.3%) 1 applic TOP DAILY PRN PRN Reason: MASD - Labs Labs: 03/15/17 12:55 03/15/17 12:55 PT 15.3 Seconds (9.8-13.1) H 03/15/17 12:55 INR 1.4 (0.9-1.2) H 03/15/17 12:55 APTT 34.1 Seconds (25.6-37.1) D 01/30/17 05:55 Assessment and Plan (1) Acute on chronic combined systolic and diastolic CHF (congestive heart failure) Assessment & Plan: Chronic A.fibrillation Elevated Troponine with Possible NSTEMI Vs due to Cardiomyopathy/CHF Multiple NS-VT O2 via [place] ASA Telemonitoring Continue BB/ACEI/Lasix/Spiranolactone Vanessa D/w Underwriting Analyst about Elevated Trop, and Possibility Underlying CAD, and will manage conservatively due to Poor General Condition Status: Acute (2) Mood disorder due to known physiological condition with depressive features , Dementia nt. Assessment and Plan: Depression with Psychotic Behaviour Dementia Continue Remeron/Depakote/Aricept (3) Social Hold due to a need for Placement, & (4) DNR/DNI Status: Acute
[2017-03-23] MEDS: Divalproex 250 mg DR(BID formulation) PO SCH ×2 (09:00→16:20)
--- NOTE | 2017-03-23 15:44 | PN ---
DATE: SUBJECTIVE: The patient is slightly restless. Does not appear to be in respiratory distress. PHYSICAL EXAMINATION VITAL SIGNS: Blood pressure 94/64, heart rate 60, temperature 97.1, respirations 18. HEENT: Temporal wasting. NECK: No JVD. CHEST: Intercostal muscle wasting and bilateral rhonchi. HEART: S1 and S2 regular. EXTREMITIES: 1+ pitting edema. ASSESSMENT: 1. Dilated cardiomyopathy. 2. Chronic atrial fibrillation. 3. 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 4. Depression. 5. Anasarca. RECOMMENDATIONS: Continue current Depakote. Lasix today was withheld because of hypotension. Enalapril is still on hold because of hypotension. Luis August MD
[2017-03-24] MEDS: Divalproex 250 mg DR(BID formulation) PO SCH ×2 (09:36→16:04)
--- NOTE | 2017-03-24 12:45 | PN ---
DATE: SUBJECTIVE: The patient is lethargic. No reported ventricular tachycardia. He does not appear to be in acute distress. PHYSICAL EXAMINATION: VITAL SIGNS: Blood pressure 110/63, heart rate 61, temperature 96.9, respirations 20. HEENT: Significant temporal muscle wasting. NECK: No JVD. CHEST: Absent breath sounds over the bases. Intercostal muscle wasting. HEART: S1 and S2 regular. EXTREMITIES: 1+ pitting edema. ASSESSMENT: 1. Dilated cardiomyopathy, status post implantable cardioverter-defibrillator placement. 2. Chronic atrial fibrillation. 3. Prerenal azotemia. 4. Depression. 5. 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 6. Thrombocytopenia. RECOMMENDATIONS: Continue current Lasix 20 mg orally once a day, Depakote 250 mg twice a day. The patient can be transferred to Med-Surg floor from the cardiac point. Luis August MD
--- NOTE | 2017-03-24 12:54 | PQF GENQUE ---
This form is a permanent part of the medical record 03/24/17 Dr. Patrick, The shoe trimmer has the following documentation on 03/21/17: Re-assessed coccyx region; found stage 3 to left side, scant serosanguinous drainage, no odor, and assessed right side coccyx with unstagable pressure ulcer ; necrotic base, no drainage, no odor Would you please clarify if this patient has Ulcers. If yes please clarify the sites, stages and etiology. . Clarification of your documentation is requested to better reflect the severity of illness and intensity of treatment of your patient. Indicators present [] Specify: [] [] Specify: [] [] Specify: [] [] Specify: [] Location in the medical record that reflects the above clinical findings: [] Treatment Provided: [] PHYSICIAN'S RESPONSE Based on your medical judgment of the clinical indicators outlined above please clarify the following: [X] Practitioner response: Unstageable Coccygeal Pressure Ulcer [] If unable to determine, please check the box, sign and date. Present On Admission (POA) Indicator: [] Present at the time of admission [X] Not present at the time of admission [] Clinically Undetermined In responding to this query, please exercise your independent professional judgment. The fact that a question is asked does not imply that any particular answer is desired or expected. Thank you for your clarification on this documentation. If you have any questions please call:extension [phone] * Thank you, Liset Camara RN [facility]
--- NOTE | 2017-03-24 16:03 | CP.PCM.PN ---
Subjective - Date & Time of Evaluation Date of Evaluation: 03/23/17 Time of Evaluation: 12:00 - Subjective Subjective: Seen and examined at the bed side. Continue to have poor appetite. Multiple Ventricular arrhythmia. Generalized body swelling. Running low BP. Poor prognosis Objective - Vital Signs/Intake and Output Vital Signs (last 24 hours): Temp Pulse Resp BP Pulse Ox 97.9 F 60 20 101/64 92 L 03/24/17 15:55 03/24/17 15:55 03/24/17 15:55 03/24/17 15:55 03/24/17 15:55 - Medications Medications: Current Medications Divalproex Sodium (Depakote Dr(*Bid*)) 250 mg PO BID [facility] Last Admin: 03/24/17 09:36 Dose: 250 mg Enalapril Maleate (Vasotec) 2.5 mg PO DAILY [facility] Last Admin: 02/05/17 08:56 Dose: 2.5 mg Furosemide (Lasix) 20 mg PO DAILY [facility] Last Admin: 03/24/17 09:36 Dose: 20 mg Multivitamins/Vitamin C 10 ml/ (Dextrose/Sodium Chloride) 510 mls @ 40 mls/hr IV .[id number] [facility] Last Admin: 03/18/17 12:18 Dose: 40 mls/hr Petrolatum (Balmex 11.3%) 1 applic TOP DAILY PRN PRN Reason: MASD - Labs Labs: 03/15/17 12:55 03/15/17 12:55 PT 15.3 Seconds (9.8-13.1) H 03/15/17 12:55 INR 1.4 (0.9-1.2) H 03/15/17 12:55 APTT 34.1 Seconds (25.6-37.1) D 01/30/17 05:55 Assessment and Plan (1) Acute on chronic combined systolic and diastolic CHF (congestive heart failure) Assessment & Plan: Chronic A.fibrillation Elevated Troponine with Possible NSTEMI Vs due to Cardiomyopathy/CHF Multiple NS-VT O2 via [place] ASA Telemonitoring Continue BB/ACEI/Lasix/Spiranolactone Vanessa D/w Trim Stencil Maker about Elevated Trop, and Possibility Underlying CAD, and will manage conservatively due to Poor General Condition Status: Acute (2) Mood disorder due to known physiological condition with depressive features , Dementia nt. Assessment and Plan: Depression with Psychotic Behaviour Dementia Continue Remeron/Depakote/Aricept (3) Social Hold due to a need for Placement, & (4) DNR/DNI Status: Acute
--- NOTE | 2017-03-25 00:53 | CP.PCM.PN ---
Subjective - Date & Time of Evaluation Date of Evaluation: 03/24/17 Time of Evaluation: 17:00 - Subjective Subjective: Seen and examined at the bed side. Continue to have poor appetite. Multiple Ventricular arrhythmia. Generalized body swelling. Running low BP. Poor prognosis Objective - Vital Signs/Intake and Output Vital Signs (last 24 hours): Temp Pulse Resp BP Pulse Ox 97.9 F 72 16 101/61 95 03/25/17 00:22 03/25/17 00:22 03/25/17 00:22 03/25/17 00:22 03/25/17 00:22 - Medications Medications: Current Medications Divalproex Sodium (Depakote Dr(*Bid*)) 250 mg PO BID [facility] Last Admin: 03/24/17 16:04 Dose: 250 mg Enalapril Maleate (Vasotec) 2.5 mg PO DAILY [facility] Last Admin: 02/05/17 08:56 Dose: 2.5 mg Furosemide (Lasix) 20 mg PO DAILY [facility] Last Admin: 03/24/17 09:36 Dose: 20 mg Multivitamins/Vitamin C 10 ml/ (Dextrose/Sodium Chloride) 510 mls @ 40 mls/hr IV .[id number] [facility] Last Admin: 03/18/17 12:18 Dose: 40 mls/hr Petrolatum (Balmex 11.3%) 1 applic TOP DAILY PRN PRN Reason: MASD - Labs Labs: 03/15/17 12:55 03/15/17 12:55 PT 15.3 Seconds (9.8-13.1) H 03/15/17 12:55 INR 1.4 (0.9-1.2) H 03/15/17 12:55 APTT 34.1 Seconds (25.6-37.1) D 01/30/17 05:55 Assessment and Plan (1) Acute on chronic combined systolic and diastolic CHF (congestive heart failure) Assessment & Plan: Chronic A.fibrillation Elevated Troponine with Possible NSTEMI Vs due to Cardiomyopathy/CHF Multiple NS-VT O2 via [place] ASA Telemonitoring Continue BB/ACEI/Lasix/Spiranolactone Vanessa D/w Special Delivery Clerk about Elevated Trop, and Possibility Underlying CAD, and will manage conservatively due to Poor General Condition Status: Acute (2) Mood disorder due to known physiological condition with depressive features , Dementia nt. Assessment and Plan: Depression with Psychotic Behaviour Dementia Continue Remeron/Depakote/Aricept (3) Social Hold due to a need for Placement, & (4) DNR/DNI, Poor Prognosis, (5) Hypotension Status: Acute
[2017-03-25] MEDS: Divalproex 250 mg DR(BID formulation) PO SCH ×2 (08:53→16:27)
--- NOTE | 2017-03-25 14:11 | PN ---
DATE: FOLLOWUP SUBJECTIVE: The patient's birthday yesterday. He was said by his who came for the first time I recall myself. The patient is eating well. No reported ventricular tachycardia. He is confused. PHYSICAL EXAMINATION VITAL SIGNS: Blood pressure 106/64, heart rate 69, temperature 98.2, respirations 20. HEENT: Temporal wasting. NECK: Jugular venous distention noted. CHEST: Intercostal muscle wasting and diminished breath sounds over the bases. HEART: S1 and S2 regular. EXTREMITIES: 1+ pitting edema. ASSESSMENT: 1. Dilated cardiomyopathy. 2. Thrombocytopenia. 3. Depression. 4. Prerenal azotemia. 5. Chronic atrial fibrillation. RECOMMENDATIONS: Continue oral Lasix 20 mg once a day and Depakote 250 mg twice a day. The patient can be transferred to [address] [place] [address] from the cardiac point. Luis August MD
--- NOTE | 2017-03-25 20:46 | CP.PCM.PN ---
Subjective - Date & Time of Evaluation Date of Evaluation: 03/25/17 Time of Evaluation: 16:30 - Subjective Subjective: Seen and examined at the bed side. Continue to have poor appetite. Poor prognosis Objective - Vital Signs/Intake and Output Vital Signs (last 24 hours): Temp Pulse Resp BP Pulse Ox 98.2 F 58 L 18 98/60 L 95 03/25/17 20:02 03/25/17 20:02 03/25/17 20:02 03/25/17 20:02 03/25/17 20:02 - Medications Medications: Current Medications Divalproex Sodium (Depakote Dr(*Bid*)) 250 mg PO BID [facility] Last Admin: 03/25/17 16:27 Dose: 250 mg Enalapril Maleate (Vasotec) 2.5 mg PO DAILY [facility] Last Admin: 02/05/17 08:56 Dose: 2.5 mg Furosemide (Lasix) 20 mg PO DAILY [facility] Last Admin: 03/25/17 08:55 Dose: 20 mg Multivitamins/Vitamin C 10 ml/ (Dextrose/Sodium Chloride) 510 mls @ 40 mls/hr IV .[id number] [facility] Last Admin: 03/18/17 12:18 Dose: 40 mls/hr Petrolatum (Balmex 11.3%) 1 applic TOP DAILY PRN PRN Reason: MASD - Labs Labs: 03/15/17 12:55 03/15/17 12:55 PT 15.3 Seconds (9.8-13.1) H 03/15/17 12:55 INR 1.4 (0.9-1.2) H 03/15/17 12:55 APTT 34.1 Seconds (25.6-37.1) D 01/30/17 05:55 - Constitutional Appears: Cachectic - Head Exam Head Exam: ATRAUMATIC, NORMAL INSPECTION, NORMOCEPHALIC - Eye Exam Eye Exam: EOMI, Normal appearance, PERRL Pupil Exam: NORMAL ACCOMODATION, PERRL - ENT Exam ENT Exam: Mucous Membranes Moist, Normal Exam - Neck Exam Neck Exam: Full ROM, Normal Inspection. absent: Lymphadenopathy - Respiratory Exam Respiratory Exam: Clear to Ausculation Bilateral, NORMAL BREATHING PATTERN - Cardiovascular Exam Cardiovascular Exam: REGULAR RHYTHM, +S1, +S2. absent: Murmur - GI/Abdominal Exam GI & Abdominal Exam: Soft, Normal Bowel Sounds. absent: Tenderness - Extremities Exam Extremities Exam: Full ROM, Normal Capillary Refill, Normal Inspection. absent : Joint Swelling, Pedal Edema - Back Exam Back Exam: NORMAL INSPECTION - Neurological Exam Neurological Exam: Alert, Awake, CN II-XII Intact, Normal Gait, Oriented x3 - Psychiatric Exam Psychiatric exam: Normal Affect, Normal Mood - Skin Skin Exam: Dry, Intact, Normal Color, Warm Assessment and Plan (1) Acute on chronic combined systolic and diastolic CHF (congestive heart failure) Assessment & Plan: Chronic A.fibrillation Elevated Troponine with Possible NSTEMI Vs due to Cardiomyopathy/CHF Multiple NS-VT O2 via NC ASA Telemonitoring Continue BB/ACEI/Lasix/Spiranolactone Vanessa D/w Linseed Oil Order Filler about Elevated Trop, and Possibility Underlying CAD, and will manage conservatively due to Poor General Condition Status: Acute (2) Mood disorder due to known physiological condition with depressive features , Dementia nt. Assessment and Plan: Depression with Psychotic Behaviour Dementia Continue Remeron/Depakote/Aricept (3) Social Hold due to a need for Placement, & (4) Poor Prognosis, DNR/DNI, (5) Cachexia Status: Acute
[2017-03-25] MEDS ORDERED: Alum-Mag Hydrox-Simethicone Susp (30 mL) PO ONE (22:33)
[2017-03-26] MEDS: Divalproex 250 mg DR(BID formulation) PO SCH ×2 (09:01→17:01)
--- NOTE | 2017-03-26 16:44 | PN ---
DATE: SUBJECTIVE: The patient denies any chest pain. He does not appear to be in acute respiratory distress. PHYSICAL EXAMINATION: VITAL SIGNS: Blood pressure 102/58, heart rate 60, temperature 97.4, respirations 18. HEENT: Temporal wasting. NECK: Jugular venous distention as noted. CHEST: Significant intercostal muscle wasting and diminished breath sounds over the bases. HEART: S1, S2, regular. ABDOMEN: Moderate ascites. EXTREMITIES: 1+ pitting edema. ASSESSMENT: 1. Dilated cardiomyopathy. 2. Chronic atrial fibrillation. 3. Depression. 4. 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 5. Thrombocytopenia. RECOMMENDATIONS: Continue Lasix 20 mg once a day, Depakote 250 mg twice a day. Patient can be transferred to routine medical floor. Luis August MD
--- NOTE | 2017-03-26 21:44 | CP.PCM.PN ---
Subjective - Date & Time of Evaluation Date of Evaluation: 03/26/17 Time of Evaluation: 11:05 - Subjective Subjective: Seen and examined at the bed side. Continue to have poor appetite. Poor prognosis Objective - Vital Signs/Intake and Output Vital Signs (last 24 hours): Temp Pulse Resp BP Pulse Ox 97.7 F 62 18 106/66 99 03/26/17 19:56 03/26/17 20:50 03/26/17 20:50 03/26/17 20:50 03/26/17 20:50 - Medications Medications: Current Medications Divalproex Sodium (Depakote Dr(*Bid*)) 250 mg PO BID [facility] Last Admin: 03/26/17 17:01 Dose: 250 mg Enalapril Maleate (Vasotec) 2.5 mg PO DAILY [facility] Last Admin: 02/05/17 08:56 Dose: 2.5 mg Furosemide (Lasix) 20 mg PO DAILY [facility] Last Admin: 03/26/17 09:04 Dose: 20 mg Multivitamins/Vitamin C 10 ml/ (Dextrose/Sodium Chloride) 510 mls @ 40 mls/hr IV .[id number] [facility] Last Admin: 03/18/17 12:18 Dose: 40 mls/hr Petrolatum (Balmex 11.3%) 1 applic TOP DAILY PRN PRN Reason: MASD - Labs Labs: 03/15/17 12:55 03/15/17 12:55 PT 15.3 Seconds (9.8-13.1) H 03/15/17 12:55 INR 1.4 (0.9-1.2) H 03/15/17 12:55 APTT 34.1 Seconds (25.6-37.1) D 01/30/17 05:55 Assessment and Plan (1) Acute on chronic combined systolic and diastolic CHF (congestive heart failure) Assessment & Plan: Chronic A.fibrillation Elevated Troponine with Possible NSTEMI Vs due to Cardiomyopathy/CHF Multiple NS-VT O2 via NC ASA Telemonitoring Continue BB/ACEI/Lasix/Spiranolactone Vanessa D/w Sports Editor about Elevated Trop, and Possibility Underlying CAD, and will manage conservatively due to Poor General Condition Status: Acute (2) Mood disorder due to known physiological condition with depressive features , Dementia nt. Assessment and Plan: Depression with Psychotic Behaviour Dementia Continue Remeron/Depakote/Aricept (3) Social Hold due to a need for Placement, & (4) DNR/DNI Status: Acute
[2017-03-27 00:08] VITALS: RESP 20
[2017-03-27 01:35] LABS: BASO % 0.1 % (0.0-2.0); HEMOGLOBIN 11.2 g/dL (12.0-18.0); LYMPH # 0.1 K/uL (1.0-4.3); LYMPH % 1.4 % (20.0-40.0); MEAN CELL VOLUME 90.2 fl (80.0-94.0); MEAN CORPUSCULAR HEMOGLOBIN 27.7 pg (27.0-31.0); MEAN CORPUSCULAR HGB CONC 30.7 g/dL (33.0-37.0); MEAN PLATELET VOLUME 10.7 fl (7.2-11.7); MONO # 0.4 K/uL (0.0-0.8); MONO % 5.1 % (0.0-10.0); NEUT # 7.7 K/uL (1.8-7.0); NEUT % 93.4 % (50.0-75.0); NRBC % 0.2 % (0.0-0.0); RBC 4.05 Mil/uL (4.40-5.90); RED CELL DISTRIBUTION WIDTH 21.8 % (11.5-14.5); WHITE BLOOD COUNT 8.3 K/uL (4.8-10.8)
[2017-03-27 02:01] LABS: ALB/GLOB RATIO 0.8 (1.0-2.1); ALBUMIN 3.1 g/dL (3.5-5.0); ALT/SGPT 61 U/L (21-72); AST/SGOT 49 U/L (17-59); BLOOD UREA NITROGEN 53 mg/dl (9-20); CALCIUM 8.8 mg/dL (8.4-10.2); GFR AFRICAN-AMERICAN > 60; GFR NON-AFRICAN AMERICAN > 60; MAGNESIUM 2.5 MG/DL (1.6-2.3)
[2017-03-27 02:13] VITALS: O2SAT 98
[2017-03-27 03:46] LABS: LYMPHOCYTE 1 % (20-50); MONOCYTE 1 % (0-10); NEUTROPHIL 98 % (42-75); PLATELET ESTIMATE SLIGHTLY DECREASED (NORMAL); TOTAL CELLS COUNTED 100
[2017-03-27 03:47] LABS: ANISOCYTOSIS SLIGHT; OVALOCYTES SLIGHT; POIKILOCYTOSIS SLIGHT; TEARDROP CELLS SLIGHT
[2017-03-27 03:52] LABS: SCHISTOCYTES SLIGHT
[2017-03-27 03:53] LABS: SPHEROCYTES SLIGHT
[2017-03-27 03:55] LABS: PLATELET COUNT 107 K/uL (130-400)
--- NOTE | 2017-03-27 05:15 | CP.PCM.PRO ---
Pronouncement of Note - Clinical Findings Physical Exam: No Response Verbal/Painful Stimuli, Absent Peripheral Pulses{ Carotid & Femoral}, Absent Heart & Breath Sounds, No Pupillary Light Reflex, Absence of Vital Signs - Pronouncement Time Time of Pronouncement of : 05:05 - Notifications Pronouncement Notifications: Family Notified, Atending Notified Patch Machine Operator Notified: No - Autopsy Autopsy Requested: No - [place] [id number]
[2017-03-27 05:18] VITALS: BP 97/59; PULSE 59; TEMP 97.5
--- NOTE | 2017-03-27 10:19 | CP.PCM.DIS ---
Provider - Provider Date of Admission: 01/16/17 20:09 Attending physician: Wm Patrick MD Time Spent in preparation of Discharge (in minutes): 25 Diagnosis - Discharge Diagnosis (1) Acute on chronic combined systolic and diastolic CHF (congestive heart failure) Status: Acute Comment: Chronic A.fibrillation. Elevated Troponine with Possible NSTEMI Vs due to Cardiomyopathy/CHF. Multiple NS-VT. O2 via NC. ASA. Telemonitoring. Continue BB/ACEI/Lasix/Spiranolactone. Eliquist. D/w Information Systems Analyst about Elevated Trop, and Possibility Underlying CAD, and will manage conservatively due to Poor General Condition. Status: Acute. (2) Mood disorder due to known physiological condition with depressive features, Dementia nt. Assessment and Plan: Depression with Psychotic Behaviour. Dementia. Continue Remeron/ Depakote/Aricept. (3) Social Hold due to a need for Placement, &. (4) DNR/ DNIExpired Hospital Course - Lab Results Lab Results: Micro Results 02/20/17 03:06 Blood-Venous Blood Culture - Final NO GROWTH AFTER 5 DAYS 02/20/17 03:06 Blood-Venous Gram Stain - Final TEST NOT PERFORMED 02/20/17 19:42 Urine,Clean Catch Urine Culture - Final No Growth (<1,000 CFU/ML) Most Recent Lab Values WBC 8.3 K/uL (4.8-10.8) D 03/27/17 01:27 RBC 4.05 Mil/uL (4.40-5.90) L 03/27/17 01:27 Hgb 11.2 g/dL (12.0-18.0) L 03/27/17 01:27 Hct 36.5 % (35.0-51.0) 03/27/17 01:27 MCV 90.2 fl (80.0-94.0) D 03/27/17 01:27 MCH 27.7 pg (27.0-31.0) 03/27/17 01:27 MCHC 30.7 g/dL (33.0-37.0) L 03/27/17 01:27 RDW 21.8 % (11.5-14.5) H 03/27/17 01:27 Plt Count 107 K/uL (130-400) L D 03/27/17 01:27 MPV 10.7 fl (7.2-11.7) 03/27/17 01:27 Neut % (Auto) 93.4 % (50.0-75.0) H 03/27/17 01:27 Lymph % (Auto) 1.4 % (20.0-40.0) L 03/27/17 01:27 [place] % (Auto) 5.1 % (0.0-10.0) 03/27/17 01:27 Eos % (Auto) 0.0 % (0.0-4.0) 03/27/17 01:27 Baso % (Auto) 0.1 % (0.0-2.0) 03/27/17 01:27 Neut # 7.7 K/uL (1.8-7.0) H 03/27/17 01:27 Lymph # 0.1 K/uL (1.0-4.3) L 03/27/17 01:27 [place] # 0.4 K/uL (0.0-0.8) 03/27/17 01:27 Eos # 0.0 K/uL (0.0-0.7) 03/27/17 01:27 Baso # 0.0 K/uL (0.0-0.2) 03/27/17 01:27 Neutrophils % (Manual) 98 % (42-75) H 03/27/17 01:27 Band Neutrophils % 1 % (0-2) 03/08/17 05:45 Lymphocytes % (Manual) 1 % (20-50) L 03/27/17 01:27 Monocytes % (Manual) 1 % (0-10) 03/27/17 01:27 Eosinophils % (Manual) 1 % (0-7) 02/20/17 17:49 Basophils % (Manual) 1 % (0-2) 02/12/17 09:15 Platelet Estimate Slightly decreased (NORMAL) L 03/27/17 01:27 Large Platelets Present 03/08/17 05:45 Hypochromasia (manual) Slight 02/20/17 17:49 Poikilocytosis (manual Slight 03/27/17 01:27 Anisocytosis (manual) Slight 03/27/17 01:27 Spherocytes Slight 03/27/17 01:27 Target Cells Slight 02/20/17 17:49 Tear Drop Cells Slight 03/27/17 01:27 Ovalocytes Slight 03/27/17 01:27 Schistocytes Slight 03/27/17 01:27 PT 15.3 Seconds (9.8-13.1) H 03/15/17 12:55 INR 1.4 (0.9-1.2) H 03/15/17 12:55 APTT 34.1 Seconds (25.6-37.1) D 01/30/17 05:55 Sodium 147 mmol/l (132-148) 03/27/17 01:27 Potassium 5.7 MMOL/L (3.6-5.0) H 03/27/17 01:27 Chloride 96 mmol/L (98-107) L 03/27/17 01:27 Carbon Dioxide 40 mmol/L (22-30) H* 03/27/17 01:27 Anion Gap 17 (10-20) 03/27/17 01:27 BUN 53 mg/dl (9-20) H 03/27/17 01:27 Creatinine 0.9 mg/dl (0.8-1.5) 03/27/17 01:27 Est GFR ( Amer) > 60 03/27/17 01:27 Est GFR (Non-Af Amer) > 60 03/27/17 01:27 POC Glucose (mg/dL) 103 mg/dL (65-110) 02/20/17 07:39 Random Glucose 116 mg/dL (75-110) H 03/27/17 01:27 Lactic Acid 2.3 MMOL/L (0.7-2.1) H 02/20/17 17:49 Calcium 8.8 mg/dL (8.4-10.2) 03/27/17 01:27 Magnesium 2.5 MG/DL (1.6-2.3) H 03/27/17 01:27 Total Bilirubin 1.1 mg/dl (0.2-1.3) 03/27/17 01:27 AST 49 U/L (17-59) 03/27/17 01:27 ALT 61 U/L (21-72) 03/27/17 01:27 Alkaline Phosphatase 225 U/L (38-126) H D 03/27/17 01:27 Troponin I 0.1230 ng/mL (0.00-0.120) H* 02/21/17 04:20 NT-Pro-B Natriuret Pep 25263 pg/ml (0-900) H 02/20/17 17:49 Total Protein 7.0 G/DL (6.3-8.2) 03/27/17 01:27 Albumin 3.1 g/dL (3.5-5.0) L 03/27/17 01:27 Globulin 3.9 gm/dL (2.2-3.9) 03/27/17 01:27 Albumin/Globulin Ratio 0.8 (1.0-2.1) L 03/27/17 01:27 Amylase 91 U/L (30-110) 02/11/17 12:10 Lipase 138 U/L (23-300) 02/11/17 12:10 TSH 3rd Generation 1.90 mIU/ML (0.46-4.68) 02/21/17 04:20 - Hospital Course Hospital Course: A 72yoM with H/O multiple hospitalization for Schizoaffective Disorder and CHF/ Severe Cardiomyopathy with Multiple V-Tachycardia and Anasarca, and also has been refusing to eat and drink properly, and has become Cachectic. Also has been social hold as the family refused t take the patient home and unable to get a placemet. In the course of the hospital stay, the patient progressively declined and family decided to make him DNR/DNI, and considered to put him on inpatient Hospice. Then patient's Condition declined and has . Discharge Exam - Head Exam Head Exam: NORMAL INSPECTION Discharge Plan - Discharge Medications Prescriptions: Spironolactone [Aldactone] 12.5 mg PO DAILY #30 tab Carvedilol [Coreg] 6.25 mg PO Q12 #60 tab Apixaban [Eliquis] 2.5 mg PO BID #60 tab - Follow Up Plan Condition: Disposition: WITH WITHOUT AUTOPSY Instructions: Apixaban (By mouth), Heart Failure (DC), Heart Failure (GEN), Pacemaker (DC), Pacemaker (GEN), Pulmonary Edema (DC), Pulmonary Edema (GEN), Syncope (DC), Syncope (GEN), Pleural Effusion (DC), Suicide Prevention for Adults (DC), Suicide Prevention for Adults (GEN), Ascites (DC), Ascites (GEN), Hypertension (DC), Hypertension (GEN) Additional Instructions: polina August en keny semana...lunes 02/06... llamar a el doctor para confirmar polina Referrals: Luis August MD [Staff Provider] - Huy Keita MD [Staff Provider] - Wm Patrick MD [Staff Provider] -
--- NOTE | 2017-03-27 11:23 | RAD ---
HISTORY: Shortness of breath. COMPARISON: 02/20/2017. FINDINGS: LUNGS: Near complete opacification left amanda thorax suggests atelectasis Compressive atelectasis right lower lobe, right middle lobe PLEURA: Large right pleural effusion. CARDIOVASCULAR: No radiographic findings to suggest acute or significant cardiovascular disease. Position/ configuration of pacemaker device: Satisfactory. OSSEOUS STRUCTURES: No significant abnormalities. VISUALIZED UPPER ABDOMEN: Normal. OTHER FINDINGS: None. IMPRESSION: Atelectasis with volume loss left lung/ left amanda thorax. Large right pleural effusion, compressive atelectasis.
== END 2017-03-27 12:28 | DRG 292 ==
LOC: H.ER 19:59 → H.ERHOLD 20:09 → H.TEL 22:33 → H.MEDSURG1 01-26 01:13 → H.TEL 02-06 14:53 → H.MEDSURG1 02-09 14:32 → H.TEL 02-20 18:09
PROVIDERS: ADMIT Internal Medicine; ATTEND Internal Medicine
PROC: 0W993ZZ Drainage of Right Pleural Cavity, Percutaneous Approach (ICD-10-PCS; principal; 2017-01-17)
DX: I11.0 Hypertensive heart disease with heart failure (principal); I47.2 Ventricular tachycardia; L89.150 Pressure ulcer of sacral region, unstageable; D69.6 Thrombocytopenia, unspecified; E11.65 Type 2 diabetes mellitus with hyperglycemia; J90 Pleural effusion, not elsewhere classified; F32.3 Major depressive disorder, single episode, severe with psychotic features; I95.9 Hypotension, unspecified; E87.5 Hyperkalemia; F03.91 Unspecified dementia, unspecified severity, with behavioral disturbance; I82.511 Chronic embolism and thrombosis of right femoral vein; J98.11 Atelectasis; R18.8 Other ascites; Z68.1 Body mass index [BMI] 19.9 or less, adult; E86.0 Dehydration; I48.2 Chronic atrial fibrillation; I25.110 Atherosclerotic heart disease of native coronary artery with unstable angina pectoris; I42.0 Dilated cardiomyopathy; I50.43 Acute on chronic combined systolic (congestive) and diastolic (congestive) heart failure; Z79.01 Long term (current) use of anticoagulants; D64.9 Anemia, unspecified; E03.9 Hypothyroidism, unspecified; K21.9 Gastro-esophageal reflux disease without esophagitis; R09.02 Hypoxemia; R56.9 Unspecified convulsions; R62.7 Adult failure to thrive; R63.6 Underweight; Z51.5 Encounter for palliative care; Z66 Do not resuscitate; Z79.899 Other long term (current) drug therapy; Z87.891 Personal history of nicotine dependence; Z95.810 Presence of automatic (implantable) cardiac defibrillator; F41.9 Anxiety disorder, unspecified; R91.1 Solitary pulmonary nodule; R74.8 Abnormal levels of other serum enzymes; R07.9 Chest pain, unspecified; F39 Unspecified mood [affective] disorder